=== PATIENT | male | born 1950 | race Caucasian/White ===

== ENCOUNTER 2017-04-24 18:07 | Inpatient (IN) | payer MEDICARE, MEDICAID ==
--- NOTE | 2017-04-24 18:54 | EDM.PDOC ---
<Pj Marin - Last Filed: 04/24/17 18:54> ED HPI GENERAL MEDICAL PROBLEM - General Chief Complaint: Chest Pain Stated Complaint: CHEST PAIN Time Seen by Provider: 04/24/17 18:17 - History of Present Illness INITIAL COMMENTS - FREE TEXT/NARRATIVE: HISTORY AND PHYSICAL: History of present illness: This is a 67-year-old male with a known history of hypertension, hyperlipidemia presenting with a chief complaint of chest pain. Onset one week ago. Patient tells me since persistent since then. Patient was brought in via ambulance at the time of presentation to the ambulance patient was complaining of severe chest pain which did respond to nitroglycerin. Now the emergency department, the patient states that his chest pain is practically gone. Currently he has no complaints aside from shortness of breath. He denies any fevers chills nausea or vomiting. He has no other complaints. He has no numbness tingling. Review of systems: As per history of present illness and below otherwise all systems reviewed and negative. Past medical history: As per history of present illness and as reviewed below otherwise noncontributory. Surgical history: As per history of present illness and as reviewed below otherwise noncontributory. Social history: No reported history of drug or alcohol abuse. Family history: As per history of present illness and as reviewed below otherwise noncontributory. Physical exam: HEENT: Atraumatic, normocephalic, pupils reactive, negative for conjunctival pallor or scleral icterus, mucous membranes moist, throat clear, neck supple, nontender, trachea midline. Lungs: Clear to auscultation, breath sounds equal bilaterally, chest nontender. Heart: S1S2, regular, negative for clicks, rubs, or JVD. Abdomen: Soft, nondistended, nontender. Negative for masses or hepatosplenomegaly. Negative for costovertebral tenderness. Pelvis: Stable nontender. Genitourinary: Deferred. Rectal: Deferred. Extremities: Atraumatic, negative for cords or calf pain. Neurovascular unremarkable. Neuro: Awake, alert, oriented. Cranial nerves II through XII unremarkable. Cerebellum unremarkable. Motor and sensory unremarkable throughout. Exam nonfocal. Diagnostics: EKG CBC CMP troponin PT/INR chest x-ray Therapeutics: None Impression: [] Plan: Admit to observation on telemetry. ACS rule out. Middle Chest Pain Score (Numeric/FACES): 6 - Related Data Allergies Allergy/AdvReac Type Severity Reaction Status Date / Time No Known Allergies Allergy Verified 04/24/17 18:14 Home Meds: Home Meds Aspirin [Ecotrin] 325 mg PO DAILY 09/19/14 [History] Lisinopril 2.5 mg PO DAILY 09/19/14 [History] Metoprolol Succinate 25 mg PO DAILY 09/19/14 [History] Omeprazole 40 mg PO DAILY 09/19/14 [History] Rosuvastatin [Crestor] 5 mg PO ASDIRECTED 09/19/14 [History] cloNIDine [Catapres] 0 mg PO DAILY 09/19/14 [History] traZODone 150 mg PO BEDTIME 09/19/14 [History] buPROPion [Wellbutrin SR] 150 mg PO DAILY 02/21/16 [History] Cholecalciferol (Vitamin D3) [Vitamin D3] 2,000 units PO DAILY 04/24/17 [History ] Fluticasone/Vilanterol [Breo Ellipta 200-25 Mcg INH] 1 puff INH DAILY 04/24/17 [ History] Gabapentin [Neurontin] 300 mg PO BEDTIME 04/24/17 [History] Linaclotide [Linzess] 290 mcg PO DAILY 04/24/17 [History] QUEtiapine Fumarate [Seroquel Xr] 800 mg PO BEDTIME 04/24/17 [History] Past Medical History HEENT History: Reports: None Cardiovascular History: Reports: Aneurysm, High Cholesterol, Hypertension Other Cardiovascular History: aortic aneurysm Respiratory History: Reports: COPD Gastrointestinal History: Reports: None Genitourinary History: Reports: None Musculoskeletal History: Reports: Back Pain, Chronic Neurological History: Reports: None Psychiatric History: Reports: Depression Endocrine/Metabolic History: Reports: None Hematologic History: Reports: None Oncologic (Cancer) History: Reports: None Dermatologic History: Reports: None - Infectious Disease History Infectious Disease History: Reports: Chicken Pox - Past Surgical History Head Surgeries/Procedures: Reports: None HEENT Surgical History: Reports: Tonsillectomy Cardiovascular Surgical History: Reports: None Respiratory Surgical History: Reports: None GI Surgical History: Reports: Hernia, Abdominal Social & Family History - Family History Family Medical History: Noncontributory - Tobacco Use Smoking Status *Q: Former Smoker Years of Tobacco use: 46 Used Tobacco, but Quit: Yes Month Tobacco Last Used: "18 months ago" Second Hand Smoke Exposure: Yes - Caffeine Use Caffeine Use: Reports: Coffee Caffeine Use Comment: 3cups/day - Alcohol Use Days Per Week of Alcohol Use: 2 Number of Drinks Per Day: 3 Total Drinks Per Week: 6 - Recreational Drug Use Recreational Drug Use: No ED ROS GENERAL - Review of Systems Review Of Systems: See Below (See history of present illness) ED EXAM, GENERAL - Physical Exam Exam: See Below (see history of present illness) Course - Vital Signs Last Recorded V/S: Last Vital Signs Temp 97.8 F 04/24/17 18:08 Pulse 120 H 04/24/17 18:08 Resp 22 H 04/24/17 18:08 BP 144/85 H 04/24/17 18:08 Pulse Ox 93 L 04/24/17 18:08 - Orders/Labs/Meds Orders: Active Orders 24 hr Category Date Time Status EKG 12 Lead [EKG Documentation Completion] [RC] STAT Care 04/24/17 18:10 Active Chest 2V [CR] Stat Exams 04/24/17 18:14 Taken Labs: Laboratory Tests 04/24/17 04/24/17 04/24/17 Range/Units 18:40 18:40 18:40 WBC 19.02 H (4.0-11.0) K/uL RBC 4.41 L (4.50-5.90) M/uL Hgb 13.2 (13.0-17.0) g/dL Hct 39.2 (38.0-50.0) % MCV 88.9 (80.0-98.0) fL MCH 29.9 (27.0-32.0) pg MCHC 33.7 (31.0-37.0) g/dL RDW Std Deviation 42.3 (28.0-62.0) fl RDW Coeff of Flora 13 (11.0-15.0) % Plt Count 402 H (150-400) K/uL MPV 9.10 (7.40-12.00) fL Add Manual Diff YES Neutrophils % (Manual) 80 (48.0-80.0) % Lymphocytes % (Manual) 9 L (16.0-40.0) % Monocytes % (Manual) 10 (0.0-15.0) % Metamyelocytes % 1 % Nucleated RBC % 0.0 /100WBC Absolute Seg Neuts 15.2 Lymphocytes # (Manual) 1.7 Monocytes # (Manual) 1.9 Absolute Metamyelocyte 0.2 Nucleated RBCs # 0 K/uL INR 1.05 (0.86-1.11) Sodium 137 (136-146) mmol/L Potassium 4.0 (3.5-5.1) mmol/L Chloride 101 (98-110) mmol/L Carbon Dioxide 26 (21-31) mmol/L BUN 18 (6.0-23.0) mg/dL Creatinine 0.9 (0.6-1.5) mg/dL Est Cr Clr Drug Dosing TNP Estimated GFR (MDRD) > 60.0 ml/min Glucose 142 H (60-110) mg/dL Calcium 9.9 (8.8-10.8) mg/dL Total Bilirubin 0.5 (0.1-1.5) mg/dL AST 36 (5-40) IU/L ALT 41 (8-54) IU/L Alkaline Phosphatase 219 H (40-150) Troponin I (0.0-0.29) NG/ML Total Protein 6.8 (6.0-8.0) g/dL Albumin 3.7 (3.4-4.8) g/dL Globulin 3.1 (2.0-3.5) g/dL Albumin/Globulin Ratio 1.2 L (1.3-2.8) Lipase 72 (7-80) U/L 04/24/ Range/Units 18:40 WBC (4.0-11.0) K/uL RBC (4.50-5.90) M/uL Hgb (13.0-17.0) g/dL Hct (38.0-50.0) % MCV (80.0-98.0) fL MCH (27.0-32.0) pg MCHC (31.0-37.0) g/dL RDW Std Deviation (28.0-62.0) fl RDW Coeff of Flora (11.0-15.0) % Plt Count (150-400) K/uL MPV (7.40-12.00) fL Add Manual Diff Neutrophils % (Manual) (48.0-80.0) % Lymphocytes % (Manual) (16.0-40.0) % Monocytes % (Manual) (0.0-15.0) % Metamyelocytes % % Nucleated RBC % /100WBC Absolute Seg Neuts Lymphocytes # (Manual) Monocytes # (Manual) Absolute Metamyelocyte Nucleated RBCs # K/uL INR (0.86-1.11) Sodium (136-146) mmol/L Potassium (3.5-5.1) mmol/L Chloride (98-110) mmol/L Carbon Dioxide (21-31) mmol/L BUN (6.0-23.0) mg/dL Creatinine (0.6-1.5) mg/dL Est Cr Clr Drug Dosing Estimated GFR (MDRD) ml/min Glucose (60-110) mg/dL Calcium (8.8-10.8) mg/dL Total Bilirubin (0.1-1.5) mg/dL AST (5-40) IU/L ALT (8-54) IU/L Alkaline Phosphatase (40-150) Troponin I < 0.10 (0.0-0.29) NG/ML Total Protein (6.0-8.0) g/dL Albumin (3.4-4.8) g/dL Globulin (2.0-3.5) g/dL Albumin/Globulin Ratio (1.3-2.8) Lipase (7-80) U/L Departure - Departure Disposition: Admitted As Inpatient 64 Clinical Impression: Chest pain, Pneumonia Referrals: PCP,Unknown [Primary Care Provider] - Forms: ED Department Discharge <Chris Momin - Last Filed: 04/24/17 19:39> Course - Re-Assessments/Exams Free Text/Narrative Re-Assessment/Exam: 04/24/17 19:28 I received a verbal report on this patient from Dr Renner at 1905. Patient reports 2 weeks of fever, feeling febrile, cough and dyspnea. He has a known history of copd. about 18 months ago he quit alcohol and smoking. Exam: alert normal speech lungs: faint bilateral rhonchi abdomen non tender ankles no edema CXR: RUL infiltrate leukocytosis noted EKG: sinus tachycardia; non specific ST changes A: pneumonia history of copd sinus tachycardia P: admit to observation see orders. Chris Momin MD Departure - Departure Time of Disposition: 19:39 Condition: Fair
[2017-04-24 19:12] LABS: CHLORIDE,CL 101 mmol/L (98-110); SODIUM,NA 137 mmol/L (136-146)
[2017-04-24] MEDS ORDERED: Ondansetron 4 MG Tab.DIS PO PRN (19:32)
[2017-04-24] MEDS ORDERED: Non-Formulary Medication 1 Each (Rosuvastatin [Crestor] 5 MG) PO SCH (19:45)
[2017-04-24] MEDS: Levofloxacin/Dextrose 5%-Water 750 MG in Premix Bag 1 BAG IV SCH (20:11)
[2017-04-24] MEDS ORDERED: Non-Formulary Medication 1 Each (Trazodone [Trazodone] 150 MG) PO SCH (21:00)
[2017-04-24] MEDS ORDERED: QUETIAPINE FUMARATE 800 MG PO SCH (21:00)
[2017-04-24] MEDS: Albuterol/Ipratropium 3.0-0.5 MG/3 ML Neb Soln NEB SCH ×2 (21:17→23:14)
[2017-04-24] MEDS: HYDROmorphone 1 MG/ML Syringe IVPUSH PRN (21:36)
[2017-04-24] MEDS: Gabapentin 300 MG Cap PO SCH (21:39)
[2017-04-24] MEDS: Sodium Chloride 0.9% 1,000 ML IV SCH (21:39)
[2017-04-24] MEDS ORDERED: QUETIAPINE 400 MG PO SCH (22:11)
[2017-04-24] MEDS ORDERED: TRAZODONE 150 MG PO SCH (22:25)
[2017-04-24] MEDS ORDERED: Pneumococcal Polyvalent-23 Vaccine 0.5 ML SDV IM ONE (22:26)
[2017-04-24] MEDS ORDERED: Flu Vaccine 2016-17(36Mos+)/PF 60 MCG/0.5 ML Syringe IM ONE (22:26)
[2017-04-24] MEDS ORDERED: ROSUVASTATIN 5 MG PO SCH (22:30)
[2017-04-24] MEDS: TRAZODONE 150 MG PO SCH (23:03)
[2017-04-24] MEDS: QUETIAPINE 400 MG PO SCH (23:04)
[2017-04-25] MEDS: Albuterol/Ipratropium 3.0-0.5 MG/3 ML Neb Soln NEB SCH ×3 (02:47→09:48)
[2017-04-25] MEDS: Sodium Chloride 0.9% 1,000 ML IV SCH ×3 (06:20→23:26)
[2017-04-25 08:05] LABS: CHLORIDE,CL 105 mmol/L (98-110); SODIUM,NA 137 mmol/L (136-146)
[2017-04-25] MEDS: HYDROmorphone 1 MG/ML Syringe IVPUSH PRN ×3 (08:13→20:10)
[2017-04-25] MEDS: Aspirin 325 MG Tab.EC PO SCH (08:16)
[2017-04-25] MEDS: Metoprolol Succinate 25 MG Tab.ER PO SCH (08:16)
[2017-04-25] MEDS: Omeprazole 20 MG Cap.CR PO SCH (08:17)
[2017-04-25] MEDS: cloNIDine 0.1 MG Tab PO SCH (08:18)
[2017-04-25] MEDS: LINZESS 290 MCG PO SCH (08:20)
[2017-04-25] MEDS: BREO ELLIPTA INH SCH (08:21)
[2017-04-25] MEDS ORDERED: buPROPion 150 MG Tab.SR PO SCH (09:00)
[2017-04-25] MEDS ORDERED: Lisinopril 5 MG Tab PO SCH (09:00)
[2017-04-25] MEDS ORDERED: Magnesium Sulfate/Water 2 GM in Premix Bag 1 BAG IV ONE (12:10)
[2017-04-25] MEDS ORDERED: Albuterol/Ipratropium 3.0-0.5 MG/3 ML Neb Soln NEB PRN (12:11)
--- NOTE | 2017-04-25 12:14 | PCM.HP ---
H&P History of Present Illness - History of Present Illness Initial Comments - Free Text/Narative: 67 yo male with pmh of COPD who presents with several day history of shortness of breath, productive cough, right pleuritic chest pain, myalgias, and fever. He was evaluated in the ED and noted to have a WBC of 19,020 and CXR with Right upper lung infiltrate. Middle Chest Pain Score (Numeric/FACES): 7 - Related Data Allergies/Adverse Reactions: Allergies Allergy/AdvReac Type Severity Reaction Status Date / Time No Known Allergies Allergy Verified 04/24/17 18:14 Home Medications: Home Meds Aspirin [Ecotrin] 325 mg PO DAILY 09/19/14 [History] Lisinopril 2.5 mg PO DAILY 09/19/14 [History] Metoprolol Succinate 25 mg PO DAILY 09/19/14 [History] Omeprazole 40 mg PO DAILY 09/19/14 [History] Rosuvastatin [Crestor] 5 mg PO ASDIRECTED 09/19/14 [History] cloNIDine [Catapres] 0 mg PO DAILY 09/19/14 [History] traZODone 150 mg PO BEDTIME 09/19/14 [History] buPROPion [Wellbutrin SR] 150 mg PO DAILY 02/21/16 [History] Cholecalciferol (Vitamin D3) [Vitamin D3] 2,000 units PO DAILY 04/24/17 [History ] Fluticasone/Vilanterol [Breo Ellipta 200-25 Mcg INH] 1 puff INH DAILY 04/24/17 [ History] Gabapentin [Neurontin] 300 mg PO BEDTIME 04/24/17 [History] Linaclotide [Linzess] 290 mcg PO DAILY 04/24/17 [History] QUEtiapine Fumarate [Seroquel Xr] 800 mg PO BEDTIME 04/24/17 [History] Past Medical History HEENT History: Reports: None Cardiovascular History: Reports: Aneurysm, High Cholesterol, Hypertension Other Cardiovascular History: aortic aneurysm Respiratory History: Reports: COPD Gastrointestinal History: Reports: None Genitourinary History: Reports: None Musculoskeletal History: Reports: Back Pain, Chronic Neurological History: Reports: None Psychiatric History: Reports: Depression Endocrine/Metabolic History: Reports: None Hematologic History: Reports: None Oncologic (Cancer) History: Reports: None Dermatologic History: Reports: None - Infectious Disease History Infectious Disease History: Reports: Chicken Pox - Past Surgical History Head Surgeries/Procedures: Reports: None HEENT Surgical History: Reports: Tonsillectomy Cardiovascular Surgical History: Reports: None Respiratory Surgical History: Reports: None GI Surgical History: Reports: Hernia, Abdominal Social & Family History - Family History Family Medical History: Noncontributory - Tobacco Use Smoking Status *Q: Former Smoker Years of Tobacco use: 46 Used Tobacco, but Quit: Yes Month Tobacco Last Used: 15 months ago Second Hand Smoke Exposure: No - Caffeine Use Caffeine Use: Reports: Coffee Caffeine Use Comment: 3cups/day - Alcohol Use Days Per Week of Alcohol Use: 2 Number of Drinks Per Day: 3 Total Drinks Per Week: 6 - Recreational Drug Use Recreational Drug Use: No H&P Review of Systems - Review of Systems: Review Of Systems: ROS reveals no pertinent complaints other than HPI. Exam - Exam Exam: See Below - Vital Signs Vital Signs: Last Vital Signs Temp 36.9 C 04/25/17 08:00 Pulse 74 04/25/17 08:16 Resp 22 H 04/25/17 08:00 BP 138/79 04/25/17 08:18 Pulse Ox 93 L 04/25/17 08:00 Weight: 82.4 kg - Exam General: Alert, Oriented, 4 Lungs: Clear to Auscultation, Normal Respiratory Effort Cardiovascular: Regular Rate, Regular Rhythm GI/Abdominal Exam: Normal Bowel Sounds, Soft, Non-Tender, No Organomegaly, No Distention, Pelvis Stable Extremities: Non-Tender, No Pedal Edema Skin: Warm, Dry, Intact - Patient Data Lab Results Last 24 hrs: Laboratory Results - last 24 hr 04/25/17 04/25/17 04/25/17 Range/Units 07:40 07:40 11:46 WBC 16.96 H (4.0-11.0) K/uL RBC 4.06 L (4.50-5.90) M/uL Hgb 12.0 L (13.0-17.0) g/dL Hct 36.4 L (38.0-50.0) % MCV 89.7 (80.0-98.0) fL MCH 29.6 (27.0-32.0) pg MCHC 33.0 (31.0-37.0) g/dL RDW Std Deviation 43.0 (28.0-62.0) fl RDW Coeff of Flora 13 (11.0-15.0) % Plt Count 365 (150-400) K/uL MPV 8.90 (7.40-12.00) fL Add Manual Diff YES Neutrophils % (Manual) 64 (48.0-80.0) % Band Neutrophils % 3 % Lymphocytes % (Manual) 19 (16.0-40.0) % Monocytes % (Manual) 13 (0.0-15.0) % Basophils % (Manual) 1 (0.0-1.5) % Nucleated RBC % 0.0 /100WBC Absolute Seg Neuts 10.9 Band Neutrophils # 0.5 Lymphocytes # (Manual) 3.2 Monocytes # (Manual) 2.2 Basophils # (Manual) 0 Nucleated RBCs # 0 K/uL Sodium 137 (136-146) mmol/L Potassium 4.0 (3.5-5.1) mmol/L Chloride 105 (98-110) mmol/L Carbon Dioxide 25 (21-31) mmol/L BUN 14 (6.0-23.0) mg/dL Creatinine 0.8 (0.6-1.5) mg/dL Est Cr Clr Drug Dosing 101.32 mL/min Estimated GFR (MDRD) > 60.0 ml/min Glucose 111 H (60-110) mg/dL Calcium 8.2 L (8.8-10.8) mg/dL Magnesium 1.4 L (1.5-2.3) mEq/L Total Bilirubin 0.5 (0.1-1.5) mg/dL AST 24 (5-40) IU/L ALT 34 (8-54) IU/L Alkaline Phosphatase 189 H (40-150) Troponin I < 0.10 (0.0-0.29) NG/ML Total Protein 5.1 L (6.0-8.0) g/dL Albumin 3.1 L (3.4-4.8) g/dL Globulin 2.0 (2.0-3.5) g/dL Albumin/Globulin Ratio 1.6 (1.3-2.8) Result Diagrams: 04/25/17 07:40 04/25/17 07:40 *Q Meaningful Use (ADM) - VTE *Q VTE Criteria *Q: - Stroke *Q Stroke Criteria *Q: - AMI *Q AMI Criteria *Q: Problem List Initiated/Reviewed/Updated: Yes Orders Last 24hrs: Active Orders 24 hr Category Date Time Status EKG Documentation Completion [RC] ROUTINE Care 04/25/17 08:59 Active Telemetry Monitoring [Cardiac Monitoring] [] . Care 04/25/17 02:30 Active DIRECTED Enoxaparin [Lovenox] [facility] 04/25/17 12:15 Ordered 40 mg SUBCUT Q24H HYDROmorphone [Dilaudid] Med 04/24/17 21:30 Active 1 mg IVPUSH Q2H PRN Magnesium Sulfate/Water [Magnesium Sulfate 2 GM in Med 04/25/17 12:10 Ordered Water 50 ML] 2 gm Premix Bag 1 bag IV ONETIME Patient's Own Medication [Ptom] Med 04/24/17 23:00 Active 0 each PO BEDTIME Patient's Own Medication [Ptom] Med 04/24/17 23:00 Active 0 each PO BEDTIME Patient's Own Medication [Ptom] Med 04/27/17 21:00 Active 0 each PO [id number]@2100 Medication Orders Acetaminophen (Tylenol) 650 mg PO Q4H PRN PRN Reason: Pain (Mild 1-3)/fever Albuterol/Ipratropium (Duoneb 3.0-0.5 Mg/3 Ml) 3 ml NEB Q4HRRT [facility] Last Admin: 04/25/17 09:48 Dose: Not Given Admin: 04/25/17 06:07 Dose: Not Given Admin: 04/25/17 02:47 Dose: Not Given Admin: 04/24/17 23:14 Dose: Admin: 04/24/17 21:17 Dose: 3 ml Aspirin (Ecotrin) 325 mg PO DAILY [facility] Last Admin: 04/25/17 08:16 Dose: 325 mg Bupropion HCl (Wellbutrin Sr) 150 mg PO DAILY [facility] Last Admin: 04/25/17 08:16 Dose: 150 mg Clonidine HCl (Catapres) 0.1 mg PO DAILY [facility] Last Admin: 04/25/17 08:18 Dose: 0.1 mg Enoxaparin Sodium (Lovenox) 40 mg SUBCUT Q24H [facility] Gabapentin (Neurontin) 300 mg PO BEDTIME [facility] Last Admin: 04/24/17 21:39 Dose: 300 mg Hydromorphone HCl (Dilaudid) 1 mg IVPUSH Q2H PRN PRN Reason: Pain Last Admin: 04/25/17 12:09 Dose: 1 mg Admin: 04/25/17 08:13 Dose: 1 mg Admin: 04/24/17 21:36 Dose: 1 mg Levofloxacin/Dextrose 750 mg/ (Premix) 150 mls @ 100 mls/hr IV Q24H RACHELL Last Admin: 04/24/17 20:11 Dose: 100 mls/hr Sodium Chloride (Normal Saline) 1,000 mls @ 125 mls/hr IV ASDIRECTED [facility] Last Admin: 04/25/17 06:20 Dose: 125 mls/hr Infusion: 04/25/17 05:39 Dose: 125 mls/hr Admin: 04/24/17 21:39 Dose: 125 mls/hr Lisinopril (Prinivil) 2.5 mg PO DAILY [facility] Last Admin: 04/25/17 08:18 Dose: 2.5 mg Metoprolol Succinate (Toprol Xl) 25 mg PO DAILY [facility] Last Admin: 04/25/17 08:16 Dose: 25 mg Omeprazole (Omeprazole) 40 mg PO DAILY [facility] Last Admin: 04/25/17 08:17 Dose: 40 mg Ondansetron HCl (Zofran Odt) 4 mg PO Q4H PRN PRN Reason: nausea, able to take PO Breo Ellipta 200/25 (Inhaler Own Med) 0 each INH DAILY [facility] Last Admin: 04/25/17 08:21 Dose: 1 each Linzess 290mcg Cap * (*Own Med) 0 each PO DAILY [facility] Last Admin: 04/25/17 08:20 Dose: 1 each Rosuvastatin 5mg Tab (Own Med) 0 each PO [id number]@2100 [facility] Trazodone 150mg Tab (Own Med) 0 each PO BEDTIME [facility] Last Admin: 04/24/17 23:03 Dose: 1 each Quetiapine 400mg Tab (Own Med) 0 each PO BEDTIME [facility] Last Admin: 04/24/17 23:04 Dose: 800 each Temazepam (Restoril) 15 mg PO BEDTIME PRN PRN Reason: Sleep Assessment/Plan Comment:: 67 yo male admitted with community acquired pneumonia. Treating with IV fluids and levaquin.
[2017-04-25] MEDS: Enoxaparin 40 MG/0.4 ML Syringe SUBCUT SCH (13:13)
[2017-04-25] MEDS: Levofloxacin/Dextrose 5%-Water 750 MG in Premix Bag 1 BAG IV SCH (20:10)
[2017-04-25] MEDS: TRAZODONE 150 MG PO SCH (21:32)
[2017-04-25] MEDS: QUETIAPINE 400 MG PO SCH (21:33)
[2017-04-25] MEDS: Gabapentin 300 MG Cap PO SCH (21:34)
[2017-04-25] MEDS: Temazepam 15 MG Cap PO PRN (21:38)
[2017-04-25] MEDS: buPROPion 150 MG Tab.SR PO SCH (22:54)
[2017-04-26] MEDS: Acetaminophen 325 MG Tab PO PRN ×3 (04:21→21:11)
[2017-04-26] MEDS: Sodium Chloride 0.9% 1,000 ML IV SCH ×2 (07:06→19:22)
[2017-04-26 07:56] LABS: CHLORIDE,CL 105 mmol/L (98-110); SODIUM,NA 136 mmol/L (136-146)
[2017-04-26] MEDS: BREO ELLIPTA INH SCH (08:40)
[2017-04-26] MEDS ORDERED: buPROPion 150 MG Tab.SR PO SCH (09:00)
--- NOTE | 2017-04-26 09:38 | PCM.PN ---
- Review of Systems Systems Review Comment:: Patient reports cough and malaise, minimal improvement - Patient Data Vitals - Most Recent: Last Vital Signs Temp 36.3 C 04/26/17 07:44 Pulse 117 H 04/26/17 07:44 Resp 20 04/26/17 07:44 BP 108/58 L 04/26/17 07:44 Pulse Ox 91 L 04/26/17 07:44 Weight - Most Recent: 82.4 kg I&O - Last 24 Hours: Intake & Output 04/25/17 04/26/17 04/26/17 22:59 06:59 14:59 Intake Total 1917 686 961 Output Total 500 455 Balance 1417 231 961 Lab Results Last 24 Hours: Laboratory Results - last 24 hr 04/25/17 04/26/17 04/26/17 Range/Units 11:46 04:21 04:21 WBC 17.54 H (4.0-11.0) K/uL RBC 3.79 L (4.50-5.90) M/uL Hgb 11.3 L (13.0-17.0) g/dL Hct 34.6 L (38.0-50.0) % MCV 91.3 (80.0-98.0) fL MCH 29.8 (27.0-32.0) pg MCHC 32.7 (31.0-37.0) g/dL RDW Std Deviation 44.5 (28.0-62.0) fl RDW Coeff of Flora 13 (11.0-15.0) % Plt Count 416 H (150-400) K/uL MPV 9.50 (7.40-12.00) fL Add Manual Diff YES Neutrophils % (Manual) 64 (48.0-80.0) % Band Neutrophils % 8 % Lymphocytes % (Manual) 12 L (16.0-40.0) % Monocytes % (Manual) 16 H (0.0-15.0) % Nucleated RBC % 0.0 /100WBC Absolute Seg Neuts 11.2 Band Neutrophils # 1.4 Lymphocytes # (Manual) 2.1 Monocytes # (Manual) 2.8 Nucleated RBCs # 0 K/uL Sodium 136 (136-146) mmol/L Potassium 4.2 (3.5-5.1) mmol/L Chloride 105 (98-110) mmol/L Carbon Dioxide 22 (21-31) mmol/L BUN 14 (6.0-23.0) mg/dL Creatinine 0.8 (0.6-1.5) mg/dL Est Cr Clr Drug Dosing 101.32 mL/min Estimated GFR (MDRD) > 60.0 ml/min Glucose 103 (60-110) mg/dL Calcium 7.8 L (8.8-10.8) mg/dL Troponin I < 0.10 (0.0-0.29) NG/ML Ramu Results Last 24 Hours: Microbiology 04/26/17 04:21 Anaerobic Blood Culture - Final Blood - Venous - Lab Draw Med Orders - Current: Current Medications Acetaminophen (Tylenol) 650 mg PO Q4H PRN PRN Reason: Pain (Mild 1-3)/fever Last Admin: 04/26/17 04:21 Dose: 650 mg Albuterol/Ipratropium (Duoneb 3.0-0.5 Mg/3 Ml) 3 ml NEB Q4HRRT PRN PRN Reason: Wheezing Aspirin (Ecotrin) 325 mg PO DAILY [facility] Last Admin: 04/25/17 08:16 Dose: 325 mg Bupropion HCl (Wellbutrin Sr) 150 mg PO BID [facility] Last Admin: 04/25/17 22:54 Dose: 150 mg Clonidine HCl (Catapres) 0.1 mg PO DAILY [facility] Last Admin: 04/25/17 08:18 Dose: 0.1 mg Enoxaparin Sodium (Lovenox) 40 mg SUBCUT Q24H [facility] Last Admin: 04/25/17 13:13 Dose: 40 mg Gabapentin (Neurontin) 300 mg PO BEDTIME [facility] Last Admin: 04/25/17 21:34 Dose: 300 mg Hydromorphone HCl (Dilaudid) 1 mg IVPUSH Q2H PRN PRN Reason: Pain Last Admin: 04/25/17 20:10 Dose: 1 mg Levofloxacin/Dextrose 750 mg/ (Premix) 150 mls @ 100 mls/hr IV Q24H [facility] Last Admin: 04/25/17 20:10 Dose: 100 mls/hr Sodium Chloride (Normal Saline) 1,000 mls @ 125 mls/hr IV ASDIRECTED [facility] Last Admin: 04/26/17 07:06 Dose: 125 mls/hr Losartan Potassium (Cozaar) 50 mg PO DAILY [facility] Metoprolol Succinate (Toprol Xl) 25 mg PO DAILY [facility] Last Admin: 04/25/17 08:16 Dose: 25 mg Omeprazole (Omeprazole) 40 mg PO DAILY [facility] Last Admin: 04/25/17 08:17 Dose: 40 mg Ondansetron HCl (Zofran Odt) 4 mg PO Q4H PRN PRN Reason: nausea, able to take PO Breo Ellipta 200/25 (Inhaler Own Med) 0 each INH DAILY [facility] Last Admin: 04/26/17 08:40 Dose: 1 each Linzess 290mcg Cap * (*Own Med) 0 each PO DAILY [facility] Last Admin: 04/25/17 08:20 Dose: 1 each Rosuvastatin 5mg Tab (Own Med) 0 each PO MoWeFr@2100 [facility] Trazodone 150mg Tab (Own Med) 0 each PO BEDTIME [facility] Last Admin: 04/25/17 21:32 Dose: 1 each Quetiapine 400mg Tab (Own Med) 0 each PO BEDTIME [facility] Last Admin: 04/25/17 21:33 Dose: 1 each Temazepam (Restoril) 15 mg PO BEDTIME PRN PRN Reason: Sleep Last Admin: 04/25/17 21:38 Dose: 15 mg Tramadol HCl (Ultram) 50 mg PO Q6H PRN PRN Reason: Pain Discontinued Medications Albuterol/Ipratropium (Duoneb 3.0-0.5 Mg/3 Ml) 3 ml NEB Q4HRRT [facility] Last Admin: 04/25/17 09:48 Dose: Not Given Bupropion HCl (Wellbutrin Sr) 150 mg PO DAILY [facility] Last Admin: 04/25/17 08:16 Dose: 150 mg Bupropion HCl (Wellbutrin Sr) 150 mg PO BID [facility] Magnesium Sulfate 2 gm/ Premix 50 mls @ 50 mls/hr IV ONETIME ONE Stop: 04/25/17 13:09 Last Admin: 04/25/17 13:08 Dose: 50 mls/hr Lisinopril (Prinivil) 2.5 mg PO DAILY [facility] Last Admin: 04/25/17 08:18 Dose: 2.5 mg Non-Formulary Medication (Quetiapine Fumarate [Seroquel Xr]) 800 mg PO BEDTIME [facility] Last Admin: 04/24/17 23:12 Dose: Not Given Non-Formulary Medication (Rosuvastatin [Crestor]) 5 mg PO ASDIRECTED [facility] Non-Formulary Medication (Trazodone [Trazodone]) 150 mg PO BEDTIME [facility] Last Admin: 04/24/17 23:13 Dose: Not Given Quetiapine 400mg Tab (Own Med) 0 each PO BEDTIME [facility] Rosuvastatin 5mg Tab (Own Med) 0 each PO MoWeFr@2100 [facility] Last Admin: 04/24/17 23:00 Dose: Not Given Trazodone 150mg Tab (Own Med) 0 each PO BEDTIME [facility] Pneumococcal Polyvalent Vaccine (Pneumovax 23) 0.5 ml IM .ONCE ONE Stop: 04/24/17 22:27 - Exam General: Alert, Oriented HEENT: Mucous Membr. Moist/[place] Lungs: Rhonchi Cardiovascular: Regular Rate, Regular Rhythm GI/Abdominal Exam: Normal Bowel Sounds, Soft, Non-Tender Extremities: Normal Inspection, Normal Range of Motion, Non-Tender, No Pedal Edema Skin: Warm, Dry, Intact - Problem List Review Problem List Initiated/Reviewed/Updated: Yes - My Orders Last 24 Hours: My Active Orders 04/25/17 08:59 EKG Documentation Completion [RC] ROUTINE 04/25/17 12:11 Albuterol/Ipratropium [DuoNeb 3.0-0.5 MG/3 ML] 3 ml NEB Q4HRRT PRN 04/25/17 12:15 Enoxaparin [Lovenox] 40 mg SUBCUT Q24H 04/25/17 22:00 buPROPion [Wellbutrin SR] 150 mg PO BID 04/26/17 04:04 Blood Culture x2 Reflex Set [OM.PC] Stat 04/26/17 04:21 CULTURE BLOOD [BC] Stat CULTURE BLOOD [BC] Stat 04/26/17 09:00 Losartan [Cozaar] 50 mg PO DAILY 04/26/17 09:32 traMADol [Ultram] 50 mg PO Q6H PRN 04/26/17 09:33 PE Chest [Ang Chest] [CT] Routine 04/26/17 09:34 Admission Status [Patient Status] [ADT] Routine 04/27/17 05:11 BASIC METABOLIC PANEL,BMP [CHEM] AM CBC WITH AUTO DIFF [HEME] AM 04/28/17 05:11 BASIC METABOLIC PANEL,BMP [CHEM] AM CBC WITH AUTO DIFF [HEME] AM 04/29/17 05:11 BASIC METABOLIC PANEL,BMP [CHEM] AM CBC WITH AUTO DIFF [HEME] AM 04/30/17 05:11 BASIC METABOLIC PANEL,BMP [CHEM] AM CBC WITH AUTO DIFF [HEME] AM 05/01/17 05:11 BASIC METABOLIC PANEL,BMP [CHEM] AM CBC WITH AUTO DIFF [HEME] AM 05/02/17 05:11 BASIC METABOLIC PANEL,BMP [CHEM] AM CBC WITH AUTO DIFF [HEME] AM - Plan Plan:: 67 yo male admitted with community acquired pneumonia. Treating with IV fluids and levaquin. fever last night. Symptoms slow to resolve. Will check CT angio to eval for complicating features. Will switch to inpatient status.
[2017-04-26] MEDS: Aspirin 325 MG Tab.EC PO SCH (09:39)
[2017-04-26] MEDS: cloNIDine 0.1 MG Tab PO SCH (09:40)
[2017-04-26] MEDS: Metoprolol Succinate 25 MG Tab.ER PO SCH (09:40)
[2017-04-26] MEDS: Omeprazole 20 MG Cap.CR PO SCH (09:40)
[2017-04-26] MEDS: Losartan 50 MG Tab PO SCH (09:41)
[2017-04-26] MEDS: buPROPion 150 MG Tab.SR PO SCH ×2 (09:43→21:11)
[2017-04-26] MEDS: LINZESS 290 MCG PO SCH (09:44)
[2017-04-26] MEDS ORDERED: Iopamidol 755 MG/ML 500 ML Multipack Bottle IVPUSH STA (09:50)
[2017-04-26] MEDS: Enoxaparin 40 MG/0.4 ML Syringe SUBCUT SCH (13:15)
[2017-04-26] MEDS: traMADol 50 MG Tab PO PRN ×2 (14:40→21:12)
[2017-04-26] MEDS: Levofloxacin/Dextrose 5%-Water 750 MG in Premix Bag 1 BAG IV SCH (19:22)
[2017-04-26] MEDS: Gabapentin 300 MG Cap PO SCH (21:08)
[2017-04-26] MEDS: QUETIAPINE 400 MG PO SCH (21:09)
[2017-04-26] MEDS: TRAZODONE 150 MG PO SCH (21:10)
[2017-04-26] MEDS: Temazepam 15 MG Cap PO PRN (21:12)
[2017-04-27] MEDS: Sodium Chloride 0.9% 1,000 ML IV SCH ×2 (04:59→14:33)
[2017-04-27 06:50] LABS: CHLORIDE,CL 107 mmol/L (98-110); SODIUM,NA 141 mmol/L (136-146)
--- NOTE | 2017-04-27 08:21 | PCM.PN ---
- General Info Date of Service: 04/27/17 Admission Dx/Problem (Free Text): Community acquired pneumonia Functional Status: Reports: Tolerating Diet, Ambulating, Urinating - Review of Systems General: Reports: Fever, Fatigue, Malaise. Denies: Weakness HEENT: Reports: No Symptoms. Denies: Headaches, Sinus Congestion, Sore Throat Pulmonary: Reports: Shortness of Breath, Cough Cardiovascular: Reports: No Symptoms. Denies: Chest Pain, Palpitations Gastrointestinal: Reports: No Symptoms. Denies: Abdominal Pain, Nausea, Vomiting Genitourinary: Reports: Retention (was able to urinate later this am. ) Musculoskeletal: Reports: No Symptoms. Denies: Neck Pain Psychiatric: Reports: Agitation (when he was having urinary retention) - Patient Data Vitals - Most Recent: Last Vital Signs Temp 99.5 F 04/27/17 04:00 Pulse 114 H 04/27/17 04:00 Resp 20 04/27/17 04:00 BP 123/67 04/27/17 04:00 Pulse Ox 95 04/27/17 04:00 Weight - Most Recent: 82.4 kg I&O - Last 24 Hours: Intake & Output 04/26/17 04/27/17 04/27/17 22:59 06:59 14:59 Intake Total 1749 1495 Output Total 550 550 Balance 1199 945 Lab Results Last 24 Hours: Laboratory Results - last 24 hr 04/27/17 04/27/17 Range/Units 06:15 06:15 WBC 17.65 H (4.0-11.0) K/uL RBC 3.99 L (4.50-5.90) M/uL Hgb 11.8 L (13.0-17.0) g/dL Hct 36.6 L (38.0-50.0) % MCV 91.7 (80.0-98.0) fL MCH 29.6 (27.0-32.0) pg MCHC 32.2 (31.0-37.0) g/dL RDW Std Deviation 45.5 (28.0-62.0) fl RDW Coeff of Flora 14 (11.0-15.0) % Plt Count 392 (150-400) K/uL MPV 9.70 (7.40-12.00) fL Add Manual Diff YES Neutrophils % (Manual) 79 (48.0-80.0) % Band Neutrophils % 6 % Lymphocytes % (Manual) 9 L (16.0-40.0) % Monocytes % (Manual) 6 (0.0-15.0) % Nucleated RBC % 0.0 /100WBC Absolute Seg Neuts 13.9 Band Neutrophils # 1.1 Lymphocytes # (Manual) 1.6 Monocytes # (Manual) 1.1 Nucleated RBCs # 0 K/uL Sodium 141 (136-146) mmol/L Potassium 4.1 (3.5-5.1) mmol/L Chloride 107 (98-110) mmol/L Carbon Dioxide 23 (21-31) mmol/L BUN 12 (6.0-23.0) mg/dL Creatinine 0.7 (0.6-1.5) mg/dL Est Cr Clr Drug Dosing 115.80 mL/min Estimated GFR (MDRD) > 60.0 ml/min Glucose 124 H (60-110) mg/dL Calcium 8.7 L (8.8-10.8) mg/dL Med Orders - Current: Current Medications Acetaminophen (Tylenol) 650 mg PO Q4H PRN PRN Reason: Pain (Mild 1-3)/fever Last Admin: 04/26/17 21:11 Dose: 650 mg Albuterol/Ipratropium (Duoneb 3.0-0.5 Mg/3 Ml) 3 ml NEB Q4HRRT PRN PRN Reason: Wheezing Aspirin (Ecotrin) 325 mg PO DAILY [facility] Last Admin: 04/26/17 09:39 Dose: 325 mg Bupropion HCl (Wellbutrin Sr) 150 mg PO BID [facility] Last Admin: 04/26/17 21:11 Dose: 150 mg Clonidine HCl (Catapres) 0.1 mg PO DAILY [facility] Last Admin: 04/26/17 09:40 Dose: 0.1 mg Enoxaparin Sodium (Lovenox) 40 mg SUBCUT Q24H [facility] Last Admin: 04/26/17 13:15 Dose: 40 mg Gabapentin (Neurontin) 300 mg PO BEDTIME [facility] Last Admin: 04/26/17 21:08 Dose: 300 mg Hydromorphone HCl (Dilaudid) 1 mg IVPUSH Q2H PRN PRN Reason: Pain Last Admin: 04/25/17 20:10 Dose: 1 mg Levofloxacin/Dextrose 750 mg/ (Premix) 150 mls @ 100 mls/hr IV Q24H [facility] Last Admin: 04/26/17 19:22 Dose: 100 mls/hr Sodium Chloride (Normal Saline) 1,000 mls @ 125 mls/hr IV ASDIRECTED [facility] Last Admin: 04/27/17 04:59 Dose: 125 mls/hr Losartan Potassium (Cozaar) 50 mg PO DAILY [facility] Last Admin: 04/26/17 09:41 Dose: 50 mg Metoprolol Succinate (Toprol Xl) 25 mg PO DAILY [facility] Last Admin: 04/26/17 09:40 Dose: 25 mg Omeprazole (Omeprazole) 40 mg PO DAILY [facility] Last Admin: 04/26/17 09:40 Dose: 40 mg Ondansetron HCl (Zofran Odt) 4 mg PO Q4H PRN PRN Reason: nausea, able to take PO Breo Ellipta 200/25 (Inhaler Own Med) 0 each INH DAILY [facility] Last Admin: 04/26/17 08:40 Dose: 1 each Linzess 290mcg Cap * (*Own Med) 0 each PO DAILY [facility] Last Admin: 04/26/17 09:44 Dose: 1 each Rosuvastatin 5mg Tab (Own Med) 0 each PO MoWeFr@2100 [facility] Trazodone 150mg Tab (Own Med) 0 each PO BEDTIME [facility] Last Admin: 04/26/17 21:10 Dose: 1 each Quetiapine 400mg Tab (Own Med) 0 each PO BEDTIME [facility] Last Admin: 04/26/17 21:09 Dose: 1 each Temazepam (Restoril) 15 mg PO BEDTIME PRN PRN Reason: Sleep Last Admin: 04/26/17 21:12 Dose: 15 mg Tramadol HCl (Ultram) 50 mg PO Q6H PRN PRN Reason: Pain Last Admin: 04/26/17 21:12 Dose: 50 mg Discontinued Medications Albuterol/Ipratropium (Duoneb 3.0-0.5 Mg/3 Ml) 3 ml NEB Q4HRRT [facility] Last Admin: 04/25/17 09:48 Dose: Not Given Bupropion HCl (Wellbutrin Sr) 150 mg PO DAILY [facility] Last Admin: 04/25/17 08:16 Dose: 150 mg Bupropion HCl (Wellbutrin Sr) 150 mg PO BID [facility] Magnesium Sulfate 2 gm/ Premix 50 mls @ 50 mls/hr IV ONETIME ONE Stop: 04/25/17 13:09 Last Admin: 04/25/17 13:08 Dose: 50 mls/hr Iopamidol (Isovue Multipack-370 (76%)) 100 ml IVPUSH ONETIME STA Stop: 04/26/17 09:51 Last Admin: 04/26/17 14:48 Dose: 50 ml Lisinopril (Prinivil) 2.5 mg PO DAILY [facility] Last Admin: 04/25/17 08:18 Dose: 2.5 mg Non-Formulary Medication (Quetiapine Fumarate [Seroquel Xr]) 800 mg PO BEDTIME [facility] Last Admin: 04/24/17 23:12 Dose: Not Given Non-Formulary Medication (Rosuvastatin [Crestor]) 5 mg PO ASDIRECTED [facility] Non-Formulary Medication (Trazodone [Trazodone]) 150 mg PO BEDTIME [facility] Last Admin: 04/24/17 23:13 Dose: Not Given Quetiapine 400mg Tab (Own Med) 0 each PO BEDTIME [facility] Rosuvastatin 5mg Tab (Own Med) 0 each PO MoWeFr@2100 [facility] Last Admin: 04/24/17 23:00 Dose: Not Given Trazodone 150mg Tab (Own Med) 0 each PO BEDTIME [facility] Pneumococcal Polyvalent Vaccine (Pneumovax 23) 0.5 ml IM .ONCE ONE Stop: 04/24/17 22:27 - Exam General: Alert, Oriented, Cooperative, No Acute Distress Lungs: Decreased Breath Sounds (R lung fileds. ), Rhonchi (R lung field). No: Wheezing Cardiovascular: Regular Rate, Regular Rhythm, No Murmurs GI/Abdominal Exam: Normal Bowel Sounds, Soft, Non-Tender, No Organomegaly, No Distention, No Abnormal Bruit, No Mass, Pelvis Stable Skin: Warm, Dry, Intact Neurological: No New Focal Deficit Psy/Mental Status: Alert, Normal Affect, Normal Mood - Problem List & Annotations (1) Pneumonia SNOMED Code(s): 945606042 Code(s): J18.9 - PNEUMONIA, UNSPECIFIED ORGANISM Status: Acute Current Visit: Yes Qualifiers: Laterality: right Lung location: lower lobe of lung (2) COPD (chronic obstructive pulmonary disease) SNOMED Code(s): 45280339 Code(s): J44.9 - CHRONIC OBSTRUCTIVE PULMONARY DISEASE, UNSPECIFIED Status : Chronic Current Visit: Yes Qualifiers: COPD type: COPD with acute lower respiratory infection Qualified Code(s): J44.0 - Chronic obstructive pulmonary disease with acute lower respiratory infection (3) Depression SNOMED Code(s): 87081298 Code(s): F32.9 - MAJOR DEPRESSIVE DISORDER, SINGLE EPISODE, UNSPECIFIED Status: Chronic Current Visit: Yes Qualifiers: Depression Type: unspecified Qualified Code(s): F32.9 - Major depressive disorder, single episode, unspecified (4) Aortic aneurysm SNOMED Code(s): 84208858 Code(s): I71.9 - AORTIC ANEURYSM OF UNSPECIFIED SITE, WITHOUT RUPTURE Status: Chronic Current Visit: Yes Qualifiers: Aortic location: thoracic aorta Presence of rupture: without rupture Qualified Code(s): I71.2 - Thoracic aortic aneurysm, without rupture (5) HTN (hypertension) SNOMED Code(s): 07416147 Code(s): I10 - ESSENTIAL (PRIMARY) HYPERTENSION Status: Chronic Current Visit: Yes Qualifiers: Hypertension type: essential hypertension Qualified Code(s): I10 - Essential (primary) hypertension - Problem List Review Problem List Initiated/Reviewed/Updated: Yes - My Orders Last 24 Hours: My Active Orders 04/27/17 08:14 CULTURE SPUTUM + SMEAR [RM] Routine - Plan Plan:: 67 yo male admitted with community acquired pneumonia. 1. CAP: Fevers continue, will repeat BC this am. COntinue with IV fluids and Levaquin, will add Vancomycin to cover for possible MRSA pneumonia. CT angio revealed consolidation to R Upper, middle and lower lobes. Leukocytosis remains 17,000. Symptoms slow to resolve. 2. Ascending aortic aneurysm: measuring [address] angio. Will obtain ECHO and plan for outpatient follow up with Dr. Cisneros. Will need close monitoring of this. 3. COPD: Monitor, Duonebs PRN 4. HTN: Continue Lisinopril and Metoprolol XL 5. Dyslipidemia: Continue Crestor 6. Depression: Continue home medications. VTE prophylaxis: Lovenox Dispo: 3-4 days pending improvement.
[2017-04-27] MEDS: Omeprazole 20 MG Cap.CR PO SCH (10:00)
[2017-04-27] MEDS: Aspirin 325 MG Tab.EC PO SCH (10:00)
[2017-04-27] MEDS: cloNIDine 0.1 MG Tab PO SCH (10:04)
[2017-04-27] MEDS: Metoprolol Succinate 25 MG Tab.ER PO SCH (10:04)
[2017-04-27] MEDS: Losartan 50 MG Tab PO SCH (10:04)
[2017-04-27] MEDS: buPROPion 150 MG Tab.SR PO SCH ×2 (10:05→20:53)
--- NOTE | 2017-04-27 10:19 | CR ---
EXAM DATE: 04/26/17 PATIENT'S AGE: 67 Patient: KACEY SANTIAGO Facility: [place], [place] Site . Site : 1950 Study: XRay Chest [id number]/25/[id number] 7:18:41 PM Ordering Physician: Doctor Kim Final Report: INDICATION: Shortness of breath and chest pain. History of COPD and heart disease TECHNIQUE: Chest 2 views. COMPARISON: 02/21/2016 FINDINGS: Cardiovascular and mediastinum: Heart size and vasculature are normal in caliber and appearance. Mediastinum is within normal limits. Lungs and pleural spaces: Right upper lobe infiltrate consistent with pneumonia. No sign of pleural effusion. No pneumothorax. Bones and soft tissues: No significant findings. IMPRESSION: Right upper lobe infiltrate consistent with pneumonia. Dictated by Phill Rodriguez MD @ 04/24/2017 7:37:18 PM Dictated by: Phill Rodriguez MD @ 04/24/2017 19:37:25 (Electronic Signature) Report Signed by Proxy. [facility]ITALJozef
[2017-04-27] MEDS: LINZESS 290 MCG PO SCH (10:29)
[2017-04-27] MEDS: BREO ELLIPTA INH SCH (10:29)
[2017-04-27] MEDS: Enoxaparin 40 MG/0.4 ML Syringe SUBCUT SCH (11:40)
--- NOTE | 2017-04-27 13:41 | CT ---
EXAM DATE: 04/26/17 PATIENT'S AGE: 67 Patient: KACEY SANTIAGO Facility: [place], [place] Site . Site : 1950 Study: CT Chest Angio [id number] 2:24:45 PM Ordering Physician: Liliane Perez Final Report: INDICATION: Chest pain and pneumonia. TECHNIQUE: CT chest pulmonary PE protocol acquired with IV contrast. COMPARISON: February 21, 2016. FINDINGS: CARDIOVASCULAR STRUCTURES: Normal vascular enhancement of the pulmonary arteries , no sign of pulmonary embolism. Heart size is normal. There is aneurysmal dilatation of the ascending aorta measuring 4.4 cm. MEDIASTINUM/LILY: No mass or adenopathy. Normal thyroid gland. LUNGS/PLEURA: There is a large dense airspace infiltrate in the right upper lobe. Smaller ill-defined infiltrates are present in the right lower and middle lobes. There is a trace right pleural effusion. CHEST WALL/AXILLA: No mass or adenopathy. UPPER ABDOMEN: Unremarkable. BONES: No significant findings. IMPRESSION: 1. No sign of pulmonary embolism. 2. Dense right upper lobe pneumonia. Smaller pneumonias are in the right lower and middle lobes. 3. Ascending aortic aneurysm measuring 4.4 cm. Dictated by Brandon Mcnulty MD @ 04/26/2017 3:14:45 PM Dictated by: Brandon Mcnulty MD @ 04/26/2017 15:14:53 (Electronic Signature) Report Signed by Proxy. [facility]
[2017-04-27] MEDS: Levofloxacin/Dextrose 5%-Water 750 MG in Premix Bag 1 BAG IV SCH (18:58)
[2017-04-27] MEDS: QUETIAPINE 400 MG PO SCH ×2 (20:23→20:55)
[2017-04-27] MEDS: Gabapentin 300 MG Cap PO SCH (20:53)
[2017-04-27] MEDS: TRAZODONE 150 MG PO SCH (20:54)
[2017-04-27] MEDS: ROSUVASTATIN 5 MG PO SCH (20:57)
[2017-04-28] MEDS: Sodium Chloride 0.9% 1,000 ML IV SCH ×2 (02:27→15:59)
[2017-04-28 07:23] LABS: CHLORIDE,CL 107 mmol/L (98-110); SODIUM,NA 142 mmol/L (136-146)
--- NOTE | 2017-04-28 08:19 | PCM.PN ---
- General Info Date of Service: 04/28/17 Admission Dx/Problem (Free Text): Community acquired pneumonia Subjective Update: Not feeling well this morning, continues to feel SOB. No chest pain or palpitations. Feeling anxious. Functional Status: Reports: Pain Controlled, Tolerating Diet, Urinating - Review of Systems General: Reports: No Symptoms. Denies: Fever HEENT: Denies: Headaches, Sore Throat Pulmonary: Reports: Shortness of Breath, Cough. Denies: Sputum, Hemoptysis Cardiovascular: Denies: Chest Pain, Palpitations Gastrointestinal: Reports: No Symptoms. Denies: Abdominal Pain, Nausea, Vomiting Genitourinary: Reports: No Symptoms. Denies: Dysuria, Frequency, Burning Skin: Reports: No Symptoms Neurological: Reports: No Symptoms Psychiatric: Reports: No Symptoms - Patient Data Vitals - Most Recent: Last Vital Signs Temp 99.3 F 04/28/17 04:00 Pulse 91 04/28/17 04:00 Resp 20 04/28/17 04:00 BP 134/77 04/28/17 04:00 Pulse Ox 94 L 04/28/17 04:00 Weight - Most Recent: 82.4 kg I&O - Last 24 Hours: Intake & Output 04/27/17 04/28/17 04/28/17 22:59 06:59 14:59 Intake Total 2790 1650 Output Total 1150 600 Balance 1640 1050 Lab Results Last 24 Hours: Laboratory Results - last 24 hr 04/28/17 04/28/17 Range/Units 06:38 06:38 WBC 14.28 H (4.0-11.0) K/uL RBC 3.69 L (4.50-5.90) M/uL Hgb 11.0 L (13.0-17.0) g/dL Hct 34.5 L (38.0-50.0) % MCV 93.5 (80.0-98.0) fL MCH 29.8 (27.0-32.0) pg MCHC 31.9 (31.0-37.0) g/dL RDW Std Deviation 43.9 (28.0-62.0) fl RDW Coeff of Flora 13 (11.0-15.0) % Plt Count 425 H (150-400) K/uL MPV 9.00 (7.40-12.00) fL Add Manual Diff YES Neutrophils % (Manual) 64 (48.0-80.0) % Band Neutrophils % 3 % Lymphocytes % (Manual) 21 (16.0-40.0) % Monocytes % (Manual) 10 (0.0-15.0) % Metamyelocytes % 2 % Absolute Seg Neuts 9.1 Band Neutrophils # 0.4 Lymphocytes # (Manual) 3.0 Monocytes # (Manual) 1.4 Absolute Metamyelocyte 0.3 Sodium 142 (136-146) mmol/L Potassium 3.7 (3.5-5.1) mmol/L Chloride 107 (98-110) mmol/L Carbon Dioxide 27 (21-31) mmol/L BUN 10 (6.0-23.0) mg/dL Creatinine 0.7 (0.6-1.5) mg/dL Est Cr Clr Drug Dosing 115.80 mL/min Estimated GFR (MDRD) > 60.0 ml/min Glucose 108 (60-110) mg/dL Calcium 8.3 L (8.8-10.8) mg/dL Med Orders - Current: Current Medications Acetaminophen (Tylenol) 650 mg PO Q4H PRN PRN Reason: Pain (Mild 1-3)/fever Last Admin: 04/26/17 21:11 Dose: 650 mg Albuterol/Ipratropium (Duoneb 3.0-0.5 Mg/3 Ml) 3 ml NEB Q4HRRT PRN PRN Reason: Wheezing Aspirin (Ecotrin) 325 mg PO DAILY [facility] Last Admin: 04/27/17 10:00 Dose: 325 mg Bupropion HCl (Wellbutrin Sr) 150 mg PO BID [facility] Last Admin: 04/27/17 20:53 Dose: 150 mg Clonidine HCl (Catapres) 0.1 mg PO DAILY [facility] Last Admin: 04/27/17 10:04 Dose: 0.1 mg Enoxaparin Sodium (Lovenox) 40 mg SUBCUT Q24H [facility] Last Admin: 04/27/17 11:40 Dose: 40 mg Gabapentin (Neurontin) 300 mg PO BEDTIME [facility] Last Admin: 04/27/17 20:53 Dose: 300 mg Hydromorphone HCl (Dilaudid) 1 mg IVPUSH Q2H PRN PRN Reason: Pain Last Admin: 04/25/17 20:10 Dose: 1 mg Levofloxacin/Dextrose 750 mg/ (Premix) 150 mls @ 100 mls/hr IV Q24H [facility] Last Infusion: 04/27/17 20:28 Dose: Infused Sodium Chloride (Normal Saline) 1,000 mls @ 125 mls/hr IV ASDIRECTED [facility] Last Admin: 04/28/17 02:27 Dose: 125 mls/hr Vancomycin HCl 1 gm/ Sodium (Chloride) 250 mls @ 166.667 mls/hr IV Q8H [facility] Last Infusion: 04/28/17 03:53 Dose: Infused Losartan Potassium (Cozaar) 50 mg PO DAILY [facility] Last Admin: 04/27/17 10:04 Dose: 50 mg Metoprolol Succinate (Toprol Xl) 25 mg PO DAILY [facility] Last Admin: 04/27/17 10:04 Dose: 25 mg Omeprazole (Omeprazole) 40 mg PO DAILY [facility] Last Admin: 04/27/17 10:00 Dose: 40 mg Ondansetron HCl (Zofran Odt) 4 mg PO Q4H PRN PRN Reason: nausea, able to take PO Breo Ellipta 200/25 (Inhaler Own Med) 0 each INH DAILY [facility] Last Admin: 04/27/17 10:29 Dose: 1 each Linzess 290mcg Cap * (*Own Med) 0 each PO DAILY [facility] Last Admin: 04/27/17 10:29 Dose: Not Given Rosuvastatin 5mg Tab (Own Med) 0 each PO MoWeFr@2100 [facility] Last Admin: 04/27/17 20:57 Dose: 1 each Trazodone 150mg Tab (Own Med) 0 each PO BEDTIME [facility] Last Admin: 04/27/17 20:54 Dose: 1 each Quetiapine 400mg Tab (Own Med) 0 each PO BEDTIME [facility] Last Admin: 04/27/17 20:55 Dose: 1 each Temazepam (Restoril) 15 mg PO BEDTIME PRN PRN Reason: Sleep Last Admin: 04/26/17 21:12 Dose: 15 mg Tramadol HCl (Ultram) 50 mg PO Q6H PRN PRN Reason: Pain Last Admin: 04/26/17 21:12 Dose: 50 mg Vancomycin HCl (Pharmacy To Dose - Vancomycin) 1 dose .XX ASDIRECTED [facility] Discontinued Medications Albuterol/Ipratropium (Duoneb 3.0-0.5 Mg/3 Ml) 3 ml NEB Q4HRRT [facility] Last Admin: 04/25/17 09:48 Dose: Not Given Bupropion HCl (Wellbutrin Sr) 150 mg PO DAILY [facility] Last Admin: 04/25/17 08:16 Dose: 150 mg Bupropion HCl (Wellbutrin Sr) 150 mg PO BID [facility] Magnesium Sulfate 2 gm/ Premix 50 mls @ 50 mls/hr IV ONETIME ONE Stop: 04/25/17 13:09 Last Admin: 04/25/17 13:08 Dose: 50 mls/hr Iopamidol (Isovue Multipack-370 (76%)) 100 ml IVPUSH ONETIME STA Stop: 04/26/17 09:51 Last Admin: 04/26/17 14:48 Dose: 50 ml Lisinopril (Prinivil) 2.5 mg PO DAILY [facility] Last Admin: 04/25/17 08:18 Dose: 2.5 mg Non-Formulary Medication (Quetiapine Fumarate [Seroquel Xr]) 800 mg PO BEDTIME [facility] Last Admin: 04/24/17 23:12 Dose: Not Given Non-Formulary Medication (Rosuvastatin [Crestor]) 5 mg PO ASDIRECTED [facility] Non-Formulary Medication (Trazodone [Trazodone]) 150 mg PO BEDTIME [facility] Last Admin: 04/24/17 23:13 Dose: Not Given Quetiapine 400mg Tab (Own Med) 0 each PO BEDTIME [facility] Rosuvastatin 5mg Tab (Own Med) 0 each PO MoWeFr@2100 [facility] Last Admin: 04/24/17 23:00 Dose: Not Given Trazodone 150mg Tab (Own Med) 0 each PO BEDTIME [facility] Pneumococcal Polyvalent Vaccine (Pneumovax 23) 0.5 ml IM .ONCE ONE Stop: 04/24/17 22:27 - Exam General: Alert, Oriented, Cooperative, No Acute Distress Neck: Supple Lungs: Decreased Breath Sounds (R lung strange). No: Wheezing Cardiovascular: Regular Rate, Regular Rhythm GI/Abdominal Exam: Normal Bowel Sounds, Soft, Non-Tender, No Organomegaly, No Distention, No Abnormal Bruit, No Mass, Pelvis Stable Extremities: Normal Inspection, Normal Range of Motion, Non-Tender, No Pedal Edema, Normal Capillary Refill Neurological: No New Focal Deficit Psy/Mental Status: Alert, Normal Affect, Normal Mood - Problem List & Annotations (1) Pneumonia SNOMED Code(s): 927136353 Code(s): J18.9 - PNEUMONIA, UNSPECIFIED ORGANISM Status: Acute Current Visit: Yes Qualifiers: Laterality: right Lung location: lower lobe of lung (2) COPD (chronic obstructive pulmonary disease) SNOMED Code(s): 35412558 Code(s): J44.9 - CHRONIC OBSTRUCTIVE PULMONARY DISEASE, UNSPECIFIED Status : Chronic Current Visit: Yes Qualifiers: COPD type: COPD with acute lower respiratory infection Qualified Code(s): J44.0 - Chronic obstructive pulmonary disease with acute lower respiratory infection (3) Depression SNOMED Code(s): 08892684 Code(s): F32.9 - MAJOR DEPRESSIVE DISORDER, SINGLE EPISODE, UNSPECIFIED Status: Chronic Current Visit: Yes Qualifiers: Depression Type: unspecified Qualified Code(s): F32.9 - Major depressive disorder, single episode, unspecified (4) Aortic aneurysm SNOMED Code(s): 54290961 Code(s): I71.9 - AORTIC ANEURYSM OF UNSPECIFIED SITE, WITHOUT RUPTURE Status: Chronic Current Visit: Yes Qualifiers: Aortic location: thoracic aorta Presence of rupture: without rupture Qualified Code(s): I71.2 - Thoracic aortic aneurysm, without rupture (5) HTN (hypertension) SNOMED Code(s): 70514241 Code(s): I10 - ESSENTIAL (PRIMARY) HYPERTENSION Status: Chronic Current Visit: Yes Qualifiers: Hypertension type: essential hypertension Qualified Code(s): I10 - Essential (primary) hypertension - Problem List Review Problem List Initiated/Reviewed/Updated: Yes - My Orders Last 24 Hours: My Active Orders 04/27/17 08:14 CULTURE SPUTUM + SMEAR [RM] Routine 04/27/17 09:29 Echo Comp wo Cont [US] Routine Blood Culture x2 Reflex Set [OM.PC] Stat 04/27/17 09:44 CULTURE BLOOD [BC] Stat 04/27/17 09:45 Vancomycin Pharmacy to Dose [Pharmacy to Dose - Vancomycin] 1 dose .XX ASDIRECTED 04/27/17 09:56 CULTURE BLOOD [BC] Stat 04/27/17 11:15 INFLUENZA A+B AG SCREEN [RM] Urgent - Plan Plan:: 67 yo male admitted with community acquired pneumonia. 1. CAP: Afebrile overnight. CXR shows worsening R sided pneumonia. Continue with IV fluids and Levaquin, Vancomycin, will add Zosyn. Leukocytosis 14,000 this morning. Symptoms slow to resolve. 2. Ascending aortic aneurysm: measuring 4.[address] angio. ECHO pending and plan for outpatient follow up with Dr. Cisneros. Will need close monitoring of this. ECHO in 2016 from [facility] reported size of 4.5 cm, stable at this time. 3. COPD: Monitor, Duonebs PRN 4. HTN: Continue Lisinopril and Metoprolol XL 5. Dyslipidemia: Continue Crestor 6. Depression: Continue home medications. VTE prophylaxis: Lovenox Dispo: 3-4 days pending improvement.
[2017-04-28] MEDS: Losartan 50 MG Tab PO SCH (09:14)
[2017-04-28] MEDS: Metoprolol Succinate 25 MG Tab.ER PO SCH (09:14)
[2017-04-28] MEDS: Aspirin 325 MG Tab.EC PO SCH (09:14)
[2017-04-28] MEDS: Omeprazole 20 MG Cap.CR PO SCH (09:15)
[2017-04-28] MEDS: cloNIDine 0.1 MG Tab PO SCH (09:15)
[2017-04-28] MEDS: LINZESS 290 MCG PO SCH (09:17)
[2017-04-28] MEDS: Piperacillin/Tazobactam 4.5 GM in Sodium Chloride 0.9% 100 ML IV SCH ×3 (09:31→22:15)
[2017-04-28] MEDS: BREO ELLIPTA INH SCH (09:32)
[2017-04-28] MEDS: buPROPion 150 MG Tab.SR PO SCH ×2 (09:39→20:21)
--- NOTE | 2017-04-28 10:15 | CR ---
EXAMINATION: Portable chest radiograph. HISTORY: Pneumonia. Comparison: 04/24/2017 FINDINGS: The trachea is midline. The heart is normal in size. There is increasing right upper lobe consolidati on and increasing infiltrate within the right lung base. No definite pleural effusion or pneumothorax . Osseous structures appear unremarkable. IMPRESSION: Worsening right-sided pneumonia.
[2017-04-28] MEDS: Enoxaparin 40 MG/0.4 ML Syringe SUBCUT SCH (12:00)
[2017-04-28] MEDS: Gabapentin 300 MG Cap PO SCH (20:22)
[2017-04-28] MEDS: QUETIAPINE 400 MG PO SCH (20:23)
[2017-04-28] MEDS: TRAZODONE 150 MG PO SCH (20:27)
[2017-04-28] MEDS: Levofloxacin/Dextrose 5%-Water 750 MG in Premix Bag 1 BAG IV SCH (20:30)
[2017-04-29] MEDS: Piperacillin/Tazobactam 4.5 GM in Sodium Chloride 0.9% 100 ML IV SCH ×5 (03:36→21:17)
[2017-04-29 06:11] LABS: CHLORIDE,CL 106 mmol/L (98-110); SODIUM,NA 142 mmol/L (136-146)
[2017-04-29] MEDS: Sodium Chloride 0.9% 1,000 ML IV SCH (08:05)
[2017-04-29] MEDS: cloNIDine 0.1 MG Tab PO SCH (08:18)
[2017-04-29] MEDS: Aspirin 325 MG Tab.EC PO SCH (08:19)
[2017-04-29] MEDS: buPROPion 150 MG Tab.SR PO SCH ×2 (08:19→20:23)
[2017-04-29] MEDS: Omeprazole 20 MG Cap.CR PO SCH (08:20)
[2017-04-29] MEDS: Metoprolol Succinate 25 MG Tab.ER PO SCH (08:21)
[2017-04-29] MEDS: Losartan 50 MG Tab PO SCH (08:22)
[2017-04-29] MEDS: LINZESS 290 MCG PO SCH ×2 (08:27→08:29)
--- NOTE | 2017-04-29 08:38 | PCM.PN ---
- General Info Date of Service: 04/29/17 Admission Dx/Problem (Free Text): Community acquired pneumonia Subjective Update: Feeling ok today, slight improvement, but stil feeling pretty lousy. SOB with exertion. No chest pain, has non productive cough. No abdominal pain or urinary symptoms. No leg pain. Functional Status: Reports: Pain Controlled, Tolerating Diet, Urinating. Denies : Ambulating (encouraged to get up to chair and ambulate) - Review of Systems General: Denies: Fever Pulmonary: Reports: Shortness of Breath, Cough, Wheezing. Denies: Sputum, Hemoptysis Cardiovascular: Reports: No Symptoms. Denies: Chest Pain, Palpitations, Edema Gastrointestinal: Reports: No Symptoms, Flatus. Denies: Abdominal Pain, Nausea , Vomiting Genitourinary: Reports: No Symptoms. Denies: Dysuria, Frequency, Burning Neurological: Reports: No Symptoms Psychiatric: Reports: No Symptoms - Patient Data Vitals - Most Recent: Last Vital Signs Temp 98 F 04/29/17 04:00 Pulse 86 04/29/17 08:21 Resp 20 04/29/17 04:00 BP 173/93 H 04/29/17 08:22 Pulse Ox 93 L 04/29/17 04:00 Weight - Most Recent: 82.4 kg I&O - Last 24 Hours: Intake & Output 04/28/17 04/29/17 04/29/17 22:59 06:59 14:59 Intake Total 1647 1288 361 Output Total 1200 500 Balance 447 788 361 Lab Results Last 24 Hours: Laboratory Results - last 24 hr 04/28/17 04/29/17 04/29/17 Range/Units 08:59 05:46 06:10 WBC 13.58 H (4.0-11.0) K/uL RBC 3.91 L (4.50-5.90) M/uL Hgb 11.6 L (13.0-17.0) g/dL Hct 35.6 L (38.0-50.0) % MCV 91.0 (80.0-98.0) fL MCH 29.7 (27.0-32.0) pg MCHC 32.6 (31.0-37.0) g/dL RDW Std Deviation 44.5 (28.0-62.0) fl RDW Coeff of Flora 14 (11.0-15.0) % Plt Count 380 (150-400) K/uL MPV 10.80 (7.40-12.00) fL Add Manual Diff YES Neutrophils % (Manual) 66 (48.0-80.0) % Band Neutrophils % 5 % Lymphocytes % (Manual) 19 (16.0-40.0) % Monocytes % (Manual) 9 (0.0-15.0) % Eosinophils % (Manual) 1 (0.0-7.0) % Nucleated RBC % 0.6 /100WBC Absolute Seg Neuts 9.0 Band Neutrophils # 0.7 Lymphocytes # (Manual) 2.6 Monocytes # (Manual) 1.2 Eosinophils # (Manual) 0.1 Nucleated RBCs # 0 K/uL Sodium 142 (136-146) mmol/L Potassium 4.0 (3.5-5.1) mmol/L Chloride 106 (98-110) mmol/L Carbon Dioxide 25 (21-31) mmol/L BUN 10 (6.0-23.0) mg/dL Creatinine 0.7 (0.6-1.5) mg/dL Est Cr Clr Drug Dosing 115.80 mL/min Estimated GFR (MDRD) > 60.0 ml/min Glucose 105 (60-110) mg/dL Calcium 8.0 L (8.8-10.8) mg/dL Vancomycin Trough 11.8 (5-15) ug/mL Ramu Results Last 24 Hours: Microbiology 04/27/17 09:56 Aerobic Blood Culture - Preliminary Blood - Venous - Lab Draw NO GROWTH AFTER 1 DAY Anaerobic Blood Culture - Preliminary NO GROWTH AFTER 1 DAY 04/27/17 09:44 Aerobic Blood Culture - Preliminary Blood - Venous NO GROWTH AFTER 1 DAY Anaerobic Blood Culture - Preliminary NO GROWTH AFTER 1 DAY Med Orders - Current: Current Medications Acetaminophen (Tylenol) 650 mg PO Q4H PRN PRN Reason: Pain (Mild 1-3)/fever Last Admin: 04/26/17 21:11 Dose: 650 mg Albuterol/Ipratropium (Duoneb 3.0-0.5 Mg/3 Ml) 3 ml NEB Q4HRRT PRN PRN Reason: Wheezing Last Admin: 04/28/17 10:33 Dose: 3 ml Aspirin (Ecotrin) 325 mg PO DAILY [facility] Last Admin: 04/29/17 08:19 Dose: 325 mg Bupropion HCl (Wellbutrin Sr) 150 mg PO BID [facility] Last Admin: 04/29/17 08:19 Dose: 150 mg Clonidine HCl (Catapres) 0.1 mg PO DAILY [facility] Last Admin: 04/29/17 08:18 Dose: 0.1 mg Enoxaparin Sodium (Lovenox) 40 mg SUBCUT Q24H [facility] Last Admin: 04/28/17 12:00 Dose: 40 mg Gabapentin (Neurontin) 300 mg PO BEDTIME [facility] Last Admin: 04/28/17 20:22 Dose: 300 mg Hydromorphone HCl (Dilaudid) 1 mg IVPUSH Q2H PRN PRN Reason: Pain Last Admin: 04/25/17 20:10 Dose: 1 mg Levofloxacin/Dextrose 750 mg/ (Premix) 150 mls @ 100 mls/hr IV Q24H [facility] Last Infusion: 04/28/17 22:14 Dose: Infused Sodium Chloride (Normal Saline) 1,000 mls @ 125 mls/hr IV ASDIRECTED [facility] Last Admin: 04/29/17 08:05 Dose: 125 mls/hr Piperacillin Sod/Tazobactam (Sod 4.5 gm/ Sodium Chloride) 100 mls @ 100 mls/hr IV Q6H [facility] Last Admin: 04/29/17 08:14 Dose: 100 mls/hr Vancomycin HCl 1,250 mg/ (Sodium Chloride) 250 mls @ 166.667 mls/hr IV Q8H [facility] Last Infusion: 04/29/17 02:37 Dose: Infused Losartan Potassium (Cozaar) 50 mg PO DAILY [facility] Last Admin: 04/29/17 08:22 Dose: 50 mg Metoprolol Succinate (Toprol Xl) 25 mg PO DAILY [facility] Last Admin: 04/29/17 08:21 Dose: 25 mg Omeprazole (Omeprazole) 40 mg PO DAILY [facility] Last Admin: 04/29/17 08:20 Dose: 40 mg Ondansetron HCl (Zofran Odt) 4 mg PO Q4H PRN PRN Reason: nausea, able to take PO Breo Ellipta 200/25 (Inhaler Own Med) 0 each INH DAILY [facility] Last Admin: 04/28/17 09:32 Dose: 1 each Linzess 290mcg Cap * (*Own Med) 0 each PO DAILY [facility] Last Admin: 04/29/17 08:29 Dose: Not Given Rosuvastatin 5mg Tab (Own Med) 0 each PO MoWeFr@2100 [facility] Last Admin: 04/27/17 20:57 Dose: 1 each Trazodone 150mg Tab (Own Med) 0 each PO BEDTIME [facility] Last Admin: 04/28/17 20:27 Dose: 1 each Quetiapine 400mg Tab (Own Med) 0 each PO BEDTIME [facility] Last Admin: 04/28/17 20:23 Dose: 2 each Temazepam (Restoril) 15 mg PO BEDTIME PRN PRN Reason: Sleep Last Admin: 04/26/17 21:12 Dose: 15 mg Tramadol HCl (Ultram) 50 mg PO Q6H PRN PRN Reason: Pain Last Admin: 04/26/17 21:12 Dose: 50 mg Vancomycin HCl (Pharmacy To Dose - Vancomycin) 1 dose .XX ASDIRECTED [facility] Discontinued Medications Albuterol/Ipratropium (Duoneb 3.0-0.5 Mg/3 Ml) 3 ml NEB Q4HRRT [facility] Last Admin: 04/25/17 09:48 Dose: Not Given Bupropion HCl (Wellbutrin Sr) 150 mg PO DAILY [facility] Last Admin: 04/25/17 08:16 Dose: 150 mg Bupropion HCl (Wellbutrin Sr) 150 mg PO BID [facility] Magnesium Sulfate 2 gm/ Premix 50 mls @ 50 mls/hr IV ONETIME ONE Stop: 04/25/17 13:09 Last Admin: 04/25/17 13:08 Dose: 50 mls/hr Vancomycin HCl 1 gm/ Sodium (Chloride) 250 mls @ 166.667 mls/hr IV Q8H [facility] Last Admin: 04/28/17 11:09 Dose: Not Given Iopamidol (Isovue Multipack-370 (76%)) 100 ml IVPUSH ONETIME STA Stop: 04/26/17 09:51 Last Admin: 04/26/17 14:48 Dose: 50 ml Lisinopril (Prinivil) 2.5 mg PO DAILY [facility] Last Admin: 04/25/17 08:18 Dose: 2.5 mg Non-Formulary Medication (Quetiapine Fumarate [Seroquel Xr]) 800 mg PO BEDTIME [facility] Last Admin: 04/24/17 23:12 Dose: Not Given Non-Formulary Medication (Rosuvastatin [Crestor]) 5 mg PO ASDIRECTED [facility] Non-Formulary Medication (Trazodone [Trazodone]) 150 mg PO BEDTIME [facility] Last Admin: 04/24/17 23:13 Dose: Not Given Quetiapine 400mg Tab (Own Med) 0 each PO BEDTIME [facility] Rosuvastatin 5mg Tab (Own Med) 0 each PO MoWeFr@2100 [facility] Last Admin: 04/24/17 23:00 Dose: Not Given Trazodone 150mg Tab (Own Med) 0 each PO BEDTIME [facility] Pneumococcal Polyvalent Vaccine (Pneumovax 23) 0.5 ml IM .ONCE ONE Stop: 04/24/17 22:27 - Exam General: Alert, Oriented, Cooperative, No Acute Distress Neck: Supple Lungs: Decreased Breath Sounds (R lung field), Wheezing Cardiovascular: Regular Rate, Regular Rhythm, No Murmurs Extremities: Normal Inspection, Normal Range of Motion, Non-Tender, No Pedal Edema, Normal Capillary Refill Skin: Warm, Dry, Intact Psy/Mental Status: Alert, Normal Affect, Normal Mood - Problem List & Annotations (1) Pneumonia SNOMED Code(s): 919892645 Code(s): J18.9 - PNEUMONIA, UNSPECIFIED ORGANISM Status: Acute Current Visit: Yes Qualifiers: Laterality: right Lung location: lower lobe of lung (2) COPD (chronic obstructive pulmonary disease) SNOMED Code(s): 43846319 Code(s): J44.9 - CHRONIC OBSTRUCTIVE PULMONARY DISEASE, UNSPECIFIED Status : Chronic Current Visit: Yes Qualifiers: COPD type: COPD with acute lower respiratory infection Qualified Code(s): J44.0 - Chronic obstructive pulmonary disease with acute lower respiratory infection (3) Depression SNOMED Code(s): 13339749 Code(s): F32.9 - MAJOR DEPRESSIVE DISORDER, SINGLE EPISODE, UNSPECIFIED Status: Chronic Current Visit: Yes Qualifiers: Depression Type: unspecified Qualified Code(s): F32.9 - Major depressive disorder, single episode, unspecified (4) Aortic aneurysm SNOMED Code(s): 77662633 Code(s): I71.9 - AORTIC ANEURYSM OF UNSPECIFIED SITE, WITHOUT RUPTURE Status: Chronic Current Visit: Yes Qualifiers: Aortic location: thoracic aorta Presence of rupture: without rupture Qualified Code(s): I71.2 - Thoracic aortic aneurysm, without rupture (5) HTN (hypertension) SNOMED Code(s): 24250244 Code(s): I10 - ESSENTIAL (PRIMARY) HYPERTENSION Status: Chronic Current Visit: Yes Qualifiers: Hypertension type: essential hypertension Qualified Code(s): I10 - Essential (primary) hypertension - Problem List Review Problem List Initiated/Reviewed/Updated: Yes - My Orders Last 24 Hours: My Active Orders 04/28/17 09:00 Piperacillin/Tazobactam [Piperacil-Tazobact] 4.5 gm Sodium Chloride 0.9% [ Normal Saline] 100 ml IV Q6H - Plan Plan:: 67 yo male admitted with community acquired pneumonia. 1. CAP: Continues to be Afebrile. CXR showed worsening R sided pneumonia. Continue with IV fluids and Levaquin, Vancomycin, and Zosyn. Leukocytosis 13, 000 this morning. Symptoms slow to resolve. Encouraged again to be up and moving and to use IS 2. Ascending aortic aneurysm: Stable. measuring 4.[address] angio. ECHO pending and plan for outpatient follow up with Dr. Cisneros. Will need close monitoring of this. ECHO in 2016 from [facility] reported size of 4.5 cm, stable at this time. 3. COPD: Monitor, Duonebs PRN 4. HTN: Continue Lisinopril and Metoprolol XL 5. Dyslipidemia: Continue Crestor 6. Depression: Continue home medications. VTE prophylaxis: Lovenox Dispo: 3-4 days pending improvement.
[2017-04-29] MEDS: BREO ELLIPTA INH SCH (09:53)
[2017-04-29] MEDS: Enoxaparin 40 MG/0.4 ML Syringe SUBCUT SCH (12:05)
[2017-04-29] MEDS: Docusate Sodium 100 MG Cap PO SCH ×3 (13:21→20:29)
[2017-04-29] MEDS: Levofloxacin/Dextrose 5%-Water 750 MG in Premix Bag 1 BAG IV SCH (19:08)
[2017-04-29] MEDS: Gabapentin 300 MG Cap PO SCH (20:23)
[2017-04-29] MEDS: QUETIAPINE 400 MG PO SCH (20:25)
[2017-04-29] MEDS: ROSUVASTATIN 5 MG PO SCH (20:26)
[2017-04-29] MEDS: TRAZODONE 150 MG PO SCH (20:26)
[2017-04-30] MEDS: Piperacillin/Tazobactam 4.5 GM in Sodium Chloride 0.9% 100 ML IV SCH ×4 (03:02→22:22)
[2017-04-30] MEDS: Sodium Chloride 0.9% 1,000 ML IV SCH (04:08)
[2017-04-30 05:31] LABS: CHLORIDE,CL 104 mmol/L (98-110); SODIUM,NA 140 mmol/L (136-146)
--- NOTE | 2017-04-30 07:55 | PCM.PN ---
- General Info Date of Service: 04/30/17 Admission Dx/Problem (Free Text): Community acquired pneumonia Subjective Update: Sitting on edge of bed this morning, feeling slightly better than the previous day. More alert. Denies chest pain, some SOB continues. Remains on oxygen. Coughing, clearing some secretions. No abdominal pain. Has not had BM in many days, reports this is normal especially when in public. He reports he will not have BM when in the hospital, because "I can't poop in public." Functional Status: Reports: Pain Controlled, Tolerating Diet, Ambulating, Urinating - Review of Systems General: Reports: Fatigue (slowly improving.), Malaise. Denies: Fever HEENT: Reports: No Symptoms. Denies: Headaches, Sore Throat Pulmonary: Reports: Shortness of Breath, Pleuritic Chest Pain, Cough, Sputum. Denies: Hemoptysis Cardiovascular: Reports: No Symptoms. Denies: Chest Pain, Palpitations, Edema Gastrointestinal: Reports: No Symptoms. Denies: Abdominal Pain, Nausea, Vomiting Genitourinary: Reports: No Symptoms. Denies: Dysuria, Frequency, Burning Musculoskeletal: Reports: No Symptoms Skin: Reports: No Symptoms Neurological: Reports: No Symptoms Psychiatric: Reports: No Symptoms - Patient Data Vitals - Most Recent: Last Vital Signs Temp 98.3 F 04/30/17 04:00 Pulse 91 04/30/17 04:00 Resp 16 04/30/17 04:00 BP 160/90 H 04/30/17 04:00 Pulse Ox 93 L 04/30/17 04:00 Weight - Most Recent: 82.4 kg I&O - Last 24 Hours: Intake & Output 04/29/17 04/30/17 04/30/17 22:59 06:59 14:59 Intake Total 1510 1800 Output Total 1075 475 Balance 435 1325 Lab Results Last 24 Hours: Laboratory Results - last 24 hr 04/29/17 04/30/17 04/30/17 Range/Units 09:08 04:56 04:56 WBC 12.06 H (4.0-11.0) K/uL RBC 3.90 L (4.50-5.90) M/uL Hgb 11.4 L (13.0-17.0) g/dL Hct 35.1 L (38.0-50.0) % MCV 90.0 (80.0-98.0) fL MCH 29.2 (27.0-32.0) pg MCHC 32.5 (31.0-37.0) g/dL RDW Std Deviation 43.8 (28.0-62.0) fl RDW Coeff of Flora 13 (11.0-15.0) % Plt Count 423 H (150-400) K/uL MPV 8.90 (7.40-12.00) fL Add Manual Diff YES Neutrophils % (Manual) 63 (48.0-80.0) % Lymphocytes % (Manual) 24 (16.0-40.0) % Monocytes % (Manual) 10 (0.0-15.0) % Eosinophils % (Manual) 3 (0.0-7.0) % Nucleated RBC % 0.0 /100WBC Absolute Seg Neuts 7.6 Lymphocytes # (Manual) 2.9 Monocytes # (Manual) 1.2 Eosinophils # (Manual) 0.4 Nucleated RBCs # 0 K/uL Sodium 140 (136-146) mmol/L Potassium 3.5 (3.5-5.1) mmol/L Chloride 104 (98-110) mmol/L Carbon Dioxide 28 (21-31) mmol/L BUN 8 (6.0-23.0) mg/dL Creatinine 0.6 (0.6-1.5) mg/dL Est Cr Clr Drug Dosing 135.10 mL/min Estimated GFR (MDRD) > 60.0 ml/min Glucose 110 (60-110) mg/dL Calcium 7.8 L (8.8-10.8) mg/dL Vancomycin Trough 15.5 H (5-15) ug/mL Ramu Results Last 24 Hours: Microbiology 04/29/17 14:20 Gram Stain - Final Sputum - Expectorated 04/27/17 09:56 Aerobic Blood Culture - Preliminary Blood - Venous - Lab Draw NO GROWTH AFTER 2 DAYS Anaerobic Blood Culture - Preliminary NO GROWTH AFTER 2 DAYS 04/27/17 09:44 Aerobic Blood Culture - Preliminary Blood - Venous NO GROWTH AFTER 2 DAYS Anaerobic Blood Culture - Preliminary NO GROWTH AFTER 2 DAYS Med Orders - Current: Current Medications Acetaminophen (Tylenol) 650 mg PO Q4H PRN PRN Reason: Pain (Mild 1-3)/fever Last Admin: 04/26/17 21:11 Dose: 650 mg Albuterol/Ipratropium (Duoneb 3.0-0.5 Mg/3 Ml) 3 ml NEB Q4HRRT PRN PRN Reason: Wheezing Last Admin: 04/28/17 10:33 Dose: 3 ml Aspirin (Ecotrin) 325 mg PO DAILY [facility] Last Admin: 04/29/17 08:19 Dose: 325 mg Bupropion HCl (Wellbutrin Sr) 150 mg PO BID [facility] Last Admin: 04/29/17 20:23 Dose: 150 mg Clonidine HCl (Catapres) 0.1 mg PO DAILY [facility] Last Admin: 04/29/17 08:18 Dose: 0.1 mg Docusate Sodium (Colace) 100 mg PO BID [facility] Last Admin: 04/29/17 20:29 Dose: Not Given Enoxaparin Sodium (Lovenox) 40 mg SUBCUT Q24H [facility] Last Admin: 04/29/17 12:05 Dose: 40 mg Gabapentin (Neurontin) 300 mg PO BEDTIME [facility] Last Admin: 04/29/17 20:23 Dose: 300 mg Hydromorphone HCl (Dilaudid) 1 mg IVPUSH Q2H PRN PRN Reason: Pain Last Admin: 04/25/17 20:10 Dose: 1 mg Levofloxacin/Dextrose 750 mg/ (Premix) 150 mls @ 100 mls/hr IV Q24H [facility] Last Infusion: 04/29/17 21:00 Dose: Infused Sodium Chloride (Normal Saline) 1,000 mls @ 125 mls/hr IV ASDIRECTED [facility] Last Admin: 04/30/17 04:08 Dose: 125 mls/hr Piperacillin Sod/Tazobactam (Sod 4.5 gm/ Sodium Chloride) 100 mls @ 100 mls/hr IV Q6H [facility] Last Infusion: 04/30/17 04:06 Dose: Infused Vancomycin HCl 1,250 mg/ (Sodium Chloride) 250 mls @ 166.667 mls/hr IV Q8H [facility] Last Infusion: 04/30/17 03:01 Dose: Infused Losartan Potassium (Cozaar) 50 mg PO DAILY [facility] Last Admin: 04/29/17 08:22 Dose: 50 mg Metoprolol Succinate (Toprol Xl) 25 mg PO DAILY [facility] Last Admin: 04/29/17 08:21 Dose: 25 mg Omeprazole (Omeprazole) 40 mg PO DAILY [facility] Last Admin: 04/29/17 08:20 Dose: 40 mg Ondansetron HCl (Zofran Odt) 4 mg PO Q4H PRN PRN Reason: nausea, able to take PO Breo Ellipta 200/25 (Inhaler Own Med) 0 each INH DAILY [facility] Last Admin: 04/29/17 09:53 Dose: Not Given Linzess 290mcg Cap * (*Own Med) 0 each PO DAILY [facility] Last Admin: 04/29/17 08:29 Dose: Not Given Rosuvastatin 5mg Tab (Own Med) 0 each PO MoWeFr@2100 [facility] Last Admin: 04/29/17 20:26 Dose: 1 each Trazodone 150mg Tab (Own Med) 0 each PO BEDTIME [facility] Last Admin: 04/29/17 20:26 Dose: 1 each Quetiapine 400mg Tab (Own Med) 0 each PO BEDTIME [facility] Last Admin: 04/29/17 20:25 Dose: 2 each Temazepam (Restoril) 15 mg PO BEDTIME PRN PRN Reason: Sleep Last Admin: 04/26/17 21:12 Dose: 15 mg Tramadol HCl (Ultram) 50 mg PO Q6H PRN PRN Reason: Pain Last Admin: 04/26/17 21:12 Dose: 50 mg Vancomycin HCl (Pharmacy To Dose - Vancomycin) 1 dose .XX ASDIRECTED [facility] Discontinued Medications Albuterol/Ipratropium (Duoneb 3.0-0.5 Mg/3 Ml) 3 ml NEB Q4HRRT [facility] Last Admin: 04/25/17 09:48 Dose: Not Given Bupropion HCl (Wellbutrin Sr) 150 mg PO DAILY [facility] Last Admin: 04/25/17 08:16 Dose: 150 mg Bupropion HCl (Wellbutrin Sr) 150 mg PO BID [facility] Magnesium Sulfate 2 gm/ Premix 50 mls @ 50 mls/hr IV ONETIME ONE Stop: 04/25/17 13:09 Last Admin: 04/25/17 13:08 Dose: 50 mls/hr Vancomycin HCl 1 gm/ Sodium (Chloride) 250 mls @ 166.667 mls/hr IV Q8H [facility] Last Admin: 04/28/17 11:09 Dose: Not Given Iopamidol (Isovue Multipack-370 (76%)) 100 ml IVPUSH ONETIME STA Stop: 04/26/17 09:51 Last Admin: 04/26/17 14:48 Dose: 50 ml Lisinopril (Prinivil) 2.5 mg PO DAILY [facility] Last Admin: 04/25/17 08:18 Dose: 2.5 mg Non-Formulary Medication (Quetiapine Fumarate [Seroquel Xr]) 800 mg PO BEDTIME [facility] Last Admin: 04/24/17 23:12 Dose: Not Given Non-Formulary Medication (Rosuvastatin [Crestor]) 5 mg PO ASDIRECTED [facility] Non-Formulary Medication (Trazodone [Trazodone]) 150 mg PO BEDTIME [facility] Last Admin: 04/24/17 23:13 Dose: Not Given Quetiapine 400mg Tab (Own Med) 0 each PO BEDTIME [facility] Rosuvastatin 5mg Tab (Own Med) 0 each PO MoWeFr@2100 [facility] Last Admin: 04/24/17 23:00 Dose: Not Given Trazodone 150mg Tab (Own Med) 0 each PO BEDTIME [facility] Pneumococcal Polyvalent Vaccine (Pneumovax 23) 0.5 ml IM .ONCE ONE Stop: 04/24/17 22:27 - Exam General: Alert, Oriented, Cooperative, No Acute Distress Neck: Supple Lungs: Decreased Breath Sounds (improving to R lung strange, more air flow heard today than previous, fine crackles. Clear to L). No: Normal Respiratory Effort (dyspnea noted with speech and exertion.), Wheezing Cardiovascular: Regular Rate, Regular Rhythm, No Murmurs GI/Abdominal Exam: Normal Bowel Sounds, Soft, Non-Tender, No Organomegaly, No Distention, No Abnormal Bruit, No Mass, Pelvis Stable Extremities: Normal Inspection, Normal Range of Motion, Non-Tender, No Pedal Edema, Normal Capillary Refill Skin: Warm, Dry, Intact Neurological: No New Focal Deficit Psy/Mental Status: Alert, Normal Affect, Normal Mood - Problem List & Annotations (1) Pneumonia SNOMED Code(s): 353667289 Code(s): J18.9 - PNEUMONIA, UNSPECIFIED ORGANISM Status: Acute Current Visit: Yes Qualifiers: Laterality: right Lung location: lower lobe of lung (2) COPD (chronic obstructive pulmonary disease) SNOMED Code(s): 36767460 Code(s): J44.9 - CHRONIC OBSTRUCTIVE PULMONARY DISEASE, UNSPECIFIED Status : Chronic Current Visit: Yes Qualifiers: COPD type: COPD with acute lower respiratory infection Qualified Code(s): J44.0 - Chronic obstructive pulmonary disease with acute lower respiratory infection (3) Depression SNOMED Code(s): 74924713 Code(s): F32.9 - MAJOR DEPRESSIVE DISORDER, SINGLE EPISODE, UNSPECIFIED Status: Chronic Current Visit: Yes Qualifiers: Depression Type: unspecified Qualified Code(s): F32.9 - Major depressive disorder, single episode, unspecified (4) Aortic aneurysm SNOMED Code(s): 32473274 Code(s): I71.9 - AORTIC ANEURYSM OF UNSPECIFIED SITE, WITHOUT RUPTURE Status: Chronic Current Visit: Yes Qualifiers: Aortic location: thoracic aorta Presence of rupture: without rupture Qualified Code(s): I71.2 - Thoracic aortic aneurysm, without rupture (5) HTN (hypertension) SNOMED Code(s): 53980408 Code(s): I10 - ESSENTIAL (PRIMARY) HYPERTENSION Status: Chronic Current Visit: Yes Qualifiers: Hypertension type: essential hypertension Qualified Code(s): I10 - Essential (primary) hypertension - Problem List Review Problem List Initiated/Reviewed/Updated: Yes - My Orders Last 24 Hours: My Active Orders 04/29/17 12:01 Communication Order [RC] ROUTINE 04/29/17 12:30 Docusate Sodium [Colace] 100 mg PO BID 04/29/17 14:20 CULTURE SPUTUM + SMEAR [RM] Routine - Plan Plan:: 67 yo male admitted with community acquired pneumonia. 1. CAP: Slow improvement continues, but much improved from last couple days. More alert and increasing activity. Continues to be Afebrile. Discontinue IV fluids. Continue Levaquin, Vancomycin, and Zosyn. Leukocytosis 1,000 this morning. Sputum culture pending. Encouraged to be up to chair for all meals and to continue to use IS hourly. 2. Ascending aortic aneurysm: Stable. measuring 4.[address] angio. ECHO pending and plan for outpatient follow up with Dr. Cisneros. Will need close monitoring of this. ECHO in 2016 from [place] reported size of 4.5 cm, stable at this time. 3. COPD: Stable. Monitor, Duonebs PRN 4. HTN: Slightly elevated, stopping IVFs, will monitor. Continue Lisinopril and Metoprolol XL 5. Dyslipidemia: Stable Continue Crestor 6. Depression: Stable. Continue home medications. 7. PVCs: Noted on telemetry, asymptomatic. Magnesium low, will supplement along with potassium. Will check Phosphate, patient reports he used to be a heavy drinker and smoker and quit about 15 months ago. Supplement as needed. VTE prophylaxis: Lovenox Dispo: 3-4 days pending improvement.
[2017-04-30] MEDS: Omeprazole 20 MG Cap.CR PO SCH (07:59)
[2017-04-30] MEDS: buPROPion 150 MG Tab.SR PO SCH ×2 (07:59→20:29)
[2017-04-30] MEDS: Metoprolol Succinate 25 MG Tab.ER PO SCH (08:00)
[2017-04-30] MEDS: cloNIDine 0.1 MG Tab PO SCH (08:01)
[2017-04-30] MEDS: Losartan 50 MG Tab PO SCH (08:01)
[2017-04-30] MEDS: Aspirin 325 MG Tab.EC PO SCH (08:01)
[2017-04-30] MEDS: LINZESS 290 MCG PO SCH (08:08)
[2017-04-30] MEDS: Docusate Sodium 100 MG Cap PO SCH ×2 (08:08→20:29)
[2017-04-30] MEDS ORDERED: Potassium Chloride 20 MEQ Tab.ER PO ONE (08:28)
[2017-04-30] MEDS ORDERED: Magnesium Sulfate/Water 4 GM in Premix Bag 1 BAG IV ONE (08:29)
[2017-04-30] MEDS: BREO ELLIPTA INH SCH (09:10)
[2017-04-30] MEDS: Enoxaparin 40 MG/0.4 ML Syringe SUBCUT SCH (11:32)
--- NOTE | 2017-04-30 13:16 | ECHO ---
EXAM DATE: 04/26/17 PATIENT'S AGE: 67 The echocardiogram report can be seen in this patient's EMR (Electronic Medical Record) in the Reports section. The report has also been scanned into PACS. DIVINA
[2017-04-30] MEDS: Levofloxacin/Dextrose 5%-Water 750 MG in Premix Bag 1 BAG IV SCH (20:27)
[2017-04-30] MEDS: Gabapentin 300 MG Cap PO SCH (20:29)
[2017-04-30] MEDS: TRAZODONE 150 MG PO SCH (20:31)
[2017-04-30] MEDS: QUETIAPINE 400 MG PO SCH (20:31)
[2017-05-01] MEDS: Piperacillin/Tazobactam 4.5 GM in Sodium Chloride 0.9% 100 ML IV SCH ×4 (03:57→20:48)
[2017-05-01 06:10] LABS: CHLORIDE,CL 102 mmol/L (98-110); SODIUM,NA 140 mmol/L (136-146)
[2017-05-01] MEDS ORDERED: Potassium Chloride 20 MEQ Tab.ER PO ONE (08:00)
[2017-05-01] MEDS: Docusate Sodium 100 MG Cap PO SCH ×2 (08:19→20:13)
[2017-05-01] MEDS: Aspirin 325 MG Tab.EC PO SCH (08:19)
[2017-05-01] MEDS: buPROPion 150 MG Tab.SR PO SCH ×2 (08:20→20:14)
[2017-05-01] MEDS: Omeprazole 20 MG Cap.CR PO SCH (08:20)
[2017-05-01] MEDS: Metoprolol Succinate 25 MG Tab.ER PO SCH (08:22)
[2017-05-01] MEDS: cloNIDine 0.1 MG Tab PO SCH (08:23)
[2017-05-01] MEDS: Losartan 50 MG Tab PO SCH (08:24)
[2017-05-01] MEDS: LINZESS 290 MCG PO SCH (08:25)
[2017-05-01] MEDS: BREO ELLIPTA INH SCH (08:39)
--- NOTE | 2017-05-01 09:08 | PCM.PN ---
- General Info Date of Service: 05/01/17 Admission Dx/Problem (Free Text): Community acquired pneumonia Subjective Update: Continues to show improvement. No ches tpain, some wheezing noted today and Dyspnea continues. Denies fevers or chills. He easily gets tired from little activity. Functional Status: Reports: Pain Controlled, Tolerating Diet, Ambulating, Urinating - Review of Systems General: Reports: No Symptoms. Denies: Fever Pulmonary: Reports: Shortness of Breath, Cough, Sputum (scant), Wheezing Cardiovascular: Reports: No Symptoms. Denies: Chest Pain, Palpitations, Edema Gastrointestinal: Reports: No Symptoms. Denies: Abdominal Pain, Nausea, Vomiting Genitourinary: Reports: No Symptoms. Denies: Dysuria, Frequency, Burning Neurological: Reports: No Symptoms Psychiatric: Reports: No Symptoms - Patient Data Vitals - Most Recent: Last Vital Signs Temp 97.7 F 05/01/17 07:49 Pulse 91 05/01/17 08:22 Resp 20 05/01/17 07:49 BP 168/91 H 05/01/17 08:24 Pulse Ox 91 L 05/01/17 07:49 Weight - Most Recent: 82.4 kg I&O - Last 24 Hours: Intake & Output 04/30/17 05/01/17 05/01/17 22:59 06:59 14:59 Intake Total 850 886 Output Total 600 1300 Balance 250 -414 Lab Results Last 24 Hours: Laboratory Results - last 24 hr 04/30/17 05/01/17 05/01/17 Range/Units 04:56 05:42 05:42 WBC 13.57 H (4.0-11.0) K/uL RBC 4.15 L (4.50-5.90) M/uL Hgb 12.2 L (13.0-17.0) g/dL Hct 37.3 L (38.0-50.0) % MCV 89.9 (80.0-98.0) fL MCH 29.4 (27.0-32.0) pg MCHC 32.7 (31.0-37.0) g/dL RDW Std Deviation 43.6 (28.0-62.0) fl RDW Coeff of Flora 13 (11.0-15.0) % Plt Count 451 H (150-400) K/uL MPV 8.80 (7.40-12.00) fL Add Manual Diff YES Neutrophils % (Manual) 59 (48.0-80.0) % Band Neutrophils % 2 % Lymphocytes % (Manual) 26 (16.0-40.0) % Monocytes % (Manual) 11 (0.0-15.0) % Basophils % (Manual) 2 H (0.0-1.5) % Nucleated RBC % 0.0 /100WBC Absolute Seg Neuts 8.0 Band Neutrophils # 0.3 Lymphocytes # (Manual) 3.5 Monocytes # (Manual) 1.5 Basophils # (Manual) 0 Nucleated RBCs # 0 K/uL Sodium 140 (136-146) mmol/L Potassium 3.3 L (3.5-5.1) mmol/L Chloride 102 (98-110) mmol/L Carbon Dioxide 27 (21-31) mmol/L BUN 7 (6.0-23.0) mg/dL Creatinine 0.7 (0.6-1.5) mg/dL Est Cr Clr Drug Dosing 115.80 mL/min Estimated GFR (MDRD) > 60.0 ml/min Glucose 109 (60-110) mg/dL Calcium 7.9 L (8.8-10.8) mg/dL Phosphorus 3.0 (2.4-4.7) mg/dL Magnesium (1.5-2.3) mEq/L 05/01/17 Range/Units 05:42 WBC (4.0-11.0) K/uL RBC (4.50-5.90) M/uL Hgb (13.0-17.0) g/dL Hct (38.0-50.0) % MCV (80.0-98.0) fL MCH (27.0-32.0) pg MCHC (31.0-37.0) g/dL RDW Std Deviation (28.0-62.0) fl RDW Coeff of Flora (11.0-15.0) % Plt Count (150-400) K/uL MPV (7.40-12.00) fL Add Manual Diff Neutrophils % (Manual) (48.0-80.0) % Band Neutrophils % % Lymphocytes % (Manual) (16.0-40.0) % Monocytes % (Manual) (0.0-15.0) % Basophils % (Manual) (0.0-1.5) % Nucleated RBC % /100WBC Absolute Seg Neuts Band Neutrophils # Lymphocytes # (Manual) Monocytes # (Manual) Basophils # (Manual) Nucleated RBCs # K/uL Sodium (136-146) mmol/L Potassium (3.5-5.1) mmol/L Chloride (98-110) mmol/L Carbon Dioxide (21-31) mmol/L BUN (6.0-23.0) mg/dL Creatinine (0.6-1.5) mg/dL Est Cr Clr Drug Dosing mL/min Estimated GFR (MDRD) ml/min Glucose (60-110) mg/dL Calcium (8.8-10.8) mg/dL Phosphorus (2.4-4.7) mg/dL Magnesium 1.7 (1.5-2.3) mEq/L Ramu Results Last 24 Hours: Microbiology 04/27/17 09:56 Aerobic Blood Culture - Preliminary Blood - Venous - Lab Draw NO GROWTH AFTER 3 DAYS Anaerobic Blood Culture - Preliminary NO GROWTH AFTER 3 DAYS 04/27/17 09:44 Aerobic Blood Culture - Preliminary Blood - Venous NO GROWTH AFTER 3 DAYS Anaerobic Blood Culture - Preliminary NO GROWTH AFTER 3 DAYS Med Orders - Current: Current Medications Acetaminophen (Tylenol) 650 mg PO Q4H PRN PRN Reason: Pain (Mild 1-3)/fever Last Admin: 04/26/17 21:11 Dose: 650 mg Albuterol/Ipratropium (Duoneb 3.0-0.5 Mg/3 Ml) 3 ml NEB Q4HRRT PRN PRN Reason: Wheezing Last Admin: 04/28/17 10:33 Dose: 3 ml Aspirin (Ecotrin) 325 mg PO DAILY [facility] Last Admin: 05/01/17 08:19 Dose: 325 mg Bupropion HCl (Wellbutrin Sr) 150 mg PO BID [facility] Last Admin: 05/01/17 08:20 Dose: 150 mg Clonidine HCl (Catapres) 0.1 mg PO DAILY [facility] Last Admin: 05/01/17 08:23 Dose: 0.1 mg Docusate Sodium (Colace) 100 mg PO BID [facility] Last Admin: 05/01/17 08:19 Dose: 100 mg Enoxaparin Sodium (Lovenox) 40 mg SUBCUT Q24H [facility] Last Admin: 04/30/17 11:32 Dose: 40 mg Gabapentin (Neurontin) 300 mg PO BEDTIME [facility] Last Admin: 04/30/17 20:29 Dose: 300 mg Hydromorphone HCl (Dilaudid) 1 mg IVPUSH Q2H PRN PRN Reason: Pain Last Admin: 04/25/17 20:10 Dose: 1 mg Levofloxacin/Dextrose 750 mg/ (Premix) 150 mls @ 100 mls/hr IV Q24H [facility] Last Admin: 04/30/17 20:27 Dose: 100 mls/hr Piperacillin Sod/Tazobactam (Sod 4.5 gm/ Sodium Chloride) 100 mls @ 100 mls/hr IV Q6H [facility] Last Admin: 05/01/17 08:26 Dose: 100 mls/hr Vancomycin HCl 1,250 mg/ (Sodium Chloride) 250 mls @ 166.667 mls/hr IV Q8H [facility] Last Admin: 05/01/17 02:23 Dose: 166.6 mls/hr Losartan Potassium (Cozaar) 50 mg PO DAILY [facility] Last Admin: 05/01/17 08:24 Dose: 50 mg Metoprolol Succinate (Toprol Xl) 25 mg PO DAILY [facility] Last Admin: 05/01/17 08:22 Dose: 25 mg Omeprazole (Omeprazole) 40 mg PO DAILY [facility] Last Admin: 05/01/17 08:20 Dose: 40 mg Ondansetron HCl (Zofran Odt) 4 mg PO Q4H PRN PRN Reason: nausea, able to take PO Breo Ellipta 200/25 (Inhaler Own Med) 0 each INH DAILY [facility] Last Admin: 05/01/17 08:39 Dose: 1 each Linzess 290mcg Cap * (*Own Med) 0 each PO DAILY [facility] Last Admin: 05/01/17 08:25 Dose: 1 each Rosuvastatin 5mg Tab (Own Med) 0 each PO MoWeFr@2100 [facility] Last Admin: 04/29/17 20:26 Dose: 1 each Trazodone 150mg Tab (Own Med) 0 each PO BEDTIME [facility] Last Admin: 04/30/17 20:31 Dose: 1 each Quetiapine 400mg Tab (Own Med) 0 each PO BEDTIME [facility] Last Admin: 08/31/17 20:31 Dose: 1 each Temazepam (Restoril) 15 mg PO BEDTIME PRN PRN Reason: Sleep Last Admin: 04/26/17 21:12 Dose: 15 mg Tramadol HCl (Ultram) 50 mg PO Q6H PRN PRN Reason: Pain Last Admin: 04/26/17 21:12 Dose: 50 mg Vancomycin HCl (Pharmacy To Dose - Vancomycin) 1 dose .XX ASDIRECTED [facility] Discontinued Medications Albuterol/Ipratropium (Duoneb 3.0-0.5 Mg/3 Ml) 3 ml NEB Q4HRRT [facility] Last Admin: 04/25/17 09:48 Dose: Not Given Bupropion HCl (Wellbutrin Sr) 150 mg PO DAILY [facility] Last Admin: 04/25/17 08:16 Dose: 150 mg Bupropion HCl (Wellbutrin Sr) 150 mg PO BID [facility] Sodium Chloride (Normal Saline) 1,000 mls @ 125 mls/hr IV ASDIRECTED [facility] Last Admin: 04/30/17 04:08 Dose: 125 mls/hr Magnesium Sulfate 2 gm/ Premix 50 mls @ 50 mls/hr IV ONETIME ONE Stop: 04/25/17 13:09 Last Admin: 04/25/17 13:08 Dose: 50 mls/hr Vancomycin HCl 1 gm/ Sodium (Chloride) 250 mls @ 166.667 mls/hr IV Q8H [facility] Last Admin: 04/28/17 11:09 Dose: Not Given Magnesium Sulfate 4 gm/ Premix 100 mls @ 50 mls/hr IV ONETIME ONE Stop: 04/30/17 10:28 Last Admin: 04/30/17 09:19 Dose: 50 mls/hr Iopamidol (Isovue Multipack-370 (76%)) 100 ml IVPUSH ONETIME STA Stop: 04/26/17 09:51 Last Admin: 04/26/17 14:48 Dose: 50 ml Lisinopril (Prinivil) 2.5 mg PO DAILY [facility] Last Admin: 04/25/17 08:18 Dose: 2.5 mg Non-Formulary Medication (Quetiapine Fumarate [Seroquel Xr]) 800 mg PO BEDTIME [facility] Last Admin: 04/24/17 23:12 Dose: Not Given Non-Formulary Medication (Rosuvastatin [Crestor]) 5 mg PO ASDIRECTED [facility] Non-Formulary Medication (Trazodone [Trazodone]) 150 mg PO BEDTIME [facility] Last Admin: 04/24/17 23:13 Dose: Not Given Quetiapine 400mg Tab (Own Med) 0 each PO BEDTIME [facility] Rosuvastatin 5mg Tab (Own Med) 0 each PO MoWeFr@2100 [facility] Last Admin: 04/24/17 23:00 Dose: Not Given Trazodone 150mg Tab (Own Med) 0 each PO BEDTIME [facility] Pneumococcal Polyvalent Vaccine (Pneumovax 23) 0.5 ml IM .ONCE ONE Stop: 04/24/17 22:27 Potassium Chloride (Klor-Con M20) 40 meq PO ONETIME ONE Stop: 04/30/17 08:29 Last Admin: 04/30/17 09:02 Dose: 40 meq Potassium Chloride (Klor-Con M20) 40 meq PO ONETIME ONE Stop: 05/01/17 08:01 Last Admin: 05/01/17 08:19 Dose: 40 meq - Exam Quality Assessment: No: Supplemental Oxygen General: Alert, Oriented, Cooperative, No Acute Distress Neck: Supple Lungs: Normal Respiratory Effort. No: Decreased Breath Sounds (lung strange, slowly improving, more aire flow heard today. ) Cardiovascular: Regular Rate, Regular Rhythm, No Murmurs Back Exam: Normal Inspection, Full Range of Motion Extremities: Normal Inspection, Normal Range of Motion, Non-Tender, No Pedal Edema, Normal Capillary Refill Neurological: No New Focal Deficit Psy/Mental Status: Alert, Normal Affect, Normal Mood - Problem List & Annotations (1) Pneumonia SNOMED Code(s): 673039146 Code(s): J18.9 - PNEUMONIA, UNSPECIFIED ORGANISM Status: Acute Current Visit: Yes Qualifiers: Laterality: right Lung location: lower lobe of lung (2) COPD (chronic obstructive pulmonary disease) SNOMED Code(s): 34704003 Code(s): J44.9 - CHRONIC OBSTRUCTIVE PULMONARY DISEASE, UNSPECIFIED Status : Chronic Current Visit: Yes Qualifiers: COPD type: COPD with acute lower respiratory infection Qualified Code(s): J44.0 - Chronic obstructive pulmonary disease with acute lower respiratory infection (3) Depression SNOMED Code(s): 74959497 Code(s): F32.9 - MAJOR DEPRESSIVE DISORDER, SINGLE EPISODE, UNSPECIFIED Status: Chronic Current Visit: Yes Qualifiers: Depression Type: unspecified Qualified Code(s): F32.9 - Major depressive disorder, single episode, unspecified (4) Aortic aneurysm SNOMED Code(s): 17092812 Code(s): I71.9 - AORTIC ANEURYSM OF UNSPECIFIED SITE, WITHOUT RUPTURE Status: Chronic Current Visit: Yes Qualifiers: Aortic location: thoracic aorta Presence of rupture: without rupture Qualified Code(s): I71.2 - Thoracic aortic aneurysm, without rupture (5) HTN (hypertension) SNOMED Code(s): 25062068 Code(s): I10 - ESSENTIAL (PRIMARY) HYPERTENSION Status: Chronic Current Visit: Yes Qualifiers: Hypertension type: essential hypertension Qualified Code(s): I10 - Essential (primary) hypertension - Problem List Review Problem List Initiated/Reviewed/Updated: Yes - My Orders Last 24 Hours: My Active Orders 04/30/17 08:32 Up ad Lily [RC] ASDIRECTED 05/02/17 05:00 MAGNESIUM [CHEM] DAILY - Plan Plan:: 67 yo male admitted with community acquired pneumonia. 1. CAP: Continues to improve. Afebrile. Continue Levaquin, Vancomycin, and Zosyn. Leukocytosis 13,000 this morning. Awaiting Sputum culture to de-escalate antibiotics.Continue to encourage IS use and increasing activity. 2. Ascending aortic aneurysm: Stable. measuring 4.[address] angio. ECHO pending and plan for outpatient follow up with Dr. Cisneros. Will need close monitoring of this. ECHO in 2016 from [place] reported size of 4.5 cm, stable at this time. 3. COPD: Stable. Monitor, Duonebs PRN 4. HTN: Stable. Continue Lisinopril and Metoprolol XL 5. Dyslipidemia: Stable Continue Crestor 6. Depression: Stable. Continue home medications. VTE prophylaxis: Lovenox Dispo: 2-3 days pending improvement.
[2017-05-01] MEDS: Enoxaparin 40 MG/0.4 ML Syringe SUBCUT SCH (12:01)
[2017-05-01] MEDS: Levofloxacin/Dextrose 5%-Water 750 MG in Premix Bag 1 BAG IV SCH (19:10)
[2017-05-01] MEDS: ROSUVASTATIN 5 MG PO SCH (20:14)
[2017-05-01] MEDS: Gabapentin 300 MG Cap PO SCH (20:14)
[2017-05-01] MEDS: TRAZODONE 150 MG PO SCH (20:15)
[2017-05-01] MEDS: QUETIAPINE 400 MG PO SCH (20:15)
[2017-05-02] MEDS: Piperacillin/Tazobactam 4.5 GM in Sodium Chloride 0.9% 100 ML IV SCH ×3 (03:39→15:07)
[2017-05-02 05:21] LABS: CHLORIDE,CL 103 mmol/L (98-110); SODIUM,NA 141 mmol/L (136-146)
[2017-05-02] MEDS: BREO ELLIPTA INH SCH (08:28)
[2017-05-02] MEDS: Aspirin 325 MG Tab.EC PO SCH (08:51)
[2017-05-02] MEDS: Metoprolol Succinate 25 MG Tab.ER PO SCH (08:51)
[2017-05-02] MEDS: Omeprazole 20 MG Cap.CR PO SCH (08:51)
[2017-05-02] MEDS: buPROPion 150 MG Tab.SR PO SCH (08:51)
[2017-05-02] MEDS: cloNIDine 0.1 MG Tab PO SCH (08:51)
[2017-05-02] MEDS: Docusate Sodium 100 MG Cap PO SCH (08:51)
[2017-05-02] MEDS: Losartan 50 MG Tab PO SCH (08:52)
[2017-05-02] MEDS: LINZESS 290 MCG PO SCH ×2 (09:03→09:04)
--- NOTE | 2017-05-02 11:35 | PCM.DCSUM1 ---
Discharge Summary - Discharge Data Discharge Date: 05/02/17 Discharge Disposition: Home, Self-Care 01 Condition: Good - Patient Summary/Data Hospital Course: Hospital Diagnosis Community acquired pneumonia Hospital course: 67 yo male with pmh of COPD who presented with several day history of shortness of breath, productive cough, right pleuritic chest pain, myalgias, and fever. He was evaluated in the ED and noted to have a WBC of 19, 020 and Chest x-ray with Right upper lung infiltrate. He was initially treated with Levaquin. When his symptoms were slow to resolved his antibiotics were expanded to vancomycin and Zosyn. CT chest was negative for PE but reported dense right upper lobe pneumonia with smaller right lower and middle pneumonias. CT also reported ascending aortic anerysm of 4.4 cm which patient is aware of and has routine follow up scheduled. He did make gradual improvement and on eighth day of hospitalization he is requesting discharge. He was discharged home on Augmentin and azithromycin for five more days. - Patient Instructions Diet: Usual Diet as Tolerated Activity: As Tolerated - Discharge Plan Prescriptions/Med Rec: Amoxicillin/Potassium Clav [Augmentin 875-125 Tablet] 1 each PO BID #10 tablet Azithromycin [IJD: Azithromycin] 250 mg PO DAILY #6 tab Home Medications: Home Meds Aspirin [Ecotrin] 325 mg PO DAILY 09/19/14 [History] Lisinopril 2.5 mg PO DAILY 09/19/14 [History] Metoprolol Succinate 25 mg PO DAILY 09/19/14 [History] Omeprazole 40 mg PO DAILY 09/19/14 [History] Rosuvastatin [Crestor] 5 mg PO ASDIRECTED 09/19/14 [History] cloNIDine [Catapres] 0 mg PO DAILY 09/19/14 [History] traZODone 150 mg PO BEDTIME 09/19/14 [History] buPROPion [Wellbutrin SR] 150 mg PO BID 02/21/16 [History] Cholecalciferol (Vitamin D3) [Vitamin D3] 2,000 units PO DAILY 04/24/17 [History ] Fluticasone/Vilanterol [Breo Ellipta 200-25 Mcg INH] 1 puff INH DAILY 04/24/17 [ History] Gabapentin [Neurontin] 300 mg PO BEDTIME 04/24/17 [History] Linaclotide [Linzess] 290 mcg PO DAILY 04/24/17 [History] QUEtiapine Fumarate [Seroquel Xr] 800 mg PO BEDTIME 04/24/17 [History] Losartan [Cozaar] 50 mg PO DAILY 04/25/17 [History] tiZANidine HCl [Zanaflex] 2 - 4 mg PO Q8H 04/26/17 [History] Amoxicillin/Potassium Clav [Augmentin 875-125 Tablet] 1 each PO BID #10 tablet 05/02/17 [Rx] Azithromycin [IJD: Azithromycin] 250 mg PO DAILY #6 tab 05/02/17 [Rx] Patient Handouts: Amoxicillin; Clavulanic Acid tablets, Azithromycin tablets, Nonspecific Chest Pain, [id number], Community-Acquired Pneumonia, Adult, Easy- to-Read Referrals: Jean Abbott MD [Physician] - (Please call the clinic ([phone]) on Thursday to set up a hospital follow-up appointment with Dr. Abbott in 2 weeks.) - Patient Data Vitals - Most Recent: Last Vital Signs Temp 36.8 C 05/02/17 08:00 Pulse 91 05/02/17 08:51 Resp 20 05/02/17 08:00 BP 170/89 H 05/02/17 08:52 Pulse Ox 89 L 05/02/17 08:00 Weight - Most Recent: 82.4 kg I&O - Last 24 hours: Intake & Output 05/01/17 05/02/17 05/02/17 22:59 06:59 14:59 Intake Total 1550 500 Output Total 660 875 Balance 890 -375 Lab Results - Last 24 hrs: Laboratory Results - last 24 hr 05/02/17 05/02/17 05/02/17 Range/Units 04:58 04:58 04:58 WBC 16.11 H (4.0-11.0) K/uL RBC 4.17 L (4.50-5.90) M/uL Hgb 12.2 L (13.0-17.0) g/dL Hct 37.3 L (38.0-50.0) % MCV 89.4 (80.0-98.0) fL MCH 29.3 (27.0-32.0) pg MCHC 32.7 (31.0-37.0) g/dL RDW Std Deviation 44.0 (28.0-62.0) fl RDW Coeff of Flora 13 (11.0-15.0) % Plt Count 472 H (150-400) K/uL MPV 8.80 (7.40-12.00) fL Add Manual Diff YES Neutrophils % (Manual) 59 (48.0-80.0) % Band Neutrophils % 4 % Lymphocytes % (Manual) 30 (16.0-40.0) % Monocytes % (Manual) 4 (0.0-15.0) % Eosinophils % (Manual) 2 (0.0-7.0) % Basophils % (Manual) 1 (0.0-1.5) % Nucleated RBC % 0.2 /100WBC Absolute Seg Neuts 9.5 Band Neutrophils # 0.6 Lymphocytes # (Manual) 4.8 Monocytes # (Manual) 0.6 Eosinophils # (Manual) 0.3 Basophils # (Manual) 0 Nucleated RBCs # 0 K/uL Sodium 141 (136-146) mmol/L Potassium 3.3 L (3.5-5.1) mmol/L Chloride 103 (98-110) mmol/L Carbon Dioxide 27 (21-31) mmol/L BUN 7 (6.0-23.0) mg/dL Creatinine 0.8 (0.6-1.5) mg/dL Est Cr Clr Drug Dosing 101.32 mL/min Estimated GFR (MDRD) > 60.0 ml/min Glucose 97 (60-110) mg/dL Calcium 8.2 L (8.8-10.8) mg/dL Magnesium 1.8 (1.5-2.3) mEq/L [facility] Results - Last 24 hrs: Microbiology 04/27/17 09:56 Aerobic Blood Culture - Final Blood - Venous - Lab Draw NO GROWTH AFTER 5 DAYS Anaerobic Blood Culture - Final NO GROWTH AFTER 5 DAYS 04/27/17 09:44 Aerobic Blood Culture - Final Blood - Venous NO GROWTH AFTER 5 DAYS Anaerobic Blood Culture - Final NO GROWTH AFTER 5 DAYS 04/29/17 14:20 Gram Stain - Final Sputum - Expectorated Sputum Culture - Final YEAST Normal Respiratory Giovanna Med Orders - Current: Current Medications Acetaminophen (Tylenol) 650 mg PO Q4H PRN PRN Reason: Pain (Mild 1-3)/fever Last Admin: 04/26/17 21:11 Dose: 650 mg Albuterol/Ipratropium (Duoneb 3.0-0.5 Mg/3 Ml) 3 ml NEB Q4HRRT PRN PRN Reason: Wheezing Last Admin: 04/28/17 10:33 Dose: 3 ml Aspirin (Ecotrin) 325 mg PO DAILY [facility] Last Admin: 05/02/17 08:51 Dose: 325 mg Bupropion HCl (Wellbutrin Sr) 150 mg PO BID [facility] Last Admin: 05/02/17 08:51 Dose: 150 mg Clonidine HCl (Catapres) 0.1 mg PO DAILY [facility] Last Admin: 05/02/17 08:51 Dose: 0.1 mg Docusate Sodium (Colace) 100 mg PO BID [facility] Last Admin: 05/02/17 08:51 Dose: 100 mg Enoxaparin Sodium (Lovenox) 40 mg SUBCUT Q24H [facility] Last Admin: 05/01/17 12:01 Dose: 40 mg Gabapentin (Neurontin) 300 mg PO BEDTIME [facility] Last Admin: 05/01/17 20:14 Dose: 300 mg Hydromorphone HCl (Dilaudid) 1 mg IVPUSH Q2H PRN PRN Reason: Pain Last Admin: 04/25/17 20:10 Dose: 1 mg Levofloxacin/Dextrose 750 mg/ (Premix) 150 mls @ 100 mls/hr IV Q24H [facility] Last Admin: 05/01/17 19:10 Dose: 100 mls/hr Piperacillin Sod/Tazobactam (Sod 4.5 gm/ Sodium Chloride) 100 mls @ 100 mls/hr IV Q6H [facility] Last Admin: 05/02/17 08:52 Dose: 100 mls/hr Vancomycin HCl 1,250 mg/ (Sodium Chloride) 250 mls @ 166.667 mls/hr IV Q8H [facility] Last Admin: 05/02/17 02:01 Dose: 166.6 mls/hr Losartan Potassium (Cozaar) 50 mg PO DAILY [facility] Last Admin: 05/02/17 08:52 Dose: 50 mg Metoprolol Succinate (Toprol Xl) 25 mg PO DAILY [facility] Last Admin: 05/02/17 08:51 Dose: 25 mg Omeprazole (Omeprazole) 40 mg PO DAILY [facility] Last Admin: 05/02/17 08:51 Dose: 40 mg Ondansetron HCl (Zofran Odt) 4 mg PO Q4H PRN PRN Reason: nausea, able to take PO Breo Ellipta 200/25 (Inhaler Own Med) 0 each INH DAILY [facility] Last Admin: 05/02/17 08:28 Dose: 1 each Linzess 290mcg Cap * (*Own Med) 0 each PO DAILY [facility] Last Admin: 05/02/17 09:04 Dose: Not Given Rosuvastatin 5mg Tab (Own Med) 0 each PO MoWeFr@2100 [facility] Last Admin: 05/01/17 20:14 Dose: 1 each Trazodone 150mg Tab (Own Med) 0 each PO BEDTIME [facility] Last Admin: 05/01/17 20:15 Dose: 1 each Quetiapine 400mg Tab (Own Med) 0 each PO BEDTIME [facility] Last Admin: 05/01/17 20:15 Dose: 2 each Temazepam (Restoril) 15 mg PO BEDTIME PRN PRN Reason: Sleep Last Admin: 04/26/17 21:12 Dose: 15 mg Tramadol HCl (Ultram) 50 mg PO Q6H PRN PRN Reason: Pain Last Admin: 04/26/17 21:12 Dose: 50 mg Vancomycin HCl (Pharmacy To Dose - Vancomycin) 1 dose .XX ASDIRECTED [facility] Discontinued Medications Albuterol/Ipratropium (Duoneb 3.0-0.5 Mg/3 Ml) 3 ml NEB Q4HRRT [facility] Last Admin: 04/25/17 09:48 Dose: Not Given Bupropion HCl (Wellbutrin Sr) 150 mg PO DAILY [facility] Last Admin: 04/25/17 08:16 Dose: 150 mg Bupropion HCl (Wellbutrin Sr) 150 mg PO BID [facility] Sodium Chloride (Normal Saline) 1,000 mls @ 125 mls/hr IV ASDIRECTED [facility] Last Admin: 04/30/17 04:08 Dose: 125 mls/hr Magnesium Sulfate 2 gm/ Premix 50 mls @ 50 mls/hr IV ONETIME ONE Stop: 04/25/17 13:09 Last Admin: 04/25/17 13:08 Dose: 50 mls/hr Vancomycin HCl 1 gm/ Sodium (Chloride) 250 mls @ 166.667 mls/hr IV Q8H [facility] Last Admin: 04/28/17 11:09 Dose: Not Given Magnesium Sulfate 4 gm/ Premix 100 mls @ 50 mls/hr IV ONETIME ONE Stop: 04/30/17 10:28 Last Admin: 04/30/17 09:19 Dose: 50 mls/hr Iopamidol (Isovue Multipack-370 (76%)) 100 ml IVPUSH ONETIME STA Stop: 04/26/17 09:51 Last Admin: 04/26/17 14:48 Dose: 50 ml Lisinopril (Prinivil) 2.5 mg PO DAILY [facility] Last Admin: 04/25/17 08:18 Dose: 2.5 mg Non-Formulary Medication (Quetiapine Fumarate [Seroquel Xr]) 800 mg PO BEDTIME [facility] Last Admin: 04/24/17 23:12 Dose: Not Given Non-Formulary Medication (Rosuvastatin [Crestor]) 5 mg PO ASDIRECTED [facility] Non-Formulary Medication (Trazodone [Trazodone]) 150 mg PO BEDTIME [facility] Last Admin: 04/24/17 23:13 Dose: Not Given Quetiapine 400mg Tab (Own Med) 0 each PO BEDTIME [facility] Rosuvastatin 5mg Tab (Own Med) 0 each PO MoWeFr@2100 [facility] Last Admin: 04/24/17 23:00 Dose: Not Given Trazodone 150mg Tab (Own Med) 0 each PO BEDTIME [facility] Pneumococcal Polyvalent Vaccine (Pneumovax 23) 0.5 ml IM .ONCE ONE Stop: 04/24/17 22:27 Potassium Chloride (Klor-Con M20) 40 meq PO ONETIME ONE Stop: 04/30/17 08:29 Last Admin: 04/30/17 09:02 Dose: 40 meq Potassium Chloride (Klor-Con M20) 40 meq PO ONETIME ONE Stop: 05/01/17 08:01 Last Admin: 05/01/17 08:19 Dose: 40 meq *Q Meaningful Use (DIS) - VTE *Q VTE Criteria *Q: - Stroke *Q Stroke Criteria *Q: - AMI *Q AMI Criteria *Q:
[2017-05-02] MEDS ORDERED: Potassium Chloride 20 MEQ Tab.ER PO ONE (12:14)
[2017-05-02 12:32] VITALS: BP 160/78
[2017-05-02] MEDS: Enoxaparin 40 MG/0.4 ML Syringe SUBCUT SCH (15:07)
== END 2017-05-02 12:30 | disposition home or self-care (01) | DRG 195 ==
LOC: MW.ED 18:07 → MW.MS 19:55 → OBSVTOIN 04-26 09:34 → MW.MS 04-27 08:58
PROVIDERS: ADMIT Family Medicine; ATTEND Family Medicine
DX: J18.9 Pneumonia, unspecified organism (principal); R07.9 Chest pain, unspecified; J44.9 Chronic obstructive pulmonary disease, unspecified; I71.2 Thoracic aortic aneurysm, without rupture; I10 Essential (primary) hypertension; F32.9 Major depressive disorder, single episode, unspecified; Z79.899 Other long term (current) drug therapy; Z87.891 Personal history of nicotine dependence; E78.5 Hyperlipidemia, unspecified
CPT/HCPCS: 36415 ×3; 71020; 80048; 80053 ×2; 83690; 83735; 84484 ×2; 85025 ×3; 85610; 87040 ×2; 93005 ×2; 94640; 96361 ×3; 96365; 96366; 96367; 96372; 96375; 96376; 99285; A9270 ×11; G0378 ×2; J1170 ×4; J1650; J1956 ×2; J3475; J7040 ×5; 71010; 71010-26; 71275; 71275-26; 80202; 84100; 87070; 87205; 93306; 94664; 96374; 99284; J2543; J3370; J7030; J7050; Q9967

== ENCOUNTER 2018-04-21 10:41 | Emergency (ER) | payer MEDICARE, MEDICAID ==
[2018-04-21] MEDS ORDERED: Sodium Chloride 0.9% 10 ML Syringe FLUSH PRN (10:53)
[2018-04-21] MEDS ORDERED: Sodium Chloride 0.9% 2.5 ML Syringe FLUSH PRN (10:53)
--- NOTE | 2018-04-21 11:11 | EDM.PDOC ---
ED HPI GENERAL MEDICAL PROBLEM - General Chief Complaint: Neuro Symptoms/Deficits Stated Complaint: ILL Time Seen by Provider: 04/21/18 10:45 Source of Information: Reports: Patient History Limitations: Reports: No Limitations - History of Present Illness INITIAL COMMENTS - FREE TEXT/NARRATIVE: HISTORY AND PHYSICAL: []68-year-old male presenting per EMS with increased confusion History of Present Illness: []Patient does have body aches "all over" Does not recall how long this has lasted He is able to answer questions Patient is stated to the staff that he has not eaten or drank anything for the last 2 days Patient [place] in city [place] Review of Systems: As per history of present illness and below otherwise all systems reviewed and negative. Past medical history: As per history of present illness and as reviewed below otherwise noncontributory. Surgical history: As per history of present illness and as reviewed below otherwise noncontributory. Social history: No reported history of drug or alcohol abuse. Family history: As per history of present illness and as reviewed below otherwise noncontributory. Physical exam: Alert but confused. Denies any shortness of breath. His regular providers Dr. Abbott, [facility]. HEENT: Atraumatic, normocehpalic, pupils reactive, negative for conjunctival pallor or scleral icterus, mucous membranes moist, throat clear, neck supple, nontender, trachea midline. Lungs: Clear to auscultation, breath sounds equal bilaterally, chest non tender. Heart: S1S2, regular, negative for clicks, rubs, or JVD. Abdomen: Soft, nondistended, nontender. Negative for masses or hepatossplenmegaly. Negative for costovertebral tenderness. Pelvis: Stable nontender. Genitourinary: Deferred. Rectal: Deferred Extremities: Atraumatic, negative for cords or calf pain. Neurovascular unremarkable. Neuro: Awake, alert, oriented. Cranial nerves II through XII unremarkable. Cerebellum unremarkable. Motor and sensory unremarkable throughout. Exam nonfocal. improved significantly with a liter fluid infused. Patient is having some difficulty with anxiety to sit still he states that this is not a new occurrence Diagnostics: []CBC CMP chest x-ray CT head UA urine drug screen urine culture blood cultures 2 exam CK Therapeutics: []Normal saline Ativan 1 mg IV Impression: []Mild dehydration Plan: []Discharged home Follow up with Dr. Abbott in 3 days Return to the emergency department as directed and discussed Definitive disposition and diagnosis as appropriate pending reevaluation and review of above. Onset: Today, Sudden, Unknown/Unsure (Infusion) Location: Reports: Head, Generalized Quality: Reports: Ache (All over) Severity: Moderate Improves with: Reports: None Worsens with: Reports: None Associated Symptoms: Reports: Confusion - Related Data Allergies Allergy/AdvReac Type Severity Reaction Status Date / Time No Known Allergies Allergy Verified 04/21/18 10:43 Home Meds: Home Meds Aspirin [Ecotrin] 325 mg PO DAILY 09/19/14 [History] Omeprazole 40 mg PO DAILY 09/19/14 [History] Rosuvastatin [Crestor] 5 mg PO MOWEFR 09/19/14 [History] traZODone 300 mg PO BEDTIME 09/19/14 [History] buPROPion [Wellbutrin SR] 150 mg PO QAM 02/21/16 [History] Cholecalciferol (Vitamin D3) [Vitamin D3] 2,000 units PO DAILY 04/24/17 [History ] Fluticasone/Vilanterol [Breo Ellipta 200-25 Mcg INH] 1 puff INH DAILY 04/24/17 [ History] Gabapentin [Neurontin] 300 mg PO BEDTIME 04/24/17 [History] Linaclotide [Linzess] 290 mcg PO DAILY 04/24/17 [History] Losartan [Cozaar] 25 mg PO DAILY 04/25/17 [History] tiZANidine HCl [Zanaflex] 4 - 8 mg PO Q8H 04/26/17 [History] QUEtiapine Fumarate [Seroquel] 400 mg PO BEDTIME 04/21/18 [History] Tiotropium Russell [Spiriva Respimat] 2.5 mcg INH DAILY 04/21/18 [History] Zolpidem Tartrate 10 mg PO BEDTIME 04/21/18 [History] buPROPion HCl [Wellbutrin SR] 300 mg PO BEDTIME 04/21/18 [History] Past Medical History HEENT History: Reports: None Cardiovascular History: Reports: Aneurysm, High Cholesterol, Hypertension Other Cardiovascular History: aortic aneurysm Respiratory History: Reports: COPD Gastrointestinal History: Reports: None Genitourinary History: Reports: None Musculoskeletal History: Reports: Back Pain, Chronic Neurological History: Reports: None Psychiatric History: Reports: Anxiety, Depression Endocrine/Metabolic History: Reports: None Hematologic History: Reports: None Oncologic (Cancer) History: Reports: None Dermatologic History: Reports: None - Infectious Disease History Infectious Disease History: Reports: Chicken Pox - Past Surgical History Head Surgeries/Procedures: Reports: None HEENT Surgical History: Reports: Tonsillectomy Cardiovascular Surgical History: Reports: None Respiratory Surgical History: Reports: None GI Surgical History: Reports: Hernia, Abdominal Social & Family History - Family History Family Medical History: Noncontributory - Tobacco Use Smoking Status *Q: Former Smoker Used Tobacco, but Quit: Yes Month/Year Tobacco Last Used: 2009 - Caffeine Use Caffeine Use: Reports: None Caffeine Use Comment: 3cups/day - Recreational Drug Use Recreational Drug Use: No ED ROS GENERAL - Review of Systems Review Of Systems: ROS reveals no pertinent complaints other than HPI. ED EXAM, NEURO - Physical Exam Exam: See Below (see dictation) EKG INTERPRETATION EKG Date: 04/21/18 Rhythm: NSR Rate (Beats/Min): 73 Comparison: No Change Course - Vital Signs Last Recorded V/S: Last Vital Signs Temp 37.0 C 04/21/18 10:43 Pulse 94 04/21/18 10:43 Resp 16 04/21/18 10:43 BP 170/104 H 04/21/18 12:10 Pulse Ox 99 04/21/18 10:53 - Orders/Labs/Meds Orders: Active Orders 24 hr Category Date Time Status Cardiac Monitoring [RC] . DIRECTED Care 04/21/18 10:53 Active EKG Documentation Completion [RC] STAT Care 04/21/18 10:53 Active Oxygen Therapy, ED [RC] ASDIRECTED Care 04/21/18 10:53 Active CULTURE BLOOD [BC] Stat Lab 04/21/18 11:10 Received CULTURE BLOOD [BC] Stat Lab 04/21/18 11:50 Received CULTURE URINE [RM] Stat Lab 04/21/18 11:25 Received UA W/MICROSCOPIC [URIN] Stat Lab 04/21/18 11:25 Ordered Sodium Chloride 0.9% [Normal Saline] 1,000 ml Med 04/21/18 12:35 Active IV STAT Sodium Chloride 0.9% [Saline Flush] Med 04/21/18 10:53 Active 10 ml FLUSH ASDIRECTED PRN Sodium Chloride 0.9% [Saline Flush] Med 04/21/18 10:53 Active 2.5 ml FLUSH ASDIRECTED PRN Blood Culture x2 Reflex Set [OM.PC] Stat Ot 04/21/18 10:54 Ordered Saline Lock Insert [OM.PC] Stat Ot 04/21/18 10:53 Ordered Medication Orders Sodium Chloride (Normal Saline) 1,000 mls @ 125 mls/hr IV STAT ONE Stop: 04/21/18 20:34 Last Admin: 04/21/18 13:01 Dose: 125 mls/hr Sodium Chloride (Saline Flush) 10 ml FLUSH ASDIRECTED PRN PRN Reason: Keep Vein Open Sodium Chloride (Saline Flush) 2.5 ml FLUSH ASDIRECTED PRN PRN Reason: Keep Vein Open Labs: Laboratory Tests 04/21/18 04/21/18 04/21/18 Range/Units 11:10 11:10 11:10 WBC 9.25 (4.0-11.0) K/uL RBC 5.53 (4.50-5.90) M/uL Hgb 16.3 (13.0-17.0) g/dL Hct 48.3 (38.0-50.0) % MCV 87.3 (80.0-98.0) fL MCH 29.5 (27.0-32.0) pg MCHC 33.7 (31.0-37.0) g/dL RDW Std Deviation 42.5 (28.0-62.0) fl RDW Coeff of Flora 13 (11.0-15.0) % Plt Count 258 (150-400) K/uL MPV 9.10 (7.40-12.00) fL Neut % (Auto) 63.6 (48.0-80.0) % Lymph % (Auto) 23.9 (16.0-40.0) % Edwards % (Auto) 11.7 (0.0-15.0) % Eos % (Auto) 0.3 (0.0-7.0) % Baso % (Auto) 0.5 (0.0-1.5) % Neut # (Auto) 5.9 H (1.4-5.7) K/uL Lymph # (Auto) 2.2 (0.6-2.4) K/uL Edwards # (Auto) 1.1 H (0.0-0.8) K/uL Eos # (Auto) 0.0 (0.0-0.7) K/uL Baso # (Auto) 0.1 (0.0-0.1) K/uL Nucleated RBC % 0.0 /100WBC Nucleated RBCs # 0 K/uL INR 1.04 Sodium 141 (136-148) mmol/L Potassium 3.5 (3.5-5.1) mmol/L Chloride 105 (98-107) mmol/L Carbon Dioxide 24.0 (21.0-32.0) mmol/L BUN 17 (7.0-18.0) mg/dL Creatinine 1.1 (0.8-1.3) mg/dL Est Cr Clr Drug Dosing 66.15 mL/min Estimated GFR (MDRD) > 60.0 ml/min Glucose 109 H (74-106) mg/dL Calcium 9.6 (8.5-10.1) mg/dL Magnesium (1.8-2.4) mg/dL Total Bilirubin 0.7 (0.2-1.0) mg/dL AST 17 (15-37) IU/L ALT 16 (14-63) IU/L Alkaline Phosphatase 71 (46-116) U/L Creatine Kinase (26-308) U/L Troponin I < 0.050 (0.000-0.056) ng/mL B-Natriuretic Peptide (<100) PG/ML Total Protein 7.8 (6.4-8.2) g/dL Albumin 4.6 (3.4-5.0) g/dL Globulin 3.2 (2.0-3.5) g/dL Albumin/Globulin Ratio 1.4 (1.3-2.8) Amylase 42 (25-115) U/L TSH 3rd Generation 1.54 (0.36-3.74) uIU/mL Urine Color Urine Appearance Urine pH (5.0-8.0) Ur Specific Cisco (1.001-1.035) Urine Protein (NEGATIVE) mg/dL Urine Glucose (UA) (NEGATIVE) mg/dL Urine Ketones (NEGATIVE) mg/dL Urine Occult Blood (NEGATIVE) Urine Nitrite (NEGATIVE) Urine Bilirubin (NEGATIVE) Urine Urobilinogen (<2.0) EU/dL Ur Leukocyte Esterase (NEGATIVE) Urine RBC (0-2/HPF) Urine WBC (0-5/HPF) Ur Epithelial Cells (NONE-FEW) Urine Bacteria (NEGATIVE) 04/21/18 04/21/18 04/21/18 Range/Units 11:10 11:10 11:25 WBC (4.0-11.0) K/uL RBC (4.50-5.90) M/uL Hgb (13.0-17.0) g/dL Hct (38.0-50.0) % MCV (80.0-98.0) fL MCH (27.0-32.0) pg MCHC (31.0-37.0) g/dL RDW Std Deviation (28.0-62.0) fl RDW Coeff of Flora (11.0-15.0) % Plt Count (150-400) K/uL MPV (7.40-12.00) fL Neut % (Auto) (48.0-80.0) % Lymph % (Auto) (16.0-40.0) % Edwards % (Auto) (0.0-15.0) % Eos % (Auto) (0.0-7.0) % Baso % (Auto) (0.0-1.5) % Neut # (Auto) (1.4-5.7) K/uL Lymph # (Auto) (0.6-2.4) K/uL Edwards # (Auto) (0.0-0.8) K/uL Eos # (Auto) (0.0-0.7) K/uL Baso # (Auto) (0.0-0.1) K/uL Nucleated RBC % /100WBC Nucleated RBCs # K/uL INR Sodium (136-148) mmol/L Potassium (3.5-5.1) mmol/L Chloride (98-107) mmol/L Carbon Dioxide (21.0-32.0) mmol/L BUN (7.0-18.0) mg/dL Creatinine (0.8-1.3) mg/dL Est Cr Clr Drug Dosing mL/min Estimated GFR (MDRD) ml/min Glucose (74-106) mg/dL Calcium (8.5-10.1) mg/dL Magnesium 2.4 (1.8-2.4) mg/dL Total Bilirubin (0.2-1.0) mg/dL AST (15-37) IU/L ALT (14-63) IU/L Alkaline Phosphatase (46-116) U/L Creatine Kinase 345 H (26-308) U/L Troponin I (0.000-0.056) ng/mL B-Natriuretic Peptide 30 (<100) PG/ML Total Protein (6.4-8.2) g/dL Albumin (3.4-5.0) g/dL Globulin (2.0-3.5) g/dL Albumin/Globulin Ratio (1.3-2.8) Amylase (25-115) U/L TSH 3rd Generation (0.36-3.74) uIU/mL Urine Color YELLOW Urine Appearance CLEAR Urine pH 5.5 (5.0-8.0) Ur Specific Cisco >= 1.030 (1.001-1.035) Urine Protein TRACE (NEGATIVE) mg/dL Urine Glucose (UA) NEGATIVE (NEGATIVE) mg/dL Urine Ketones 40 H (NEGATIVE) mg/dL Urine Occult Blood TRACE-INTACT (NEGATIVE) Urine Nitrite NEGATIVE (NEGATIVE) Urine Bilirubin SMALL H (NEGATIVE) Urine Urobilinogen 0.2 (<2.0) EU/dL Ur Leukocyte Esterase NEGATIVE (NEGATIVE) Urine RBC 0-2 (0-2/HPF) Urine WBC 0-1 (0-5/HPF) Ur Epithelial Cells FEW (NONE-FEW) Urine Bacteria FEW (NEGATIVE) Meds: Medications Generic Name Dose Route Start Last Admin Trade Name Freq PRN Reason Stop Dose Admin Sodium Chloride 1,000 mls @ 125 mls/hr 04/21/18 12:35 04/21/18 13:01 Normal Saline IV 04/21/18 20:34 125 mls/hr STAT ONE Administration Sodium Chloride 10 ml 04/21/18 10:53 Saline Flush FLUSH ASDIRECTED PRN Keep Vein Open Sodium Chloride 2.5 ml 04/21/18 10:53 Saline Flush FLUSH ASDIRECTED PRN Keep Vein Open Discontinued Medications Generic Name Dose Route Start Last Admin Trade Name Freq PRN Reason Stop Dose Admin Clonidine HCl 0.1 mg 04/21/18 11:46 04/21/18 12:10 Catapres PO 04/21/18 11:47 0.1 mg ONETIME ONE Administration Sodium Chloride 1,000 mls @ 999 mls/hr 04/21/18 11:28 04/21/18 11:40 Normal Saline IV 04/21/18 12:28 999 mls/hr STAT ONE Administration Lorazepam 1 mg 04/21/18 13:48 04/21/18 13:55 Ativan IVPUSH 04/21/18 13:49 1 mg ONETIME ONE Administration Losartan Potassium 50 mg 04/21/18 11:46 04/21/18 12:10 Cozaar PO 04/21/18 11:47 50 mg ONETIME ONE Administration Departure - Departure Time of Disposition: 14:05 Disposition: Home, Self-Care 01 Condition: Good Clinical Impression: Dehydration - Discharge Information *PRESCRIPTION DRUG MONITORING PROGRAM REVIEWED*: Not Applicable *COPY OF PRESCRIPTION DRUG MONITORING REPORT IN PATIENT KRISTEN: Not Applicable Instructions: Rehydration, Adult Referrals: PCP,None [Primary Care Provider] - Forms: ED Department Discharge Additional Instructions: The following information is given to patients seen in the emergency department who are being discharged to home. This information is to outline your options for follow-up care. We provide all patients seen in our emergency department with a follow-up referral. The need for follow-up, as well as the timing and circumstances, are variable depending upon the specifics of your emergency department visit. If you don't have a primary care physician on staff, we will provide you with a referral. We always advise you to contact your personal physician following an emergency department visit to inform them of the circumstance of the visit and for follow-up with them and/or the need for any referrals to a consulting specialist. The emergency department will also refer you to a specialist when appropriate. This referral assures that you have the opportunity for followup care with a specialist. All of these measure are taken in an effort to provide you with optimal care, which includes your followup. Under all circumstances we always encourage you to contact your private physician who remains a resource for coordinating your care. When calling for followup care, please make the office aware that this follow-up is from your recent emergency room visit. If for any reason you are refused follow-up, please contact the [facility] emergency department at and asked to speak to the emergency department charge nurse. He had mild dehydration Continue to drink fluids to rehydrate Follow Up with Dr. Abbott in 3 days Return to the emergency room as instructed and discussed - My Orders Last 24 Hours: My Active Orders 04/21/18 10:53 Cardiac Monitoring [RC] . DIRECTED EKG Documentation Completion [RC] STAT Oxygen Therapy, ED [RC] ASDIRECTED Sodium Chloride 0.9% [Saline Flush] 10 ml FLUSH ASDIRECTED PRN Sodium Chloride 0.9% [Saline Flush] 2.5 ml FLUSH ASDIRECTED PRN Saline Lock Insert [OM.PC] Stat 04/21/18 10:54 Blood Culture x2 Reflex Set [OM.PC] Stat 04/21/18 11:10 CULTURE BLOOD [BC] Stat 04/21/18 11:25 CULTURE URINE [RM] Stat UA W/MICROSCOPIC [URIN] Stat 04/21/18 11:50 CULTURE BLOOD [BC] Stat 04/21/18 12:35 Sodium Chloride 0.9% [Normal Saline] 1,000 ml IV STAT - Assessment/Plan Last 24 Hours: My Active Orders 04/21/18 10:53 Cardiac Monitoring [RC] . DIRECTED EKG Documentation Completion [RC] STAT Oxygen Therapy, ED [RC] ASDIRECTED Sodium Chloride 0.9% [Saline Flush] 10 ml FLUSH ASDIRECTED PRN Sodium Chloride 0.9% [Saline Flush] 2.5 ml FLUSH ASDIRECTED PRN Saline Lock Insert [OM.PC] Stat 04/21/18 10:54 Blood Culture x2 Reflex Set [OM.PC] Stat 04/21/18 11:10 CULTURE BLOOD [BC] Stat 04/21/18 11:25 CULTURE URINE [RM] Stat UA W/MICROSCOPIC [URIN] Stat 04/21/18 11:50 CULTURE BLOOD [BC] Stat 04/21/18 12:35 Sodium Chloride 0.9% [Normal Saline] 1,000 ml IV STAT
[2018-04-21] MEDS ORDERED: Sodium Chloride 0.9% 1,000 ML IV ONE ×2 (11:28→12:35)
[2018-04-21] MEDS ORDERED: cloNIDine 0.1 MG Tab PO ONE (11:46)
[2018-04-21] MEDS ORDERED: Losartan 50 MG Tab PO ONE (11:46)
[2018-04-21 12:22] LABS: CHLORIDE,CL 105 mmol/L (98-107); SODIUM,NA 141 mmol/L (136-148)
--- NOTE | 2018-04-21 13:30 | CR ---
EXAM DATE: 04/21/18 PATIENT'S AGE: 68 Patient: KACEY SANTIAGO Facility: [place], [place] Site . Site : 1950 Study: XRay Chest [id number]/22/2018 11:48:12 AM Ordering Physician: Doctor Kim Final Report: INDICATION: Chest pain/shortness of breath/dizziness/confusion. COMPARISON: None. FINDINGS: Cardiac and mediastinal silhouettes are narrowed and there is attenuation of the pulmonary vasculature. Lungs are hyperexpanded. Linear infiltrate, scar or atelectasis is noted in the right upper lung. The left lung is free of infiltrate. There are no obvious pleural effusions on this single view exam. The bones are demineralized and degenerative changes are noted the visualized shoulder joints. IMPRESSION: 1. Lung hyper expansion and attenuation pulmonary vasculature suggests emphysema. 2. Linear infiltrate/scar or atelectasis right upper lung. Dictated by Becky Sanchez MD @ Apr 21 2018 11:59AM (Electronic Signature) Report Signed by Proxy. [facility]
[2018-04-21] MEDS ORDERED: LORazepam 2 MG/ML SDV IVPUSH ONE (13:48)
--- NOTE | 2018-04-21 14:00 | CT ---
EXAM DATE: 04/21/18 PATIENT'S AGE: 68 Patient: KACEY SANTIAGO Facility: [place], [place] Site . Site : 1950 Study: CT Head [id number]/22/[id number] 12:13:08 PM Ordering Physician: Doctor Kim Final Report: HISTORY: Altered mental status. TECHNIQUE: Noncontrast head CT. COMPARISON: No prior. FINDINGS: There is no acute intracranial hemorrhage or acute ischemic infarct. Areas of white matter low attenuation are nonspecific but likely reflect sequelae of mild chronic small vessel ischemic changes. No mass effect or midline shift. No hydrocephalus. No extra-axial collection or hematoma. No acute loss of bello- white differentiation. Mastoid air cells are clear. Paranasal sinuses are clear aside from minor mucosal thickening involving a few ethmoid air cells. IMPRESSION: 1. No acute intracranial disease. 2. Mild chronic small vessel ischemic changes. Dictated by Ihsan Weathers MD @ 04/21/2018 12:35:14 PM Please note that all CT scans at this facility use dose modulation, iterative reconstruction, and/or weight-based dosing when appropriate to reduce radiation dose to as low as reasonably achievable. Dictated by: Ihsan Weathers MD @ 04/21/2018 12:35:22 (Electronic Signature) Report Signed by Proxy. [facility]
[2018-04-21 14:40] VITALS: BP 140/84
== END 2018-04-21 14:32 | disposition home or self-care (01) ==
LOC: MW.ED 10:41
DX: E86.0 Dehydration (principal); E78.00 Pure hypercholesterolemia, unspecified; I10 Essential (primary) hypertension; J44.9 Chronic obstructive pulmonary disease, unspecified; Z87.891 Personal history of nicotine dependence; Z79.82 Long term (current) use of aspirin; Z79.899 Other long term (current) drug therapy
CPT/HCPCS: 36415; 70450; 71045; 80053; 81001; 82150; 82550; 83735; 83880; 84443; 84484; 85025; 85610; 87040; 87086; 93005; 96361; 96374; 99285; A9270; J2060; J7040

== ENCOUNTER 2018-04-22 09:43 | Observation (INO) | payer MEDICARE, MEDICAID ==
[2018-04-22] MEDS ORDERED: Sodium Chloride 0.9% 1,000 ML IV ONE (09:50)
[2018-04-22] MEDS ORDERED: Sodium Chloride 0.9% 10 ML Syringe FLUSH PRN ×2 (09:50→14:06)
[2018-04-22] MEDS ORDERED: LORazepam 2 MG/ML SDV IVPUSH ONE ×2 (09:50→12:13)
[2018-04-22] MEDS ORDERED: Sodium Chloride 0.9% 2.5 ML Syringe FLUSH PRN ×2 (09:50→14:06)
--- NOTE | 2018-04-22 10:17 | EDM.PDOC ---
ED HPI GENERAL MEDICAL PROBLEM - General Chief Complaint: General Stated Complaint: AMB Time Seen by Provider: 04/22/18 09:49 - History of Present Illness INITIAL COMMENTS - FREE TEXT/NARRATIVE: HISTORY AND PHYSICAL: History of present illness: The patient is a 68-year-old male who presents via EMS after his crane operator contacted them for confusion and she thought he needed to be evaluated. According to the history he has COPD and has had hypertension the past and was on medications for that in the past but is currently not on antihypertensives and who also has a history of PTSD and major depression. He follows at [facility] with Cee Verma. The patient was seen here yesterday as the ambulance was called because he felt confused and not quite right and he was evaluated with a full lab tests chest x-ray CT scan of the head and was neurologically intact. He did seem somewhat forgetful and was not in this early oriented to the day of week but he was speaking clearly and offering information and very cooperative throughout majority of his evaluation. Towards the end of his stay in the ED he became anxious and said that he had claustrophobia and he was offered admission for observation and decline that and as he was appropriate and oriented at that time he was allowed to be discharged. The patient subsequently left the hospital and got back to his apartment complex and was visited by his crane operator after his discharge in his home. [employer] is currently here at bedside and says that she saw him and he seemed to be acting more like himself and had a normal conversation with a friend on the telephone. She thought he was safe to leave. This morning she called to check in on him and he seemed to be confused again and also [facility] was contacted by other people in the apartment complex who felt like he was not acting right. The reports are very vague as to what he was doing but that he seemed confused. The crane operator visited him and also thought that he was not appropriate and seemed confused and called an ambulance to bring him here again. The patient on my evaluation is cooperative alert and oriented to person and place but does know the day of the week. He answers questions appropriately not the name of his crane operator and is interactive with me but does exhibit a flat effect. He denies any complaints of any specific pain but says that he has aches all over. He's had no nausea vomiting or diarrhea and no fevers chills or cough and denies social history. According to the crane operator he hasn't been eating and drinking since she left him last night as a glass of water she left for him was still present on her return to his apartment today. Patient has no recall of yesterday's events and less he is prompted. He doesn't recall going back to his apartment nor does he recall his crane operator visiting him last night. He denies that he has had any falls and does not have any head neck or back pain nor any extremity complaints. When queried about his medications the patient says that he has not been compliant for about 2 days with them. When the nurse pushes them to ask him the day of the week that he last took his meds he said he is unsure and when then pushed again asking him had as he notes 2 days he says he doesn't know if it's only been 2 days. According To his provider Cee Verma when he is noncompliant with his medications he does get very anxious and paranoid. The patient has told nursing that he is afraid to stay in his home and he doesn't feel safe there but when asked why he says he is not sure and cannot articulate. His provider in the clinic also says that he is not very forthcoming with information which I am seeing as well and that he does always have depressed a fact and is very flat general again which I'm seeing here. The patient is here for reevaluation of his recurrent symptoms which seem to improve yesterday and now have returned. His provider at [place] also tells me that in the past he has had a history of noncompliance with his meds and was on a drug monitoring program and may need to return to that as well. When I specifically asked the patient if he wants to harm himself or harm other people he denies that. Review of systems: As per history of present illness and below otherwise all systems reviewed and negative. Past medical history: As per history of present illness and as reviewed below otherwise noncontributory. Surgical history: As per history of present illness and as reviewed below otherwise noncontributory. Social history: No reported history of drug or alcohol abuse. Family history: As per history of present illness and as reviewed below otherwise noncontributory. Physical exam: General: Well-developed well-nourished thin man who is nontoxic and cooperative on exam. Vital signs are noted by me. Although he is amnestic to yesterday's events he seems very oriented and interactive and can give us information regarding things in his daily life as well as things in the past but is having issue with recall of yesterday's events. HEENT: Atraumatic, normocephalic, pupils reactive, negative for conjunctival pallor or scleral icterus, mucous membranes moist, throat clear, neck supple, nontender, trachea midline. there is no cervical adenopathy or nuchal rigidity there is no scalp tenderness defects or deformities and no fascial defects or deformities. Lungs: Clear to auscultation, breath sounds equal bilaterally, chest nontender. Heart: S1S2, regular, negative for clicks, rubs, or JVD. murmur is appreciated Abdomen: Soft, nondistended, nontender. Negative for masses or hepatosplenomegaly. Negative for costovertebral tenderness. Pelvis: Stable nontender. Genitourinary: Deferred. Rectal: Deferred. Extremities: Atraumatic, negative for cords or calf pain. Neurovascular unremarkable. full range of motion without defects or deficits Neuro: Awake, alert, oriented to person and place but cannot tell us the day of the week but can tell us the year and other answers to pertinent questions without delay. Cranial nerves II through XII unremarkable. Cerebellum unremarkable. Motor and sensory unremarkable throughout. Exam nonfocal. Back: There are no midline step-offs in his defects of the thoracic or lumbar spine and no soft tissue injury is appreciated Skin: Normal turgor no evidence of any rashes or lesions Diagnostics: CBC CMP alcohol level CPK magnesium level TSH UA UDS CT scan of the head Therapeutics: IV fluids Ativan 1135: Case was discussed with our neurologist Dr. Gonzalez who said that she would see the patient in consultation and she does agree that the patient needs an observation admission and further testing and MRI to be performed to rule out any small micro-embolized that can cause confusion. 1210: All testing results were discussed with the patient who seems much more anxious in the room and actually got out of his bed and just inside of the curtain and postured like he wanted to leave. As he was sitting there his legs were bouncing up and down and he would not look up and only looked the floor. I told him that he needed to be admitted and that we were going to get him back into the bed and it will be better if he did that willingly. He says that he doesn't want to stay and he told the nurse the same thing. I told him that that was not an option at this point because he is too confused and is been here twice in 2 days for the same problems and we needed to figure things out. He then proceeded to tell me that things are messed up and that he doesn't know what's going on. I told him that that's what we wanted to help him with and after that conversation he proceeded to get into the bed. I will give him another dose of Ativan and put in a formal consult for Dr. Gonzalez as well as a call out to our hospitalist for admission. Impression: New onset confusion and episodic altered mental status etiology unclear History of depression and PTSD and anxiety Definitive disposition and diagnosis as appropriate pending reevaluation and review of above. - Related Data Allergies Allergy/AdvReac Type Severity Reaction Status Date / Time No Known Allergies Allergy Verified 04/22/18 09:51 Home Meds: Home Meds Aspirin [Ecotrin] 325 mg PO DAILY 09/19/14 [History] Omeprazole 40 mg PO DAILY 09/19/14 [History] Rosuvastatin [Crestor] 5 mg PO MOWEFR 09/19/14 [History] traZODone 300 mg PO BEDTIME 09/19/14 [History] buPROPion [Wellbutrin SR] 150 mg PO QAM 02/21/16 [History] Cholecalciferol (Vitamin D3) [Vitamin D3] 2,000 units PO DAILY 04/24/17 [History ] Fluticasone/Vilanterol [Breo Ellipta 200-25 Mcg INH] 1 puff INH DAILY 04/24/17 [ History] Gabapentin [Neurontin] 300 mg PO BEDTIME 04/24/17 [History] Linaclotide [Linzess] 290 mcg PO DAILY 04/24/17 [History] Losartan [Cozaar] 25 mg PO DAILY 04/25/17 [History] tiZANidine HCl [Zanaflex] 4 - 8 mg PO Q8H 04/26/17 [History] QUEtiapine Fumarate [Seroquel] 400 mg PO BEDTIME 04/21/18 [History] Tiotropium [place] [Spiriva Respimat] 2.5 mcg INH DAILY 04/21/18 [History] Zolpidem Tartrate 10 mg PO BEDTIME 04/21/18 [History] buPROPion HCl [Wellbutrin SR] 300 mg PO BEDTIME 04/21/18 [History] Past Medical History HEENT History: Reports: None Cardiovascular History: Reports: Aneurysm, High Cholesterol, Hypertension Other Cardiovascular History: aortic aneurysm Respiratory History: Reports: COPD Gastrointestinal History: Reports: None Genitourinary History: Reports: None Musculoskeletal History: Reports: Back Pain, Chronic Neurological History: Reports: None Psychiatric History: Reports: Anxiety, Depression, PTSD Other Psychiatric History: dx of major depressive disorder and PTSD; patient states he does not feel safe at home, When asked why, he states " I dont know, that place is weird" denies anyone threatening him, or thoughts of selfharm Endocrine/Metabolic History: Reports: None Hematologic History: Reports: None Oncologic (Cancer) History: Reports: None Dermatologic History: Reports: None - Infectious Disease History Infectious Disease History: Reports: Chicken Pox - Past Surgical History Head Surgeries/Procedures: Reports: None HEENT Surgical History: Reports: Tonsillectomy Cardiovascular Surgical History: Reports: None Respiratory Surgical History: Reports: None GI Surgical History: Reports: Hernia, Abdominal Social & Family History - Family History Family Medical History: Noncontributory - Tobacco Use Smoking Status *Q: Never Smoker Second Hand Smoke Exposure: No - Caffeine Use Caffeine Use: Reports: None Caffeine Use Comment: 3cups/day - Recreational Drug Use Recreational Drug Use: No ED ROS GENERAL - Review of Systems Review Of Systems: ROS reveals no pertinent complaints other than HPI. ED EXAM, GENERAL - Physical Exam Exam: See Below (See dictation) Course - Vital Signs Last Recorded V/S: Last Vital Signs Temp 36.9 C 04/22/18 09:51 Pulse 65 04/22/18 11:18 Resp 14 04/22/18 11:18 BP 148/82 H 04/22/18 11:18 Pulse Ox 95 04/22/18 11:18 - Orders/Labs/Meds Orders: Active Orders 24 hr Category Date Time Status Patient Status [ADT] Stat ADT 04/22/18 12:16 Ordered Notify Provider Consults [RC] ASDIRECTED Care 04/22/18 12:16 Ordered Consult to Physician [CONS] Stat Cons 04/22/18 12:15 Ordered Head wo Cont [CT] Stat Exams 04/22/18 10:17 Taken DRUG SCREEN, URINE [URCHEM] Stat Lab 04/22/18 09:50 Ordered UA W/MICROSCOPIC [URIN] Stat Lab 04/22/18 09:50 Ordered Sodium Chloride 0.9% [Saline Flush] Med 04/22/18 09:50 Active 10 ml FLUSH ASDIRECTED PRN Sodium Chloride 0.9% [Saline Flush] Med 04/22/18 09:50 Active 2.5 ml FLUSH ASDIRECTED PRN Saline Lock Insert [OM.PC] Stat Oth 04/22/18 09:50 Ordered Medication Orders Sodium Chloride (Saline Flush) 10 ml FLUSH ASDIRECTED PRN PRN Reason: Keep Vein Open Last Admin: 04/22/18 09:59 Dose: 10 ml Sodium Chloride (Saline Flush) 2.5 ml FLUSH ASDIRECTED PRN PRN Reason: Keep Vein Open Last Admin: 04/22/18 09:59 Dose: 2.5 ml Labs: Laboratory Tests 04/22/18 04/22/18 Range/Units 09:53 09:53 WBC 8.98 (4.0-11.0) K/uL RBC 5.03 (4.50-5.90) M/uL Hgb 14.8 (13.0-17.0) g/dL Hct 44.3 (38.0-50.0) % MCV 88.1 (80.0-98.0) fL MCH 29.4 (27.0-32.0) pg MCHC 33.4 (31.0-37.0) g/dL RDW Std Deviation 42.8 (28.0-62.0) fl RDW Coeff of Flora 13 (11.0-15.0) % Plt Count 250 (150-400) K/uL MPV 8.80 (7.40-12.00) fL Neut % (Auto) 63.9 (48.0-80.0) % Lymph % (Auto) 25.6 (16.0-40.0) % Arthur % (Auto) 9.8 (0.0-15.0) % Eos % (Auto) 0.3 (0.0-7.0) % Baso % (Auto) 0.4 (0.0-1.5) % Neut # (Auto) 5.7 (1.4-5.7) K/uL Lymph # (Auto) 2.3 (0.6-2.4) K/uL Arthur # (Auto) 0.9 H (0.0-0.8) K/uL Eos # (Auto) 0.0 (0.0-0.7) K/uL Baso # (Auto) 0.0 (0.0-0.1) K/uL Nucleated RBC % 0.0 /100WBC Nucleated RBCs # 0 K/uL Sodium 144 (136-148) mmol/L Potassium 3.8 (3.5-5.1) mmol/L Chloride 108 H (98-107) mmol/L Carbon Dioxide 23.1 (21.0-32.0) mmol/L BUN 20 H (7.0-18.0) mg/dL Creatinine 1.1 (0.8-1.3) mg/dL Est Cr Clr Drug Dosing 71.59 mL/min Estimated GFR (MDRD) > 60.0 ml/min Glucose 95 (74-106) mg/dL Calcium 9.2 (8.5-10.1) mg/dL Magnesium 2.3 (1.8-2.4) mg/dL Total Bilirubin 0.8 (0.2-1.0) mg/dL AST 14 L (15-37) IU/L ALT 13 L (14-63) IU/L Alkaline Phosphatase 70 (46-116) U/L Creatine Kinase 176 (26-308) U/L Total Protein 6.7 (6.4-8.2) g/dL Albumin 4.1 (3.4-5.0) g/dL Globulin 2.6 (2.0-3.5) g/dL Albumin/Globulin Ratio 1.6 (1.3-2.8) TSH 3rd Generation 0.94 (0.36-3.74) uIU/mL Ethyl Alcohol < 3.0 mg/dL Meds: Medications Generic Name Dose Route Start Last Admin Trade Name Freq PRN Reason Stop Dose Admin Sodium Chloride 10 ml 04/22/18 09:50 04/22/18 09:59 Saline Flush FLUSH 10 ml ASDIRECTED PRN Administration Keep Vein Open Sodium Chloride 2.5 ml 04/22/18 09:50 04/22/18 09:59 Saline Flush FLUSH 2.5 ml ASDIRECTED PRN Administration Keep Vein Open Discontinued Medications Generic Name Dose Route Start Last Admin Trade Name Yrnq PRN Reason Stop Dose Admin Sodium Chloride 1,000 mls @ 999 mls/hr 04/22/18 09:50 04/22/18 09:59 Normal Saline IV 04/22/18 10:50 999 mls/hr STAT ONE Administration Lorazepam 1 mg 04/22/18 09:50 04/22/18 09:59 Ativan IVPUSH 04/22/18 09:51 1 mg ONETIME ONE Administration Lorazepam 2 mg 04/22/18 12:13 04/22/18 12:19 Ativan IVPUSH 04/22/18 12:14 2 mg ONETIME ONE Administration Departure - Departure Time of Disposition: 12:23 Disposition: Refer to Observation Condition: Good Clinical Impression: Confusion, Anxiety - Discharge Information Referrals: PCP,None [Primary Care Provider] - Forms: ED Department Discharge - My Orders Last 24 Hours: My Active Orders 04/22/18 09:50 DRUG SCREEN, URINE [URCHEM] Stat UA W/MICROSCOPIC [URIN] Stat Sodium Chloride 0.9% [Saline Flush] 10 ml FLUSH ASDIRECTED PRN Sodium Chloride 0.9% [Saline Flush] 2.5 ml FLUSH ASDIRECTED PRN Saline Lock Insert [OM.PC] Stat 04/22/18 10:17 Head wo Cont [CT] Stat 04/22/18 12:15 Consult to Physician [CONS] Stat 04/22/18 12:16 Patient Status [ADT] Stat Notify Provider Consults [RC] ASDIRECTED - Assessment/Plan Last 24 Hours: My Active Orders 04/22/18 09:50 DRUG SCREEN, URINE [URCHEM] Stat UA W/MICROSCOPIC [URIN] Stat Sodium Chloride 0.9% [Saline Flush] 10 ml FLUSH ASDIRECTED PRN Sodium Chloride 0.9% [Saline Flush] 2.5 ml FLUSH ASDIRECTED PRN Saline Lock Insert [OM.PC] Stat 04/22/18 10:17 Head wo Cont [CT] Stat 04/22/18 12:15 Consult to Physician [CONS] Stat 04/22/18 12:16 Patient Status [ADT] Stat Notify Provider Consults [RC] ASDIRECTED
[2018-04-22 10:48] LABS: CHLORIDE,CL 108 mmol/L (98-107); SODIUM,NA 144 mmol/L (136-148)
[2018-04-22] MEDS ORDERED: Albuterol/Ipratropium 3.0-0.5 MG/3 ML Neb Soln NEB PRN (14:06)
[2018-04-22] MEDS ORDERED: Acetaminophen 325 MG Tab PO PRN (14:06)
[2018-04-22] MEDS: Lactated Ringers 1,000 ML IV SCH ×2 (14:38→23:33)
[2018-04-22] MEDS: Enoxaparin 40 MG/0.4 ML Syringe SUBCUT SCH (14:38)
--- NOTE | 2018-04-22 16:40 | PCM.HP ---
H&P History of Present Illness - General Date of Service: 04/22/18 Admit Problem/Dx: Admission Diagnosis/Problem Admission Diagnosis/Problem Confusion Source of Information: Provider - History of Present Illness Initial Comments - Free Text/Narative: 68 year old man with history of psychiatric disorder , off medication , presented to hospital due to confusion for the past 2 days , unable to do his ADL He presented to the ED yesterday with complaints of confusion, not feeling himself. [place] in [place] and reported to staff that he had not been eating, taking medications for 2 days. Work up done in Er including head CT , CBC, CMP, EKG, troponin, TSH, amylase were unremarkable. UA reviewed ketone, no evidence of infection. Patient didnt wanted to be admitted , but today he was found by porter sample case more confused and brought back to Er. Patient did not remembered he was in ER yesterday and as per my discussion with the ER attending has paranoid symptoms. Denies suicidal , homicidal ideation. When I talked to him he says he hears voices , but when I asked what the voices are telling him , he did not answer. Duration of Symptoms: Reports: Day(s): - Related Data Allergies/Adverse Reactions: Allergies Allergy/AdvReac Type Severity Reaction Status Date / Time No Known Allergies Allergy Verified 04/22/18 09:51 Home Medications: Home Meds Aspirin [Ecotrin] 325 mg PO DAILY 09/19/14 [History] Omeprazole 40 mg PO DAILY 09/19/14 [History] Rosuvastatin [Crestor] 5 mg PO MOWEFR 09/19/14 [History] traZODone 150 mg PO BEDTIME 09/19/14 [History] buPROPion [Wellbutrin SR] 150 mg PO BID 02/21/16 [History] Cholecalciferol (Vitamin D3) [Vitamin D3] 2,000 units PO DAILY 04/24/17 [History ] Fluticasone/Vilanterol [Breo Ellipta 200-25 Mcg INH] 1 puff INH DAILY 04/24/17 [ History] Gabapentin [Neurontin] 300 mg PO BEDTIME 04/24/17 [History] Linaclotide [Linzess] 290 mcg PO DAILY 04/24/17 [History] tiZANidine HCl [Zanaflex] 4 mg PO Q8H 04/26/17 [History] QUEtiapine Fumarate [Seroquel] 800 mg PO BEDTIME 04/21/18 [History] Tiotropium [place] [Spiriva Respimat] 2.5 mcg INH DAILY 04/21/18 [History] Zolpidem Tartrate 10 mg PO BEDTIME 04/21/18 [History] Past Medical History HEENT History: Reports: None Cardiovascular History: Reports: Aneurysm, High Cholesterol, Hypertension Other Cardiovascular History: aortic aneurysm Respiratory History: Reports: COPD Gastrointestinal History: Reports: None Genitourinary History: Reports: None Musculoskeletal History: Reports: Back Pain, Chronic Neurological History: Reports: None Psychiatric History: Reports: Anxiety, Depression, PTSD Other Psychiatric History: dx of major depressive disorder and PTSD; patient states he does not feel safe at home, When asked why, he states " I dont know, that place is weird" denies anyone threatening him, or thoughts of selfharm Endocrine/Metabolic History: Reports: None Hematologic History: Reports: None Oncologic (Cancer) History: Reports: None Dermatologic History: Reports: None - Infectious Disease History Infectious Disease History: Reports: Chicken Pox - Past Surgical History Head Surgeries/Procedures: Reports: None HEENT Surgical History: Reports: Tonsillectomy Cardiovascular Surgical History: Reports: None Respiratory Surgical History: Reports: None GI Surgical History: Reports: Hernia, Abdominal Male Surgical History: Reports: None Social & Family History - Family History Family Medical History: Noncontributory - Tobacco Use Smoking Status *Q: Current Status Unknown Second Hand Smoke Exposure: No - Caffeine Use Caffeine Use: Reports: Other Other Caffeine Use: unknown Caffeine Use Comment: 3cups/day - Recreational Drug Use Recreational Drug Use: No H&P Review of Systems - Review of Systems: Review Of Systems: Unable To Obtain Exam - Exam Exam: See Below - Vital Signs Vital Signs: Last Vital Signs Temp 97.1 F 04/22/18 16:21 Pulse 66 04/22/18 16:21 Resp 20 04/22/18 16:21 BP 153/71 H 04/22/18 16:21 Pulse Ox 94 L 04/22/18 16:21 Weight: 179 lb - Exam General: Alert, Other (withdrawn). No: Oriented, Cooperative HEENT: Conjunctiva Clear Neck: Supple, Trachea Midline Lungs: Clear to Auscultation Cardiovascular: Regular Rate, Regular Rhythm, Normal S1, Normal S2 GI/Abdominal Exam: Normal Bowel Sounds, Soft, Non-Tender Back Exam: Normal Inspection Extremities: Normal Inspection Skin: Warm, Dry, Intact Neurological: Cranial Nerves Intact Neuro Extensive - Mental Status: Alert, Other (knows the name of the president, and his name , AO times 1). No: Oriented x3 Psychiatric: Alert, Hallucinations, Withdrawal Symptoms - Patient Data Lab Results Last 24 hrs: Laboratory Results - last 24 hr 04/22/18 04/22/18 Range/Units 09:53 09:53 WBC 8.98 (4.0-11.0) K/uL RBC 5.03 (4.50-5.90) M/uL Hgb 14.8 (13.0-17.0) g/dL Hct 44.3 (38.0-50.0) % MCV 88.1 (80.0-98.0) fL MCH 29.4 (27.0-32.0) pg MCHC 33.4 (31.0-37.0) g/dL RDW Std Deviation 42.8 (28.0-62.0) fl RDW Coeff of Flora 13 (11.0-15.0) % Plt Count 250 (150-400) K/uL MPV 8.80 (7.40-12.00) fL Neut % (Auto) 63.9 (48.0-80.0) % Lymph % (Auto) 25.6 (16.0-40.0) % [place] % (Auto) 9.8 (0.0-15.0) % Eos % (Auto) 0.3 (0.0-7.0) % Baso % (Auto) 0.4 (0.0-1.5) % Neut # (Auto) 5.7 (1.4-5.7) K/uL Lymph # (Auto) 2.3 (0.6-2.4) K/uL [place] # (Auto) 0.9 H (0.0-0.8) K/uL Eos # (Auto) 0.0 (0.0-0.7) K/uL Baso # (Auto) 0.0 (0.0-0.1) K/uL Nucleated RBC % 0.0 /100WBC Nucleated RBCs # 0 K/uL Sodium 144 (136-148) mmol/L Potassium 3.8 (3.5-5.1) mmol/L Chloride 108 H (98-107) mmol/L Carbon Dioxide 23.1 (21.0-32.0) mmol/L BUN 20 H (7.0-18.0) mg/dL Creatinine 1.1 (0.8-1.3) mg/dL Est Cr Clr Drug Dosing 71.59 mL/min Estimated GFR (MDRD) > 60.0 ml/min Glucose 95 (74-106) mg/dL Calcium 9.2 (8.5-10.1) mg/dL Magnesium 2.3 (1.8-2.4) mg/dL Total Bilirubin 0.8 (0.2-1.0) mg/dL AST 14 L (15-37) IU/L ALT 13 L (14-63) IU/L Alkaline Phosphatase 70 (46-116) U/L Creatine Kinase 176 (26-308) U/L Total Protein 6.7 (6.4-8.2) g/dL Albumin 4.1 (3.4-5.0) g/dL Globulin 2.6 (2.0-3.5) g/dL Albumin/Globulin Ratio 1.6 (1.3-2.8) TSH 3rd Generation 0.94 (0.36-3.74) uIU/mL Ethyl Alcohol < 3.0 mg/dL Result Diagrams: 04/22/18 09:53 04/22/18 09:53 - Problem List (1) Altered mental status, unspecified SNOMED Code(s): 726590875 ICD Code: R41.82 - ALTERED MENTAL STATUS, UNSPECIFIED Status: Acute Current Visit: Yes Problem List Initiated/Reviewed/Updated: Yes Orders Last 24hrs: Active Orders 24 hr Category Date Time Status Patient Status [ADT] Stat ADT 04/22/18 12:16 Active Notify Provider Consults [RC] ASDIRECTED Care 04/22/18 12:16 Active RT Aerosol Therapy [RC] ASDIRECTED Care 04/22/18 14:10 Active Up ad Lily [RC] ASDIRECTED Care 04/22/18 14:06 Active VTE/DVT Education [RC] PER UNIT ROUTINE Care 04/22/18 14:06 Active Vital Signs [RC] Q4H Care 04/22/18 14:06 Active Consult to Physician [CONS] Stat Cons 04/22/18 12:15 Active Regular Diet [DIET] Diet 04/22/18 Dinner Active Head wo Cont [CT] Stat Exams 04/22/18 10:17 Taken BASIC METABOLIC PANEL,BMP [CHEM] AM Lab 04/23/18 05:11 Ordered BASIC METABOLIC PANEL,BMP [CHEM] AM Lab 04/24/18 05:11 Ordered BASIC METABOLIC PANEL,BMP [CHEM] AM Lab 04/25/18 05:11 Ordered BASIC METABOLIC PANEL,BMP [CHEM] AM Lab 04/26/18 05:11 Ordered CBC W/O DIFF,HEMOGRAM [HEME] AM Lab 04/23/18 05:11 Ordered DRUG SCREEN, URINE [URCHEM] Stat Lab 04/22/18 09:50 Ordered UA W/MICROSCOPIC [URIN] Stat Lab 04/22/18 09:50 Ordered Acetaminophen [Tylenol] Med 04/22/18 14:06 Active 650 mg PO Q4H PRN Albuterol/Ipratropium [DuoNeb 3.0-0.5 MG/3 ML] Med 04/22/18 14:06 Active 3 ml NEB Q4HRRT PRN Cholecalciferol (Vitamin D3) [Vitamin D3] Med 04/23/18 09:00 Active 2,000 units PO DAILY Enoxaparin [Lovenox] Med 04/22/18 14:15 Active 40 mg SUBCUT Q24H Gabapentin [Neurontin] Med 04/22/18 21:00 Active 300 mg PO BEDTIME Lactated Ringers [Ringers, Lactated] 1,000 ml Med 04/22/18 14:15 Active IV ASDIRECTED Omeprazole Med 04/23/18 07:30 Active 40 mg PO ACBREAKFAST Patient's Own Medication [Ptom] Med 04/23/18 09:00 Active 1 each INH DAILY QUEtiapine [SEROquel] Med 04/22/18 21:00 Active 800 mg PO BEDTIME Rosuvastatin [Crestor] Med 04/23/18 21:00 Active 5 mg PO MoWeFr@2100 Sodium Chloride 0.9% [Saline Flush] Med 04/22/18 09:50 Active 10 ml FLUSH ASDIRECTED PRN Sodium Chloride 0.9% [Saline Flush] Med 04/22/18 14:06 Active 10 ml FLUSH ASDIRECTED PRN Sodium Chloride 0.9% [Saline Flush] Med 04/22/18 09:50 Active 2.5 ml FLUSH ASDIRECTED PRN Sodium Chloride 0.9% [Saline Flush] Med 04/22/18 14:06 Active 2.5 ml FLUSH ASDIRECTED PRN buPROPion [Wellbutrin SR] Med 04/23/18 09:00 Active 150 mg PO BID traZODone Med 04/22/18 21:00 Active 150 mg PO BEDTIME Peripheral IV Insertion Adult [OM.PC] Routine Oth 04/22/18 14:06 Ordered Saline Lock Insert [OM.PC] Stat Oth 04/22/18 09:50 Ordered Sequential Compression Device [OM.PC] Per Unit Routine Oth 04/22/18 14:07 Ordered Resuscitation Status Routine Resus Stat 04/22/18 14:06 Ordered Medication Orders Acetaminophen (Tylenol) 650 mg PO Q4H PRN PRN Reason: Pain (Mild 1-3)/fever Albuterol/Ipratropium (Duoneb 3.0-0.5 Mg/3 Ml) 3 ml NEB Q4HRRT PRN PRN Reason: Shortness Of Breath/wheezing Bupropion HCl (Wellbutrin Sr) 150 mg PO BID [facility] Cholecalciferol (Vitamin D3) 2,000 units PO DAILY [facility] Enoxaparin Sodium (Lovenox) 40 mg SUBCUT Q24H [facility] Last Admin: 04/22/18 14:38 Dose: 40 mg Gabapentin (Neurontin) 300 mg PO BEDTIME [facility] Lactated Ringer's (Ringers, Lactated) 1,000 mls @ 125 mls/hr IV ASDIRECTED RACHELL Last Admin: 04/22/18 14:38 Dose: 125 mls/hr Omeprazole (Omeprazole) 40 mg PO ACBREAKFAST [facility] Breo Inhaler 200/25 (Mcg) 1 each INH DAILY [facility] Quetiapine Fumarate (Seroquel) 800 mg PO BEDTIME [facility] Rosuvastatin Calcium (Crestor) 5 mg PO MoWeFr@2100 [facility] Sodium Chloride (Saline Flush) 10 ml FLUSH ASDIRECTED PRN PRN Reason: Keep Vein Open Last Admin: 04/22/18 09:59 Dose: 10 ml Sodium Chloride (Saline Flush) 2.5 ml FLUSH ASDIRECTED PRN PRN Reason: Keep Vein Open Last Admin: 04/22/18 09:59 Dose: 2.5 ml Sodium Chloride (Saline Flush) 10 ml FLUSH ASDIRECTED PRN PRN Reason: Keep Vein Open Sodium Chloride (Saline Flush) 2.5 ml FLUSH ASDIRECTED PRN PRN Reason: Keep Vein Open Trazodone HCl (Trazodone) 150 mg PO BEDTIME RACHELL Assessment/Plan Comment:: AMS - likely secondary to his decompensation underlying psychiatric disorder , will rule out an organic cause of this . Will order RPR, Vitamin B 12 , ammonia level , Will f/up neurology consult who recommended MRI of the brain , Will also consult psychiatry , Dr. Miles and will resume his home psychiatric medications: Trazodone 150 mg po q hs and Bupropion 150 mg po BID , gabapentine 300 mg po q hs , hold medications if patient is too sedated HLP-Crestor 5 mg po q hs Copd - stable- duoneb neb treatment q 6 h prn for sob. Dvt prof : carlos rees
--- NOTE | 2018-04-22 16:59 | PCM.CONS ---
H&P History of Present Illness - General Date of Service: 04/22/18 Admit Problem/Dx: Admission Diagnosis/Problem Admission Diagnosis/Problem Confusion - History of Present Illness Initial Comments - Free Text/Narative: 68 year old man with history of COPD, PTSD, depression who presented with 2 day history of confusion. He presented to the ED yesterday with complaints of confusion, not feeling himself. [place] and reported to staff that he had not been eating, taking medications for 2 days. Work up included head CT, CBC, CMP, EKG , troponin, TSH, amylase which were unremarkable. UA reviewed ketone, no evidence of infection. He declined admission for observation. He was noted to be acting himself by his wellness coordinator later that afternoon. This morning, his wellness coordinator checked on him and found him to be confused again prompting return to ED. He reports pain all over. He initially endorsed then later denied headaches, nausea. He stopped his medication because I dont want to take them anymore. He endorses diplopia, chest pain, nausea. He denies urinary symptoms, fevers , diarrhea, shortness of breath. - Related Data Allergies/Adverse Reactions: Allergies Allergy/AdvReac Type Severity Reaction Status Date / Time No Known Allergies Allergy Verified 04/22/18 09:51 Home Medications: Home Meds Aspirin [Ecotrin] 325 mg PO DAILY 09/19/14 [History] Omeprazole 40 mg PO DAILY 09/19/14 [History] Rosuvastatin [Crestor] 5 mg PO MOWEFR 09/19/14 [History] traZODone 150 mg PO BEDTIME 09/19/14 [History] buPROPion [Wellbutrin SR] 150 mg PO BID 02/21/16 [History] Cholecalciferol (Vitamin D3) [Vitamin D3] 2,000 units PO DAILY 04/24/17 [History ] Fluticasone/Vilanterol [Breo Ellipta 200-25 Mcg INH] 1 puff INH DAILY 04/24/17 [ History] Gabapentin [Neurontin] 300 mg PO BEDTIME 04/24/17 [History] Linaclotide [Linzess] 290 mcg PO DAILY 04/24/17 [History] tiZANidine HCl [Zanaflex] 4 mg PO Q8H 04/26/17 [History] QUEtiapine Fumarate [Seroquel] 800 mg PO BEDTIME 04/21/18 [History] Tiotropium [place] [Spiriva Respimat] 2.5 mcg INH DAILY 04/21/18 [History] Zolpidem Tartrate 10 mg PO BEDTIME 04/21/18 [History] Past Medical History HEENT History: Reports: None Cardiovascular History: Reports: Aneurysm, High Cholesterol, Hypertension Other Cardiovascular History: aortic aneurysm Respiratory History: Reports: COPD Gastrointestinal History: Reports: None Genitourinary History: Reports: None Musculoskeletal History: Reports: Back Pain, Chronic Neurological History: Reports: None Psychiatric History: Reports: Anxiety, Depression, PTSD Other Psychiatric History: dx of major depressive disorder and PTSD; patient states he does not feel safe at home, When asked why, he states " I dont know, that place is weird" denies anyone threatening him, or thoughts of selfharm Endocrine/Metabolic History: Reports: None Hematologic History: Reports: None Oncologic (Cancer) History: Reports: None Dermatologic History: Reports: None - Infectious Disease History Infectious Disease History: Reports: Chicken Pox - Past Surgical History Head Surgeries/Procedures: Reports: None HEENT Surgical History: Reports: Tonsillectomy Cardiovascular Surgical History: Reports: None Respiratory Surgical History: Reports: None GI Surgical History: Reports: Hernia, Abdominal Male Surgical History: Reports: None Social & Family History - Family History Family Medical History: Noncontributory - Tobacco Use Smoking Status *Q: Current Status Unknown Second Hand Smoke Exposure: No - Caffeine Use Caffeine Use: Reports: Other Other Caffeine Use: unknown Caffeine Use Comment: 3cups/day - Recreational Drug Use Recreational Drug Use: No H&P Review of Systems - Review of Systems: Review Of Systems: Unable To Obtain (ROS was performed but answers were inconsistent) Exam - Exam Exam: See Below - Vital Signs Vital Signs: Last Vital Signs Temp 36.2 C 04/22/18 16:21 Pulse 66 04/22/18 16:21 Resp 20 04/22/18 16:21 BP 153/71 H 04/22/18 16:21 Pulse Ox 94 L 04/22/18 16:21 Weight: 81.193 kg - Exam Physical Exam Comments:: Constitutional: lying on his side, rocking back and forth Psychiatric: Mood/Affect: endorses feeling anxious, flat affect Neurological: Mental Status: General: Normal activity, good hygiene, appropriate appearance. Level of consciousness: Awake, alert. Orientation: Oriented to person, year, not place, Concentration/Attention Span: Normal. Comprehension/Praxis: Able to perform a who step command. Language: Paucity of speech. Naming and repetition intact. Neglect: He was unable or unwilling to NIHSS picture Cranial Nerves: Pupils equally round and reactive to light. Visual strange unreliable.. Gaze conjugate, EOMI, but endorse diplopia and keeps right eye closed much of the time. Sensation intact and symmetric to light touch. Facial strength is full and symmetric. Palate elevates symmetrically. Normal shrug bilaterally. Tongue protrudes midline Motor: Limited by poor cooperation, good patient relations specialist, antigravity in upper limbs Sensation: Sensation is intact to light touch and symmetric. Deep tendon reflexes: Brisk throughout Coordination: Finger to nose intact Gait: Not assessed Eyes: non icteric, Mouth: moist mucus membranes Cardiovascular: RRR Respiratory: clear lungs CT head showed few hypodense foci c/w old lacunar infarcts, no acute process. - Patient Data Lab Results Last 24 hrs: Laboratory Results - last 24 hr 04/22/18 04/22/18 Range/Units 09:53 09:53 WBC 8.98 (4.0-11.0) K/uL RBC 5.03 (4.50-5.90) M/uL Hgb 14.8 (13.0-17.0) g/dL Hct 44.3 (38.0-50.0) % MCV 88.1 (80.0-98.0) fL MCH 29.4 (27.0-32.0) pg MCHC 33.4 (31.0-37.0) g/dL RDW Std Deviation 42.8 (28.0-62.0) fl RDW Coeff of Flora 13 (11.0-15.0) % Plt Count 250 (150-400) K/uL MPV 8.80 (7.40-12.00) fL Neut % (Auto) 63.9 (48.0-80.0) % Lymph % (Auto) 25.6 (16.0-40.0) % [place] % (Auto) 9.8 (0.0-15.0) % Eos % (Auto) 0.3 (0.0-7.0) % Baso % (Auto) 0.4 (0.0-1.5) % Neut # (Auto) 5.7 (1.4-5.7) K/uL Lymph # (Auto) 2.3 (0.6-2.4) K/uL [place] # (Auto) 0.9 H (0.0-0.8) K/uL Eos # (Auto) 0.0 (0.0-0.7) K/uL Baso # (Auto) 0.0 (0.0-0.1) K/uL Nucleated RBC % 0.0 /100WBC Nucleated RBCs # 0 K/uL Sodium 144 (136-148) mmol/L Potassium 3.8 (3.5-5.1) mmol/L Chloride 108 H (98-107) mmol/L Carbon Dioxide 23.1 (21.0-32.0) mmol/L BUN 20 H (7.0-18.0) mg/dL Creatinine 1.1 (0.8-1.3) mg/dL Est Cr Clr Drug Dosing 71.59 mL/min Estimated GFR (MDRD) > 60.0 ml/min Glucose 95 (74-106) mg/dL Calcium 9.2 (8.5-10.1) mg/dL Magnesium 2.3 (1.8-2.4) mg/dL Total Bilirubin 0.8 (0.2-1.0) mg/dL AST 14 L (15-37) IU/L ALT 13 L (14-63) IU/L Alkaline Phosphatase 70 (46-116) U/L Creatine Kinase 176 (26-308) U/L Total Protein 6.7 (6.4-8.2) g/dL Albumin 4.1 (3.4-5.0) g/dL Globulin 2.6 (2.0-3.5) g/dL Albumin/Globulin Ratio 1.6 (1.3-2.8) TSH 3rd Generation 0.94 (0.36-3.74) uIU/mL Ethyl Alcohol < 3.0 mg/dL Result Diagrams: 04/22/18 09:53 04/22/18 09:53 Consult PN Assessment/Plan Procedures: Procedures AIRWAY INHALATION TREATMENT (04/26/17) ASSAY OF CK (CPK) (09/19/14) ASSAY OF LIPASE (04/26/17) ASSAY OF MAGNESIUM (04/26/17) ASSAY OF PHOSPHORUS (04/26/17) ASSAY OF TROPONIN QUANT (04/26/17) ASSAY OF VANCOMYCIN (04/26/17) BLOOD CULTURE FOR BACTERIA (04/26/17) C-REACTIVE PROTEIN (02/21/16) CHEST X-RAY 1 VIEW FRONTAL (04/26/17) CHEST X-RAY 2VW FRONTAL&LATL (04/26/17) CO/MEMBANE DIFFUSE CAPACITY (06/24/17) COMPLETE CBC W/AUTO DIFF WBC (04/26/17) COMPREHEN METABOLIC PANEL (04/26/17) CREATINE MB FRACTION (09/19/14) CT ANGIOGRAPHY CHEST (04/26/17) CT THORAX W/DYE (07/08/17) CULTURE OTHR SPECIMN AEROBIC (04/26/17) ELECTROCARDIOGRAM TRACING (04/26/17) EMERGENCY DEPT VISIT (04/26/17) EVALUATE PT USE OF INHALER (04/26/17) EVALUATION OF WHEEZING (06/24/17) FIBRIN DEGRADATION QUANT (02/21/16) HYDRATE IV INFUSION ADD-ON (04/26/17) HYDRATION IV INFUSION INIT (02/21/16) METABOLIC PANEL TOTAL CA (04/26/17) PROTHROMBIN TIME (04/26/17) PULM FUNCTION TEST BY GAS (06/24/17) ROUTINE VENIPUNCTURE (04/26/17) SMEAR GRAM STAIN (04/26/17) THER/PROPH/DIAG INJ IV PUSH (04/26/17) THER/PROPH/DIAG INJ SC/IM (04/26/17) THER/PROPH/DIAG IV INF ADDON (04/26/17) THER/PROPH/DIAG IV INF INIT (04/26/17) TTE W/DOPPLER COMPLETE (04/26/17) TX/PRO/DX INJ NEW DRUG ADDON (04/26/17) TX/PRO/DX INJ SAME DRUG RAILWAY TRACK WORKER (04/26/17) TX/PROPH/DG ADDL SEQ IV INF (04/26/17) (1) Confusion SNOMED Code(s): 031130423 Code(s): R41.0 - DISORIENTATION, UNSPECIFIED Current Visit: Yes Problem List Initiated/Reviewed/Updated: Yes My Orders Last 24 Hours: 68 year old man with altered mental status, unclear etiology. Current assessment confounded by psychiatric comorbid conditions off medication, anxiety and is limited by poor cooperation, but by history there did seem to be abrupt change warranting additional work up. Recommendations -MRI brain w and w/o contrast, he may need sedation -EEG tomorrow if MRI negative and mental status continues to wax and wane
[2018-04-22] MEDS ORDERED: traZODone 50 MG Tab PO SCH (21:00)
[2018-04-22] MEDS ORDERED: QUEtiapine 100 MG Tab PO SCH (21:00)
[2018-04-22] MEDS ORDERED: Gabapentin 300 MG Cap PO SCH (21:00)
[2018-04-23] MEDS ORDERED: QUEtiapine 100 MG Tab PO ONE (00:06)
[2018-04-23] MEDS ORDERED: LORazepam 2 MG/ML SDV IVPUSH PRN (00:06)
[2018-04-23 05:34] LABS: CHLORIDE,CL 108 mmol/L (98-107); SODIUM,NA 142 mmol/L (136-148)
[2018-04-23] MEDS: Lactated Ringers 1,000 ML IV SCH ×2 (06:41→09:28)
[2018-04-23] MEDS ORDERED: Omeprazole 20 MG Cap.CR PO SCH (07:30)
[2018-04-23] MEDS ORDERED: Cholecalciferol (Vitamin D3) 1,000 Unit Tab PO SCH (09:00)
[2018-04-23] MEDS ORDERED: buPROPion 150 MG Tab.SR PO SCH (09:00)
[2018-04-23] MEDS ORDERED: BREO INH SCH (09:00)
[2018-04-23] MEDS: Enoxaparin 40 MG/0.4 ML Syringe SUBCUT SCH (13:41)
[2018-04-23] MEDS ORDERED: LORazepam 2 MG/ML SDV IVPUSH ONE (14:10)
--- NOTE | 2018-04-23 14:25 | PCM.CONSN ---
- General Info Date of Service: 04/23/18 Admission Dx/Problem (Free Text): Admission Diagnosis/Problem Admission Diagnosis/Problem Confusion Subjective Update: He notes that he still has pain "all over". When asked about specific locations , he answers "I don't know where I hurt". He denies diplopia, nausea and headache today - Patient Data Vitals - Most Recent: Last Vital Signs Temp 36.6 C 04/23/18 12:00 Pulse 70 04/23/18 12:00 Resp 16 04/23/18 12:00 BP 146/70 H 04/23/18 12:00 Pulse Ox 91 L 04/23/18 12:00 Weight - Most Recent: 81.193 kg I&O - Last 24 Hours: Intake & Output 04/22/18 04/23/18 04/23/18 22:59 06:59 14:59 Intake Total 2110 Output Total 300 Balance 1810 Lab Results Last 24 Hours: Laboratory Results - last 24 hr 04/22/18 04/22/18 04/23/18 Range/Units 22:06 22:06 04:55 WBC 7.58 (4.0-11.0) K/uL RBC 4.39 L (4.50-5.90) M/uL Hgb 12.7 L (13.0-17.0) g/dL Hct 38.2 (38.0-50.0) % MCV 87.0 (80.0-98.0) fL MCH 28.9 (27.0-32.0) pg MCHC 33.2 (31.0-37.0) g/dL RDW Std Deviation 41.6 (28.0-62.0) fl RDW Coeff of Flora 13 (11.0-15.0) % Plt Count 207 (150-400) K/uL MPV 9.00 (7.40-12.00) fL Nucleated RBC % 0.0 /100WBC Nucleated RBCs # 0 K/uL Sodium (136-148) mmol/L Potassium (3.5-5.1) mmol/L Chloride (98-107) mmol/L Carbon Dioxide (21.0-32.0) mmol/L BUN (7.0-18.0) mg/dL Creatinine (0.8-1.3) mg/dL Est Cr Clr Drug Dosing mL/min Estimated GFR (MDRD) ml/min Glucose (74-106) mg/dL Calcium (8.5-10.1) mg/dL Urine Color YELLOW Urine Appearance CLEAR Urine pH 6.0 (5.0-8.0) Ur Specific [place] >= 1.030 (1.001-1.035) Urine Protein NEGATIVE (NEGATIVE) mg/dL Urine Glucose (UA) NEGATIVE (NEGATIVE) mg/dL Urine Ketones >=80 (NEGATIVE) mg/dL Urine Occult Blood NEGATIVE (NEGATIVE) Urine Nitrite NEGATIVE (NEGATIVE) Urine Bilirubin SMALL H (NEGATIVE) Urine Urobilinogen 0.2 (<2.0) EU/dL Ur Leukocyte Esterase NEGATIVE (NEGATIVE) Urine RBC 0-1 (0-2/HPF) Urine WBC 0-1 (0-5/HPF) Ur Epithelial Cells NOT SEEN (NONE-FEW) Urine Bacteria FEW (NEGATIVE) Urine Mucus FEW (NONE-MOD) Urinalysis Comment Urine Opiates Screen NEGATIVE (NEGATIVE) Ur Oxycodone Screen NEGATIVE (NEGATIVE) Urine Methadone Screen NEGATIVE (NEGATIVE) Ur Barbiturates Screen NEGATIVE (NEGATIVE) Ur Phencyclidine Scrn NEGATIVE (NEGATIVE) Ur Amphetamine Screen NEGATIVE (NEGATIVE) U Methamphetamines Scrn NEGATIVE (NEGATIVE) U Benzodiazepines Scrn NEGATIVE (NEGATIVE) U Cocaine Metab Screen NEGATIVE (NEGATIVE) U Marijuana (THC) Screen NEGATIVE (NEGATIVE) 04/23/18 Range/Units 04:55 WBC (4.0-11.0) K/uL RBC (4.50-5.90) M/uL Hgb (13.0-17.0) g/dL Hct (38.0-50.0) % MCV (80.0-98.0) fL MCH (27.0-32.0) pg MCHC (31.0-37.0) g/dL RDW Std Deviation (28.0-62.0) fl RDW Coeff of Flora (11.0-15.0) % Plt Count (150-400) K/uL MPV (7.40-12.00) fL Nucleated RBC % /100WBC Nucleated RBCs # K/uL Sodium 142 (136-148) mmol/L Potassium 3.8 (3.5-5.1) mmol/L Chloride 108 H (98-107) mmol/L Carbon Dioxide 23.5 (21.0-32.0) mmol/L BUN 15 (7.0-18.0) mg/dL Creatinine 0.8 (0.8-1.3) mg/dL Est Cr Clr Drug Dosing 98.67 mL/min Estimated GFR (MDRD) > 60.0 ml/min Glucose 89 (74-106) mg/dL Calcium 8.5 (8.5-10.1) mg/dL Urine Color Urine Appearance Urine pH (5.0-8.0) Ur Specific [place] (1.001-1.035) Urine Protein (NEGATIVE) mg/dL Urine Glucose (UA) (NEGATIVE) mg/dL Urine Ketones (NEGATIVE) mg/dL Urine Occult Blood (NEGATIVE) Urine Nitrite (NEGATIVE) Urine Bilirubin (NEGATIVE) Urine Urobilinogen (<2.0) EU/dL Ur Leukocyte Esterase (NEGATIVE) Urine RBC (0-2/HPF) Urine WBC (0-5/HPF) Ur Epithelial Cells (NONE-FEW) Urine Bacteria (NEGATIVE) Urine Mucus (NONE-MOD) Urinalysis Comment Urine Opiates Screen (NEGATIVE) Ur Oxycodone Screen (NEGATIVE) Urine Methadone Screen (NEGATIVE) Ur Barbiturates Screen (NEGATIVE) Ur Phencyclidine Scrn (NEGATIVE) Ur Amphetamine Screen (NEGATIVE) U Methamphetamines Scrn (NEGATIVE) U Benzodiazepines Scrn (NEGATIVE) U Cocaine Metab Screen (NEGATIVE) U Marijuana (THC) Screen (NEGATIVE) Med Orders - Current: Current Medications Acetaminophen (Tylenol) 650 mg PO Q4H PRN PRN Reason: Pain (Mild 1-3)/fever Albuterol/Ipratropium (Duoneb 3.0-0.5 Mg/3 Ml) 3 ml NEB Q4HRRT PRN PRN Reason: Shortness Of Breath/wheezing Bupropion HCl (Wellbutrin Sr) 150 mg PO BID [facility] Last Admin: 04/23/18 09:05 Dose: 150 mg Cholecalciferol (Vitamin D3) 2,000 units PO DAILY [facility] Last Admin: 04/23/18 09:05 Dose: 2,000 units Enoxaparin Sodium (Lovenox) 40 mg SUBCUT Q24H [facility] Last Admin: 04/23/18 13:41 Dose: 40 mg Gabapentin (Neurontin) 300 mg PO BEDTIME [facility] Last Admin: 04/22/18 20:56 Dose: 300 mg Lactated Ringer's (Ringers, Lactated) 1,000 mls @ 125 mls/hr IV ASDIRECTED [facility] Last Admin: 04/23/18 09:28 Dose: 125 mls/hr Lorazepam (Ativan) 2 mg IVPUSH Q4H PRN PRN Reason: Agitation Omeprazole (Omeprazole) 40 mg PO ACBREAKFAST [facility] Last Admin: 04/23/18 06:40 Dose: 40 mg Breo Inhaler 200/25 (Mcg) 1 each INH DAILY [facility] Last Admin: 04/23/18 09:06 Dose: Not Given Rosuvastatin Calcium (Crestor) 5 mg PO MoWeFr@2100 [facility] Sodium Chloride (Saline Flush) 10 ml FLUSH ASDIRECTED PRN PRN Reason: Keep Vein Open Last Admin: 04/22/18 09:59 Dose: 10 ml Sodium Chloride (Saline Flush) 2.5 ml FLUSH ASDIRECTED PRN PRN Reason: Keep Vein Open Last Admin: 04/22/18 09:59 Dose: 2.5 ml Sodium Chloride (Saline Flush) 10 ml FLUSH ASDIRECTED PRN PRN Reason: Keep Vein Open Sodium Chloride (Saline Flush) 2.5 ml FLUSH ASDIRECTED PRN PRN Reason: Keep Vein Open Trazodone HCl (Trazodone) 150 mg PO BEDTIME [facility] Last Admin: 04/22/18 20:56 Dose: 150 mg Discontinued Medications Sodium Chloride (Normal Saline) 1,000 mls @ 999 mls/hr IV STAT ONE Stop: 04/22/18 10:50 Last Admin: 04/22/18 09:59 Dose: 999 mls/hr Lorazepam (Ativan) 1 mg IVPUSH ONETIME ONE Stop: 04/22/18 09:51 Last Admin: 04/22/18 09:59 Dose: 1 mg Lorazepam (Ativan) 2 mg IVPUSH ONETIME ONE Stop: 04/22/18 12:14 Last Admin: 04/22/18 12:19 Dose: 2 mg Lorazepam (Ativan) 2 mg IVPUSH ONETIME ONE Stop: 04/23/18 14:11 Quetiapine Fumarate (Seroquel) 800 mg PO BEDTIME [facility] Quetiapine Fumarate (Seroquel) 100 mg PO ONETIME ONE Stop: 04/23/18 00:07 Last Admin: 04/23/18 01:55 Dose: 100 mg Comments:: He is awake, alert. He is a poor history and does not cooperate with most of neuro examination. He is lying on his left side and declines to turn over. EOMI without diplopia. He says "I don't know what you mean" when asked to comply with coordination and strength testing. Consult PN Assessment/Plan Procedures: Procedures AIRWAY INHALATION TREATMENT (04/26/17) ASSAY OF CK (CPK) (09/19/14) ASSAY OF LIPASE (04/26/17) ASSAY OF MAGNESIUM (04/26/17) ASSAY OF PHOSPHORUS (04/26/17) ASSAY OF TROPONIN QUANT (04/26/17) ASSAY OF VANCOMYCIN (04/26/17) BLOOD CULTURE FOR BACTERIA (04/26/17) C-REACTIVE PROTEIN (02/21/16) CHEST X-RAY 1 VIEW FRONTAL (04/26/17) CHEST X-RAY 2VW FRONTAL&LATL (04/26/17) CO/MEMBANE DIFFUSE CAPACITY (06/24/17) COMPLETE CBC W/AUTO DIFF WBC (04/26/17) COMPREHEN METABOLIC PANEL (04/26/17) CREATINE MB FRACTION (09/19/14) CT ANGIOGRAPHY CHEST (04/26/17) CT THORAX W/DYE (07/08/17) CULTURE OTHR SPECIMN AEROBIC (04/26/17) ELECTROCARDIOGRAM TRACING (04/26/17) EMERGENCY DEPT VISIT (04/26/17) EVALUATE PT USE OF INHALER (04/26/17) EVALUATION OF WHEEZING (06/24/17) FIBRIN DEGRADATION QUANT (02/21/16) HYDRATE IV INFUSION ADD-ON (04/26/17) HYDRATION IV INFUSION INIT (02/21/16) METABOLIC PANEL TOTAL CA (04/26/17) PROTHROMBIN TIME (04/26/17) PULM FUNCTION TEST BY GAS (06/24/17) ROUTINE VENIPUNCTURE (04/26/17) SMEAR GRAM STAIN (04/26/17) THER/PROPH/DIAG INJ IV PUSH (04/26/17) THER/PROPH/DIAG INJ SC/IM (04/26/17) THER/PROPH/DIAG IV INF ADDON (04/26/17) THER/PROPH/DIAG IV INF INIT (04/26/17) TTE W/DOPPLER COMPLETE (04/26/17) TX/PRO/DX INJ NEW DRUG ADDON (04/26/17) TX/PRO/DX INJ SAME DRUG ASSISTANT CORPORATE SECRETARY (04/26/17) TX/PROPH/DG ADDL SEQ IV INF (04/26/17) (1) Confusion SNOMED Code(s): 912703688 Code(s): R41.0 - DISORIENTATION, UNSPECIFIED Current Visit: Yes Assessment:: Mental status does not appear to be changed today and was without apparent fluctuations. He endorses auditory hallucinations to Dr. Hilario, so this may be psychiatric in etiology, but I still recommend attempt at MRI. I am concerned about his ability to tolerate it. Problem List Initiated/Reviewed/Updated: Yes
--- NOTE | 2018-04-23 16:08 | PCM.SN ---
- Free Text/Narrative Note: MRI brain reviewed, which showed acute pontine infarct, ADC is faintly dark suggesting more than 2 days old, and indeed looking back on the initial CT head on April 21, it is visible. It is unclear by history when stroke occurred as there was a change 2 day before presenting in that he reported he was not eating or taking his pills, so he may have had some dysphagia. It sounds like he presented of his own accord on the because he felt confused. He is a poor historian, so it's not clear. Dr. Pedraza noted that he was shuffling when he walked on the , but he did not appear ataxic. I have not been able to get him to cooperate with an examination, so I'm unclear what his deficits are currently. Regardless, he is well outside of window for TPA or thrombectomy currently. I spoke to Dr. Hilario about results and recommendations. There is no neurology coverage from now until May 03, so if there is deterioration or work up reveals new concern, she will need to contact outside neurology and / or consider transfer. Otherwise, I can follow up with him as an outpatient. Recommendations: -CTA head and neck -Echocardiogram -remote telemetry -PT/OT/speech -start ASA -lipids, A1c -atorvastatin 80 mg daily
[2018-04-23] MEDS ORDERED: Aspirin 325 MG Tab PO ONE (16:16)
[2018-04-23] MEDS ORDERED: atorvaSTATin 40 MG Tab PO SCH (16:18)
[2018-04-23 16:29] VITALS: BP 142/68
[2018-04-23] MEDS ORDERED: Iopamidol 755 MG/ML 500 ML Multipack Bottle IVPUSH STA (18:06)
--- NOTE | 2018-04-23 18:45 | CT ---
EXAM DATE: 04/22/18 PATIENT'S AGE: 68 Patient: KACEY SANTIAGO Facility: [place], [place] Site . Site : [id number] Study: CT Head [id number]/23/2018 10:36:35 AM Ordering Physician: Keila Gonsalves Final Report: INDICATION: Confusion; altered mental status. COMPARISON: CT head without intravenous contrast April 21, 2018. TECHNIQUE: CT head without intravenous contrast; coronal and sagittal reformats. FINDINGS: No evidence of intracranial hemorrhage. No mass lesions. No evidence of shift of the midline structures. The calvarium is unremarkable. Periventricular low densities secondary to small vessel disease. No interval change when compared to the previous study dated April 21, 2018. IMPRESSION: 1. No intracranial hemorrhage. 2. Evidence of small vessel disease. 3. No interval change when compared to April 21, 2008. Please note that all CT scans at this facility use dose modulation, iterative reconstruction, and/or weight-based dosing when appropriate to reduce radiation dose to as low as reasonably achievable. Dictated by Carlyn Castillo MD @ Apr 22 2018 11:12AM (Electronic Signature) Report Signed by Proxy. [facility]ENTERJozef
[2018-04-23] MEDS ORDERED: Rosuvastatin 10 MG Tab PO SCH (21:00)
--- NOTE | 2018-04-23 21:57 | PCM.DCSUM1 ---
Discharge Summary - Hospital Course HPI Initial Comments: Patient admitted in the hospital with confusion for the past 2-3 days getting worse , had neurology consult, recommended MRI of brain ,EEG. MRI of brain showed acute pontine infarct. Neurologist recommended patient full work up for stoke with CT angio neck and head and echo, aspirin 325 mg po daily , first dose given, atorvastaine 40 mg po was given here , lipid profile was ordered, neurocheck q 2h ,PT< OT evaluation . Patient passed bedside swallowing eval and was continue with regular diet. Patient was able to walk , no motor deficits. Echo could not be done here and he was transferred to [facility] and was accepted by the ER physician He had Ct angio neck and head here , dw nurse to fax the reports at [facility]. Diagnosis: Stroke: No - Discharge Data Discharge Date: 04/23/18 Discharge Disposition: DC/Tfer to Acute Hospital 02 Condition: Stable - Discharge Diagnosis/Problem(s) (1) Altered mental status, unspecified SNOMED Code(s): 206018204 ICD Code: R41.82 - ALTERED MENTAL STATUS, UNSPECIFIED Status: Acute (2) Cerebrovascular accident (CVA) of pontine structure SNOMED Code(s): 555060230 ICD Code: I63.50 - CEREB INFRC DUE TO UNSP OCCLS OR STENOS OF UNSP CEREB ARTERY Status: Acute - Patient Summary/Data Consults: Consultations 04/22/18 12:15 Consult to Physician [CONS] Stat 04/23/18 16:31 Consult to Speech Language Pathology [OCCUPATIONAL THERAPY AIDES TEACHER Evaluation and Treatment] [CONS] Routine 04/23/18 16:32 PT Evaluation and Treatment [CONS] Routine 04/23/18 16:33 OT Evaluation and Treatment [CONS] Routine - Patient Instructions Diet: Usual Diet as Tolerated Activity: As Tolerated - Discharge Plan Home Medications: Home Meds Aspirin [Ecotrin] 325 mg PO DAILY 09/19/14 [History] Omeprazole 40 mg PO DAILY 09/19/14 [History] Rosuvastatin [Crestor] 5 mg PO MOWEFR 09/19/14 [History] traZODone 150 mg PO BEDTIME 09/19/14 [History] buPROPion [Wellbutrin SR] 150 mg PO BID 02/21/16 [History] Cholecalciferol (Vitamin D3) [Vitamin D3] 2,000 units PO DAILY 04/24/17 [History ] Fluticasone/Vilanterol [Breo Ellipta 200-25 Mcg INH] 1 puff INH DAILY 04/24/17 [ History] Gabapentin [Neurontin] 300 mg PO BEDTIME 04/24/17 [History] Linaclotide [Linzess] 290 mcg PO DAILY 04/24/17 [History] tiZANidine HCl [Zanaflex] 4 mg PO Q8H 04/26/17 [History] QUEtiapine Fumarate [Seroquel] 800 mg PO BEDTIME 04/21/18 [History] Tiotropium [place] [Spiriva Respimat] 2.5 mcg INH DAILY 04/21/18 [History] Zolpidem Tartrate 10 mg PO BEDTIME 04/21/18 [History] Referrals: PCP,None [Primary Care Provider] - - Review of Systems General: Reports: No Symptoms HEENT: Reports: No Symptoms Pulmonary: Reports: No Symptoms Cardiovascular: Reports: No Symptoms Gastrointestinal: Reports: No Symptoms Genitourinary: Reports: No Symptoms Musculoskeletal: Reports: No Symptoms Skin: Reports: No Symptoms Neurological: Reports: No Symptoms Psychiatric: Reports: Confusion - Patient Data Vitals - Most Recent: Last Vital Signs Temp 98.3 F 04/23/18 16:00 Pulse 72 04/23/18 16:00 Resp 18 04/23/18 16:00 BP 142/68 H 04/23/18 16:00 Pulse Ox 94 L 04/23/18 16:00 Weight - Most Recent: 179 lb I&O - Last 24 hours: Intake & Output 04/23/18 04/23/18 04/23/18 06:59 14:59 22:59 Intake Total 2110 1499 Output Total 300 Balance 1810 1499 Lab Results - Last 24 hrs: Laboratory Results - last 24 hr 04/22/18 04/22/18 04/23/18 Range/Units 22:06 22:06 04:55 WBC 7.58 (4.0-11.0) K/uL RBC 4.39 L (4.50-5.90) M/uL Hgb 12.7 L (13.0-17.0) g/dL Hct 38.2 (38.0-50.0) % MCV 87.0 (80.0-98.0) fL MCH 28.9 (27.0-32.0) pg MCHC 33.2 (31.0-37.0) g/dL RDW Std Deviation 41.6 (28.0-62.0) fl RDW Coeff of Flora 13 (11.0-15.0) % Plt Count 207 (150-400) K/uL MPV 9.00 (7.40-12.00) fL Nucleated RBC % 0.0 /100WBC Nucleated RBCs # 0 K/uL Sodium (136-148) mmol/L Potassium (3.5-5.1) mmol/L Chloride (98-107) mmol/L Carbon Dioxide (21.0-32.0) mmol/L BUN (7.0-18.0) mg/dL Creatinine (0.8-1.3) mg/dL Est Cr Clr Drug Dosing mL/min Estimated GFR (MDRD) ml/min Glucose (74-106) mg/dL Hemoglobin A1c (4.5-6.2) % Calcium (8.5-10.1) mg/dL Urine Color YELLOW Urine Appearance CLEAR Urine pH 6.0 (5.0-8.0) Ur Specific [place] >= 1.030 (1.001-1.035) Urine Protein NEGATIVE (NEGATIVE) mg/dL Urine Glucose (UA) NEGATIVE (NEGATIVE) mg/dL Urine Ketones >=80 (NEGATIVE) mg/dL Urine Occult Blood NEGATIVE (NEGATIVE) Urine Nitrite NEGATIVE (NEGATIVE) Urine Bilirubin SMALL H (NEGATIVE) Urine Urobilinogen 0.2 (<2.0) EU/dL Ur Leukocyte Esterase NEGATIVE (NEGATIVE) Urine RBC 0-1 (0-2/HPF) Urine WBC 0-1 (0-5/HPF) Ur Epithelial Cells NOT SEEN (NONE-FEW) Urine Bacteria FEW (NEGATIVE) Urine Mucus FEW (NONE-MOD) Urinalysis Comment Urine Opiates Screen NEGATIVE (NEGATIVE) Ur Oxycodone Screen NEGATIVE (NEGATIVE) Urine Methadone Screen NEGATIVE (NEGATIVE) Ur Barbiturates Screen NEGATIVE (NEGATIVE) Ur Phencyclidine Scrn NEGATIVE (NEGATIVE) Ur Amphetamine Screen NEGATIVE (NEGATIVE) U Methamphetamines Scrn NEGATIVE (NEGATIVE) U Benzodiazepines Scrn NEGATIVE (NEGATIVE) U Cocaine Metab Screen NEGATIVE (NEGATIVE) U Marijuana (THC) Screen NEGATIVE (NEGATIVE) 04/23/18 04/23/18 Range/Units 04:55 16:20 WBC (4.0-11.0) K/uL RBC (4.50-5.90) M/uL Hgb (13.0-17.0) g/dL Hct (38.0-50.0) % MCV (80.0-98.0) fL MCH (27.0-32.0) pg MCHC (31.0-37.0) g/dL RDW Std Deviation (28.0-62.0) fl RDW Coeff of Flora (11.0-15.0) % Plt Count (150-400) K/uL MPV (7.40-12.00) fL Nucleated RBC % /100WBC Nucleated RBCs # K/uL Sodium 142 (136-148) mmol/L Potassium 3.8 (3.5-5.1) mmol/L Chloride 108 H (98-107) mmol/L Carbon Dioxide 23.5 (21.0-32.0) mmol/L BUN 15 (7.0-18.0) mg/dL Creatinine 0.8 (0.8-1.3) mg/dL Est Cr Clr Drug Dosing 98.67 mL/min Estimated GFR (MDRD) > 60.0 ml/min Glucose 89 (74-106) mg/dL Hemoglobin A1c 5.9 (4.5-6.2) % Calcium 8.5 (8.5-10.1) mg/dL Urine Color Urine Appearance Urine pH (5.0-8.0) Ur Specific [place] (1.001-1.035) Urine Protein (NEGATIVE) mg/dL Urine Glucose (UA) (NEGATIVE) mg/dL Urine Ketones (NEGATIVE) mg/dL Urine Occult Blood (NEGATIVE) Urine Nitrite (NEGATIVE) Urine Bilirubin (NEGATIVE) Urine Urobilinogen (<2.0) EU/dL Ur Leukocyte Esterase (NEGATIVE) Urine RBC (0-2/HPF) Urine WBC (0-5/HPF) Ur Epithelial Cells (NONE-FEW) Urine Bacteria (NEGATIVE) Urine Mucus (NONE-MOD) Urinalysis Comment Urine Opiates Screen (NEGATIVE) Ur Oxycodone Screen (NEGATIVE) Urine Methadone Screen (NEGATIVE) Ur Barbiturates Screen (NEGATIVE) Ur Phencyclidine Scrn (NEGATIVE) Ur Amphetamine Screen (NEGATIVE) U Methamphetamines Scrn (NEGATIVE) U Benzodiazepines Scrn (NEGATIVE) U Cocaine Metab Screen (NEGATIVE) U Marijuana (THC) Screen (NEGATIVE) Med Orders - Current: Current Medications Discontinued Medications Acetaminophen (Tylenol) 650 mg PO Q4H PRN PRN Reason: Pain (Mild 1-3)/fever Albuterol/Ipratropium (Duoneb 3.0-0.5 Mg/3 Ml) 3 ml NEB Q4HRRT PRN PRN Reason: Shortness Of Breath/wheezing Aspirin (Aspirin) 325 mg PO DAILY ONE Stop: 04/23/18 16:17 Last Admin: 04/23/18 16:25 Dose: 325 mg Atorvastatin Calcium (Lipitor) 40 mg PO BEDTIME [facility] Last Admin: 04/23/18 17:08 Dose: 40 mg Bupropion HCl (Wellbutrin Sr) 150 mg PO BID [facility] Last Admin: 04/23/18 09:05 Dose: 150 mg Cholecalciferol (Vitamin D3) 2,000 units PO DAILY [facility] Last Admin: 04/23/18 09:05 Dose: 2,000 units Enoxaparin Sodium (Lovenox) 40 mg SUBCUT Q24H [facility] Last Admin: 04/23/18 13:41 Dose: 40 mg Gabapentin (Neurontin) 300 mg PO BEDTIME [facility] Last Admin: 04/22/18 20:56 Dose: 300 mg Sodium Chloride (Normal Saline) 1,000 mls @ 999 mls/hr IV STAT ONE Stop: 04/22/18 10:50 Last Admin: 04/22/18 09:59 Dose: 999 mls/hr Lactated Ringer's (Ringers, Lactated) 1,000 mls @ 125 mls/hr IV ASDIRECTED [facility] Last Admin: 04/23/18 09:28 Dose: 125 mls/hr Iopamidol (Isovue Multipack-370 (76%)) 100 ml IVPUSH ONETIME STA Stop: 04/23/18 18:07 Last Admin: 04/23/18 18:06 Dose: 100 ml Lorazepam (Ativan) 1 mg IVPUSH ONETIME ONE Stop: 04/22/18 09:51 Last Admin: 04/22/18 09:59 Dose: 1 mg Lorazepam (Ativan) 2 mg IVPUSH ONETIME ONE Stop: 04/22/18 12:14 Last Admin: 04/22/18 12:19 Dose: 2 mg Lorazepam (Ativan) 2 mg IVPUSH Q4H PRN PRN Reason: Agitation Lorazepam (Ativan) 2 mg IVPUSH ONETIME ONE Stop: 04/23/18 14:11 Last Admin: 04/23/18 14:19 Dose: 2 mg Omeprazole (Omeprazole) 40 mg PO ACBREAKFAST [facility] Last Admin: 04/23/18 06:40 Dose: 40 mg Breo Inhaler 200/25 (Mcg) 1 each INH DAILY [facility] Last Admin: 04/23/18 09:06 Dose: Not Given Quetiapine Fumarate (Seroquel) 800 mg PO BEDTIME [facility] Quetiapine Fumarate (Seroquel) 100 mg PO ONETIME ONE Stop: 04/23/18 00:07 Last Admin: 04/23/18 01:55 Dose: 100 mg Rosuvastatin Calcium (Crestor) 5 mg PO MoWeFr@2100 [facility] Sodium Chloride (Saline Flush) 10 ml FLUSH ASDIRECTED PRN PRN Reason: Keep Vein Open Last Admin: 04/22/18 09:59 Dose: 10 ml Sodium Chloride (Saline Flush) 2.5 ml FLUSH ASDIRECTED PRN PRN Reason: Keep Vein Open Last Admin: 04/22/18 09:59 Dose: 2.5 ml Sodium Chloride (Saline Flush) 10 ml FLUSH ASDIRECTED PRN PRN Reason: Keep Vein Open Sodium Chloride (Saline Flush) 2.5 ml FLUSH ASDIRECTED PRN PRN Reason: Keep Vein Open Trazodone HCl (Trazodone) 150 mg PO BEDTIME [facility] Last Admin: 04/22/18 20:56 Dose: 150 mg - Exam Quality Assessment: Reports: Supplemental Oxygen General: Reports: Alert. Denies: Oriented HEENT: Reports: Pupils Equal Neck: Reports: Supple Lungs: Reports: Clear to Auscultation Cardiovascular: Reports: Regular Rate Back Exam: Reports: Normal Inspection Extremities: Normal Inspection Skin: Reports: Warm Neurological: Reports: Strength Equal Bilateral, Other (confusion , oriented only to self )
--- NOTE | 2018-04-23 22:04 | MR ---
EXAM DATE: 04/22/18 PATIENT'S AGE: 68 Patient: KACEY SANTIAGO Facility: [place], [place] Site . Site : 1950 Study: MRI Head [id number]/24/2018 3:36:35 PM Ordering Physician: Yanelis Jarrell Final Report: INDICATION: Confusion TECHNIQUE: Brain MRI without contrast. The following sequences were obtained: Axial DWI and ADC mapping sequences Axial FLAIR and T2-weighted sequences Sagittal T1-weighted sequence Susceptibility weighted sequences. 3D T1 weighted sequences. COMPARISON: CT head from 04/22/2018 FINDINGS: Diffusion abnormality with associated ADC hypointensity involving the central & right central pontine tegmentum, compatible with recent infarction. Associated T2 hyperintensity. No evidence of recent or prior hemorrhage. Dilated perivascular space right basal ganglia. There are a few T2 hyperintensities within the supratentorial white matter, which are technically nonspecific but most likely reflect chronic microvascular ischemic changes and age-related change in this patient. There is mild generalized cerebral/cerebellar parenchymal volume loss. The configuration of the ventricular system is within normal limits given the degree of volume loss. The sella turcica, its contents and adjacent structures appear normal. The basilar artery flow void is attenuated, which could reflect stenosis or nonocclusive thrombus. The orbital contents are normal. No marrow signal abnormality. Paranasal sinuses and mastoid air cells are well-aerated. Normal appearance of the scalp and other visualized soft tissue structures. IMPRESSION: 1. Recent infarction involving the central and right central pontine tegmentum. 2. Attenuated basilar artery flow void, which could reflect stenosis or nonocclusive thrombus. Results discussed with Dr. Gonzalez by Dr. Cruz 04/23/2018 at 3:50 p.m.. Dictated by Luan Cruz MD @ Apr 23 2018 3:40PM (Electronic Signature) Report Signed by Proxy. [facility]ozef
--- NOTE | 2018-04-26 10:32 | CT ---
EXAM DATE: 04/22/18 PATIENT'S AGE: 68 Patient: KACEY SANTIAGO Facility: [place], [place] Site . Site : 1950 Study: CT Head Angio [id number]/24/2018 5:53:15 PM Ordering Physician: Yanelis Jarrell Final Report: INDICATION: Stroke-like symptoms TECHNIQUE: CTA of the head and neck was performed after the administration of intravenous contrast. Multiplanar Maximum Intensity Projections (MIPs) were created on a separate workstation at the request of the referring physician. COMPARISON: None available FINDINGS: Angiographic findings: The aortic arch is mildly atherosclerotic. The subclavian and innominate arteries are mildly atherosclerotic without significant stenosis. There is marked mixed calcified and noncalcified atherosclerosis of the right carotid bifurcation that causes approximately 75 percent stenosis of the internal carotid artery origin by NASCET criteria. The right common, cervical internal, and external carotid arteries are otherwise mildly atherosclerotic without significant stenosis. There is marked, predominantly calcified atherosclerosis of the left carotid bifurcation that causes approximately 65 percent stenosis of the internal carotid artery origin by NASCET criteria, and approximately 50 percent stenosis of the left external carotid artery origin. The left common, cervical internal, and external carotid arteries are otherwise mildly atherosclerotic without significant stenosis. There is marked atherosclerosis of the carotid siphons causes approximately 50 percent luminal stenosis bilaterally. An anterior communicating artery is well visualized and is normal. The anterior cerebral arteries and their branches are normal. The middle cerebral arteries and their branches are normal. The vertebral arteries are left dominant. There is mild stenosis of the origin of the left cervical vertebral artery. The left vertebral artery is occluded just distal to the origin of the left posterior inferior cerebellar artery. The cervical right vertebral artery is occluded from its origin to the level of C1-2 , where it is reconstituted via muscular branch collaterals. 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 Flow is seen to both posterior cerebral and superior cerebellar arteries. There is no aneurysm or vascular malformation. Deep cerebral veins and dural venous sinuses are unremarkable. Non-angiographic findings: Ventricles are of normal size and morphology. No mass effect or midline shift is present. The visualized portions of the orbits are normal. There is no cervical lymphadenopathy. The thyroid and salivary glands are normal. The muscles of the neck are normal. Fascial planes are preserved and the deep spaces of the neck are normal. The visualized airway is widely patent. There is an incompletely visualized nodule or scarring in the right upper lobe. The paranasal sinuses and mastoid air cells are clear. There are no suspicious lytic or blastic lesions. IMPRESSION: 1. Marked, predominantly calcified atherosclerosis of the left carotid bifurcation that causes approximately 65 percent stenosis of the internal carotid artery origin by NASCET criteria 2. Marked, predominantly calcified atherosclerosis of the left carotid bifurcation that causes approximately 65 percent stenosis of the internal carotid artery origin by NASCET criteria 3. Marked atherosclerosis of the carotid siphons causes approximately 50 percent luminal stenosis bilaterally 4. 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 The cervical right vertebral artery is occluded from its origin to the level of C1-2, where it is reconstituted via muscular branch collaterals. 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 5. Incompletely visualized nodule or scar in the right upper lobe. Dedicated chest CT is recommended. Please note that all CT scans at this facility use dose modulation, iterative reconstruction, and/or weight-based dosing when appropriate to reduce radiation dose to as low as reasonably achievable. Dictated by Raul Delvalle MD @ Apr 23 2018 10:52PM (Electronic Signature) Report Signed by Proxy. DIVINA
--- NOTE | 2018-04-26 10:33 | CT ---
EXAM DATE: 04/22/18 PATIENT'S AGE: 68 Patient: KACEY SANTIAGO Facility: [place], [place] Site . Site : 1950 Study: CT Head Angio [id number]/24/2018 5:53:15 PM Ordering Physician: Yanelis Jarrell Final Report: INDICATION: Stroke-like symptoms TECHNIQUE: CTA of the head and neck was performed after the administration of intravenous contrast. Multiplanar Maximum Intensity Projections (MIPs) were created on a separate workstation at the request of the referring physician. COMPARISON: None available FINDINGS: Angiographic findings: The aortic arch is mildly atherosclerotic. The subclavian and innominate arteries are mildly atherosclerotic without significant stenosis. There is marked mixed calcified and noncalcified atherosclerosis of the right carotid bifurcation that causes approximately 75 percent stenosis of the internal carotid artery origin by NASCET criteria. The right common, cervical internal, and external carotid arteries are otherwise mildly atherosclerotic without significant stenosis. There is marked, predominantly calcified atherosclerosis of the left carotid bifurcation that causes approximately 65 percent stenosis of the internal carotid artery origin by NASCET criteria, and approximately 50 percent stenosis of the left external carotid artery origin. The left common, cervical internal, and external carotid arteries are otherwise mildly atherosclerotic without significant stenosis. There is marked atherosclerosis of the carotid siphons causes approximately 50 percent luminal stenosis bilaterally. An anterior communicating artery is well visualized and is normal. The anterior cerebral arteries and their branches are normal. The middle cerebral arteries and their branches are normal. The vertebral arteries are left dominant. There is mild stenosis of the origin of the left cervical vertebral artery. The left vertebral artery is occluded just distal to the origin of the left posterior inferior cerebellar artery. The cervical right vertebral artery is occluded from its origin to the level of C1-2 , where it is reconstituted via muscular branch collaterals. 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 Flow is seen to both posterior cerebral and superior cerebellar arteries. There is no aneurysm or vascular malformation. Deep cerebral veins and dural venous sinuses are unremarkable. Non-angiographic findings: Ventricles are of normal size and morphology. No mass effect or midline shift is present. The visualized portions of the orbits are normal. There is no cervical lymphadenopathy. The thyroid and salivary glands are normal. The muscles of the neck are normal. Fascial planes are preserved and the deep spaces of the neck are normal. The visualized airway is widely patent. There is an incompletely visualized nodule or scarring in the right upper lobe. The paranasal sinuses and mastoid air cells are clear. There are no suspicious lytic or blastic lesions. IMPRESSION: 1. Marked, predominantly calcified atherosclerosis of the left carotid bifurcation that causes approximately 65 percent stenosis of the internal carotid artery origin by NASCET criteria 2. Marked, predominantly calcified atherosclerosis of the left carotid bifurcation that causes approximately 65 percent stenosis of the internal carotid artery origin by NASCET criteria 3. Marked atherosclerosis of the carotid siphons causes approximately 50 percent luminal stenosis bilaterally 4. 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 The cervical right vertebral artery is occluded from its origin to the level of C1-2, where it is reconstituted via muscular branch collaterals. 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 5. Incompletely visualized nodule or scar in the right upper lobe. Dedicated chest CT is recommended. Please note that all CT scans at this facility use dose modulation, iterative reconstruction, and/or weight-based dosing when appropriate to reduce radiation dose to as low as reasonably achievable. Dictated by Raul Delvalle MD @ Apr 23 2018 10:52PM (Electronic Signature) Patient: [facility] Facility: [place], [place] Site . Site : 1950 Study: CT ST Neck Angio [id number]/24/2018 5:54:00 PM Ordering Physician: Yanelis Jarrell Final Report: ----- ADDENDUM ----- Addendum: Dr. Delvalle communicated findings to Dr. Hilario at 11:29 p.m. on 04/23/2018. Dictated by Raul Delvalle MD @ Apr 23 2018 11:21PM (Electronic Signature) Report Signed by Proxy. [facility] BROTHERS MEDICAL CENTERJozef
== END 2018-04-23 18:00 ==
LOC: MW.ED 09:43 → MW.MS 12:16
PROVIDERS: ADMIT Internal Medicine; ATTEND Internal Medicine
DX: R41.82 Altered mental status, unspecified (principal); I63.50 Cerebral infarction due to unspecified occlusion or stenosis of unspecified cerebral artery; E78.00 Pure hypercholesterolemia, unspecified; I10 Essential (primary) hypertension; J44.9 Chronic obstructive pulmonary disease, unspecified; G89.29 Other chronic pain; M54.9 Dorsalgia, unspecified; F41.9 Anxiety disorder, unspecified; F32.9 Major depressive disorder, single episode, unspecified; F43.10 Post-traumatic stress disorder, unspecified; Z79.82 Long term (current) use of aspirin; Z79.899 Other long term (current) drug therapy
CPT/HCPCS: 36415; 70450; 70450-26; 70496; 70496-26; 70498; 70498-26; 70551; 70551-26; 80048; 80053; 80305-QW; 81001; 82550; 83036; 83735; 84443; 85025; 85027; 96361; 96372; 96374; 96376; 99285-25; A9270-GY; G0378; G0480; J1650; J2060; J7040; J7120; Q9967

== ENCOUNTER 2019-02-17 19:21 | Emergency (ER) | payer MEDICARE, MEDICAID ==
[2019-02-17] MEDS ORDERED: Gabapentin 300 MG Cap PO ONE (19:27)
--- NOTE | 2019-02-17 19:29 | EDM.PDOC ---
ED HPI GENERAL MEDICAL PROBLEM - General Chief Complaint: Behavioral/Psych Stated Complaint: ANXIETY Time Seen by Provider: 02/17/19 19:23 - History of Present Illness INITIAL COMMENTS - FREE TEXT/NARRATIVE: HISTORY AND PHYSICAL: History of present illness: Patient is a 69-year-old white male who presents with a concern of medication refill patient states he is scheduled see his provider tomorrow and is most concerned about a gabapentin dose. Patient states in the past when he's missed his gabapentin he's had profound insomnia and anxiety. He has no other concern Review of systems: As per history of present illness and below otherwise all systems reviewed and negative. Past medical history: As per history of present illness and as reviewed below otherwise noncontributory. Surgical history: As per history of present illness and as reviewed below otherwise noncontributory. Social history: No reported history of drug or alcohol abuse. Family history: As per history of present illness and as reviewed below otherwise noncontributory. Physical exam: HEENT: Atraumatic, normocephalic, pupils reactive, negative for conjunctival pallor or scleral icterus, mucous membranes moist, throat clear, neck supple, nontender, trachea midline. Lungs: Clear to auscultation, breath sounds equal bilaterally, chest nontender. Heart: S1S2, regular, negative for clicks, rubs, or JVD. Abdomen: Soft, nondistended, nontender. Negative for masses or hepatosplenomegaly. Negative for costovertebral tenderness. Pelvis: Stable nontender. Genitourinary: Deferred. Rectal: Deferred. Extremities: Atraumatic, negative for cords or calf pain. Neurovascular unremarkable. Neuro: Awake, alert, oriented. Cranial nerves II through XII unremarkable. Cerebellum unremarkable. Motor and sensory unremarkable throughout. Exam nonfocal. Diagnostics: None Therapeutics: None Impression: #1 medical screening exam #2 medication refill Definitive disposition and diagnosis as appropriate pending reevaluation and review of above. - Related Data Allergies Allergy/AdvReac Type Severity Reaction Status Date / Time No Known Allergies Allergy Verified 02/17/19 19:22 Home Meds: Home Meds Aspirin [Ecotrin EC] 325 mg PO DAILY 09/19/14 [History] Omeprazole 40 mg PO DAILY 09/19/14 [History] Rosuvastatin [Crestor] 5 mg PO MOWEFR 09/19/14 [History] traZODone 150 mg PO BEDTIME 09/19/14 [History] buPROPion [Wellbutrin SR] 150 mg PO BID 02/21/16 [History] Cholecalciferol (Vitamin D3) [Vitamin D3] 2,000 units PO DAILY 04/24/17 [History ] Fluticasone/Vilanterol [Breo Ellipta 200-25 Mcg INH] 1 puff INH DAILY 04/24/17 [ History] Gabapentin [Neurontin] 300 mg PO BEDTIME 04/24/17 [History] Linaclotide [Linzess] 290 mcg PO DAILY 04/24/17 [History] tiZANidine HCl [Zanaflex] 4 mg PO Q8H 04/26/17 [History] QUEtiapine Fumarate [Seroquel] 800 mg PO BEDTIME 04/21/18 [History] Tiotropium [place] [Spiriva Respimat] 2.5 mcg INH DAILY 04/21/18 [History] Zolpidem Tartrate 10 mg PO BEDTIME 04/21/18 [History] Azithromycin 500 mg PO DAILY #3 tablet 06/08/18 [Rx] Past Medical History HEENT History: Reports: None Cardiovascular History: Reports: Aneurysm, High Cholesterol, Hypertension Other Cardiovascular History: aortic aneurysm Respiratory History: Reports: COPD Gastrointestinal History: Reports: None Genitourinary History: Reports: None Musculoskeletal History: Reports: Back Pain, Chronic Neurological History: Reports: Other (See Below) Other Neuro History: hx of stroke Psychiatric History: Reports: Anxiety, Depression, PTSD Other Psychiatric History: dx of major depressive disorder and PTSD; patient states he does not feel safe at home, When asked why, he states " I dont know, that place is weird" denies anyone threatening him, or thoughts of selfharm Endocrine/Metabolic History: Reports: None Hematologic History: Reports: None Immunologic History: Reports: None Oncologic (Cancer) History: Reports: None Dermatologic History: Reports: None - Infectious Disease History Infectious Disease History: Reports: Chicken Pox - Past Surgical History Head Surgeries/Procedures: Reports: None HEENT Surgical History: Reports: Tonsillectomy Cardiovascular Surgical History: Reports: None Respiratory Surgical History: Reports: None GI Surgical History: Reports: Hernia, Abdominal Male Surgical History: Reports: None Endocrine Surgical History: Reports: None Neurological Surgical History: Reports: None Musculoskeletal Surgical History: Reports: None Oncologic Surgical History: Reports: None Dermatological Surgical History: Reports: None Social & Family History - Family History Family Medical History: Noncontributory - Caffeine Use Caffeine Use: Reports: None Other Caffeine Use: unknown Caffeine Use Comment: 3cups/day ED ROS GENERAL - Review of Systems Review Of Systems: ROS reveals no pertinent complaints other than HPI. ED EXAM, GENERAL - Physical Exam Exam: See Below (See dictation) Departure - Departure Time of Disposition: 19:28 Disposition: Home, Self-Care 01 Condition: Good Clinical Impression: Encounter for medical screening examination, Medication refill - Discharge Information Additional Instructions: The following information is given to patients seen in the emergency department who are being discharged to home. This information is to outline your options for follow-up care. We provide all patients seen in our emergency department with a follow-up referral. The need for follow-up, as well as the timing and circumstances, are variable depending upon the specifics of your emergency department visit. If you don't have a primary care physician on staff, we will provide you with a referral. We always advise you to contact your personal physician following an emergency department visit to inform them of the circumstance of the visit and for follow-up with them and/or the need for any referrals to a consulting specialist. The emergency department will also refer you to a specialist when appropriate. This referral assures that you have the opportunity for followup care with a specialist. All of these measure are taken in an effort to provide you with optimal care, which includes your followup. Under all circumstances we always encourage you to contact your private physician who remains a resource for coordinating your care. When calling for followup care, please make the office aware that this follow-up is from your recent emergency room visit. If for any reason you are refused follow-up, please contact the [facility] emergency department at and asked to speak to the emergency department charge nurse. Medications as prescribed follow-up with primary medical doctor tomorrow as scheduled return as needed as discussed
[2019-02-17 19:30] VITALS: BP 127/81
== END 2019-02-17 20:01 | disposition home or self-care (01) ==
LOC: MW.ED 19:21
DX: Z13.9 Encounter for screening, unspecified (principal); Z76.0 Encounter for issue of repeat prescription; F41.9 Anxiety disorder, unspecified; F32.9 Major depressive disorder, single episode, unspecified; F43.10 Post-traumatic stress disorder, unspecified; I10 Essential (primary) hypertension; J44.9 Chronic obstructive pulmonary disease, unspecified; E78.00 Pure hypercholesterolemia, unspecified; Z79.899 Other long term (current) drug therapy; Z79.82 Long term (current) use of aspirin
CPT/HCPCS: 99283; A9270; 99281

== ENCOUNTER 2019-05-29 12:42 | Emergency (ER) | payer MEDICARE, MEDICAID ==
[2019-05-29] MEDS ORDERED: Sodium Chloride 0.9% 2.5 ML Syringe FLUSH PRN (12:55)
[2019-05-29] MEDS ORDERED: Sodium Chloride 0.9% 10 ML Syringe FLUSH PRN (12:55)
[2019-05-29] MEDS ORDERED: Sodium Chloride 0.9% 1,000 ML IV SCH (13:00)
--- NOTE | 2019-05-29 13:10 | EDM.PDOC ---
ED HPI GENERAL MEDICAL PROBLEM - General Chief Complaint: Gastrointestinal Problem Stated Complaint: COPD Time Seen by Provider: 05/29/19 12:52 - History of Present Illness INITIAL COMMENTS - FREE TEXT/NARRATIVE: HISTORY AND PHYSICAL: History of present illness: Patient is 69-year-old white male presents with concern of constipation and blood per rectum he states his blood per rectum occurred after digital disimpaction attempt. He denies chills chest pain or other concern.Review of systems: As per history of present illness and below otherwise all systems reviewed and negative. Past medical history: As per history of present illness and as reviewed below otherwise noncontributory. Surgical history: As per history of present illness and as reviewed below otherwise noncontributory. Social history: No reported history of drug or alcohol abuse. Family history: As per history of present illness and as reviewed below otherwise noncontributory. Physical exam: HEENT: Atraumatic, normocephalic, pupils reactive, negative for conjunctival pallor or scleral icterus, mucous membranes moist, throat clear, neck supple, nontender, trachea midline. Lungs: diminished breath sounds equal bilaterally, chest nontender. Heart: S1S2, regular, negative for clicks, rubs, or JVD. Abdomen: Soft, nondistended, nontender. Negative for masses or hepatosplenomegaly. Negative for costovertebral tenderness. Pelvis: Stable nontender. Genitourinary: Deferred. Rectal: Deferred. Extremities: Atraumatic, negative for cords or calf pain. Neurovascular unremarkable. Neuro: Awake, alert, oriented. Cranial nerves II through XII unremarkable. Cerebellum unremarkable. Motor and sensory unremarkable throughout. Exam nonfocal. Diagnostics: CBC CMP CT abdomen and pelvis PT/INR EKG chest x-ray Therapeutics: Saline at 125 mL an hour Impression: #1 constipation #2 history of rectal bleeding Definitive disposition and diagnosis as appropriate pending reevaluation and review of above. - Related Data Allergies Allergy/AdvReac Type Severity Reaction Status Date / Time No Known Allergies Allergy Verified 05/29/19 12:43 Home Meds: Home Meds Aspirin [Ecotrin EC] 325 mg PO DAILY 09/19/14 [History] traZODone 150 mg PO BEDTIME 09/19/14 [History] buPROPion [Wellbutrin SR] 150 mg PO BID 02/21/16 [History] Cholecalciferol (Vitamin D3) [Vitamin D3] 2,000 units PO DAILY 04/24/17 [History ] Gabapentin [Neurontin] 300 mg PO BEDTIME 04/24/17 [History] QUEtiapine Fumarate [Seroquel] 800 mg PO BEDTIME 04/21/18 [History] Clopidogrel [Plavix] 75 mg PO DAILY 02/17/19 [History] LORazepam [Ativan] 1 mg PO ASDIRECTED PRN 02/17/19 [History] atorvaSTATin Calcium [Atorvastatin Calcium] 40 mg PO DAILY 02/17/19 [History] Past Medical History HEENT History: Reports: None Cardiovascular History: Reports: Aneurysm, High Cholesterol, Hypertension Other Cardiovascular History: aortic aneurysm Respiratory History: Reports: COPD Gastrointestinal History: Reports: None Genitourinary History: Reports: None Musculoskeletal History: Reports: Back Pain, Chronic Neurological History: Reports: Other (See Below) Other Neuro History: hx of stroke Psychiatric History: Reports: Anxiety, Depression, PTSD Other Psychiatric History: dx of major depressive disorder and PTSD; patient states he does not feel safe at home, When asked why, he states " I dont know, that place is weird" denies anyone threatening him, or thoughts of selfharm Endocrine/Metabolic History: Reports: None Hematologic History: Reports: None Immunologic History: Reports: None Oncologic (Cancer) History: Reports: None Dermatologic History: Reports: None - Infectious Disease History Infectious Disease History: Reports: Chicken Pox - Past Surgical History Head Surgeries/Procedures: Reports: None HEENT Surgical History: Reports: Tonsillectomy Cardiovascular Surgical History: Reports: None Respiratory Surgical History: Reports: None GI Surgical History: Reports: Hernia, Abdominal Male Surgical History: Reports: None Endocrine Surgical History: Reports: None Neurological Surgical History: Reports: None Musculoskeletal Surgical History: Reports: None Oncologic Surgical History: Reports: None Dermatological Surgical History: Reports: None Social & Family History - Family History Family Medical History: Noncontributory - Tobacco Use Smoking Status *Q: Former Smoker Used Tobacco, but Quit: Yes Month/Year Tobacco Last Used: 1999 - Caffeine Use Caffeine Use: Reports: None Other Caffeine Use: unknown Caffeine Use Comment: 3cups/day - Recreational Drug Use Recreational Drug Use: No ED ROS GENERAL - Review of Systems Review Of Systems: ROS reveals no pertinent complaints other than HPI. ED EXAM, GENERAL - Physical Exam Exam: See Below (Dictation) Course - Vital Signs Last Recorded V/S: Last Vital Signs Temp 35.6 C 05/29/19 12:45 Pulse 109 H 05/29/19 12:45 Resp 18 05/29/19 12:45 BP 158/87 H 05/29/19 12:45 Pulse Ox 99 05/29/19 12:45 - Orders/Labs/Meds Orders: Active Orders 24 hr Category Date Time Status Cardiac Monitoring [RC] . DIRECTED Care 05/29/19 12:54 Active EKG Documentation Completion [RC] STAT Care 05/29/19 12:54 Active Sodium Chloride 0.9% [Normal Saline] 1,000 ml Med 05/29/19 13:00 Active IV STAT Sodium Chloride 0.9% [Saline Flush] Med 05/29/19 12:55 Active 10 ml FLUSH ASDIRECTED PRN Sodium Chloride 0.9% [Saline Flush] Med 05/29/19 12:55 Active 2.5 ml FLUSH ASDIRECTED PRN Saline Lock Insert [OM.PC] Stat Oth 05/29/19 12:53 Ordered Medication Orders Sodium Chloride (Normal Saline) 1,000 mls @ 125 mls/hr IV STAT RACHELL Last Admin: 05/29/19 13:29 Dose: 125 mls/hr Sodium Chloride (Saline Flush) 10 ml FLUSH ASDIRECTED PRN PRN Reason: Keep Vein Open Last Admin: 05/29/19 13:29 Dose: 10 ml Sodium Chloride (Saline Flush) 2.5 ml FLUSH ASDIRECTED PRN PRN Reason: Keep Vein Open Last Admin: 05/29/19 13:29 Dose: 2.5 ml Labs: Laboratory Tests 05/29/19 05/29/19 05/29/19 Range/Units 12:07 12:07 12:07 WBC 8.18 (4.0-11.0) K/uL RBC 4.98 (4.50-5.90) M/uL Hgb 15.2 (13.0-17.0) g/dL Hct 46.1 (38.0-50.0) % MCV 92.6 (80.0-98.0) fL MCH 30.5 (27.0-32.0) pg MCHC 33.0 (31.0-37.0) g/dL RDW Std Deviation 42.8 (28.0-62.0) fl RDW Coeff of Flora 13 (11.0-15.0) % Plt Count 201 (150-400) K/uL MPV 9.50 (7.40-12.00) fL Neut % (Auto) 69.7 (48.0-80.0) % Lymph % (Auto) 20.3 (16.0-40.0) % [place] % (Auto) 7.6 (0.0-15.0) % Eos % (Auto) 1.8 (0.0-7.0) % Baso % (Auto) 0.6 (0.0-1.5) % Neut # (Auto) 5.7 (1.4-5.7) K/uL Lymph # (Auto) 1.7 (0.6-2.4) K/uL [place] # (Auto) 0.6 (0.0-0.8) K/uL Eos # (Auto) 0.2 (0.0-0.7) K/uL Baso # (Auto) 0.1 (0.0-0.1) K/uL Nucleated RBC % 0.0 /100WBC Nucleated RBCs # 0 K/uL INR 1.03 Sodium 145 (136-148) mmol/L Potassium 4.0 (3.5-5.1) mmol/L Chloride 106 (98-107) mmol/L Carbon Dioxide 24.7 (21.0-32.0) mmol/L BUN 19 H (7.0-18.0) mg/dL Creatinine 1.3 (0.8-1.3) mg/dL Est Cr Clr Drug Dosing 60.60 mL/min Estimated GFR (MDRD) 54.4 ml/min Glucose 189 H (74-106) mg/dL Calcium 9.5 (8.5-10.1) mg/dL Total Bilirubin 0.5 (0.2-1.0) mg/dL AST 17 (15-37) IU/L ALT 22 (14-63) IU/L Alkaline Phosphatase 87 (46-116) U/L Total Protein 6.7 (6.4-8.2) g/dL Albumin 4.0 (3.4-5.0) g/dL Globulin 2.7 (2.6-4.0) g/dL Albumin/Globulin Ratio 1.5 (0.9-1.6) Meds: Medications Generic Name Dose Route Start Last Admin Trade Name Freq PRN Reason Stop Dose Admin Sodium Chloride 1,000 mls @ 125 mls/hr 05/29/19 13:00 05/29/19 13:29 Normal Saline IV 125 mls/hr STAT RACHELL Administration Sodium Chloride 10 ml 05/29/19 12:55 05/29/19 13:29 Saline Flush FLUSH 10 ml ASDIRECTED PRN Administration Keep Vein Open Sodium Chloride 2.5 ml 05/29/19 12:55 05/29/19 13:29 Saline Flush FLUSH 2.5 ml ASDIRECTED PRN Administration Keep Vein Open Discontinued Medications Generic Name Dose Route Start Last Admin Trade Name Freq PRN Reason Stop Dose Admin Acetaminophen 1,000 mg 05/29/19 13:21 05/29/19 13:29 Tylenol Extra Strength PO 05/29/19 13:22 1,000 mg ONETIME ONE Administration Departure - Departure Time of Disposition: 15:10 Disposition: Home, Self-Care 01 Condition: Good Clinical Impression: Encounter for medical screening examination Constipation Qualifiers: Constipation type: unspecified constipation type Qualified Code(s): K59.00 - Constipation, unspecified - Discharge Information Referrals: PCP,Unknown [Primary Care Provider] - Forms: ED Department Discharge Additional Instructions: The following information is given to patients seen in the emergency department who are being discharged to home. This information is to outline your options for follow-up care. We provide all patients seen in our emergency department with a follow-up referral. The need for follow-up, as well as the timing and circumstances, are variable depending upon the specifics of your emergency department visit. If you don't have a primary care physician on staff, we will provide you with a referral. We always advise you to contact your personal physician following an emergency department visit to inform them of the circumstance of the visit and for follow-up with them and/or the need for any referrals to a consulting specialist. The emergency department will also refer you to a specialist when appropriate. This referral assures that you have the opportunity for followup care with a specialist. All of these measure are taken in an effort to provide you with optimal care, which includes your followup. Under all circumstances we always encourage you to contact your private physician who remains a resource for coordinating your care. When calling for followup care, please make the office aware that this follow-up is from your recent emergency room visit. If for any reason you are refused follow-up, please contact the [facility] emergency department at and asked to speak to the emergency department charge nurse. Push fluids Colace as prescribed follow-up private medical doctor fleets enema as directed and return as needed as discussed - My Orders Last 24 Hours: My Active Orders 05/29/19 12:53 Saline Lock Insert [OM.PC] Stat 05/29/19 12:54 Cardiac Monitoring [RC] . DIRECTED EKG Documentation Completion [RC] STAT 05/29/19 12:55 Sodium Chloride 0.9% [Saline Flush] 10 ml FLUSH ASDIRECTED PRN Sodium Chloride 0.9% [Saline Flush] 2.5 ml FLUSH ASDIRECTED PRN 05/29/19 13:00 Sodium Chloride 0.9% [Normal Saline] 1,000 ml IV STAT - Assessment/Plan Last 24 Hours: My Active Orders 05/29/19 12:53 Saline Lock Insert [OM.PC] Stat 05/29/19 12:54 Cardiac Monitoring [RC] . DIRECTED EKG Documentation Completion [RC] STAT 05/29/19 12:55 Sodium Chloride 0.9% [Saline Flush] 10 ml FLUSH ASDIRECTED PRN Sodium Chloride 0.9% [Saline Flush] 2.5 ml FLUSH ASDIRECTED PRN 05/29/19 13:00 Sodium Chloride 0.9% [Normal Saline] 1,000 ml IV STAT
[2019-05-29] MEDS ORDERED: Acetaminophen 500 MG Tab PO ONE (13:21)
[2019-05-29 13:30] LABS: CARBON DIOXIDE,CO2 24.7 mmol/L (21.0-32.0)
--- NOTE | 2019-05-29 14:15 | CT ---
INDICATION: Rectal bleeding. TECHNIQUE: nonenhanced volumetric CT scan abdomen, pelvis. FINDINGS: Lower chest is unremarkable. Noncontrast appearance of solid abdominal organs demonstrates no significant change superior study. 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 Gallbladder demonstrates no wall thickening/time for change. Faint opacity within could represent small stone or stones. There is no biliary enlargement. Increased amount of stool throughout the entire colon, especially the rectum, consistent with constipation. No evidence of bowel obstruction. Mild sigmoid diverticulosis. Appendix not definitively seen. No evidence to suggest appendicitis. Scattered atherosclerotic calcifications present abdominal aorta and mesenteric and renal arteries. No significant abdominal aortic aneurysm. No acute/aggressive osseous lesions identified. IMPRESSION: 1. Extensive constipation without evidence of bowel obstruction. 2. Possible cholecystolithiasis with no evidence of cholecystitis/biliary enlargement. Elective gallbladder ultrasound recommended if indicated. 3. Moderate atherosclerotic calcified plaques within aorta and mesenteric and renal arteries. Please note that all CT scans at this facility use dose modulation, iterative reconstruction, and/or weight-based dosing when appropriate to reduce radiation dose to as low as reasonably achievable. Dictated by Elias Isaac MD @ May 29 2019 2:06PM Signed by Dr. Elias Iasac @ May 29 2019 2:14PM
--- NOTE | 2019-05-29 15:00 | CR ---
Pain shortness of breath Portable chest. Comparison chest x-ray 06/08/2018 FINDINGS: Stable cardiac mediastinal silhouette. Right upper lobe strandy opacities has decreased from the prior study and may represent residual area of scarring. Basilar atelectasis or scarring. No acute airspace or interstitial process. Dictated by Effie Jefferson MD @ May 29 2019 2:56PM Signed by Dr. Effie Jefferson @ May 29 2019 2:57PM
[2019-05-29 15:42] VITALS: BP 134/81; PULSE 95
== END 2019-05-29 15:42 | disposition home or self-care (01) ==
LOC: MW.ED 12:42
DX: K59.00 Constipation, unspecified (principal); Z00.00 Encounter for general adult medical examination without abnormal findings; J44.9 Chronic obstructive pulmonary disease, unspecified; I10 Essential (primary) hypertension; E78.5 Hyperlipidemia, unspecified; F41.9 Anxiety disorder, unspecified; F32.9 Major depressive disorder, single episode, unspecified; Z87.891 Personal history of nicotine dependence; Z79.82 Long term (current) use of aspirin; Z79.899 Other long term (current) drug therapy
CPT/HCPCS: 36415; 71045; 71045-26; 74176; 74176-26; 80053; 85025; 85610; 93005; 96360; 99284-25; A9270-GY; J7040

== ENCOUNTER 2019-06-24 15:36 | Emergency (ER) | payer MEDICARE, MEDICAID ==
--- NOTE | 2019-06-24 15:58 | EDM.PDOC ---
ED HPI GENERAL MEDICAL PROBLEM - General Chief Complaint: Gastrointestinal Problem Stated Complaint: ABD PAIN Time Seen by Provider: 06/24/19 15:40 Source of Information: Reports: Patient History Limitations: Reports: No Limitations - History of Present Illness INITIAL COMMENTS - FREE TEXT/NARRATIVE: HISTORY AND PHYSICAL: History of present illness: Patient is a 69-year-old male presents to the ED via EMS today with concern of abdominal pain 1 day and constipation which he has been working on over the past several months. Patient states he pulled his primary care provider that he is having issues with constipation. Patient states over the past month he has been trying stool softeners without relief of symptoms. Patient states he started having abdominal pain today along with the constipation so tried to " dig himself out ". Patient states he was able to get some out but not all of it. Patient states he has been able to pass gas. Patient denies fever, chills, chest pain, shortness of breath, or cough. Denies headache, neck stiff ness, change in vision, syncope, or near syncope. Denies nausea, vomiting, or dysuria. Has not noted any blood in urine or stool. Patient has been eating and drinking appropriately. Review of systems: As per history of present illness and below otherwise all systems reviewed and negative. Past medical history: As per history of present illness and as reviewed below otherwise noncontributory. Surgical history: As per history of present illness and as reviewed below otherwise noncontributory. Social history: See social history for further information Family history: As per history of present illness and as reviewed below otherwise noncontributory. Physical exam: General: Patient is alert, oriented, and in no acute distress. Patient laying comfortably on exam table. HEENT: Atraumatic, normocephalic, pupils equal and reactive bilaterally, negative for conjunctival pallor or scleral icterus, mucous membranes moist, TMs normal bilaterally, throat clear, neck supple, nontender, trachea midline. No drooling or trismus noted. No meningeal signs. No hot potato voice noted. Lungs: Clear to auscultation, breath sounds equal bilaterally, chest nontender. Heart: S1S2, regular rate and rhythm without overt murmur Abdomen: Soft, nondistended, nontender. Negative for masses or hepatosplenomegaly. Negative for costovertebral tenderness. Pelvis: Stable nontender. Genitourinary: Deferred. Rectal: Deferred. Skin: Intact, warm, dry. No lesions or rashes noted. Extremities: Atraumatic, negative for cords or calf pain. Neurovascular unremarkable. Neuro: Awake, alert, oriented. Cranial nerves II through XII unremarkable. Cerebellum unremarkable. Motor and sensory unremarkable throughout. Exam nonfocal. Notes: DR. Adam verbally involved in patient care. Patient did express to the nurse that if his constipation is not resolved and he wants to kill himself. I did go and speak to patient personally, and he states that he is only upset that he is still constipated and does not have any intentions of killing himself and only told the nurse that hoping she would manually disimpact him. He does get periodically aggressive/loud/shouting with nursing staff that they have not manually disimpacted patient yet and upset at lab tests and imaging taking up his time. I did call and speak to Dr. Ramirez, psychiatrist on-call for [facility] in [place], who states that these actions are typical somebody with borderline personality disorder and he does not see the need for acute psychiatric evaluation or transfer. Voices understanding and is agreeable to plan of care. Denies any further questions or concerns at this time. Diagnostics: CBC, CMP, UA, EKG, lipase, abdominal pelvic CT, ethanol, urine drug screen, salicylate, acetaminophen Therapeutics: Geodon, Tylenol, Enema Impression: Constipation Borderline personality disorder Prescription: None Plan: 1. Use [id number] MiraLAX as directed daily in order to promote regular bowel movements. 2. Encourage small but frequent sips of fluid to prevent dehydration. 3. You can use Tylenol as directed for pain and discomfort. 4. Follow-up with your primary care provider as discussed. Return to the ED as needed and as discussed. Definitive disposition and diagnosis as appropriate pending reevaluation and review of above. abdomen Pain Score (Numeric/FACES): 8 - Related Data Allergies Allergy/AdvReac Type Severity Reaction Status Date / Time No Known Allergies Allergy Verified 06/24/19 15:39 Home Meds: Home Meds Aspirin [Ecotrin EC] 325 mg PO DAILY 09/19/14 [History] traZODone 150 mg PO BEDTIME 09/19/14 [History] buPROPion [Wellbutrin SR] 150 mg PO BID 02/21/16 [History] Cholecalciferol (Vitamin D3) [Vitamin D3] 2,000 units PO DAILY 04/24/17 [History ] Gabapentin [Neurontin] 300 mg PO BEDTIME 04/24/17 [History] QUEtiapine Fumarate [Seroquel] 800 mg PO BEDTIME 04/21/18 [History] Clopidogrel [Plavix] 75 mg PO DAILY 02/17/19 [History] LORazepam [Ativan] 1 mg PO ASDIRECTED PRN 02/17/19 [History] atorvaSTATin Calcium [Atorvastatin Calcium] 40 mg PO DAILY 02/17/19 [History] Fluticasone/Vilanterol [Breo Ellipta 200-25 MCG Inhalation Kit] 1 puff ASDIRECTED 06/24/19 [History] Losartan Potassium 25 mg PO DAILY 06/24/19 [History] Past Medical History HEENT History: Reports: None Cardiovascular History: Reports: Aneurysm, High Cholesterol, Hypertension Other Cardiovascular History: aortic aneurysm Respiratory History: Reports: COPD Gastrointestinal History: Reports: None Genitourinary History: Reports: None Musculoskeletal History: Reports: Back Pain, Chronic Neurological History: Reports: CVA, Other (See Below) Other Neuro History: hx of stroke Psychiatric History: Reports: Anxiety, Depression, PTSD Other Psychiatric History: dx of major depressive disorder and PTSD; patient states he does not feel safe at home, When asked why, he states " I dont know, that place is weird" denies anyone threatening him, or thoughts of selfharm Endocrine/Metabolic History: Reports: None Hematologic History: Reports: None Immunologic History: Reports: None Oncologic (Cancer) History: Reports: None Dermatologic History: Reports: None - Infectious Disease History Infectious Disease History: Reports: Chicken Pox - Past Surgical History Head Surgeries/Procedures: Reports: None HEENT Surgical History: Reports: Tonsillectomy Cardiovascular Surgical History: Reports: None Respiratory Surgical History: Reports: None GI Surgical History: Reports: Hernia, Abdominal Male Surgical History: Reports: None Endocrine Surgical History: Reports: None Neurological Surgical History: Reports: None Musculoskeletal Surgical History: Reports: None Oncologic Surgical History: Reports: None Dermatological Surgical History: Reports: None Social & Family History - Family History Family Medical History: Noncontributory - Tobacco Use Smoking Status *Q: Former Smoker Used Tobacco, but Quit: Yes Month/Year Tobacco Last Used: 2017 - Caffeine Use Caffeine Use: Reports: None Other Caffeine Use: unknown Caffeine Use Comment: 3cups/day - Recreational Drug Use Recreational Drug Use: No ED ROS GENERAL - Review of Systems Review Of Systems: ROS reveals no pertinent complaints other than HPI. ED EXAM, GENERAL - Physical Exam Exam: See Below (See dictation) Course - Vital Signs Last Recorded V/S: Last Vital Signs Temp 97.4 F 06/24/19 18:22 Pulse 107 H 06/24/19 20:35 Resp 16 06/24/19 20:35 BP 145/79 H 06/24/19 20:35 Pulse Ox 92 L 06/24/19 20:35 - Orders/Labs/Meds Orders: Active Orders 24 hr Category Date Time Status EKG Documentation Completion [RC] STAT Care 06/24/19 15:51 Active Labs: Laboratory Tests 06/24/19 06/24/19 06/24/19 Range/Units 16:25 16:25 16:25 WBC 11.87 H (4.0-11.0) K/uL RBC 4.80 (4.50-5.90) M/uL Hgb 14.8 (13.0-17.0) g/dL Hct 44.2 (38.0-50.0) % MCV 92.1 (80.0-98.0) fL MCH 30.8 (27.0-32.0) pg MCHC 33.5 (31.0-37.0) g/dL RDW Std Deviation 42.7 (28.0-62.0) fl RDW Coeff of Flora 13 (11.0-15.0) % Plt Count 199 (150-400) K/uL MPV 9.20 (7.40-12.00) fL Neut % (Auto) 82.3 H (48.0-80.0) % Lymph % (Auto) 10.5 L (16.0-40.0) % [place] % (Auto) 5.9 (0.0-15.0) % Eos % (Auto) 0.7 (0.0-7.0) % Baso % (Auto) 0.6 (0.0-1.5) % Neut # (Auto) 9.8 H (1.4-5.7) K/uL Lymph # (Auto) 1.3 (0.6-2.4) K/uL [facility] # (Auto) 0.7 (0.0-0.8) K/uL Eos # (Auto) 0.1 (0.0-0.7) K/uL Baso # (Auto) 0.1 (0.0-0.1) K/uL Nucleated RBC % 0.0 /100WBC Nucleated RBCs # 0 K/uL Sodium 145 (136-148) mmol/L Potassium 3.9 (3.5-5.1) mmol/L Chloride 106 (98-107) mmol/L Carbon Dioxide 26.5 (21.0-32.0) mmol/L BUN 20 H (7.0-18.0) mg/dL Creatinine 1.2 (0.8-1.3) mg/dL Est Cr Clr Drug Dosing 65.65 mL/min Estimated GFR (MDRD) 59.7 ml/min Glucose 145 H (74-106) mg/dL Calcium 9.1 (8.5-10.1) mg/dL Magnesium 1.9 (1.8-2.4) mg/dL Total Bilirubin 0.5 (0.2-1.0) mg/dL AST 13 L (15-37) IU/L ALT 23 (14-63) IU/L Alkaline Phosphatase 72 (46-116) U/L Total Protein 6.6 (6.4-8.2) g/dL Albumin 4.0 (3.4-5.0) g/dL Globulin 2.6 (2.6-4.0) g/dL Albumin/Globulin Ratio 1.5 (0.9-1.6) Lipase 81 (73-393) U/L TSH 3rd Generation 1.45 (0.36-3.74) uIU/mL Urine Color Urine Appearance Urine pH (5.0-8.0) Ur Specific [place] (1.001-1.035) Urine Protein (NEGATIVE) mg/dL Urine Glucose (UA) (NEGATIVE) mg/dL Urine Ketones (NEGATIVE) mg/dL Urine Occult Blood (NEGATIVE) Urine Nitrite (NEGATIVE) Urine Bilirubin (NEGATIVE) Urine Urobilinogen (<2.0) EU/dL Ur Leukocyte Esterase (NEGATIVE) Salicylates 1.7 (0-20) mg/dL Urine Opiates Screen (NEGATIVE) Ur Oxycodone Screen (NEGATIVE) Urine Methadone Screen (NEGATIVE) Acetaminophen <2.0 ug/mL Ur Barbiturates Screen (NEGATIVE) Ur Phencyclidine Scrn (NEGATIVE) Ur Amphetamine Screen (NEGATIVE) U Methamphetamines Scrn (NEGATIVE) U Benzodiazepines Scrn (NEGATIVE) U Cocaine Metab Screen (NEGATIVE) U Marijuana (THC) Screen (NEGATIVE) Ethyl Alcohol < 3.0 mg/dL 06/24/19 06/24/19 Range/Units 21:12 21:12 WBC (4.0-11.0) K/uL RBC (4.50-5.90) M/uL Hgb (13.0-17.0) g/dL Hct (38.0-50.0) % MCV (80.0-98.0) fL MCH (27.0-32.0) pg MCHC (31.0-37.0) g/dL RDW Std Deviation (28.0-62.0) fl RDW Coeff of Flora (11.0-15.0) % Plt Count (150-400) K/uL MPV (7.40-12.00) fL Neut % (Auto) (48.0-80.0) % Lymph % (Auto) (16.0-40.0) % [place] % (Auto) (0.0-15.0) % Eos % (Auto) (0.0-7.0) % Baso % (Auto) (0.0-1.5) % Neut # (Auto) (1.4-5.7) K/uL Lymph # (Auto) (0.6-2.4) K/uL [facility] # (Auto) (0.0-0.8) K/uL Eos # (Auto) (0.0-0.7) K/uL Baso # (Auto) (0.0-0.1) K/uL Nucleated RBC % /100WBC Nucleated RBCs # K/uL Sodium (136-148) mmol/L Potassium (3.5-5.1) mmol/L Chloride (98-107) mmol/L Carbon Dioxide (21.0-32.0) mmol/L BUN (7.0-18.0) mg/dL Creatinine (0.8-1.3) mg/dL Est Cr Clr Drug Dosing mL/min Estimated GFR (MDRD) ml/min Glucose (74-106) mg/dL Calcium (8.5-10.1) mg/dL Magnesium (1.8-2.4) mg/dL Total Bilirubin (0.2-1.0) mg/dL AST (15-37) IU/L ALT (14-63) IU/L Alkaline Phosphatase (46-116) U/L Total Protein (6.4-8.2) g/dL Albumin (3.4-5.0) g/dL Globulin (2.6-4.0) g/dL Albumin/Globulin Ratio (0.9-1.6) Lipase (73-393) U/L TSH 3rd Generation (0.36-3.74) uIU/mL Urine Color YELLOW Urine Appearance CLEAR Urine pH 5.0 (5.0-8.0) Ur Specific [place] 1.020 (1.001-1.035) Urine Protein NEGATIVE (NEGATIVE) mg/dL Urine Glucose (UA) NEGATIVE (NEGATIVE) mg/dL Urine Ketones NEGATIVE (NEGATIVE) mg/dL Urine Occult Blood NEGATIVE (NEGATIVE) Urine Nitrite NEGATIVE (NEGATIVE) Urine Bilirubin NEGATIVE (NEGATIVE) Urine Urobilinogen 0.2 (<2.0) EU/dL Ur Leukocyte Esterase NEGATIVE (NEGATIVE) Salicylates (0-20) mg/dL Urine Opiates Screen NEGATIVE (NEGATIVE) Ur Oxycodone Screen NEGATIVE (NEGATIVE) Urine Methadone Screen NEGATIVE (NEGATIVE) Acetaminophen ug/mL Ur Barbiturates Screen NEGATIVE (NEGATIVE) Ur Phencyclidine Scrn NEGATIVE (NEGATIVE) Ur Amphetamine Screen NEGATIVE (NEGATIVE) U Methamphetamines Scrn NEGATIVE (NEGATIVE) U Benzodiazepines Scrn NEGATIVE (NEGATIVE) U Cocaine Metab Screen NEGATIVE (NEGATIVE) U Marijuana (THC) Screen NEGATIVE (NEGATIVE) Ethyl Alcohol mg/dL Meds: Medications Discontinued Medications Generic Name Dose Route Start Last Admin Trade Name Freq PRN Reason Stop Dose Admin Acetaminophen 1,000 mg 06/24/19 16:09 06/24/19 16:14 Tylenol Extra Strength PO 06/24/19 16:10 1,000 mg ONETIME ONE Administration Sterile Water Confirm 06/24/19 16:49 06/24/19 16:54 Sterile Water For Injection Administered 06/24/19 16:50 Not Given Dose 20 mls @ as directed .ROUTE .STK-MED ONE Sodium Chloride 1,000 mls @ 999 mls/hr 06/24/19 18:23 06/24/19 20:33 Normal Saline IV 06/24/19 19:23 999 mls/hr STAT ONE Administration Iopamidol 100 ml 06/24/19 17:44 06/24/19 17:45 Isovue Multipack-370 (76%) IVPUSH 06/24/19 17:45 100 ml ONETIME STA Administration Sterile Water 1.2 ml 06/24/19 16:46 06/24/19 16:52 Sterile Water For Injection INJECT 06/24/19 16:47 1.2 ml ONETIME ONE Administration Ziprasidone 20 mg 06/24/19 16:46 06/24/19 16:52 Geodon IM 06/24/19 16:47 20 mg ONETIME ONE Administration Ziprasidone Confirm 06/24/19 16:48 06/24/19 16:54 Geodon Administered 06/24/19 16:49 Not Given Dose 20 mg .ROUTE .STK-MED ONE Departure - Departure Time of Disposition: 21:23 Disposition: Home, Self-Care 01 Clinical Impression: Borderline personality disorder Constipation Qualifiers: Constipation type: unspecified constipation type Qualified Code(s): K59.00 - Constipation, unspecified - Discharge Information Referrals: Jean Abbott MD [Primary Care Provider] - Forms: ED Department Discharge Additional Instructions: The following information is given to patients seen in the emergency department who are being discharged to home. This information is to outline your options for follow-up care. We provide all patients seen in our emergency department with a follow-up referral. The need for follow-up, as well as the timing and circumstances, are variable depending upon the specifics of your emergency department visit. If you don't have a primary care physician on staff, we will provide you with a referral. We always advise you to contact your personal physician following an emergency department visit to inform them of the circumstance of the visit and for follow-up with them and/or the need for any referrals to a consulting specialist. The emergency department will also refer you to a specialist when appropriate. This referral assures that you have the opportunity for follow-up care with a specialist. All of these measure are taken in an effort to provide you with optimal care, which includes your follow-up. Under all circumstances we always encourage you to contact your private physician who remains a resource for coordinating your care. When calling for follow-up care, please make the office aware that this follow-up is from your recent emergency room visit. If for any reason you are refused follow-up, please contact the [facility] at and asked to speak to the emergency department charge nurse. [facility] [address] [place] [address] [facility] [address] [place] [id number] 1. Use [id number] MiraLAX as directed daily in order to promote regular bowel movements. 2. Encourage small but frequent sips of fluid to prevent dehydration. 3. You can use Tylenol as directed for pain and discomfort. 4. Follow-up with your primary care provider as discussed. Return to the ED as needed and as discussed. - My Orders Last 24 Hours: My Active Orders 06/24/19 15:51 EKG Documentation Completion [RC] STAT - Assessment/Plan Last 24 Hours: My Active Orders 06/24/19 15:51 EKG Documentation Completion [RC] STAT
[2019-06-24] MEDS ORDERED: Acetaminophen 500 MG Tab PO ONE (16:09)
[2019-06-24] MEDS ORDERED: Water For Injection, Sterile 20 ML SDV INJECT ONE (16:46)
[2019-06-24] MEDS ORDERED: Ziprasidone Mesylate 20 MG Vial IM ONE (16:46)
[2019-06-24] MEDS ORDERED: Ziprasidone Mesylate 20 MG Vial ONE (16:48)
[2019-06-24] MEDS ORDERED: Water For Injection, Sterile 20 ML ONE (16:49)
[2019-06-24 16:55] LABS: CARBON DIOXIDE,CO2 26.5 mmol/L (21.0-32.0); POTASSIUM,K 3.9 mmol/L (3.5-5.1)
[2019-06-24 17:31] LABS: ACETAMINOPHEN <2.0 ug/mL
[2019-06-24] MEDS ORDERED: Iopamidol 755 MG/ML 500 ML Multipack Bottle IVPUSH STA (17:44)
[2019-06-24] MEDS ORDERED: Sodium Chloride 0.9% 1,000 ML IV ONE (18:23)
--- NOTE | 2019-06-24 18:37 | CT ---
INDICATION: Fecal impaction. Possible bowel obstruction. TECHNIQUE: CT of the abdomen pelvis with IV contrast. 100 cc of Isovue-370 was administered. COMPARISON: 06/08/2018. FINDINGS: Imaged lung bases are unremarkable cholelithiasis. The liver, spleen, pancreas and adrenal glands are unremarkable. Right renal cortical scarring is again noted. Nonobstructing left renal calculus is stable. Kidneys enhance symmetrically. No obstructing renal calculus or hydronephrosis. Advanced atherosclerotic disease. No aneurysmal dilatation of the abdominal aorta. No lymphadenopathy in the abdomen or pelvis. Urinary bladder is unremarkable. Large amount of stool in the rectum, consistent with fecal impaction. Stool throughout the colon consistent with constipation. No evidence of bowel obstruction. Appendix not visualized but no secondary evidence of acute appendicitis. No free fluid or free air. Bones are demineralized. Degenerative changes in the lumbar spine. IMPRESSION: 1. Large amount of stool in the rectum consistent with fecal impaction. Stool throughout the colon consistent with constipation. No evidence of bowel obstruction. 2. Cholelithiasis. Please note that all CT scans at this facility use dose modulation, iterative reconstruction, and/or weight-based dosing when appropriate to reduce radiation dose to as low as reasonably achievable. Dictated by Phill Birmingham MD @ Jun 24 2019 6:29PM Signed by Dr. Phill Birmingham @ Jun 24 2019 6:34PM
[2019-06-24 21:38] VITALS: BP 150/89; PULSE 92
== END 2019-06-24 21:37 | disposition home or self-care (01) ==
LOC: MW.ED 15:36
DX: K59.00 Constipation, unspecified (principal); F60.3 Borderline personality disorder; I10 Essential (primary) hypertension; J44.9 Chronic obstructive pulmonary disease, unspecified; E78.00 Pure hypercholesterolemia, unspecified; F32.9 Major depressive disorder, single episode, unspecified; Z86.73 Personal history of transient ischemic attack (TIA), and cerebral infarction without residual deficits; Z79.02 Long term (current) use of antithrombotics/antiplatelets; Z79.51 Long term (current) use of inhaled steroids; Z79.82 Long term (current) use of aspirin; Z79.899 Other long term (current) drug therapy; Z87.891 Personal history of nicotine dependence
CPT/HCPCS: 36415; 74177; 80053; 80305; 81003; 83690; 83735; 84443; 85025; 93005; 96372; 99284; A9270; G0480; J3486; J7040; Q9967

== ENCOUNTER 2020-02-17 21:31 | Emergency (ER) | payer MEDICARE, MEDICAID ==
[2020-02-17] MEDS ORDERED: buPROPion 150 MG Tab.SR PO STA (21:40)
[2020-02-17 21:44] VITALS: BP 169/106; PULSE 114
[2020-02-17] MEDS ORDERED: QUEtiapine 100 MG Tab PO STA (21:45)
[2020-02-17] MEDS ORDERED: traZODone 50 MG Tab PO ONE (21:45)
[2020-02-17] MEDS ORDERED: Gabapentin 100 MG Cap PO ONE (21:46)
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
== END 2020-02-17 22:23 | disposition home or self-care (01) ==
LOC: MW.ED 21:31
DX: R45.4 Irritability and anger (principal); Z76.0 Encounter for issue of repeat prescription; I10 Essential (primary) hypertension; E78.00 Pure hypercholesterolemia, unspecified; J44.9 Chronic obstructive pulmonary disease, unspecified; F41.9 Anxiety disorder, unspecified; F32.9 Major depressive disorder, single episode, unspecified; Z79.82 Long term (current) use of aspirin; Z79.02 Long term (current) use of antithrombotics/antiplatelets; Z79.899 Other long term (current) drug therapy
CPT/HCPCS: 99284; A9270; 99283

== ENCOUNTER 2020-03-24 06:07 | Inpatient (IN) | payer MEDICARE, MEDICAID ==
[2020-03-24] MEDS ORDERED: Sodium Chloride 0.9% 10 ML Syringe FLUSH PRN (06:13)
[2020-03-24] MEDS ORDERED: Sodium Chloride 0.9% 2.5 ML Syringe FLUSH PRN (06:13)
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
[2020-03-24] MEDS ORDERED: cefTRIAXone 1 GM in Premix Bag 1 BAG IV ONE (06:36)
[2020-03-24] MEDS ORDERED: Sodium Chloride 0.9% 1,000 ML IV ONE (06:36)
[2020-03-24 06:51] LABS: BLOOD UREA NITROGEN,BUN 23 mg/dL (7.0-18.0); CHLORIDE,CL 101 mmol/L (98-107); GLUCOSE RANDOM 157 mg/dL (74-106); SODIUM,NA 139 mmol/L (136-148)
--- NOTE | 2020-03-24 07:00 | CR ---
INDICATION: Dyspnea COMPARISON: None available. FINDINGS: An erect single view of the chest was obtained at 0635 hours. There is moderate density in the right hilum extending into the anterior segment of the right upper lobe. There is also mild linear density extending to the lateral chest. The findings are likely from right upper lobe pneumonia, but malignancy cannot be excluded. Recommend follow-up films to resolution of this process. There is mild patchy right basilar infiltrate with blurring of the right hemidiaphragm, consistent with mild right lower lobe pneumonia or atelectasis. The left lung is clear. The heart is normal in size. The mediastinum is normal in appearance. The osseous structures are normal in appearance for the patient`s age. IMPRESSION: Moderate right superior perihilar density, probably right upper lobe pneumonia, but recommend follow-up films to resolution to exclude an underlying mass. Mild patchy right basilar infiltrate consistent with pneumonia or atelectasis. Dictated by Jose Miguel Yates MD @ Mar 24 2020 6:56AM Signed by Dr. Jose Miguel Yates @ Mar 24 2020 6:58AM
[2020-03-24] MEDS ORDERED: Morphine 2 MG/ML SYRINGE IVPUSH PRN (08:16)
[2020-03-24] MEDS ORDERED: Ondansetron 4 MG/2 ML SDV IVPUSH PRN (08:16)
[2020-03-24] MEDS ORDERED: Enoxaparin 40 MG/0.4 ML Syringe SUBCUT SCH (08:30)
--- NOTE | 2020-03-24 08:32 | PCM.HP.2 ---
H&P History of Present Illness - General Date of Service: 03/24/20 Admit Problem/Dx: Admission Diagnosis/Problem Admission Diagnosis/Problem Pneumonia - History of Present Illness Initial Comments - Free Text/Narative: Patient is a 70 y/o M with PMH of htn, hld, stroke, PTSD, anxiety who comes in for evaluation of SOB. Patients states he felt extremely SOB, and felt very tired. Patient was found to be hypoxic 87-88% on RA. Blood gas was reassuring. CBC showed significant for leucocytosis. Patient was started on oxygen, CXR was done showed right upper and lower sided pneumonia. Blood cultures were obtained. Patient was admitted for further management. R lateral chest Pain Score (Numeric/FACES): 6 - Related Data Allergies/Adverse Reactions: Allergies Allergy/AdvReac Type Severity Reaction Status Date / Time No Known Allergies Allergy Verified 03/24/20 09:45 Home Medications: Home Meds Aspirin [Ecotrin EC] 325 mg PO DAILY 09/19/14 [History] traZODone 150 mg PO BEDTIME 09/19/14 [History] buPROPion [Wellbutrin SR] 150 mg PO BID 02/21/16 [History] Cholecalciferol (Vitamin D3) [Vitamin D3] 2,000 units PO DAILY 04/24/17 [History] Gabapentin [Neurontin] 300 mg PO BEDTIME 04/24/17 [History] QUEtiapine Fumarate [Seroquel] 800 mg PO BEDTIME 04/21/18 [History] Clopidogrel [Plavix] 75 mg PO DAILY 02/17/19 [History] LORazepam [Ativan] 1 mg PO ASDIRECTED PRN 02/17/19 [History] atorvaSTATin Calcium [Atorvastatin Calcium] 40 mg PO DAILY 02/17/19 [History] Fluticasone/Vilanterol [Breo Ellipta 200-25 MCG Inhalation Kit] 1 puff ASDIRECTED 06/24/19 [History] Losartan Potassium 25 mg PO DAILY 06/24/19 [History] Past Medical History HEENT History: Reports: None Cardiovascular History: Reports: Aneurysm, High Cholesterol, Hypertension Other Cardiovascular History: aortic aneurysm Respiratory History: Reports: COPD Other Respiratory History: not on home 02 Gastrointestinal History: Reports: None Genitourinary History: Reports: None Musculoskeletal History: Reports: Back Pain, Chronic Neurological History: Reports: CVA, Other (See Below) Other Neuro History: hx of stroke Psychiatric History: Reports: Anxiety, Depression, PTSD Other Psychiatric History: dx of major depressive disorder and PTSD; patient states he does not feel safe at home, When asked why, he states " I dont know, that place is weird" denies anyone threatening him, or thoughts of selfharm Endocrine/Metabolic History: Reports: None Hematologic History: Reports: None Immunologic History: Reports: None Oncologic (Cancer) History: Reports: None Dermatologic History: Reports: None - Infectious Disease History Infectious Disease History: Reports: Chicken Pox - Past Surgical History Head Surgeries/Procedures: Reports: None HEENT Surgical History: Reports: Tonsillectomy Cardiovascular Surgical History: Reports: None Respiratory Surgical History: Reports: None GI Surgical History: Reports: Hernia, Abdominal Male Surgical History: Reports: None Endocrine Surgical History: Reports: None Neurological Surgical History: Reports: None Musculoskeletal Surgical History: Reports: None Oncologic Surgical History: Reports: None Dermatological Surgical History: Reports: None Social & Family History - Family History Family Medical History: Noncontributory - Tobacco Use Smoking Status *Q: Former Smoker Used Tobacco, but Quit: Yes Month/Year Tobacco Last Used: "3 years ago" - Caffeine Use Caffeine Use: Reports: None Other Caffeine Use: unknown Caffeine Use Comment: 3cups/day - Recreational Drug Use Recreational Drug Use: No H&P Review of Systems - Review of Systems: Review Of Systems: See Below General: Reports: Malaise, Weakness. Denies: Fever, Chills HEENT: Denies: Contact Lenses, Dysphasia Pulmonary: Reports: Shortness of Breath, Cough, Sputum. Denies: Wheezing, Pleuritic Chest Pain Cardiovascular: Reports: Dyspnea on Exertion. Denies: Chest Pain, Palpitations Gastrointestinal: Denies: Abdominal Pain, Anorexia, Black Stool, Bloody Stool Musculoskeletal: Reports: Back Pain. Denies: Shoulder Pain, Arm Pain Exam - Exam Exam: See Below - Vital Signs Vital Signs: Last Vital Signs Temp 35.8 C L 03/24/20 06:10 Pulse 121 H 03/24/20 06:10 Resp 25 H 03/24/20 06:10 BP 120/83 03/24/20 06:10 Pulse Ox 93 L 03/24/20 06:13 Weight: 85 kg - Exam Quality Assessment: Supplemental Oxygen General: Alert, Oriented, Mild Distress Neck: Supple, Trachea Midline Lungs: Rales. No: Normal Respiratory Effort, Decreased Breath Sounds Cardiovascular: Regular Rate, Regular Rhythm GI/Abdominal Exam: Normal Bowel Sounds, Soft, Non-Tender - Patient Data Lab Results Last 24 hrs: Laboratory Results - last 24 hr 03/24/20 03/24/20 03/24/20 Range/Units 06:15 06:15 06:15 WBC 21.04 H (4.0-11.0) K/uL RBC 4.33 L (4.50-5.90) M/uL Hgb 13.9 (13.0-17.0) g/dL Hct 41.5 (38.0-50.0) % MCV 95.8 (80.0-98.0) fL MCH 32.1 H (27.0-32.0) pg MCHC 33.5 (31.0-37.0) g/dL RDW Std Deviation 46.9 (28.0-62.0) fl RDW Coeff of Flora 13 (11.0-15.0) % Plt Count 330 (150-400) K/uL MPV 9.50 (7.40-12.00) fL Add Manual Diff YES Neutrophils % (Manual) 77 (48.0-80.0) % Band Neutrophils % 5 % Lymphocytes % (Manual) 6 L (16.0-40.0) % Monocytes % (Manual) 12 (0.0-15.0) % Nucleated RBC % 0.0 /100WBC Absolute Seg Neuts 16.2 H (1.4-5.7) Band Neutrophils # 1.1 Lymphocytes # (Manual) 1.3 (0.6-2.4) Monocytes # (Manual) 2.5 H (0.0-0.8) Nucleated RBCs # 0 K/uL ABG pH (7.35-7.45) ABG pCO2 (35-45) mmHG ABG pO2 (75-100) mmHG ABG HCO3 (22-26) mEq/L ABG Total CO2 ABG Base Excess (-2.0-2.0) Sodium 139 (136-148) mmol/L Potassium 4.0 (3.5-5.1) mmol/L Chloride 101 (98-107) mmol/L Carbon Dioxide 27.0 (21.0-32.0) mmol/L BUN 23 H (7.0-18.0) mg/dL Creatinine 1.5 H (0.8-1.3) mg/dL Est Cr Clr Drug Dosing TNP Estimated GFR (MDRD) 46.0 ml/min Glucose 157 H (74-106) mg/dL Calcium 9.7 (8.5-10.1) mg/dL Total Bilirubin 0.7 (0.2-1.0) mg/dL AST 24 (15-37) IU/L ALT 21 (14-63) IU/L Alkaline Phosphatase 122 H (46-116) U/L Troponin I < 0.050 (0.000-0.056) ng/mL B-Natriuretic Peptide 25 (<100) PG/ML Total Protein 7.7 (6.4-8.2) g/dL Albumin 3.5 (3.4-5.0) g/dL Globulin 4.2 H (2.6-4.0) g/dL Albumin/Globulin Ratio 0.8 L (0.9-1.6) COVID-19 (YOLANDA) (NEGATIVE) 03/24/20 03/24/20 Range/Units 06:30 07:48 WBC (4.0-11.0) K/uL RBC (4.50-5.90) M/uL Hgb (13.0-17.0) g/dL Hct (38.0-50.0) % MCV (80.0-98.0) fL MCH (27.0-32.0) pg MCHC (31.0-37.0) g/dL RDW Std Deviation (28.0-62.0) fl RDW Coeff of Flora (11.0-15.0) % Plt Count (150-400) K/uL MPV (7.40-12.00) fL Add Manual Diff Neutrophils % (Manual) (48.0-80.0) % Band Neutrophils % % Lymphocytes % (Manual) (16.0-40.0) % Monocytes % (Manual) (0.0-15.0) % Nucleated RBC % /100WBC Absolute Seg Neuts (1.4-5.7) Band Neutrophils # Lymphocytes # (Manual) (0.6-2.4) Monocytes # (Manual) (0.0-0.8) Nucleated RBCs # K/uL ABG pH 7.429 (7.35-7.45) ABG pCO2 41 (35-45) mmHG ABG pO2 74 L (75-100) mmHG ABG HCO3 27 H (22-26) mEq/L ABG Total CO2 23.8 ABG Base Excess 2.3 H (-2.0-2.0) Sodium (136-148) mmol/L Potassium (3.5-5.1) mmol/L Chloride (98-107) mmol/L Carbon Dioxide (21.0-32.0) mmol/L BUN (7.0-18.0) mg/dL Creatinine (0.8-1.3) mg/dL Est Cr Clr Drug Dosing Estimated GFR (MDRD) ml/min Glucose (74-106) mg/dL Calcium (8.5-10.1) mg/dL Total Bilirubin (0.2-1.0) mg/dL AST (15-37) IU/L ALT (14-63) IU/L Alkaline Phosphatase (46-116) U/L Troponin I (0.000-0.056) ng/mL B-Natriuretic Peptide (<100) PG/ML Total Protein (6.4-8.2) g/dL Albumin (3.4-5.0) g/dL Globulin (2.6-4.0) g/dL Albumin/Globulin Ratio (0.9-1.6) COVID-19 (YOLANDA) NEGATIVE (NEGATIVE) Result Diagrams: 03/24/20 06:15 03/24/20 06:15 Sepsis Event Note - Evaluation Sepsis Screening Result: No Definite Risk - Focused Exam Vital Signs: Vital Signs Temp Pulse Resp BP Pulse Ox 03/24/20 06:13 93 L 03/24/20 06:10 35.8 C L 121 H 25 H 120/83 88 L Date Exam was Performed: 03/24/20 Time Exam was Performed: 12:15 - Problem List (1) Right lower lobe pneumonia SNOMED Code(s): 523897039 ICD Code: J18.9 - PNEUMONIA, UNSPECIFIED ORGANISM Status: Acute Current Visit: Yes (2) Right upper lobe pneumonia SNOMED Code(s): 888271569 ICD Code: J18.9 - PNEUMONIA, UNSPECIFIED ORGANISM Status: Acute Current Visit: Yes (3) Anxiety SNOMED Code(s): 24798978 ICD Code: F41.9 - ANXIETY DISORDER, UNSPECIFIED Status: Acute Current Visit: No (4) Borderline personality disorder SNOMED Code(s): 47898718 ICD Code: F60.3 - BORDERLINE PERSONALITY DISORDER Status: Acute Current Visit: No (5) Cerebrovascular accident (CVA) of pontine structure SNOMED Code(s): 849006029 ICD Code: I63.50 - CEREB INFRC DUE TO UNSP OCCLS OR STENOS OF UNSP CEREB ARTERY Status: Acute Current Visit: No Problem List Initiated/Reviewed/Updated: Yes Orders Last 24hrs: Active Orders 24 hr Category Date Time Status Patient Status [ADT] Stat ADT 03/24/20 06:59 Active Ambulate [RC] ASDIRECTED Care 03/24/20 08:16 Active Antiembolic Devices [RC] PER UNIT ROUTINE Care 03/24/20 08:17 Active Cardiac Monitoring [RC] . DIRECTED Care 03/24/20 06:13 Active Oxygen Therapy [RC] CONTINUOUS Care 03/24/20 08:16 Active Pulse Oximetry [RC] ASDIRECTED Care 03/24/20 06:13 Active RT Aerosol Therapy [RC] ASDIRECTED Care 03/24/20 08:18 Active VTE/DVT Education [RC] PER UNIT ROUTINE Care 03/24/20 08:16 Active Vital Signs [RC] Q4H Care 03/24/20 08:16 Active CULTURE BLOOD [BC] Stat Lab 03/24/20 06:44 Received CULTURE BLOOD [BC] Stat Lab 03/24/20 06:54 Received CULTURE URINE [RM] Stat Lab 03/24/20 06:40 Ordered UA W/CHAU RFLX IF INDICATED [URIN] Stat Lab 03/24/20 06:39 Ordered Albuterol/Ipratropium [DuoNeb 3.0-0.5 MG/3 ML] Med 03/24/20 08:16 Ordered 3 ml NEB Q4HRRT PRN Enoxaparin [Lovenox] Med 03/24/20 08:30 Stop Req 40 mg SUBCUT Q24H Morphine Med 03/24/20 08:16 Ordered 1 mg IVPUSH Q4H PRN Ondansetron [Zofran] Med 03/24/20 08:16 Ordered 4 mg IVPUSH Q4H PRN Pantoprazole [ProTONIX IV] 40 mg Med 03/24/20 08:30 Ordered Sodium Chloride 0.9% [Normal Saline] 10 ml IV Q24H Pharmacy to Dose - Vancomycin [facility] 03/24/20 08:15 Ordered 1 dose .XX ASDIRECTED Piperacillin/Tazobactam [Piperacil-Tazobact] 3.375 gm [facility] 03/24/20 08:15 Ordered Sodium Chloride 0.9% [Normal Saline] 50 ml IV Q8H Sodium Chloride 0.9% [Saline Flush] [facility] 03/24/20 06:13 Active 10 ml FLUSH ASDIRECTED PRN Sodium Chloride 0.9% [Saline Flush] [facility] 03/24/20 06:13 Active 2.5 ml FLUSH ASDIRECTED PRN Vancomycin 1.25 gm [facility] 03/24/20 08:12 Ordered Sodium Chloride 0.9% [Normal Saline (AdvBag)] 250 ml IV ONETIME Blood Culture x2 Reflex Set [OM.PC] Stat Ot 03/24/20 06:35 Ordered Saline Lock Insert [OM.PC] Stat Ot 03/24/20 06:13 Ordered Sequential Compression Device [OM.PC] Per Unit Routine Ot 03/24/20 08:16 Orde red Medication Orders Albuterol/Ipratropium (Duoneb 3.0-0.5 Mg/3 Ml) 3 ml NEB Q4HRRT PRN PRN Reason: Shortness Of Breath/wheezing Enoxaparin Sodium (Lovenox) 40 mg SUBCUT Q24H RACHELL Vancomycin HCl 1.25 gm/ Sodium (Chloride) 250 mls @ 167 mls/hr IV ONETIME ONE Stop: 03/24/20 09:41 Piperacillin Sod/Tazobactam (Sod 3.375 gm/ Sodium Chloride) 50 mls @ 100 mls/hr IV Q8H RACHELL Pantoprazole Sodium 40 mg/ (Sodium Chloride) 10 mls @ 300 mls/hr IV Q24H RACHELL Morphine Sulfate (Morphine) 1 mg IVPUSH Q4H PRN PRN Reason: Pain (severe 7-10) Stop: 03/25/20 08:17 Ondansetron HCl (Zofran) 4 mg IVPUSH Q4H PRN PRN Reason: Nausea/Vomiting Sodium Chloride (Saline Flush) 10 ml FLUSH ASDIRECTED PRN PRN Reason: Keep Vein Open Sodium Chloride (Saline Flush) 2.5 ml FLUSH ASDIRECTED PRN PRN Reason: Keep Vein Open Vancomycin HCl (Pharmacy To Dose - Vancomycin) 1 dose .XX ASDIRECTED RACHELL Assessment/Plan Comment:: 70 y/o M admitted for Right sided Pneumonia Start IV vancomycin and Zosyn Start IV fluids F/u on blood cultures F/u on lactic acid Oxygenation via NC to maintain oxygenation >88% DuoNebs PRN shortness of breath Monitor and replete electrolytes Resume home Meds
[2020-03-24] MEDS: Pantoprazole 40 MG in Sodium Chloride 0.9% 10 ML IV SCH (09:33)
[2020-03-24] MEDS: Piperacillin/Tazobactam 3.375 GM in Sodium Chloride 0.9% 100 ML IV SCH ×3 (09:37→23:51)
[2020-03-24] MEDS: Aspirin 325 MG Tab.EC PO SCH (12:21)
[2020-03-24] MEDS: Clopidogrel 75 MG Tab PO SCH (12:21)
[2020-03-24] MEDS: LORazepam 2 MG/ML SDV IVPUSH PRN ×2 (12:22→19:47)
[2020-03-24] MEDS: buPROPion 150 MG Tab.SR PO SCH ×2 (13:37→20:18)
[2020-03-24] MEDS ORDERED: diphenhydrAMINE 50 MG/ML SDV IVPUSH ONE (16:14)
[2020-03-24] MEDS ORDERED: LORazepam 2 MG/ML SDV IVPUSH ONE (16:14)
[2020-03-24] MEDS ORDERED: Haloperidol Lactate 5 MG/ML SDV IM ONE (16:15)
[2020-03-24] MEDS: Albuterol/Ipratropium 3.0-0.5 MG/3 ML Neb Soln NEB PRN ×2 (19:34→23:36)
[2020-03-24] MEDS: Gabapentin 100 MG Cap PO SCH (20:17)
[2020-03-24] MEDS: QUEtiapine 100 MG Tab PO SCH (20:17)
[2020-03-24] MEDS: traZODone 50 MG Tab PO SCH (20:18)
[2020-03-24] MEDS ORDERED: buPROPion 150 MG Tab.SR PO SCH (21:00)
[2020-03-25] MEDS: Albuterol/Ipratropium 3.0-0.5 MG/3 ML Neb Soln NEB PRN ×2 (03:37→18:15)
[2020-03-25 05:55] LABS: CARBON DIOXIDE,CO2 27.7 mmol/L (21.0-32.0); POTASSIUM,K 3.4 mmol/L (3.5-5.1)
[2020-03-25] MEDS: Pantoprazole 40 MG in Sodium Chloride 0.9% 10 ML IV SCH (08:03)
[2020-03-25] MEDS: Piperacillin/Tazobactam 3.375 GM in Sodium Chloride 0.9% 100 ML IV SCH ×2 (08:07→16:22)
[2020-03-25] MEDS ORDERED: Potassium Chloride 10% 20 MEQ/15 ML Soln 30 ML UD Cup PO ONE (08:19)
--- NOTE | 2020-03-25 08:20 | PCM.PN ---
- General Info Date of Service: 03/24/20 Admission Dx/Problem (Free Text): Admission Diagnosis/Problem Admission Diagnosis/Problem Pneumonia Subjective Update: seen at bedside, was sleeping, states he is comfortable and has no pain. States he has memory problems since he had a stroke - Review of Systems General: Reports: Weakness, Fatigue. Denies: Fever Pulmonary: Reports: Shortness of Breath, Cough, Sputum. Denies: Pleuritic Chest Pain Cardiovascular: Reports: Dyspnea on Exertion. Denies: Chest Pain, Palpitations, Orthopnea Gastrointestinal: Reports: Decreased Appetite. Denies: Abdominal Pain, Constipation Genitourinary: Denies: Dysuria, Frequency, Burning, Retention Skin: Denies: Jaundice, Mottled, Pallor - Patient Data Vitals - Most Recent: Last Vital Signs Temp 37.3 C 03/25/20 07:40 Pulse 96 03/25/20 07:40 Resp 18 03/25/20 07:40 BP 151/72 H 03/25/20 07:40 Pulse Ox 94 L 03/25/20 07:40 Weight - Most Recent: 85 kg I&O - Last 24 Hours: Intake & Output 03/24/20 03/25/20 03/25/20 22:59 06:59 14:59 Intake Total 600 650 Output Total 400 Balance 600 250 Lab Results Last 24 Hours: Laboratory Results - last 24 hr 03/24/20 03/24/20 03/25/20 Range/Units 12:16 14:35 05:27 WBC 15.02 H (4.0-11.0) K/uL RBC 4.04 L (4.50-5.90) M/uL Hgb 12.0 L (13.0-17.0) g/dL Hct 38.9 (38.0-50.0) % MCV 96.3 (80.0-98.0) fL MCH 29.7 (27.0-32.0) pg MCHC 30.8 L (31.0-37.0) g/dL RDW Std Deviation 46.5 (28.0-62.0) fl RDW Coeff of Flora 13 (11.0-15.0) % Plt Count 284 (150-400) K/uL MPV 9.20 (7.40-12.00) fL Neut % (Auto) 79.0 (48.0-80.0) % Lymph % (Auto) 8.4 L (16.0-40.0) % [place] % (Auto) 11.5 (0.0-15.0) % Eos % (Auto) 0.7 (0.0-7.0) % Baso % (Auto) 0.4 (0.0-1.5) % Neut # (Auto) 11.9 H (1.4-5.7) K/uL Lymph # (Auto) 1.3 (0.6-2.4) K/uL [place] # (Auto) 1.7 H (0.0-0.8) K/uL Eos # (Auto) 0.1 (0.0-0.7) K/uL Baso # (Auto) 0.1 (0.0-0.1) K/uL Nucleated RBC % 0.0 /100WBC Nucleated RBCs # 0 K/uL Lactate 1.4 (0.20-2.00) mmol/L Sodium (136-148) mmol/L Potassium (3.5-5.1) mmol/L Chloride (98-107) mmol/L Carbon Dioxide (21.0-32.0) mmol/L BUN (7.0-18.0) mg/dL Creatinine (0.8-1.3) mg/dL Est Cr Clr Drug Dosing mL/min Estimated GFR (MDRD) ml/min Glucose (74-106) mg/dL Calcium (8.5-10.1) mg/dL Phosphorus (2.6-4.7) mg/dL Magnesium (1.8-2.4) mg/dL Urine Color YELLOW Urine Appearance CLEAR Urine pH 6.0 (5.0-8.0) Ur Specific [place] 1.025 (1.001-1.035) Urine Protein TRACE H (NEGATIVE) mg/dL Urine Glucose (UA) NEGATIVE (NEGATIVE) mg/dL Urine Ketones NEGATIVE (NEGATIVE) mg/dL Urine Occult Blood TRACE-INTACT H (NEGATIVE) Urine Nitrite NEGATIVE (NEGATIVE) Urine Bilirubin NEGATIVE (NEGATIVE) Urine Urobilinogen 0.2 (<2.0) EU/dL Ur Leukocyte Esterase NEGATIVE (NEGATIVE) Urine RBC 1-2 (0-2/HPF) Urine WBC 0-1 (0-5/HPF) Ur Epithelial Cells RARE (NONE-FEW) Urine Bacteria RARE (NEGATIVE) Urinalysis Comment 03/25/20 Range/Units 05:27 WBC (4.0-11.0) K/uL RBC (4.50-5.90) M/uL Hgb (13.0-17.0) g/dL Hct (38.0-50.0) % MCV (80.0-98.0) fL MCH (27.0-32.0) pg MCHC (31.0-37.0) g/dL RDW Std Deviation (28.0-62.0) fl RDW Coeff of Flora (11.0-15.0) % Plt Count (150-400) K/uL MPV (7.40-12.00) fL Neut % (Auto) (48.0-80.0) % Lymph % (Auto) (16.0-40.0) % Crow[place] % (Auto) (0.0-15.0) % Eos % (Auto) (0.0-7.0) % Baso % (Auto) (0.0-1.5) % Neut # (Auto) (1.4-5.7) K/uL Lymph # (Auto) (0.6-2.4) K/uL [place] # (Auto) (0.0-0.8) K/uL Eos # (Auto) (0.0-0.7) K/uL Baso # (Auto) (0.0-0.1) K/uL Nucleated RBC % /100WBC Nucleated RBCs # K/uL Lactate (0.20-2.00) mmol/L Sodium 141 (136-148) mmol/L Potassium 3.4 L (3.5-5.1) mmol/L Chloride 105 (98-107) mmol/L Carbon Dioxide 27.7 (21.0-32.0) mmol/L BUN 18 (7.0-18.0) mg/dL Creatinine 1.2 (0.8-1.3) mg/dL Est Cr Clr Drug Dosing 64.69 mL/min Estimated GFR (MDRD) 59.5 ml/min Glucose 107 H (74-106) mg/dL Calcium 8.3 L (8.5-10.1) mg/dL Phosphorus 2.4 L (2.6-4.7) mg/dL Magnesium 1.9 (1.8-2.4) mg/dL Urine Color Urine Appearance Urine pH (5.0-8.0) Ur Specific [place] (1.001-1.035) Urine Protein (NEGATIVE) mg/dL Urine Glucose (UA) (NEGATIVE) mg/dL Urine Ketones (NEGATIVE) mg/dL Urine Occult Blood (NEGATIVE) Urine Nitrite (NEGATIVE) Urine Bilirubin (NEGATIVE) Urine Urobilinogen (<2.0) EU/dL Ur Leukocyte Esterase (NEGATIVE) Urine RBC (0-2/HPF) Urine WBC (0-5/HPF) Ur Epithelial Cells (NONE-FEW) Urine Bacteria (NEGATIVE) Urinalysis Comment Ramu Results Last 24 Hours: Microbiology 03/24/20 06:54 Aerobic Blood Culture - Preliminary Blood - Venous - Lab Draw NO GROWTH AFTER 1 DAY Anaerobic Blood Culture - Preliminary NO GROWTH AFTER 1 DAY 03/24/20 06:44 Aerobic Blood Culture - Preliminary Blood - Venous NO GROWTH AFTER 1 DAY Anaerobic Blood Culture - Preliminary NO GROWTH AFTER 1 DAY Med Orders - Current: Current Medications Albuterol/Ipratropium (Duoneb 3.0-0.5 Mg/3 Ml) 3 ml NEB Q4HRRT PRN PRN Reason: Shortness Of Breath/wheezing Last Admin: 03/25/20 03:37 Dose: 3 ml Documented by: Aspirin (Ecotrin) 325 mg PO DAILY [facility] Last Admin: 03/24/20 12:21 Dose: 325 mg Documented by: Atorvastatin Calcium (Lipitor) 80 mg PO DAILY [facility] Bupropion HCl (Wellbutrin Sr) 150 mg PO BID [facility] Last Admin: 03/24/20 20:18 Dose: 150 mg Documented by: Clopidogrel Bisulfate (Plavix) 75 mg PO DAILY [facility] Last Admin: 03/24/20 12:21 Dose: 75 mg Documented by: Gabapentin (Neurontin) 400 mg PO BID [facility] Last Admin: 03/24/20 20:17 Dose: 400 mg Documented by: Piperacillin Sod/Tazobactam (Sod 3.375 gm/ Sodium Chloride) 100 mls @ 200 mls/hr IV Q8H [facility] Last Admin: 03/25/20 08:07 Dose: 200 mls/hr Documented by: Pantoprazole Sodium 40 mg/ (Sodium Chloride) 10 mls @ 300 mls/hr IV Q24H [facility] Last Admin: 03/25/20 08:03 Dose: 300 mls/hr Documented by: Vancomycin HCl 1.25 gm/ Sodium (Chloride) 250 mls @ 166.667 mls/hr IV Q12H [facility] Last Admin: 03/24/20 22:14 Dose: 166.667 mls/hr Documented by: Lorazepam (Ativan) 1 mg IVPUSH Q6H PRN PRN Reason: Agitation Last Admin: 03/24/20 19:47 Dose: 1 mg Documented by: Losartan Potassium (Cozaar) 25 mg PO DAILY [facility] Ondansetron HCl (Zofran) 4 mg IVPUSH Q4H PRN PRN Reason: Nausea/Vomiting Potassium Chloride (Potassium Chloride) 40 meq PO ONETIME ONE Stop: 03/25/20 08:20 Quetiapine Fumarate (Seroquel) 400 mg PO BEDTIME [facility] Last Admin: 03/24/20 20:17 Dose: 400 mg Documented by: Sodium Chloride (Saline Flush) 10 ml FLUSH ASDIRECTED PRN PRN Reason: Keep Vein Open Sodium Chloride (Saline Flush) 2.5 ml FLUSH ASDIRECTED PRN PRN Reason: Keep Vein Open Trazodone HCl (Trazodone) 150 mg PO BEDTIME [facility] Last Admin: 03/24/20 20:18 Dose: 150 mg Documented by: Vancomycin HCl (Pharmacy To Dose - Vancomycin) 1 dose .XX ASDIRECTED [facility] Discontinued Medications Bupropion HCl (Wellbutrin Sr) 150 mg PO BID [facility] Diphenhydramine HCl (Benadryl) 50 mg IVPUSH ONETIME ONE Stop: 03/24/20 16:15 Last Admin: 03/24/20 16:25 Dose: 50 mg Documented by: Enoxaparin Sodium (Lovenox) 40 mg SUBCUT Q24H [facility] Last Admin: 03/24/20 10:37 Dose: Not Given Documented by: Haloperidol Lactate (Haldol) 5 mg IM ONETIME ONE Stop: 03/24/20 16:16 Last Admin: 03/24/20 16:27 Dose: 5 mg Documented by: Sodium Chloride (Normal Saline) 1,000 mls @ 999 mls/hr IV .BOLUS ONE Stop: 03/24/20 07:36 Last Admin: 03/24/20 07:00 Dose: 999 mls/hr Documented by: Ceftriaxone Sodium/Dextrose 1 (gm/ Premix) 50 mls @ 100 mls/hr IV ONETIME ONE Stop: 03/24/20 07:05 Last Admin: 03/24/20 07:00 Dose: 100 mls/hr Documented by: Vancomycin HCl 1.25 gm/ Sodium (Chloride) 250 mls @ 167 mls/hr IV ONETIME ONE Stop: 03/24/20 09:41 Last Admin: 03/24/20 10:28 Dose: 167 mls/hr Documented by: Lorazepam (Ativan) 2 mg IVPUSH ONETIME ONE Stop: 03/24/20 16:15 Last Admin: 03/24/20 16:24 Dose: 2 mg Documented by: Morphine Sulfate (Morphine) 1 mg IVPUSH Q4H PRN PRN Reason: Pain (severe 7-10) Stop: 03/25/20 08:17 - Exam Quality Assessment: Supplemental Oxygen General: No Acute Distress, Mild Distress. No: Oriented Lungs: Normal Respiratory Effort, Decreased Breath Sounds, Rales Cardiovascular: Regular Rate, Regular Rhythm GI/Abdominal Exam: Normal Bowel Sounds, Soft, Non-Tender Sepsis Event Note - Evaluation Sepsis Screening Result: Sepsis Risk - Focused Exam Vital Signs: Vital Signs Temp Pulse Resp BP Pulse Ox 03/25/20 07:40 37.3 C 96 18 151/72 H 94 L 03/25/20 03:45 36.8 C 107 H 17 141/80 H 96 03/24/20 23:31 37.0 C 94 17 101/56 L 97 03/24/20 20:55 36.6 C 123 H 18 114/69 94 L Date Exam was Performed: 03/25/20 Time Exam was Performed: 16:22 - Problem List & Annotations (1) Right lower lobe pneumonia SNOMED Code(s): 283163141 Code(s): J18.9 - PNEUMONIA, UNSPECIFIED ORGANISM Status: Acute Current Visit: Yes (2) Right upper lobe pneumonia SNOMED Code(s): 593434896 Code(s): J18.9 - PNEUMONIA, UNSPECIFIED ORGANISM Status: Acute Current Visit: Yes (3) Anxiety SNOMED Code(s): 07065060 Code(s): F41.9 - ANXIETY DISORDER, UNSPECIFIED Status: Acute Current Visit: No (4) Borderline personality disorder SNOMED Code(s): 09688560 Code(s): F60.3 - BORDERLINE PERSONALITY DISORDER Status: Acute Current Visit: No (5) Cerebrovascular accident (CVA) of pontine structure SNOMED Code(s): 469179740 Code(s): I63.50 - CEREB INFRC DUE TO UNSP OCCLS OR STENOS OF UNSP CEREB ARTERY Status: Acute Current Visit: No - Problem List Review Problem List Initiated/Reviewed/Updated: Yes - My Orders Last 24 Hours: My Active Orders 03/24/20 08:15 Pharmacy to Dose - Vancomycin 1 dose .XX ASDIRECTED Piperacillin/Tazobactam [Piperacil-Tazobact] 3.375 gm Sodium Chloride 0.9% [Normal Saline] 100 ml IV Q8H 03/24/20 08:16 Ambulate [RC] ASDIRECTED Oxygen Therapy [RC] CONTINUOUS VTE/DVT Education [RC] PER UNIT ROUTINE Vital Signs [RC] Q4H Albuterol/Ipratropium [DuoNeb 3.0-0.5 MG/3 ML] 3 ml NEB Q4HRRT PRN Ondansetron [Zofran] 4 mg IVPUSH Q4H PRN Sequential Compression Device [OM.PC] Per Unit Routine 03/24/20 08:17 Antiembolic Devices [RC] PER UNIT ROUTINE 03/24/20 08:18 RT Aerosol Therapy [RC] ASDIRECTED 03/24/20 08:30 Pantoprazole [ProTONIX IV] 40 mg Sodium Chloride 0.9% [Normal Saline] 10 ml IV Q24H 03/24/20 09:27 Telemetry Monitoring [Cardiac Monitoring] [RC] . DIRECTED 03/24/20 10:52 LORazepam [Ativan] 1 mg IVPUSH Q6H PRN 03/24/20 11:45 Aspirin [Ecotrin] 325 mg PO DAILY Clopidogrel [Plavix] 75 mg PO DAILY 03/24/20 13:03 Code Status [Resuscitation Status] Routine 03/24/20 13:30 buPROPion [Wellbutrin SR] 150 mg PO BID 03/24/20 16:39 Communication Order [RC] PRN 03/24/20 21:00 Gabapentin [Neurontin] 400 mg PO BID QUEtiapine [SEROqueL] 400 mg PO BEDTIME traZODone 150 mg PO BEDTIME 03/24/20 22:00 Vancomycin 1.25 gm Sodium Chloride 0.9% [Normal Saline (AdvBag)] 250 ml IV Q12H 03/25/20 05:32 Communication Order [RC] PER UNIT ROUTINE 03/25/20 Breakfast Regular Diet [DIET] 03/25/20 07:30 Communication Order [RC] PER UNIT ROUTINE 03/25/20 08:19 Potassium Chloride 40 meq PO ONETIME ONE 03/25/20 09:00 Losartan [Cozaar] 25 mg PO DAILY atorvaSTATin [Lipitor] 80 mg PO DAILY 03/25/20 21:30 VANCOMYCIN TROUGH [CHEM] Routine - Plan Plan:: 70 y/o M admitted for Right sided Pneumonia cont IV vancomycin and Zosyn Expander improved cont cardiac diet F/u on blood cultures Oxygenation via NC to maintain oxygenation >88% DuoNebs PRN shortness of breath Monitor and replete electrolytes cont home Meds
[2020-03-25] MEDS ORDERED: Losartan 50 MG Tab PO SCH (09:00)
[2020-03-25] MEDS ORDERED: Cholecalciferol (Vitamin D3) 25 MCG Tab PO SCH (09:00)
[2020-03-25] MEDS: Gabapentin 100 MG Cap PO SCH ×2 (09:14→21:13)
[2020-03-25] MEDS: buPROPion 150 MG Tab.SR PO SCH ×2 (09:15→21:11)
[2020-03-25] MEDS: atorvaSTATin 40 MG Tab PO SCH (09:18)
[2020-03-25] MEDS: Aspirin 325 MG Tab.EC PO SCH (09:18)
[2020-03-25] MEDS: Clopidogrel 75 MG Tab PO SCH (09:19)
--- NOTE | 2020-03-25 11:42 | PCM.PN ---
- General Info Date of Service: 03/25/20 Admission Dx/Problem (Free Text): Admission Diagnosis/Problem Admission Diagnosis/Problem Pneumonia Subjective Update: seen at bedside, was sleeping, states he doesn't remember where he lives, he has no alive family members per patient. Got agitated while trying to get to the bathroom, nursing staff was able to redirect him into the bed - Review of Systems General: Reports: Weakness, Malaise. Denies: Fever, Fatigue, Chills Pulmonary: Denies: Shortness of Breath, Pleuritic Chest Pain Cardiovascular: Denies: Chest Pain, Palpitations Gastrointestinal: Denies: Abdominal Pain, Constipation, Decreased Appetite Genitourinary: Denies: Dysuria, Frequency, Burning Musculoskeletal: Denies: Neck Pain, Shoulder Pain, Arm Pain - Patient Data Vitals - Most Recent: Last Vital Signs Temp 37.3 C 03/25/20 07:40 Pulse 96 03/25/20 07:40 Resp 18 03/25/20 07:40 BP 151/72 H 03/25/20 09:21 Pulse Ox 88 L 03/25/20 09:48 Weight - Most Recent: 85 kg I&O - Last 24 Hours: Intake & Output 03/24/20 03/25/20 03/25/20 22:59 06:59 14:59 Intake Total 600 650 Output Total 400 Balance 600 250 Lab Results Last 24 Hours: Laboratory Results - last 24 hr 03/24/20 03/24/20 03/25/20 Range/Units 12:16 14:35 05:27 WBC 15.02 H (4.0-11.0) K/uL RBC 4.04 L (4.50-5.90) M/uL Hgb 12.0 L (13.0-17.0) g/dL Hct 38.9 (38.0-50.0) % MCV 96.3 (80.0-98.0) fL MCH 29.7 (27.0-32.0) pg MCHC 30.8 L (31.0-37.0) g/dL RDW Std Deviation 46.5 (28.0-62.0) fl RDW Coeff of Flora 13 (11.0-15.0) % Plt Count 284 (150-400) K/uL MPV 9.20 (7.40-12.00) fL Neut % (Auto) 79.0 (48.0-80.0) % Lymph % (Auto) 8.4 L (16.0-40.0) % Charles % (Auto) 11.5 (0.0-15.0) % Eos % (Auto) 0.7 (0.0-7.0) % Baso % (Auto) 0.4 (0.0-1.5) % Neut # (Auto) 11.9 H (1.4-5.7) K/uL Lymph # (Auto) 1.3 (0.6-2.4) K/uL [place] # (Auto) 1.7 H (0.0-0.8) K/uL Eos # (Auto) 0.1 (0.0-0.7) K/uL Baso # (Auto) 0.1 (0.0-0.1) K/uL Nucleated RBC % 0.0 /100WBC Nucleated RBCs # 0 K/uL Lactate 1.4 (0.20-2.00) mmol/L Sodium (136-148) mmol/L Potassium (3.5-5.1) mmol/L Chloride (98-107) mmol/L Carbon Dioxide (21.0-32.0) mmol/L BUN (7.0-18.0) mg/dL Creatinine (0.8-1.3) mg/dL Est Cr Clr Drug Dosing mL/min Estimated GFR (MDRD) ml/min Glucose (74-106) mg/dL Calcium (8.5-10.1) mg/dL Phosphorus (2.6-4.7) mg/dL Magnesium (1.8-2.4) mg/dL Urine Color YELLOW Urine Appearance CLEAR Urine pH 6.0 (5.0-8.0) Ur Specific [place] 1.025 (1.001-1.035) Urine Protein TRACE H (NEGATIVE) mg/dL Urine Glucose (UA) NEGATIVE (NEGATIVE) mg/dL Urine Ketones NEGATIVE (NEGATIVE) mg/dL Urine Occult Blood TRACE-INTACT H (NEGATIVE) Urine Nitrite NEGATIVE (NEGATIVE) Urine Bilirubin NEGATIVE (NEGATIVE) Urine Urobilinogen 0.2 (<2.0) EU/dL Ur Leukocyte Esterase NEGATIVE (NEGATIVE) Urine RBC 1-2 (0-2/HPF) Urine WBC 0-1 (0-5/HPF) Ur Epithelial Cells RARE (NONE-FEW) Urine Bacteria RARE (NEGATIVE) Urinalysis Comment 03/25/20 Range/Units 05:27 WBC (4.0-11.0) K/uL RBC (4.50-5.90) M/uL Hgb (13.0-17.0) g/dL Hct (38.0-50.0) % MCV (80.0-98.0) fL MCH (27.0-32.0) pg MCHC (31.0-37.0) g/dL RDW Std Deviation (28.0-62.0) fl RDW Coeff of [place]ora (11.0-15.0) % Plt Count (150-400) K/uL MPV (7.40-12.00) fL Neut % (Auto) (48.0-80.0) % Lymph % (Auto) (16.0-40.0) % [place] % (Auto) (0.0-15.0) % Eos % (Auto) (0.0-7.0) % Baso % (Auto) (0.0-1.5) % Neut # (Auto) (1.4-5.7) K/uL Lymph # (Auto) (0.6-2.4) K/uL [place] # (Auto) (0.0-0.8) K/uL Eos # (Auto) (0.0-0.7) K/uL Baso # (Auto) (0.0-0.1) K/uL Nucleated RBC % /100WBC Nucleated RBCs # K/uL Lactate (0.20-2.00) mmol/L Sodium 141 (136-148) mmol/L Potassium 3.4 L (3.5-5.1) mmol/L Chloride 105 (98-107) mmol/L Carbon Dioxide 27.7 (21.0-32.0) mmol/L BUN 18 (7.0-18.0) mg/dL Creatinine 1.2 (0.8-1.3) mg/dL Est Cr Clr Drug Dosing 64.69 mL/min Estimated GFR (MDRD) 59.5 ml/min Glucose 107 H (74-106) mg/dL Calcium 8.3 L (8.5-10.1) mg/dL Phosphorus 2.4 L (2.6-4.7) mg/dL Magnesium 1.9 (1.8-2.4) mg/dL Urine Color Urine Appearance Urine pH (5.0-8.0) Ur Specific [place] (1.001-1.035) Urine Protein (NEGATIVE) mg/dL Urine Glucose (UA) (NEGATIVE) mg/dL Urine Ketones (NEGATIVE) mg/dL Urine Occult Blood (NEGATIVE) Urine Nitrite (NEGATIVE) Urine Bilirubin (NEGATIVE) Urine Urobilinogen (<2.0) EU/dL Ur Leukocyte Esterase (NEGATIVE) Urine RBC (0-2/HPF) Urine WBC (0-5/HPF) Ur Epithelial Cells (NONE-FEW) Urine Bacteria (NEGATIVE) Urinalysis Comment Ramu Results Last 24 Hours: Microbiology 03/24/20 06:54 Aerobic Blood Culture - Preliminary Blood - Venous - Lab Draw NO GROWTH AFTER 1 DAY Anaerobic Blood Culture - Preliminary NO GROWTH AFTER 1 DAY 03/24/20 06:44 Aerobic Blood Culture - Preliminary Blood - Venous NO GROWTH AFTER 1 DAY Anaerobic Blood Culture - Preliminary NO GROWTH AFTER 1 DAY Med Orders - Current: Current Medications Albuterol/Ipratropium (Duoneb 3.0-0.5 Mg/3 Ml) 3 ml NEB Q4HRRT PRN PRN Reason: Shortness Of Breath/wheezing Last Admin: 03/25/20 03:37 Dose: 3 ml Documented by: Aspirin (Ecotrin) 325 mg PO DAILY [facility] [place] [place] Last Admin: 03/25/20 09:18 Dose: 325 mg Documented by: Atorvastatin Calcium (Lipitor) 80 mg PO DAILY [facility] [place] Last Admin: 03/25/20 09:18 Dose: 80 mg Documented by: Bupropion HCl (Wellbutrin Sr) 150 mg PO BID [facility] Last Admin: 03/25/20 09:15 Dose: 150 mg Documented by: Clopidogrel Bisulfate (Plavix) 75 mg PO DAILY [facility] [place] Last Admin: 03/25/20 09:19 Dose: 75 mg Documented by: Gabapentin (Neurontin) 400 mg PO BID [facility] [place] Last Admin: 03/25/20 09:14 Dose: 400 mg Documented by: Piperacillin Sod/Tazobactam (Sod 3.375 gm/ Sodium Chloride) 100 mls @ 200 mls/hr IV Q8H [facility] [place] Last Admin: 03/25/20 08:07 Dose: 200 mls/hr Documented by: Pantoprazole Sodium 40 mg/ (Sodium Chloride) 10 mls @ 300 mls/hr IV Q24H [facility] [place] Last Admin: 03/25/20 08:03 Dose: 300 mls/hr Documented by: Vancomycin HCl 1.25 gm/ Sodium (Chloride) 250 mls @ 166.667 mls/hr IV Q12H [facility] [place] Last Admin: 03/25/20 09:50 Dose: 166.667 mls/hr Documented by: Lorazepam (Ativan) 1 mg IVPUSH Q6H PRN PRN Reason: Agitation Last Admin: 03/24/20 19:47 Dose: 1 mg Documented by: Losartan Potassium (Cozaar) 25 mg PO DAILY [facility] [place] Last Admin: 03/25/20 09:21 Dose: 25 mg Documented by: Ondansetron HCl (Zofran) 4 mg IVPUSH Q4H PRN PRN Reason: Nausea/Vomiting Quetiapine Fumarate (Seroquel) 400 mg PO BEDTIME [facility] [place] [place] Last Admin: 03/24/20 20:17 Dose: 400 mg Documented by: Sodium Chloride (Saline Flush) 10 ml FLUSH ASDIRECTED PRN PRN Reason: Keep Vein Open Sodium Chloride (Saline Flush) 2.5 ml FLUSH ASDIRECTED PRN PRN Reason: Keep Vein Open Trazodone HCl (Trazodone) 150 mg PO BEDTIME [facility] [place] Last Admin: 03/24/20 20:18 Dose: 150 mg Documented by: Vancomycin HCl (Pharmacy To Dose - Vancomycin) 1 dose .XX ASDIRECTED [facility] Discontinued Medications Bupropion HCl (Wellbutrin Sr) 150 mg PO BID [facility] [place] Diphenhydramine HCl (Benadryl) 50 mg IVPUSH ONETIME ONE Stop: 03/24/20 16:15 Last Admin: 03/24/20 16:25 Dose: 50 mg Documented by: Enoxaparin Sodium (Lovenox) 40 mg SUBCUT Q24H [facility] [place] Last Admin: 03/24/20 10:37 Dose: Not Given Documented by: Haloperidol Lactate (Haldol) 5 mg IM ONETIME ONE Stop: 03/24/20 16:16 Last Admin: 03/24/20 16:27 Dose: 5 mg Documented by: Sodium Chloride (Normal Saline) 1,000 mls @ 999 mls/hr IV .BOLUS ONE Stop: 03/24/20 07:36 Last Admin: 03/24/20 07:00 Dose: 999 mls/hr Documented by: Ceftriaxone Sodium/Dextrose 1 (gm/ Premix) 50 mls @ 100 mls/hr IV ONETIME ONE Stop: 03/24/20 07:05 Last Admin: 03/24/20 07:00 Dose: 100 mls/hr Documented by: Vancomycin HCl 1.25 gm/ Sodium (Chloride) 250 mls @ 167 mls/hr IV ONETIME ONE Stop: 03/24/20 09:41 Last Admin: 03/24/20 10:28 Dose: 167 mls/hr Documented by: Lorazepam (Ativan) 2 mg IVPUSH ONETIME ONE Stop: 03/24/20 16:15 Last Admin: 03/24/20 16:24 Dose: 2 mg Documented by: Morphine Sulfate (Morphine) 1 mg IVPUSH Q4H PRN PRN Reason: Pain (severe 7-10) Stop: 03/25/20 08:17 Potassium Chloride (Potassium Chloride) 40 meq PO ONETIME ONE Stop: 03/25/20 08:20 Last Admin: 03/25/20 09:19 Dose: 40 meq Documented by: - Exam Quality Assessment: Supplemental Oxygen General: Mild Distress. No: Oriented Neck: Trachea Midline Lungs: Decreased Breath Sounds, Crackles Cardiovascular: Regular Rate, Regular Rhythm GI/Abdominal Exam: Normal Bowel Sounds, Soft, Non-Tender Neurological: No New Focal Deficit Psy/Mental Status: Labile Mood, Agitated. No: Normal Affect, Normal Mood Sepsis Event Note - Evaluation Sepsis Screening Result: Sepsis Risk - Focused Exam Vital Signs: Vital Signs Temp Pulse Resp BP BP Pulse Ox Pulse Ox 03/25/20 09:48 88 L 03/25/20 09:21 151/72 H 03/25/20 07:40 37.3 C 96 18 151/72 H 94 L 03/25/20 03:45 36.8 C 107 H 17 141/80 H 96 Date Exam was Performed: 03/25/20 Time Exam was Performed: 12:02 - Problem List & Annotations (1) Right lower lobe pneumonia SNOMED Code(s): 237765312 Code(s): J18.9 - PNEUMONIA, UNSPECIFIED ORGANISM Status: Acute Current Visit: Yes (2) Right upper lobe pneumonia SNOMED Code(s): 488329110 Code(s): J18.9 - PNEUMONIA, UNSPECIFIED ORGANISM Status: Acute Current Visit: Yes (3) Anxiety SNOMED Code(s): 02828899 Code(s): F41.9 - ANXIETY DISORDER, UNSPECIFIED Status: Acute Current Visit: No (4) Borderline personality disorder SNOMED Code(s): 98434218 Code(s): F60.3 - BORDERLINE PERSONALITY DISORDER Status: Acute Current Visit: No (5) Cerebrovascular accident (CVA) of pontine structure SNOMED Code(s): 944512318 Code(s): I63.50 - CEREB INFRC DUE TO UNSP OCCLS OR STENOS OF UNSP CEREB ARTERY Status: Acute Current Visit: No - My Orders Last 24 Hours: My Active Orders 03/24/20 10:52 LORazepam [Ativan] 1 mg IVPUSH Q6H PRN 03/24/20 11:45 Aspirin [Ecotrin] 325 mg PO DAILY Clopidogrel [Plavix] 75 mg PO DAILY 03/24/20 13:03 Code Status [Resuscitation Status] Routine 03/24/20 13:30 buPROPion [Wellbutrin SR] 150 mg PO BID 03/24/20 16:39 Communication Order [RC] PRN 03/24/20 21:00 Gabapentin [Neurontin] 400 mg PO BID QUEtiapine [SEROqueL] 400 mg PO BEDTIME traZODone 150 mg PO BEDTIME 03/24/20 22:00 Vancomycin 1.25 gm Sodium Chloride 0.9% [Normal Saline (AdvBag)] 250 ml IV Q12H 03/25/20 05:32 Communication Order [RC] PER UNIT ROUTINE 03/25/20 Breakfast Regular Diet [DIET] 03/25/20 07:30 Communication Order [RC] PER UNIT ROUTINE 03/25/20 08:44 Admission Status [Patient Status] [ADT] Routine 03/25/20 09:00 Losartan [Cozaar] 25 mg PO DAILY atorvaSTATin [Lipitor] 80 mg PO DAILY 03/25/20 21:30 VANCOMYCIN TROUGH [CHEM] Routine - Plan Plan:: 70 y/o M admitted for Right sided Pneumonia cont IV vancomycin and Zosyn cont IV fluids F/u on blood cultures Oxygenation via NC to maintain oxygenation >88% DuoNebs PRN shortness of breath Monitor and replete electrolytes Resume home Meds Has known PTSD, possible vascular dementia, had a pontine stroke in 2018, [facility] he was transferred to [facility], Per patient he "hasn't been the same" since his stroke, i dont suspect this to be an acute change in mentation, likely chronic behavior based on review of records cont neuro-psychiatric medications, will try to contact [facility] for more information regarding his mentation Needs frequent redirection, yesterday had to be chemically restrained for agitation Increase Seroquel dose Ativan PRN anxiety
--- NOTE | 2020-03-25 12:02 | PCM.SN.2 ---
- Free Text/Narrative Note: Tried calling the number listed in the chart for [facility], it goes to [facility] department, no answer, left a voice mail to call back
[2020-03-25] MEDS: QUEtiapine 100 MG Tab PO SCH ×2 (14:04→21:12)
[2020-03-25] MEDS ORDERED: Lactated Ringers 1,000 ML IV ONE (16:17)
[2020-03-25] MEDS: Lactated Ringers 1,000 ML IV SCH ×2 (18:26→22:29)
[2020-03-25] MEDS ORDERED: Lactated Ringers 500 ML IV ONE (20:49)
[2020-03-25] MEDS: traZODone 50 MG Tab PO SCH (21:12)
[2020-03-26] MEDS: Piperacillin/Tazobactam 3.375 GM in Sodium Chloride 0.9% 100 ML IV SCH ×3 (00:16→17:04)
[2020-03-26] MEDS: Albuterol/Ipratropium 3.0-0.5 MG/3 ML Neb Soln NEB PRN ×3 (04:03→16:13)
[2020-03-26 06:28] LABS: BLOOD UREA NITROGEN,BUN 15 mg/dL (7.0-18.0); CARBON DIOXIDE,CO2 28.2 mmol/L (21.0-32.0); CHLORIDE,CL 107 mmol/L (98-107); GLUCOSE RANDOM 91 mg/dL (74-106); POTASSIUM,K 3.6 mmol/L (3.5-5.1); SODIUM,NA 143 mmol/L (136-148)
[2020-03-26] MEDS: Pantoprazole 40 MG in Sodium Chloride 0.9% 10 ML IV SCH (08:28)
[2020-03-26] MEDS: Lactated Ringers 1,000 ML IV SCH ×2 (08:28→22:22)
[2020-03-26] MEDS: Clopidogrel 75 MG Tab PO SCH (08:37)
[2020-03-26] MEDS: atorvaSTATin 40 MG Tab PO SCH (08:37)
[2020-03-26] MEDS: buPROPion 150 MG Tab.SR PO SCH ×2 (08:37→22:27)
[2020-03-26] MEDS: Gabapentin 100 MG Cap PO SCH ×2 (08:38→22:27)
[2020-03-26] MEDS: QUEtiapine 100 MG Tab PO SCH ×2 (08:38→22:27)
[2020-03-26] MEDS: Aspirin 325 MG Tab.EC PO SCH (08:38)
--- NOTE | 2020-03-26 08:50 | PCM.PN ---
- General Info Date of Service: 03/26/20 Admission Dx/Problem (Free Text): CAP Subjective Update: Reports he is not feeling well this morning, generalized malaise and body aches. No chest pain. reports shortness of breath. No abdominal pain. No trouble urinating today. Reports poor appetite Functional Status: Reports: Tolerating Diet, Ambulating, Urinating - Review of Systems General: Reports: Weakness (generalized), Fatigue, Malaise Pulmonary: Reports: Shortness of Breath, Cough Cardiovascular: Denies: Chest Pain Gastrointestinal: Denies: Abdominal Pain, Nausea, Vomiting Genitourinary: Reports: No Symptoms. Denies: Dysuria, Frequency, Retention Musculoskeletal: Reports: No Symptoms Skin: Reports: No Symptoms Neurological: Reports: No Symptoms Psychiatric: Reports: Anxiety - Patient Data Vitals - Most Recent: Last Vital Signs Temp 99.6 F 03/26/20 08:00 Pulse 115 H 03/26/20 08:00 Resp 20 03/26/20 08:00 BP 143/79 H 03/26/20 08:00 Pulse Ox 94 L 03/26/20 08:00 Weight - Most Recent: 85 kg I&O - Last 24 Hours: Intake & Output 03/25/20 03/26/20 03/26/20 22:59 06:59 14:59 Intake Total 500 2740 Output Total 650 770 Balance -150 1970 Lab Results Last 24 Hours: Laboratory Results - last 24 hr 03/25/20 03/26/20 03/26/20 Range/Units 21:37 01:45 05:50 WBC 14.76 H (4.0-11.0) K/uL RBC 3.64 L (4.50-5.90) M/uL Hgb 11.0 L (13.0-17.0) g/dL Hct 35.5 L (38.0-50.0) % MCV 97.5 (80.0-98.0) fL MCH 30.2 (27.0-32.0) pg MCHC 31.0 (31.0-37.0) g/dL RDW Std Deviation 47.6 (28.0-62.0) fl RDW Coeff of Flora 13 (11.0-15.0) % Plt Count 275 (150-400) K/uL MPV 9.10 (7.40-12.00) fL Neut % (Auto) 77.7 (48.0-80.0) % Lymph % (Auto) 9.3 L (16.0-40.0) % Garza % (Auto) 11.7 (0.0-15.0) % Eos % (Auto) 1.0 (0.0-7.0) % Baso % (Auto) 0.3 (0.0-1.5) % Neut # (Auto) 11.5 H (1.4-5.7) K/uL Lymph # (Auto) 1.4 (0.6-2.4) K/uL Garza # (Auto) 1.7 H (0.0-0.8) K/uL Eos # (Auto) 0.2 (0.0-0.7) K/uL Baso # (Auto) 0.1 (0.0-0.1) K/uL Nucleated RBC % 0.0 /100WBC Nucleated RBCs # 0 K/uL Lactate 0.5 (0.20-2.00) mmol/L Sodium (136-148) mmol/L Potassium (3.5-5.1) mmol/L Chloride (98-107) mmol/L Carbon Dioxide (21.0-32.0) mmol/L BUN (7.0-18.0) mg/dL Creatinine (0.8-1.3) mg/dL Est Cr Clr Drug Dosing mL/min Estimated GFR (MDRD) ml/min Glucose (74-106) mg/dL Calcium (8.5-10.1) mg/dL Phosphorus (2.6-4.7) mg/dL Magnesium (1.8-2.4) mg/dL Vancomycin Trough 13.4 H (5.0-10.0) ug/mL 03/26/20 Range/Units 05:59 WBC (4.0-11.0) K/uL RBC (4.50-5.90) M/uL Hgb (13.0-17.0) g/dL Hct (38.0-50.0) % MCV (80.0-98.0) fL MCH (27.0-32.0) pg MCHC (31.0-37.0) g/dL RDW Std Deviation (28.0-62.0) fl RDW Coeff of Flora (11.0-15.0) % Plt Count (150-400) K/uL MPV (7.40-12.00) fL Neut % (Auto) (48.0-80.0) % Lymph % (Auto) (16.0-40.0) % Garza % (Auto) (0.0-15.0) % Eos % (Auto) (0.0-7.0) % Baso % (Auto) (0.0-1.5) % Neut # (Auto) (1.4-5.7) K/uL Lymph # (Auto) (0.6-2.4) K/uL Garza # (Auto) (0.0-0.8) K/uL Eos # (Auto) (0.0-0.7) K/uL Baso # (Auto) (0.0-0.1) K/uL Nucleated RBC % /100WBC Nucleated RBCs # K/uL Lactate (0.20-2.00) mmol/L Sodium 143 (136-148) mmol/L Potassium 3.6 (3.5-5.1) mmol/L Chloride 107 (98-107) mmol/L Carbon Dioxide 28.2 (21.0-32.0) mmol/L BUN 15 (7.0-18.0) mg/dL Creatinine 1.1 (0.8-1.3) mg/dL Est Cr Clr Drug Dosing 70.58 mL/min Estimated GFR (MDRD) > 60.0 ml/min Glucose 91 (74-106) mg/dL Calcium 7.8 L (8.5-10.1) mg/dL Phosphorus 2.0 L (2.6-4.7) mg/dL Magnesium 2.0 (1.8-2.4) mg/dL Vancomycin Trough (5.0-10.0) ug/mL Ramu Results Last 24 Hours: Microbiology 03/24/20 06:54 Aerobic Blood Culture - Preliminary Blood - Venous - Lab Draw NO GROWTH AFTER 2 DAYS Anaerobic Blood Culture - Preliminary NO GROWTH AFTER 2 DAYS 03/24/20 06:44 Aerobic Blood Culture - Preliminary Blood - Venous NO GROWTH AFTER 2 DAYS Anaerobic Blood Culture - Preliminary NO GROWTH AFTER 2 DAYS Med Orders - Current: Current Medications Albuterol/Ipratropium (Duoneb 3.0-0.5 Mg/3 Ml) 3 ml NEB Q4HRRT PRN PRN Reason: Shortness Of Breath/wheezing Last Admin: 03/26/20 04:03 Dose: 3 ml Documented by: Aspirin (Ecotrin) 325 mg PO DAILY [facility] Last Admin: 03/26/20 08:38 Dose: 325 mg Documented by: Atorvastatin Calcium (Lipitor) 80 mg PO DAILY [facility] Last Admin: 03/26/20 08:37 Dose: 80 mg Documented by: Bupropion HCl (Wellbutrin Sr) 150 mg PO BID [facility] Last Admin: 03/26/20 08:37 Dose: 150 mg Documented by: Clopidogrel Bisulfate (Plavix) 75 mg PO DAILY [facility] Last Admin: 03/26/20 08:37 Dose: 75 mg Documented by: Gabapentin (Neurontin) 400 mg PO BID [facility] Last Admin: 03/26/20 08:38 Dose: 400 mg Documented by: Piperacillin Sod/Tazobactam (Sod 3.375 gm/ Sodium Chloride) 100 mls @ 200 mls/hr IV Q8H [facility] Last Admin: 03/26/20 08:43 Dose: 200 mls/hr Documented by: Pantoprazole Sodium 40 mg/ (Sodium Chloride) 10 mls @ 300 mls/hr IV Q24H [facility] Last Admin: 03/26/20 08:28 Dose: 300 mls/hr Documented by: Vancomycin HCl 1.25 gm/ Sodium (Chloride) 250 mls @ 166.667 mls/hr IV Q12H [facility] Last Admin: 03/25/20 22:23 Dose: 166.667 mls/hr Documented by: Lactated Ringer's (Ringers, Lactated) 1,000 mls @ 125 mls/hr IV ASDIRECTED [facility] Last Admin: 03/26/20 08:28 Dose: 125 mls/hr Documented by: Lorazepam (Ativan) 1 mg IVPUSH Q6H PRN PRN Reason: Agitation Last Admin: 03/24/20 19:47 Dose: 1 mg Documented by: Ondansetron HCl (Zofran) 4 mg IVPUSH Q4H PRN PRN Reason: Nausea/Vomiting Quetiapine Fumarate (Seroquel) 400 mg PO BEDTIME [facility] Last Admin: 03/25/20 21:12 Dose: 400 mg Documented by: Quetiapine Fumarate (Seroquel) 100 mg PO DAILY [facility] Last Admin: 03/26/20 08:38 Dose: 100 mg Documented by: Sodium Chloride (Saline Flush) 10 ml FLUSH ASDIRECTED PRN PRN Reason: Keep Vein Open Sodium Chloride (Saline Flush) 2.5 ml FLUSH ASDIRECTED PRN PRN Reason: Keep Vein Open Trazodone HCl (Trazodone) 150 mg PO BEDTIME [facility] Last Admin: 03/25/20 21:12 Dose: 150 mg Documented by: Vancomycin HCl (Pharmacy To Dose - Vancomycin) 1 dose .XX ASDIRECTED [facility] Discontinued Medications Bupropion HCl (Wellbutrin Sr) 150 mg PO BID [facility] Diphenhydramine HCl (Benadryl) 50 mg IVPUSH ONETIME ONE Stop: 03/24/20 16:15 Last Admin: 03/24/20 16:25 Dose: 50 mg Documented by: Enoxaparin Sodium (Lovenox) 40 mg SUBCUT Q24H [facility] Last Admin: 03/24/20 10:37 Dose: Not Given Documented by: Haloperidol Lactate (Haldol) 5 mg IM ONETIME ONE Stop: 03/24/20 16:16 Last Admin: 03/24/20 16:27 Dose: 5 mg Documented by: Sodium Chloride (Normal Saline) 1,000 mls @ 999 mls/hr IV .BOLUS ONE Stop: 03/24/20 07:36 Last Admin: 03/24/20 07:00 Dose: 999 mls/hr Documented by: Ceftriaxone Sodium/Dextrose 1 (gm/ Premix) 50 mls @ 100 mls/hr IV ONETIME ONE Stop: 03/24/20 07:05 Last Admin: 03/24/20 07:00 Dose: 100 mls/hr Documented by: Vancomycin HCl 1.25 gm/ Sodium (Chloride) 250 mls @ 167 mls/hr IV ONETIME ONE Stop: 03/24/20 09:41 Last Admin: 03/24/20 10:28 Dose: 167 mls/hr Documented by: Lactated Ringer's (Ringers, Lactated) 1,000 mls @ 999 mls/min IV .BOLUS ONE Stop: 03/25/20 16:18 Last Admin: 03/25/20 17:23 Dose: 999 mls/min Documented by: Lactated Ringer's (Ringers, Lactated) 500 mls @ 999 mls/hr IV BOLUS ONE Stop: 03/25/20 21:19 Last Admin: 03/25/20 20:45 Dose: 999 mls/hr Documented by: Lorazepam (Ativan) 2 mg IVPUSH ONETIME ONE Stop: 03/24/20 16:15 Last Admin: 03/24/20 16:24 Dose: 2 mg Documented by: Losartan Potassium (Cozaar) 25 mg PO DAILY [facility] Last Admin: 03/25/20 09:21 Dose: 25 mg Documented by: Morphine Sulfate (Morphine) 1 mg IVPUSH Q4H PRN PRN Reason: Pain (severe 7-10) Stop: 03/25/20 08:17 Potassium Chloride (Potassium Chloride) 40 meq PO ONETIME ONE Stop: 03/25/20 08:20 Last Admin: 03/25/20 09:19 Dose: 40 meq Documented by: - Exam Quality Assessment: Supplemental Oxygen General: Alert, Oriented, Cooperative, No Acute Distress Neck: Supple Lungs: Decreased Breath Sounds, Crackles. No: Normal Respiratory Effort (dyspnea) Cardiovascular: Tachycardia GI/Abdominal Exam: Normal Bowel Sounds, Soft, Non-Tender, No Organomegaly, No Distention Extremities: Normal Inspection, Normal Range of Motion, Non-Tender, No Pedal Edema Neurological: No New Focal Deficit Psy/Mental Status: Alert, Normal Affect, Normal Mood Sepsis Event Note - Evaluation Sepsis Screening Result: Sepsis Risk - Focused Exam Vital Signs: Vital Signs Temp Pulse Resp BP BP Pulse Ox Pulse Ox 03/26/20 08:00 99.6 F 115 H 20 143/79 H 94 L 03/26/20 03:35 98.3 F 110 H 20 132/72 91 L 03/26/20 02:30 91 L 03/26/20 01:00 20 117/67 95 03/25/20 23:46 99 F 104 H 20 107/73 96 03/25/20 21:50 95 20 121/61 03/25/20 21:00 94 L Date Exam was Performed: 03/26/20 Time Exam was Performed: 11:18 - Problem List & Annotations (1) Right upper lobe pneumonia SNOMED Code(s): 727346204 Code(s): J18.9 - PNEUMONIA, UNSPECIFIED ORGANISM Status: Acute Current Visit: Yes (2) Right lower lobe pneumonia SNOMED Code(s): 015525932 Code(s): J18.9 - PNEUMONIA, UNSPECIFIED ORGANISM Status: Acute Current Visit: Yes (3) History of CVA (cerebrovascular accident) SNOMED Code(s): 522120122 Code(s): Z86.73 - PRSNL HX OF TIA (TIA), AND CEREB INFRC W/O RESID DEFICITS Status: Chronic Current Visit: Yes (4) HLD (hyperlipidemia) SNOMED Code(s): 52512330 Code(s): E78.5 - HYPERLIPIDEMIA, UNSPECIFIED Status: Chronic Current Visit: Yes (5) PTSD (post-traumatic stress disorder) SNOMED Code(s): 87479750 Code(s): F43.10 - POST-TRAUMATIC STRESS DISORDER, UNSPECIFIED Status: Chronic Current Visit: Yes (6) Anxiety SNOMED Code(s): 07167600 Code(s): F41.9 - ANXIETY DISORDER, UNSPECIFIED Status: Chronic Current Visit: No (7) Borderline personality disorder SNOMED Code(s): 50172400 Code(s): F60.3 - BORDERLINE PERSONALITY DISORDER Status: Chronic Current Visit: No (8) Cerebrovascular accident (CVA) of pontine structure SNOMED Code(s): 968314261 Code(s): I63.50 - CEREB INFRC DUE TO UNSP OCCLS OR STENOS OF UNSP CEREB ARTERY Status: Chronic Current Visit: No (9) COPD (chronic obstructive pulmonary disease) SNOMED Code(s): 09746279 Code(s): J44.9 - CHRONIC OBSTRUCTIVE PULMONARY DISEASE, UNSPECIFIED Status: Chronic Current Visit: No Qualifiers: COPD type: unspecified COPD Qualified Code(s): J44.9 - Chronic obstructive pulmonary disease, unspecified (10) Depression SNOMED Code(s): 92289114 Code(s): F32.9 - MAJOR DEPRESSIVE DISORDER, SINGLE EPISODE, UNSPECIFIED Status: Chronic Current Visit: No Qualifiers: Depression Type: unspecified Qualified Code(s): F32.9 - Major depressive disorder, single episode, unspecified (11) HTN (hypertension) SNOMED Code(s): 53754529 Code(s): I10 - ESSENTIAL (PRIMARY) HYPERTENSION Status: Chronic Current Visit: No Qualifiers: Hypertension type: essential hypertension Qualified Code(s): I10 - Essential (primary) hypertension - Problem List Review Problem List Initiated/Reviewed/Updated: Yes - Plan Plan:: This 70 year old male admitted with CAP 1. CAP, right sided - BC negative x 2 days - Continue Zosyn and Vancomycin - Continue oxygen to keep sats 88% or better - Encourage IS use, used in front of me this morning, did well - Duonebs PRN - Leukocytosis improving, remains 14,000 today - CXR consider possible malignancy in [facility]. Extensive chart review in [facility]. Lung Biopsy performed in [place] Aug 2018. No malignancy noted. - Obtain CTA of chest to rule out PE and evaluate PNA better due to tachycardia 2. Anxiety, PTSD, depressive disorder - Continue Seroquel - Continue Trazadone - Intermittent anxiety noted, Ativan PRN for anxiety and agitation. 3. Hx HTN, CVA - Continue ASA, Plavix and Statin. - From chart review, February 15, 2020 have R sided carotid endarterectomy. - Obtain CT head due to AMS, which is resolving as infection is improving. VTE prophylaxis: Heparin Dispo: 2-3 days pending improvement.
[2020-03-26] MEDS ORDERED: Acetaminophen 325 MG Tab PO PRN (09:09)
[2020-03-26] MEDS ORDERED: tiZANidine 4 MG Tab PO PRN (09:34)
[2020-03-26] MEDS: Heparin Sodium 5,000 Units/ML Vial SUBCUT SCH ×2 (10:45→22:28)
[2020-03-26] MEDS: Azithromycin 250 MG Tab PO SCH (10:48)
[2020-03-26] MEDS: LORazepam 2 MG/ML SDV IVPUSH PRN ×3 (11:54→15:10)
--- NOTE | 2020-03-26 17:19 | CT ---
Head CT Technique: Multiple axial sections through the brain were obtained. Intravenous contrast was not utilized. Comparison: No prior intracranial imaging is available. Findings: Ventricles along with basal cisterns and sulci over the convexities are mildly prominent. Minimal areas of diminished density are noted within the periventricular white matter most likely representing small vessel ischemic demyelination change. Old lacunar infarct is noted within both basal ganglia. Old lacunar infarct is noted within the skyler. No other abnormal parenchymal densities are seen. No evidence of intracranial hemorrhage. No midline shift or mass-effect is seen. Atherosclerotic calcification is seen within the vertebral vessels and within the carotid siphon. No acute calvarial abnormality is seen. Visualized mastoid sinuses and visualized paranasal sinuses show nothing acute. Impression: 1. Mild senescent change as described above. 2. Nothing acute is appreciated on noncontrast head CT exam. Diagnostic code #2 This report was dictated in [facility]
--- NOTE | 2020-03-26 17:25 | CT ---
CT chest Technique: Multiple axial sections were obtained from above the lung apices inferiorly through the lung bases. Intravenous contrast was utilized. Findings: Pulmonary arteries are moderately well opacified. No filling defects seen within the main or segmental branches to indicate pulmonary embolism. Off Aorta shows atherosclerotic change. Mildly aneurysmal ascending aorta at 4.5 cm in size. Coronary artery calcification is seen. Mediastinum and hilar region show no adenopathy or mass. No axillary adenopathy is seen. No pericardial thickening is seen. Visualized upper abdominal structures shows no discrete abnormality. Emphysematous change seen within both lungs. Focal consolidation is noted within the anterior right upper lung. Areas of scarring are seen within both lungs, more prominent within the upper right lung. Impression: 1. Area of consolidation within the right upper lung. Uncertain if this is chronic or represents pneumonia. Findings could also represent postobstructive atelectasis. 2. No findings pulmonary embolism. 3. Emphysematous change. 4. 4.5 cm ascending aortic aneurysm. Diagnostic code #3 This report was dictated in [facility]
[2020-03-26] MEDS ORDERED: Iopamidol 755 MG/ML 500 ML Multipack Bottle IVPUSH STA (17:54)
[2020-03-26] MEDS ORDERED: LORazepam 2 MG/ML SDV IVPUSH ONE (18:09)
[2020-03-26] MEDS ORDERED: LORazepam 2 MG/ML SDV ONE (18:13)
[2020-03-26] MEDS: traZODone 50 MG Tab PO SCH (22:28)
[2020-03-27] MEDS: Piperacillin/Tazobactam 3.375 GM in Sodium Chloride 0.9% 100 ML IV SCH ×3 (01:04→16:29)
[2020-03-27 06:48] LABS: BLOOD UREA NITROGEN,BUN 11 mg/dL (7.0-18.0); CARBON DIOXIDE,CO2 30.1 mmol/L (21.0-32.0); CHLORIDE,CL 105 mmol/L (98-107); GLUCOSE RANDOM 85 mg/dL (74-106); POTASSIUM,K 3.8 mmol/L (3.5-5.1); SODIUM,NA 143 mmol/L (136-148)
[2020-03-27] MEDS: Gabapentin 100 MG Cap PO SCH (08:22)
[2020-03-27] MEDS: atorvaSTATin 40 MG Tab PO SCH (08:22)
[2020-03-27] MEDS: Clopidogrel 75 MG Tab PO SCH (08:22)
[2020-03-27] MEDS: buPROPion 150 MG Tab.SR PO SCH (08:22)
[2020-03-27] MEDS: QUEtiapine 100 MG Tab PO SCH (08:23)
[2020-03-27] MEDS: Aspirin 325 MG Tab.EC PO SCH (08:23)
[2020-03-27] MEDS: Pantoprazole 40 MG in Sodium Chloride 0.9% 10 ML IV SCH (08:58)
[2020-03-27] MEDS: Heparin Sodium 5,000 Units/ML Vial SUBCUT SCH ×2 (10:01→21:03)
[2020-03-27] MEDS: Azithromycin 250 MG Tab PO SCH (10:09)
--- NOTE | 2020-03-27 10:58 | PCM.PN ---
- General Info Date of Service: 03/27/20 Admission Dx/Problem (Free Text): CAP Subjective Update: Feeling price this morning. No Chest pain. Reports wheezing and dyspnea today. No abdominal pain or diarrhea. No urinary retention. Functional Status: Reports: Pain Controlled, Tolerating Diet, Ambulating, Urinating - Review of Systems General: Reports: Weakness (generalized), Malaise Pulmonary: Reports: Shortness of Breath, Cough, Wheezing Cardiovascular: Reports: No Symptoms. Denies: Chest Pain Gastrointestinal: Reports: No Symptoms. Denies: Abdominal Pain, Nausea, Vomiting Genitourinary: Reports: No Symptoms. Denies: Dysuria, Frequency, Burning Musculoskeletal: Reports: No Symptoms Skin: Reports: No Symptoms Neurological: Reports: No Symptoms Psychiatric: Reports: No Symptoms - Patient Data Vitals - Most Recent: Last Vital Signs Temp 98.3 F 03/27/20 07:26 Pulse 111 H 03/27/20 07:26 Resp 17 03/27/20 04:00 BP 150/81 H 03/27/20 07:26 Pulse Ox 95 03/27/20 07:26 Weight - Most Recent: 85 kg I&O - Last 24 Hours: Intake & Output 03/26/20 03/27/20 03/27/20 22:59 06:59 14:59 Intake Total 960 300 Output Total 600 200 Balance 360 100 Lab Results Last 24 Hours: Laboratory Results - last 24 hr 03/27/20 03/27/20 Range/Units 06:15 06:15 WBC 13.02 H (4.0-11.0) K/uL RBC 3.75 L (4.50-5.90) M/uL Hgb 11.0 L (13.0-17.0) g/dL Hct 36.5 L (38.0-50.0) % MCV 97.3 (80.0-98.0) fL MCH 29.3 (27.0-32.0) pg MCHC 30.1 L (31.0-37.0) g/dL RDW Std Deviation 47.3 (28.0-62.0) fl RDW Coeff of [place] 13 (11.0-15.0) % Plt Count 302 (150-400) K/uL MPV 9.20 (7.40-12.00) fL Neut % (Auto) 73.0 (48.0-80.0) % Lymph % (Auto) 11.2 L (16.0-40.0) % [place] % (Auto) 12.5 (0.0-15.0) % Eos % (Auto) 2.8 (0.0-7.0) % Baso % (Auto) 0.5 (0.0-1.5) % Neut # (Auto) 9.5 H (1.4-5.7) K/uL Lymph # (Auto) 1.5 (0.6-2.4) K/uL [place] # (Auto) 1.6 H (0.0-0.8) K/uL Eos # (Auto) 0.4 (0.0-0.7) K/uL Baso # (Auto) 0.1 (0.0-0.1) K/uL Nucleated RBC % 0.0 /100WBC Nucleated RBCs # 0 K/uL Sodium 143 (136-148) mmol/L Potassium 3.8 (3.5-5.1) mmol/L Chloride 105 (98-107) mmol/L Carbon Dioxide 30.1 (21.0-32.0) mmol/L BUN 11 (7.0-18.0) mg/dL Creatinine 0.9 (0.8-1.3) mg/dL Est Cr Clr Drug Dosing 86.26 mL/min Estimated GFR (MDRD) > 60.0 ml/min Glucose 85 (74-106) mg/dL Calcium 7.6 L (8.5-10.1) mg/dL Phosphorus 2.6 (2.6-4.7) mg/dL Magnesium 2.0 (1.8-2.4) mg/dL Ramu Results Last 24 Hours: Microbiology 03/24/20 06:54 Aerobic Blood Culture - Preliminary Blood - Venous - Lab Draw NO GROWTH AFTER 3 DAYS Anaerobic Blood Culture - Preliminary NO GROWTH AFTER 3 DAYS 03/24/20 06:44 Aerobic Blood Culture - Preliminary Blood - Venous NO GROWTH AFTER 3 DAYS Anaerobic Blood Culture - Preliminary NO GROWTH AFTER 3 DAYS 03/24/20 14:35 Urine Culture - Final Urine, Voided MIXED AYAH <1000 CFU/ML Med Orders - Current: Current Medications Acetaminophen (Tylenol) 650 mg PO Q4H PRN PRN Reason: Pain Last Admin: 07/27/20 10:47 Dose: 650 mg Documented by: Albuterol/Ipratropium (Duoneb 3.0-0.5 Mg/3 Ml) 3 ml NEB Q4HRRT PRN PRN Reason: Shortness Of Breath/wheezing Last Admin: 03/26/20 16:13 Dose: 3 ml Documented by: Aspirin (Ecotrin) 325 mg PO DAILY [facility] Last Admin: 03/27/20 08:23 Dose: 325 mg Documented by: Atorvastatin Calcium (Lipitor) 80 mg PO DAILY [facility] Last Admin: 03/27/20 08:22 Dose: 80 mg Documented by: Azithromycin (Zithromax) 500 mg PO Q24H [facility] Last Admin: 03/27/20 10:09 Dose: 500 mg Documented by: Bupropion HCl (Wellbutrin Sr) 150 mg PO BID [facility] Last Admin: 03/27/20 08:22 Dose: 150 mg Documented by: Clopidogrel Bisulfate (Plavix) 75 mg PO DAILY [facility] Last Admin: 03/27/20 08:22 Dose: 75 mg Documented by: Gabapentin (Neurontin) 400 mg PO BID [facility] Last Admin: 03/27/20 08:22 Dose: 400 mg Documented by: Heparin Sodium (Porcine) (Heparin Sodium) 5,000 units SUBCUT Q12H [facility] Last Admin: 03/27/20 10:01 Dose: 5,000 units Documented by: Piperacillin Sod/Tazobactam (Sod 3.375 gm/ Sodium Chloride) 100 mls @ 200 mls/hr IV Q8H [facility] Last Admin: 03/27/20 08:18 Dose: 200 mls/hr Documented by: Pantoprazole Sodium 40 mg/ (Sodium Chloride) 10 mls @ 300 mls/hr IV Q24H [facility] Last Admin: 03/27/20 08:58 Dose: 300 mls/hr Documented by: Vancomycin HCl 1.25 gm/ Sodium (Chloride) 250 mls @ 166.667 mls/hr IV Q12H [facility] Last Admin: 03/27/20 09:58 Dose: 166.667 mls/hr Documented by: Lorazepam (Ativan) 1 mg IVPUSH Q6H PRN PRN Reason: Agitation Last Admin: 03/26/20 15:10 Dose: 0.5 mg Documented by: Methylprednisolone Sodium Succinate (Solu-Medrol) 80 mg IVPUSH Q8H [facility] Ondansetron HCl (Zofran) 4 mg IVPUSH Q4H PRN PRN Reason: Nausea/Vomiting Quetiapine Fumarate (Seroquel) 400 mg PO BEDTIME [facility] Last Admin: 03/26/20 22:27 Dose: 400 mg Documented by: Quetiapine Fumarate (Seroquel) 100 mg PO DAILY [facility] Last Admin: 03/27/20 08:23 Dose: 100 mg Documented by: Sodium Chloride (Saline Flush) 10 ml FLUSH ASDIRECTED PRN PRN Reason: Keep Vein Open Sodium Chloride (Saline Flush) 2.5 ml FLUSH ASDIRECTED PRN PRN Reason: Keep Vein Open Tizanidine HCl (Zanaflex) 4 mg PO Q8H PRN PRN Reason: Pain Trazodone HCl (Trazodone) 150 mg PO BEDTIME [facility] Last Admin: 03/26/20 22:28 Dose: 150 mg Documented by: Vancomycin HCl (Pharmacy To Dose - Vancomycin) 1 dose .XX ASDIRECTED [facility] Discontinued Medications Bupropion HCl (Wellbutrin Sr) 150 mg PO BID [facility] Diphenhydramine HCl (Benadryl) 50 mg IVPUSH ONETIME ONE Stop: 03/24/20 16:15 Last Admin: 03/24/20 16:25 Dose: 50 mg Documented by: Enoxaparin Sodium (Lovenox) 40 mg SUBCUT Q24H [facility] Last Admin: 03/24/20 10:37 Dose: Not Given Documented by: Haloperidol Lactate (Haldol) 5 mg IM ONETIME ONE Stop: 03/24/20 16:16 Last Admin: 03/24/20 16:27 Dose: 5 mg Documented by: Sodium Chloride (Normal Saline) 1,000 mls @ 999 mls/hr IV .BOLUS ONE Stop: 03/24/20 07:36 Last Admin: 03/24/20 07:00 Dose: 999 mls/hr Documented by: Ceftriaxone Sodium/Dextrose 1 (gm/ Premix) 50 mls @ 100 mls/hr IV ONETIME ONE Stop: 03/24/20 07:05 Last Admin: 03/24/20 07:00 Dose: 100 mls/hr Documented by: Vancomycin HCl 1.25 gm/ Sodium (Chloride) 250 mls @ 167 mls/hr IV ONETIME ONE Stop: 03/24/20 09:41 Last Admin: 03/24/20 10:28 Dose: 167 mls/hr Documented by: Lactated Ringer's (Ringers, Lactated) 1,000 mls @ 999 mls/min IV .BOLUS ONE Stop: 03/25/20 16:18 Last Admin: 03/25/20 17:23 Dose: 999 mls/min Documented by: Lactated Ringer's (Ringers, Lactated) 1,000 mls @ 125 mls/hr IV ASDIRECTED [facility] Last Admin: 03/26/20 22:22 Dose: 125 mls/hr Documented by: Lactated Ringer's (Ringers, Lactated) 500 mls @ 999 mls/hr IV BOLUS ONE Stop: 03/25/20 21:19 Last Admin: 03/25/20 20:45 Dose: 999 mls/hr Documented by: Iopamidol (Isovue Multipack-370 (76%)) 75 ml IVPUSH ONETIME STA Stop: 03/26/20 17:55 Last Admin: 03/26/20 17:54 Dose: 75 ml Documented by: Lorazepam (Ativan) 2 mg IVPUSH ONETIME ONE Stop: 03/24/20 16:15 Last Admin: 03/24/20 16:24 Dose: 2 mg Documented by: Lorazepam (Ativan) 2 mg IVPUSH ONETIME ONE Stop: 03/26/20 18:10 Last Admin: 03/26/20 18:14 Dose: 2 mg Documented by: Lorazepam (Ativan) Confirm Administered Dose 2 mg .ROUTE .STK-MED ONE Stop: 03/26/20 18:14 Last Admin: 03/26/20 18:27 Dose: Not Given Documented by: Losartan Potassium (Cozaar) 25 mg PO DAILY [facility] Last Admin: 03/25/20 09:21 Dose: 25 mg Documented by: Morphine Sulfate (Morphine) 1 mg IVPUSH Q4H PRN PRN Reason: Pain (severe 7-10) Stop: 03/25/20 08:17 Potassium Chloride (Potassium Chloride) 40 meq PO ONETIME ONE Stop: 03/25/20 08:20 Last Admin: 03/25/20 09:19 Dose: 40 meq Documented by: - Exam General: Alert, Oriented, Cooperative, No Acute Distress Lungs: Clear to Auscultation, Normal Respiratory Effort Cardiovascular: Regular Rate, Regular Rhythm GI/Abdominal Exam: Normal Bowel Sounds, Soft, Non-Tender Extremities: Normal Inspection, Normal Range of Motion, Non-Tender, No Pedal Edema Psy/Mental Status: Alert, Normal Affect, Normal Mood Sepsis Event Note - Evaluation Sepsis Screening Result: Sepsis Risk - Focused Exam Vital Signs: Vital Signs Temp Pulse Resp BP Pulse Ox 03/27/20 07:26 98.3 F 111 H 150/81 H 95 03/27/20 04:00 97.2 F 108 H 17 147/89 H 92 L 03/27/20 00:00 97.7 F 105 H 17 136/76 93 L Date Exam was Performed: 03/27/20 Time Exam was Performed: 11:36 - Problem List & Annotations (1) Right upper lobe pneumonia SNOMED Code(s): 516199214 Code(s): J18.9 - PNEUMONIA, UNSPECIFIED ORGANISM Status: Acute Current Visit: Yes (2) Right lower lobe pneumonia SNOMED Code(s): 960728837 Code(s): J18.9 - PNEUMONIA, UNSPECIFIED ORGANISM Status: Acute Current Visit: Yes (3) History of CVA (cerebrovascular accident) SNOMED Code(s): 472318466 Code(s): Z86.73 - PRSNL HX OF TIA (TIA), AND CEREB INFRC W/O RESID DEFICITS Status: Chronic Current Visit: Yes (4) HLD (hyperlipidemia) SNOMED Code(s): 42487813 Code(s): E78.5 - HYPERLIPIDEMIA, UNSPECIFIED Status: Chronic Current Visit: Yes (5) PTSD (post-traumatic stress disorder) SNOMED Code(s): 59245429 Code(s): F43.10 - POST-TRAUMATIC STRESS DISORDER, UNSPECIFIED Status: Chronic Current Visit: Yes (6) Anxiety SNOMED Code(s): 74129910 Code(s): F41.9 - ANXIETY DISORDER, UNSPECIFIED Status: Chronic Current Visit: No (7) Borderline personality disorder SNOMED Code(s): 29064040 Code(s): F60.3 - BORDERLINE PERSONALITY DISORDER Status: Chronic Current Visit: No (8) Cerebrovascular accident (CVA) of pontine structure SNOMED Code(s): 160770110 Code(s): I63.50 - CEREB INFRC DUE TO UNSP OCCLS OR STENOS OF UNSP CEREB ARTERY Status: Chronic Current Visit: No (9) COPD (chronic obstructive pulmonary disease) SNOMED Code(s): 82476238 Code(s): J44.9 - CHRONIC OBSTRUCTIVE PULMONARY DISEASE, UNSPECIFIED Status: Chronic Current Visit: No Qualifiers: COPD type: unspecified COPD Qualified Code(s): J44.9 - Chronic obstructive pulmonary disease, unspecified (10) Depression SNOMED Code(s): 62716823 Code(s): F32.9 - MAJOR DEPRESSIVE DISORDER, SINGLE EPISODE, UNSPECIFIED Status: Chronic Current Visit: No Qualifiers: Depression Type: unspecified Qualified Code(s): F32.9 - Major depressive disorder, single episode, unspecified (11) HTN (hypertension) SNOMED Code(s): 19462985 Code(s): I10 - ESSENTIAL (PRIMARY) HYPERTENSION Status: Chronic Current Visit: No Qualifiers: Hypertension type: essential hypertension Qualified Code(s): I10 - Essential (primary) hypertension - Problem List Review Problem List Initiated/Reviewed/Updated: Yes - My Orders Last 24 Hours: My Active Orders 03/26/20 10:30 Azithromycin [Zithromax] 500 mg PO Q24H 03/27/20 10:30 methylPREDNISolone Sod Succ [Solu-MEDROL] 80 mg IVPUSH Q8H 03/28/20 05:11 BASIC METABOLIC PANEL,BMP [CHEM] AM CBC WITH AUTO DIFF [HEME] AM MAGNESIUM [CHEM] AM PHOSPHORUS [CHEM] AM 03/29/20 05:11 BASIC METABOLIC PANEL,BMP [CHEM] AM CBC WITH AUTO DIFF [HEME] AM MAGNESIUM [CHEM] AM PHOSPHORUS [CHEM] AM - Plan Plan:: This 70 year old male admitted with CAP 1. CAP, right sided with postobstructive atelectasis - BC negative x 3 days - Continue Zosyn and Azithromycin, DC Vancomycin - Continue oxygen to keep sats 88% or better - Encourage IS use, used in front of me this morning, did well - Duonebs PRN - Leukocytosis improving, - CTA of chest ruled out PE, reveals emphysematous changes and scarring. suspected obstructive atelectasis or pneumonia. - Wheezing today, Add Solumedrol 80 mg TID and monitor. 2. Anxiety, PTSD, depressive disorder - Continue Seroquel - Continue Trazadone - Intermittent anxiety noted, Ativan PRN for anxiety and agitation. 3. Hx HTN, CVA - Continue ASA, Plavix and Statin. - From chart review, February 15, 2020 have R sided carotid endarterectomy. - head CT negative for acute concerns VTE prophylaxis: Heparin Dispo: 2-3 days pending improvement.
[2020-03-27] MEDS: methylPREDNISolone Sodium Succinate 125 MG/2 ML SDV IVPUSH SCH ×2 (11:45→18:42)
[2020-03-27] MEDS: LORazepam 2 MG/ML SDV IVPUSH PRN (19:08)
[2020-03-28] MEDS: Gabapentin 100 MG Cap PO SCH ×2 (00:22→09:02)
[2020-03-28] MEDS: QUEtiapine 100 MG Tab PO SCH ×2 (00:22→09:02)
[2020-03-28] MEDS: buPROPion 150 MG Tab.SR PO SCH ×2 (00:23→09:02)
[2020-03-28] MEDS: Piperacillin/Tazobactam 3.375 GM in Sodium Chloride 0.9% 100 ML IV SCH ×2 (00:23→08:17)
[2020-03-28] MEDS: traZODone 50 MG Tab PO SCH (00:23)
[2020-03-28] MEDS: methylPREDNISolone Sodium Succinate 125 MG/2 ML SDV IVPUSH SCH ×2 (03:09→11:27)
[2020-03-28 07:20] LABS: BLOOD UREA NITROGEN,BUN 12 mg/dL (7.0-18.0); CARBON DIOXIDE,CO2 32.5 mmol/L (21.0-32.0); CHLORIDE,CL 105 mmol/L (98-107); GLUCOSE RANDOM 163 mg/dL (74-106); POTASSIUM,K 4.1 mmol/L (3.5-5.1); SODIUM,NA 144 mmol/L (136-148)
[2020-03-28] MEDS: Pantoprazole 40 MG in Sodium Chloride 0.9% 10 ML IV SCH (08:10)
--- NOTE | 2020-03-28 08:58 | PCM.PN ---
- General Info Date of Service: 03/28/20 Admission Dx/Problem (Free Text): CAP Subjective Update: Reports feeling better this morning. Feels breathing is improved, cough is loosening up. No chest pain or SOB. Functional Status: Reports: Pain Controlled, Tolerating Diet, Ambulating, Urinating - Review of Systems General: Reports: Malaise. Denies: Fatigue Pulmonary: Reports: Cough, Sputum, Wheezing. Denies: Shortness of Breath Cardiovascular: Reports: No Symptoms. Denies: Chest Pain Gastrointestinal: Reports: No Symptoms. Denies: Abdominal Pain, Nausea, Vomiting Genitourinary: Reports: No Symptoms. Denies: Dysuria, Frequency, Burning Musculoskeletal: Reports: No Symptoms Skin: Reports: No Symptoms Neurological: Reports: No Symptoms Psychiatric: Reports: No Symptoms - Patient Data Vitals - Most Recent: Last Vital Signs Temp 98.0 F 03/28/20 07:30 Pulse 97 03/28/20 07:30 Resp 20 03/28/20 07:30 BP 156/85 H 03/28/20 07:30 Pulse Ox 93 L 03/28/20 07:30 Weight - Most Recent: 85 kg I&O - Last 24 Hours: Intake & Output 03/27/20 03/28/20 03/28/20 22:59 06:59 14:59 Intake Total 300 200 Balance 300 200 Lab Results Last 24 Hours: Laboratory Results - last 24 hr 03/28/20 03/28/20 Range/Units 06:49 06:49 WBC 12.21 H (4.0-11.0) K/uL RBC 3.88 L (4.50-5.90) M/uL Hgb 11.4 L (13.0-17.0) g/dL Hct 37.5 L (38.0-50.0) % MCV 96.6 (80.0-98.0) fL MCH 29.4 (27.0-32.0) pg MCHC 30.4 L (31.0-37.0) g/dL RDW Std Deviation 45.6 (28.0-62.0) fl RDW Coeff of [place] 13 (11.0-15.0) % Plt Count 373 (150-400) K/uL MPV 9.20 (7.40-12.00) fL Neut % (Auto) 86.5 H (48.0-80.0) % Lymph % (Auto) 8.8 L (16.0-40.0) % [place] % (Auto) 4.5 (0.0-15.0) % Eos % (Auto) 0.0 (0.0-7.0) % Baso % (Auto) 0.2 (0.0-1.5) % Neut # (Auto) 10.6 H (1.4-5.7) K/uL Lymph # (Auto) 1.1 (0.6-2.4) K/uL [place] # (Auto) 0.6 (0.0-0.8) K/uL Eos # (Auto) 0.0 (0.0-0.7) K/uL Baso # (Auto) 0.0 (0.0-0.1) K/uL Nucleated RBC % 0.0 /100WBC Nucleated RBCs # 0 K/uL Sodium 144 (136-148) mmol/L Potassium 4.1 (3.5-5.1) mmol/L Chloride 105 (98-107) mmol/L Carbon Dioxide 32.5 H (21.0-32.0) mmol/L BUN 12 (7.0-18.0) mg/dL Creatinine 1.0 (0.8-1.3) mg/dL Est Cr Clr Drug Dosing 77.63 mL/min Estimated GFR (MDRD) > 60.0 ml/min Glucose 163 H (74-106) mg/dL Calcium 7.8 L (8.5-10.1) mg/dL Phosphorus 2.4 L (2.6-4.7) mg/dL Magnesium 2.4 (1.8-2.4) mg/dL Ramu Results Last 24 Hours: Microbiology 03/24/20 06:54 Aerobic Blood Culture - Preliminary Blood - Venous - Lab Draw NO GROWTH AFTER 4 DAYS Anaerobic Blood Culture - Preliminary NO GROWTH AFTER 4 DAYS 03/24/20 06:44 Aerobic Blood Culture - Preliminary Blood - Venous NO GROWTH AFTER 4 DAYS Anaerobic Blood Culture - Preliminary NO GROWTH AFTER 4 DAYS Med Orders - Current: Current Medications Acetaminophen (Tylenol) 650 mg PO Q4H PRN PRN Reason: Pain Last Admin: 03/26/20 10:47 Dose: 650 mg Documented by: Albuterol/Ipratropium (Duoneb 3.0-0.5 Mg/3 Ml) 3 ml NEB Q4HRRT PRN PRN Reason: Shortness Of Breath/wheezing Last Admin: 03/26/20 16:13 Dose: 3 ml Documented by: Aspirin (Ecotrin) 325 mg PO DAILY [facility] Last Admin: 03/27/20 08:23 Dose: 325 mg Documented by: Atorvastatin Calcium (Lipitor) 80 mg PO DAILY [facility] Last Admin: 03/27/20 08:22 Dose: 80 mg Documented by: Azithromycin (Zithromax) 500 mg PO Q24H [facility] Last Admin: 03/27/20 10:09 Dose: 500 mg Documented by: Bupropion HCl (Wellbutrin Sr) 150 mg PO BID [facility] Last Admin: 03/28/20 00:23 Dose: Not Given Documented by: Clopidogrel Bisulfate (Plavix) 75 mg PO DAILY [facility] Last Admin: 03/27/20 08:22 Dose: 75 mg Documented by: Gabapentin (Neurontin) 400 mg PO BID [facility] Last Admin: 03/28/20 00:22 Dose: Not Given Documented by: Heparin Sodium (Porcine) (Heparin Sodium) 5,000 units SUBCUT Q12H [facility] Last Admin: 03/27/20 21:03 Dose: 5,000 units Documented by: Piperacillin Sod/Tazobactam (Sod 3.375 gm/ Sodium Chloride) 100 mls @ 200 mls/hr IV Q8H [facility] Last Admin: 03/28/20 08:17 Dose: 200 mls/hr Documented by: Pantoprazole Sodium 40 mg/ (Sodium Chloride) 10 mls @ 300 mls/hr IV Q24H [facility] Last Admin: 03/28/20 08:10 Dose: 300 mls/hr Documented by: Lorazepam (Ativan) 1 mg IVPUSH Q6H PRN PRN Reason: Agitation Last Admin: 03/27/20 19:08 Dose: 1 mg Documented by: Methylprednisolone Sodium Succinate (Solu-Medrol) 80 mg IVPUSH Q8H [facility] Last Admin: 03/28/20 03:09 Dose: 80 mg Documented by: Ondansetron HCl (Zofran) 4 mg IVPUSH Q4H PRN PRN Reason: Nausea/Vomiting Quetiapine Fumarate (Seroquel) 400 mg PO BEDTIME [facility] Last Admin: 03/28/20 00:22 Dose: Not Given Documented by: Quetiapine Fumarate (Seroquel) 100 mg PO DAILY [facility] Last Admin: 03/27/20 08:23 Dose: 100 mg Documented by: Sodium Chloride (Saline Flush) 10 ml FLUSH ASDIRECTED PRN PRN Reason: Keep Vein Open Sodium Chloride (Saline Flush) 2.5 ml FLUSH ASDIRECTED PRN PRN Reason: Keep Vein Open Tizanidine HCl (Zanaflex) 4 mg PO Q8H PRN PRN Reason: Pain Trazodone HCl (Trazodone) 150 mg PO BEDTIME [facility] Last Admin: 03/28/20 00:23 Dose: Not Given Documented by: Discontinued Medications Bupropion HCl (Wellbutrin Sr) 150 mg PO BID [facility] Diphenhydramine HCl (Benadryl) 50 mg IVPUSH ONETIME ONE Stop: 03/24/20 16:15 Last Admin: 03/24/20 16:25 Dose: 50 mg Documented by: Enoxaparin Sodium (Lovenox) 40 mg SUBCUT Q24H [facility] Last Admin: 03/24/20 10:37 Dose: Not Given Documented by: Haloperidol Lactate (Haldol) 5 mg IM ONETIME ONE Stop: 03/24/20 16:16 Last Admin: 03/24/20 16:27 Dose: 5 mg Documented by: Sodium Chloride (Normal Saline) 1,000 mls @ 999 mls/hr IV .BOLUS ONE Stop: 03/24/20 07:36 Last Admin: 03/24/20 07:00 Dose: 999 mls/hr Documented by: Ceftriaxone Sodium/Dextrose 1 (gm/ Premix) 50 mls @ 100 mls/hr IV ONETIME ONE Stop: 03/24/20 07:05 Last Admin: 03/24/20 07:00 Dose: 100 mls/hr Documented by: Vancomycin HCl 1.25 gm/ Sodium (Chloride) 250 mls @ 167 mls/hr IV ONETIME ONE Stop: 03/24/20 09:41 Last Admin: 03/24/20 10:28 Dose: 167 mls/hr Documented by: Vancomycin HCl 1.25 gm/ Sodium (Chloride) 250 mls @ 166.667 mls/hr IV Q12H [facility] Last Admin: 03/27/20 09:58 Dose: 166.667 mls/hr Documented by: Lactated Ringer's (Ringers, Lactated) 1,000 mls @ 999 mls/min IV .BOLUS ONE Stop: 03/25/20 16:18 Last Admin: 03/25/20 17:23 Dose: 999 mls/min Documented by: Lactated Ringer's (Ringers, Lactated) 1,000 mls @ 125 mls/hr IV ASDIRECTED [facility] Last Admin: 03/26/20 22:22 Dose: 125 mls/hr Documented by: Lactated Ringer's (Ringers, Lactated) 500 mls @ 999 mls/hr IV BOLUS ONE Stop: 03/25/20 21:19 Last Admin: 03/25/20 20:45 Dose: 999 mls/hr Documented by: Iopamidol (Isovue Multipack-370 (76%)) 75 ml IVPUSH ONETIME STA Stop: 03/26/20 17:55 Last Admin: 03/26/20 17:54 Dose: 75 ml Documented by: Lorazepam (Ativan) 2 mg IVPUSH ONETIME ONE Stop: 03/24/20 16:15 Last Admin: 03/24/20 16:24 Dose: 2 mg Documented by: Lorazepam (Ativan) 2 mg IVPUSH ONETIME ONE Stop: 03/26/20 18:10 Last Admin: 03/26/20 18:14 Dose: 2 mg Documented by: Lorazepam (Ativan) Confirm Administered Dose 2 mg .ROUTE .STK-MED ONE Stop: 03/26/20 18:14 Last Admin: 03/26/20 18:27 Dose: Not Given Documented by: Losartan Potassium (Cozaar) 25 mg PO DAILY [facility] Last Admin: 03/25/20 09:21 Dose: 25 mg Documented by: Morphine Sulfate (Morphine) 1 mg IVPUSH Q4H PRN PRN Reason: Pain (severe 7-10) Stop: 03/25/20 08:17 Potassium Chloride (Potassium Chloride) 40 meq PO ONETIME ONE Stop: 03/25/20 08:20 Last Admin: 03/25/20 09:19 Dose: 40 meq Documented by: Vancomycin HCl (Pharmacy To Dose - Vancomycin) 1 dose .XX ASDIRECTED [facility] - Exam General: Alert, Oriented, Cooperative, No Acute Distress Lungs: Normal Respiratory Effort, Rhonchi, Wheezing Cardiovascular: Regular Rate, Regular Rhythm, No Murmurs GI/Abdominal Exam: Normal Bowel Sounds, Soft, Non-Tender Extremities: Normal Inspection, Normal Range of Motion, Non-Tender, No Pedal Edema Neurological: No New Focal Deficit Psy/Mental Status: Alert, Normal Affect, Normal Mood Sepsis Event Note - Evaluation Sepsis Screening Result: Sepsis Risk - Focused Exam Vital Signs: Vital Signs Temp Pulse Resp BP BP Pulse Ox 03/28/20 07:30 98.0 F 97 20 156/85 H 93 L 03/28/20 03:55 98.1 F 88 16 127/59 L 92 L 03/28/20 00:20 98.1 F 78 16 133/63 95 Date Exam was Performed: 03/28/20 Time Exam was Performed: 09:01 - Problem List & Annotations (1) Right upper lobe pneumonia SNOMED Code(s): 549038917 Code(s): J18.9 - PNEUMONIA, UNSPECIFIED ORGANISM Status: Acute Current Visit: Yes (2) Right lower lobe pneumonia SNOMED Code(s): 037050661 Code(s): J18.9 - PNEUMONIA, UNSPECIFIED ORGANISM Status: Acute Current Visit: Yes (3) History of CVA (cerebrovascular accident) SNOMED Code(s): 995166166 Code(s): Z86.73 - PRSNL HX OF TIA (TIA), AND CEREB INFRC W/O RESID DEFICITS Status: Chronic Current Visit: Yes (4) HLD (hyperlipidemia) SNOMED Code(s): 80999177 Code(s): E78.5 - HYPERLIPIDEMIA, UNSPECIFIED Status: Chronic Current Visit: Yes (5) PTSD (post-traumatic stress disorder) SNOMED Code(s): 99277949 Code(s): F43.10 - POST-TRAUMATIC STRESS DISORDER, UNSPECIFIED Status: Chronic Current Visit: Yes (6) Anxiety SNOMED Code(s): 57203758 Code(s): F41.9 - ANXIETY DISORDER, UNSPECIFIED Status: Chronic Current Visit: No (7) Borderline personality disorder SNOMED Code(s): 23698144 Code(s): F60.3 - BORDERLINE PERSONALITY DISORDER Status: Chronic Current Visit: No (8) Cerebrovascular accident (CVA) of pontine structure SNOMED Code(s): 808524811 Code(s): I63.50 - CEREB INFRC DUE TO UNSP OCCLS OR STENOS OF UNSP CEREB ARTERY Status: Chronic Current Visit: No (9) COPD (chronic obstructive pulmonary disease) SNOMED Code(s): 32719626 Code(s): J44.9 - CHRONIC OBSTRUCTIVE PULMONARY DISEASE, UNSPECIFIED Status: Chronic Current Visit: No Qualifiers: COPD type: unspecified COPD Qualified Code(s): J44.9 - Chronic obstructive pulmonary disease, unspecified (10) Depression SNOMED Code(s): 48835418 Code(s): F32.9 - MAJOR DEPRESSIVE DISORDER, SINGLE EPISODE, UNSPECIFIED Status: Chronic Current Visit: No Qualifiers: Depression Type: unspecified Qualified Code(s): F32.9 - Major depressive disorder, single episode, unspecified (11) HTN (hypertension) SNOMED Code(s): 43986049 Code(s): I10 - ESSENTIAL (PRIMARY) HYPERTENSION Status: Chronic Current Visit: No Qualifiers: Hypertension type: essential hypertension Qualified Code(s): I10 - Essential (primary) hypertension - Problem List Review Problem List Initiated/Reviewed/Updated: Yes - My Orders Last 24 Hours: My Active Orders 03/27/20 10:30 methylPREDNISolone Sod Succ [Solu-MEDROL] 80 mg IVPUSH Q8H 03/27/20 13:40 PT Evaluation and Treatment [CONS] Routine 03/29/20 05:11 BASIC METABOLIC PANEL,BMP [CHEM] AM CBC WITH AUTO DIFF [HEME] AM MAGNESIUM [CHEM] AM PHOSPHORUS [CHEM] AM - Plan Plan:: This 70 year old male admitted with CAP 1. CAP, right sided with postobstructive atelectasis - Steady improvement daily. - BC negative x 3 days - Continue Zosyn and Azithromycin - Continue oxygen to keep sats 88% or better - Encourage IS use - Duonebs PRN - Leukocytosis improving, - CTA of chest ruled out PE, reveals emphysematous changes and scarring. suspected obstructive atelectasis or pneumonia. - Nice improvement after the addition of Solumedrol 80 mg TID, continue today. 2. Anxiety, PTSD, depressive disorder - Continue Seroquel - Continue Trazadone - Intermittent anxiety noted, Ativan PRN for anxiety and agitation. 3. Hx HTN, CVA - Continue ASA, Plavix and Statin. - From chart review, February 15, 2020 have R sided carotid endarterectomy. - head CT negative for acute concerns VTE prophylaxis: Heparin Dispo: 1-2 days
[2020-03-28] MEDS: atorvaSTATin 40 MG Tab PO SCH (09:02)
[2020-03-28] MEDS: Aspirin 325 MG Tab.EC PO SCH (09:02)
[2020-03-28] MEDS: Clopidogrel 75 MG Tab PO SCH (09:02)
[2020-03-28] MEDS: Heparin Sodium 5,000 Units/ML Vial SUBCUT SCH (10:37)
[2020-03-28] MEDS: Azithromycin 250 MG Tab PO SCH (10:39)
[2020-03-28 12:57] VITALS: BP 152/80; PULSE 94
--- NOTE | 2020-03-28 14:05 | PCM.DCSUM1 ---
Discharge Summary - Hospital Course Brief History: Patient is a 70 y/o M with PMH of htn, hld, stroke, PTSD, anxiety who comes in for evaluation of SOB. Patients states he felt extremely SOB, and felt very tired. Patient was found to be hypoxic 87-88% on RA. Blood gas was reassuring. CBC showed significant for leucocytosis. Patient was started on oxygen, CXR was done showed right upper and lower sided pneumonia. Blood cultures were obtained. Patient was admitted for further management. Diagnosis: Stroke: No - Discharge Data Discharge Date: 03/28/20 Discharge Disposition: Home, Self-Care 01 Condition: Stable - Referral to Home Health Primary Care Physician: PCP None - Discharge Diagnosis/Problem(s) (1) Right upper lobe pneumonia SNOMED Code(s): 024041607 ICD Code: J18.9 - PNEUMONIA, UNSPECIFIED ORGANISM Status: Acute Current Visit: Yes (2) Right lower lobe pneumonia SNOMED Code(s): 896436159 ICD Code: J18.9 - PNEUMONIA, UNSPECIFIED ORGANISM Status: Acute Current Visit: Yes (3) History of CVA (cerebrovascular accident) SNOMED Code(s): 476319582 ICD Code: Z86.73 - PRSNL HX OF TIA (TIA), AND CEREB INFRC W/O RESID DEFICITS Status: Chronic Current Visit: Yes (4) HLD (hyperlipidemia) SNOMED Code(s): 14029662 ICD Code: E78.5 - HYPERLIPIDEMIA, UNSPECIFIED Status: Chronic Current Visit: Yes (5) PTSD (post-traumatic stress disorder) SNOMED Code(s): 90826890 ICD Code: F43.10 - POST-TRAUMATIC STRESS DISORDER, UNSPECIFIED Status: Chronic Current Visit: Yes (6) Anxiety SNOMED Code(s): 21373990 ICD Code: F41.9 - ANXIETY DISORDER, UNSPECIFIED Status: Chronic Current Visit: No (7) Borderline personality disorder SNOMED Code(s): 80707564 ICD Code: F60.3 - BORDERLINE PERSONALITY DISORDER Status: Chronic Current Visit: No (8) Cerebrovascular accident (CVA) of pontine structure SNOMED Code(s): 427415908 ICD Code: I63.50 - CEREB INFRC DUE TO UNSP OCCLS OR STENOS OF UNSP CEREB ARTERY Status: Chronic Current Visit: No (9) COPD (chronic obstructive pulmonary disease) SNOMED Code(s): 33296001 ICD Code: J44.9 - CHRONIC OBSTRUCTIVE PULMONARY DISEASE, UNSPECIFIED Status: Chronic Current Visit: No Qualifiers: COPD type: unspecified COPD Qualified Code(s): J44.9 - Chronic obstructive pulmonary disease, unspecified (10) Depression SNOMED Code(s): 56809870 ICD Code: F32.9 - MAJOR DEPRESSIVE DISORDER, SINGLE EPISODE, UNSPECIFIED Status: Chronic Current Visit: No Qualifiers: Depression Type: unspecified Qualified Code(s): F32.9 - Major depressive disorder, single episode, unspecified (11) HTN (hypertension) SNOMED Code(s): 68417528 ICD Code: I10 - ESSENTIAL (PRIMARY) HYPERTENSION Status: Chronic Current Visit: No Qualifiers: Hypertension type: essential hypertension Qualified Code(s): I10 - Essential (primary) hypertension - Patient Summary/Data Consults: Consultations 03/27/20 13:40 PT Evaluation and Treatment [CONS] Routine Hospital Course: Admitting Diagnoses: Acute on chronic respiratory failure CAP Discharge Diagnoses: Acute on chronic respiratory failure CAP Jero was admitted due to CAP and acute on chronic respiratory failure. He was treated initially with Zosyn and vancomycin. Azithromycin added for coverage of atypicals. CTA obtained due to persistent tachycardia, PE ruled out did show possible post obstructive atelectasis or pneumonia. Solumedrol added. He improved significantly with steroids. Today he is feeling much better. Oxygen was weaned to 2 L NC. Later today he became agitated and wanting to go home to his own apartment. Discussed with Dr Diaz, he talked with patient. He will be discharged home today. He is to continue Azithromycin, Cefdinir for 5 more days and Prednisone 40 mg daily for 5 days. Nursing staff will reach out to case resolution specialist at regarding discharge and new medications. He is to return to ED or clinic if concerns should arise. - Patient Instructions Diet: Regular Diet as Tolerated Activity: No Strenuous Activities, Rest and Relax Today Driving: Do Not Drive Showering/Bathing: May Shower Notify Provider of: Fever, Increased Pain, Swelling and Redness, Drainage, Nausea and/or Vomiting - Discharge Plan *PRESCRIPTION DRUG MONITORING PROGRAM REVIEWED*: Not Applicable *COPY OF PRESCRIPTION DRUG MONITORING REPORT IN PATIENT KRISTEN: Not Applicable Prescriptions/Med Rec: Cefdinir 300 mg PO BID #10 capsule predniSONE [Prednisone] 40 mg PO DAILY #10 tablet Azithromycin [Zithromax] 500 mg PO Q24H #8 tablet Home Medications: Home Meds Aspirin [Ecotrin EC] 325 mg PO DAILY 09/19/14 [History] traZODone 150 mg PO BEDTIME 09/19/14 [History] buPROPion [Wellbutrin SR] 150 mg PO BID 02/21/16 [History] Gabapentin [Neurontin] 400 mg PO BID 04/24/17 [History] QUEtiapine Fumarate [Seroquel] 400 mg PO BEDTIME 04/21/18 [History] Clopidogrel [Plavix] 75 mg PO DAILY 02/17/19 [History] atorvaSTATin Calcium [Atorvastatin Calcium] 80 mg PO DAILY 02/17/19 [History] Losartan Potassium 25 mg PO DAILY 06/24/19 [History] tiZANidine HCl [Tizanidine HCl] 4 mg PO Q8H PRN 03/24/20 [History] Azithromycin [Zithromax] 500 mg PO Q24H #8 tablet 03/28/20 [Rx] Cefdinir 300 mg PO BID #10 capsule 03/28/20 [Rx] predniSONE [Prednisone] 40 mg PO DAILY #10 tablet 03/28/20 [Rx] Patient Handouts: Community-Acquired Pneumonia, Adult, [id number] Referrals: Regine Velazquez NP [Nurse Practitioner] - Jean Abbott MD [Ordering Only Provider] - 04/02/20 3:30 pm Alexandro Daly MD [Consulting Physician] - 04/17/20 9:30 am - Discharge Summary/Plan Comment DC Time >30 min.: No - Patient Data Vitals - Most Recent: Last Vital Signs Temp 98.7 F 03/28/20 12:45 Pulse 94 03/28/20 12:45 Resp 19 03/28/20 12:45 BP 152/80 H 03/28/20 12:45 Pulse Ox 93 L 03/28/20 12:45 Weight - Most Recent: 85 kg I&O - Last 24 hours: Intake & Output 03/27/20 03/28/20 03/28/20 22:59 06:59 14:59 Intake Total 300 200 Balance 300 200 Lab Results - Last 24 hrs: Laboratory Results - last 24 hr 03/28/20 03/28/20 Range/Units 06:49 06:49 WBC 12.21 H (4.0-11.0) K/uL RBC 3.88 L (4.50-5.90) M/uL Hgb 11.4 L (13.0-17.0) g/dL Hct 37.5 L (38.0-50.0) % MCV 96.6 (80.0-98.0) fL MCH 29.4 (27.0-32.0) pg MCHC 30.4 L (31.0-37.0) g/dL RDW Std Deviation 45.6 (28.0-62.0) fl RDW Coeff of Flora 13 (11.0-15.0) % Plt Count 373 (150-400) K/uL MPV 9.20 (7.40-12.00) fL Neut % (Auto) 86.5 H (48.0-80.0) % Lymph % (Auto) 8.8 L (16.0-40.0) % Runnels % (Auto) 4.5 (0.0-15.0) % Eos % (Auto) 0.0 (0.0-7.0) % Baso % (Auto) 0.2 (0.0-1.5) % Neut # (Auto) 10.6 H (1.4-5.7) K/uL Lymph # (Auto) 1.1 (0.6-2.4) K/uL Runnels # (Auto) 0.6 (0.0-0.8) K/uL Eos # (Auto) 0.0 (0.0-0.7) K/uL Baso # (Auto) 0.0 (0.0-0.1) K/uL Nucleated RBC % 0.0 /100WBC Nucleated RBCs # 0 K/uL Sodium 144 (136-148) mmol/L Potassium 4.1 (3.5-5.1) mmol/L Chloride 105 (98-107) mmol/L Carbon Dioxide 32.5 H (21.0-32.0) mmol/L BUN 12 (7.0-18.0) mg/dL Creatinine 1.0 (0.8-1.3) mg/dL Est Cr Clr Drug Dosing 77.63 mL/min Estimated GFR (MDRD) > 60.0 ml/min Glucose 163 H (74-106) mg/dL Calcium 7.8 L (8.5-10.1) mg/dL Phosphorus 2.4 L (2.6-4.7) mg/dL Magnesium 2.4 (1.8-2.4) mg/dL [facility] Results - Last 24 hrs: Microbiology 03/24/20 06:54 Aerobic Blood Culture - Preliminary Blood - Venous - Lab Draw NO GROWTH AFTER 4 DAYS Anaerobic Blood Culture - Preliminary NO GROWTH AFTER 4 DAYS 03/24/20 06:44 Aerobic Blood Culture - Preliminary Blood - Venous NO GROWTH AFTER 4 DAYS Anaerobic Blood Culture - Preliminary NO GROWTH AFTER 4 DAYS Med Orders - Current: Current Medications Acetaminophen (Tylenol) 650 mg PO Q4H PRN PRN Reason: Pain Last Admin: 03/26/20 10:47 Dose: 650 mg Documented by: Albuterol/Ipratropium (Duoneb 3.0-0.5 Mg/3 Ml) 3 ml NEB Q4HRRT PRN PRN Reason: Shortness Of Breath/wheezing Last Admin: 03/26/20 16:13 Dose: 3 ml Documented by: Aspirin (Ecotrin) 325 mg PO DAILY [facility] Last Admin: 03/28/20 09:02 Dose: 325 mg Documented by: Atorvastatin Calcium (Lipitor) 80 mg PO DAILY [facility] Last Admin: 03/28/20 09:02 Dose: 80 mg Documented by: Azithromycin (Zithromax) 500 mg PO Q24H [facility] Last Admin: 03/28/20 10:39 Dose: 500 mg Documented by: Bupropion HCl (Wellbutrin Sr) 150 mg PO BID [facility] Last Admin: 03/28/20 09:02 Dose: 150 mg Documented by: Clopidogrel Bisulfate (Plavix) 75 mg PO DAILY [facility] Last Admin: 03/28/20 09:02 Dose: 75 mg Documented by: Gabapentin (Neurontin) 400 mg PO BID [facility] Last Admin: 03/28/20 09:02 Dose: 400 mg Documented by: Heparin Sodium (Porcine) (Heparin Sodium) 5,000 units SUBCUT Q12H [facility] Last Admin: 03/28/20 10:37 Dose: 5,000 units Documented by: Piperacillin Sod/Tazobactam (Sod 3.375 gm/ Sodium Chloride) 100 mls @ 200 mls/hr IV Q8H [facility] Last Admin: 03/28/20 08:17 Dose: 200 mls/hr Documented by: Pantoprazole Sodium 40 mg/ (Sodium Chloride) 10 mls @ 300 mls/hr IV Q24H [facility] Last Admin: 03/28/20 08:10 Dose: 300 mls/hr Documented by: Lorazepam (Ativan) 1 mg IVPUSH Q6H PRN PRN Reason: Agitation Last Admin: 03/27/20 19:08 Dose: 1 mg Documented by: Methylprednisolone Sodium Succinate (Solu-Medrol) 80 mg IVPUSH Q12H [facility] Ondansetron HCl (Zofran) 4 mg IVPUSH Q4H PRN PRN Reason: Nausea/Vomiting Quetiapine Fumarate (Seroquel) 400 mg PO BEDTIME [facility] Last Admin: 03/28/20 00:22 Dose: Not Given Documented by: Quetiapine Fumarate (Seroquel) 100 mg PO DAILY [facility] Last Admin: 03/28/20 09:02 Dose: 100 mg Documented by: Sodium Chloride (Saline Flush) 10 ml FLUSH ASDIRECTED PRN PRN Reason: Keep Vein Open Sodium Chloride (Saline Flush) 2.5 ml FLUSH ASDIRECTED PRN PRN Reason: Keep Vein Open Tizanidine HCl (Zanaflex) 4 mg PO Q8H PRN PRN Reason: Pain Trazodone HCl (Trazodone) 150 mg PO BEDTIME [facility] Last Admin: 03/28/20 00:23 Dose: Not Given Documented by: Discontinued Medications Bupropion HCl (Wellbutrin Sr) 150 mg PO BID [facility] Diphenhydramine HCl (Benadryl) 50 mg IVPUSH ONETIME ONE Stop: 03/24/20 16:15 Last Admin: 03/24/20 16:25 Dose: 50 mg Documented by: Enoxaparin Sodium (Lovenox) 40 mg SUBCUT Q24H [facility] Last Admin: 03/24/20 10:37 Dose: Not Given Documented by: Haloperidol Lactate (Haldol) 5 mg IM ONETIME ONE Stop: 03/24/20 16:16 Last Admin: 03/24/20 16:27 Dose: 5 mg Documented by: Sodium Chloride (Normal Saline) 1,000 mls @ 999 mls/hr IV .BOLUS ONE Stop: 03/24/20 07:36 Last Admin: 03/24/20 07:00 Dose: 999 mls/hr Documented by: Ceftriaxone Sodium/Dextrose 1 (gm/ Premix) 50 mls @ 100 mls/hr IV ONETIME ONE Stop: 03/24/20 07:05 Last Admin: 03/24/20 07:00 Dose: 100 mls/hr Documented by: Vancomycin HCl 1.25 gm/ Sodium (Chloride) 250 mls @ 167 mls/hr IV ONETIME ONE Stop: 03/24/20 09:41 Last Admin: 03/24/20 10:28 Dose: 167 mls/hr Documented by: Vancomycin HCl 1.25 gm/ Sodium (Chloride) 250 mls @ 166.667 mls/hr IV Q12H [facility] Last Admin: 03/27/20 09:58 Dose: 166.667 mls/hr Documented by: Lactated Ringer's (Ringers, Lactated) 1,000 mls @ 999 mls/min IV .BOLUS ONE Stop: 03/25/20 16:18 Last Admin: 03/25/20 17:23 Dose: 999 mls/min Documented by: Lactated Ringer's (Ringers, Lactated) 1,000 mls @ 125 mls/hr IV ASDIRECTED [facility] Last Admin: 03/26/20 22:22 Dose: 125 mls/hr Documented by: Lactated Ringer's (Ringers, Lactated) 500 mls @ 999 mls/hr IV BOLUS ONE Stop: 03/25/20 21:19 Last Admin: 03/25/20 20:45 Dose: 999 mls/hr Documented by: Iopamidol (Isovue Multipack-370 (76%)) 75 ml IVPUSH ONETIME STA Stop: 03/26/20 17:55 Last Admin: 03/26/20 17:54 Dose: 75 ml Documented by: Lorazepam (Ativan) 2 mg IVPUSH ONETIME ONE Stop: 03/24/20 16:15 Last Admin: 03/24/20 16:24 Dose: 2 mg Documented by: Lorazepam (Ativan) 2 mg IVPUSH ONETIME ONE Stop: 03/26/20 18:10 Last Admin: 03/26/20 18:14 Dose: 2 mg Documented by: Lorazepam (Ativan) Confirm Administered Dose 2 mg .ROUTE .STK-MED ONE Stop: 03/26/20 18:14 Last Admin: 03/26/20 18:27 Dose: Not Given Documented by: Losartan Potassium (Cozaar) 25 mg PO DAILY [facility] Last Admin: 03/25/20 09:21 Dose: 25 mg Documented by: Methylprednisolone Sodium Succinate (Solu-Medrol) 80 mg IVPUSH Q8H [facility] Last Admin: 03/28/20 11:27 Dose: 80 mg Documented by: Morphine Sulfate (Morphine) 1 mg IVPUSH Q4H PRN PRN Reason: Pain (severe 7-10) Stop: 03/25/20 08:17 Potassium Chloride (Potassium Chloride) 40 meq PO ONETIME ONE Stop: 03/25/20 08:20 Last Admin: 03/25/20 09:19 Dose: 40 meq Documented by: Vancomycin HCl (Pharmacy To Dose - Vancomycin) 1 dose .XX ASDIRECTED [facility] - Exam General: Reports: Alert, Oriented, No Acute Distress Lungs: Reports: Clear to Auscultation, Normal Respiratory Effort Cardiovascular: Reports: Regular Rate, Regular Rhythm GI/Abdominal Exam: Normal Bowel Sounds, Soft, Non-Tender Back Exam: Reports: Normal Inspection, Full Range of Motion Extremities: Normal Inspection, Normal Range of Motion, Non-Tender Neurological: Reports: No New Focal Deficit Psy/Mental Status: Reports: Alert, Normal Affect, Normal Mood
[2020-03-28] MEDS ORDERED: methylPREDNISolone Sodium Succinate 125 MG/2 ML SDV IVPUSH SCH (23:00)
== END 2020-03-28 14:40 | disposition home or self-care (01) | DRG 193 ==
LOC: MW.ED 06:07 → MW.MS 06:59
PROVIDERS: ADMIT Student in an Organized Health Care Education/Training Program; ATTEND Student in an Organized Health Care Education/Training Program
DX: J44.0 Chronic obstructive pulmonary disease with (acute) lower respiratory infection (principal); J18.9 Pneumonia, unspecified organism; J44.1 Chronic obstructive pulmonary disease with (acute) exacerbation; J96.20 Acute and chronic respiratory failure, unspecified whether with hypoxia or hypercapnia; J98.11 Atelectasis; I71.4 Abdominal aortic aneurysm, without rupture; E78.5 Hyperlipidemia, unspecified; F43.10 Post-traumatic stress disorder, unspecified; F41.9 Anxiety disorder, unspecified; F60.3 Borderline personality disorder; Z20.828 Contact with and (suspected) exposure to other viral communicable diseases; F32.9 Major depressive disorder, single episode, unspecified; Z79.02 Long term (current) use of antithrombotics/antiplatelets; I10 Essential (primary) hypertension; E78.00 Pure hypercholesterolemia, unspecified; M54.9 Dorsalgia, unspecified; G89.29 Other chronic pain; J43.9 Emphysema, unspecified; Z86.73 Personal history of transient ischemic attack (TIA), and cerebral infarction without residual deficits; Z79.82 Long term (current) use of aspirin; Z79.899 Other long term (current) drug therapy; Z87.891 Personal history of nicotine dependence
CPT/HCPCS: 36415; 36600; 70450; 70450-26; 71045; 71045-26; 71275; 71275-26; 80048; 80053; 80202; 81001; 82803; 83605; 83735; 83880; 84100; 84484; 85025; 87040; 87086; 93005; 94640; 99285-25; A9270-GY; C9113; J0696; J1200; J1630; J1644; J2060; J2543; J2930; J3370; J7030; J7050; J7120; J7620-GY; Q9967; U0002

== ENCOUNTER 2021-09-25 23:03 | Emergency (ER) | payer MEDICARE, MEDICAID ==
[2021-09-25 23:13] VITALS: BP 131/85; PULSE 122
== END 2021-09-25 23:26 | disposition home or self-care (01) ==
LOC: MW.ED 23:03
DX: F91.9 Conduct disorder, unspecified (principal); E78.00 Pure hypercholesterolemia, unspecified; I10 Essential (primary) hypertension; J44.9 Chronic obstructive pulmonary disease, unspecified; Z86.73 Personal history of transient ischemic attack (TIA), and cerebral infarction without residual deficits; Z79.82 Long term (current) use of aspirin; Z79.899 Other long term (current) drug therapy
CPT/HCPCS: 99285

== ENCOUNTER 2021-10-08 09:46 | Inpatient (IN) | payer MEDICARE, MEDICAID ==
[2021-10-08] MEDS ORDERED: Aspirin 81 MG Tab.Chew PO ONE (09:48)
[2021-10-08] MEDS ORDERED: Sodium Chloride 0.9% 1,000 ML IV ONE (09:48)
[2021-10-08 10:52] LABS: BLOOD UREA NITROGEN,BUN 27 mg/dL (7.0-18.0); CARBON DIOXIDE,CO2 22.3 mmol/L (21.0-32.0); CHLORIDE,CL 107 mmol/L (98-107); GLUCOSE RANDOM 134 mg/dL (74-106); LIPASE 121 U/L (73-393); POTASSIUM,K 3.7 mmol/L (3.5-5.1); SODIUM,NA 142 mmol/L (136-148)
[2021-10-08] MEDS ORDERED: Dexamethasone 10 MG/ML SDV IVPUSH ONE (11:11)
[2021-10-08] MEDS ORDERED: Midazolam 1 MG/ML 2 ML SDV IVPUSH ONE (11:58)
[2021-10-08] MEDS ORDERED: Midazolam 1 MG/ML 2 ML SDV ONE (12:00)
[2021-10-08] MEDS ORDERED: Midazolam 5 MG/ML SDV ONE (12:01)
[2021-10-08] MEDS ORDERED: Iopamidol 755 MG/ML 500 ML Multipack Bottle IVPUSH STA (13:38)
[2021-10-08] MEDS ORDERED: Morphine 4 MG/ML VIAL IVPUSH ONE (15:05)
[2021-10-08] MEDS ORDERED: REMDESIVIR 200 MG in Sodium Chloride 0.9% 250 ML IV ONE (15:27)
[2021-10-08] MEDS ORDERED: Albuterol/Ipratropium 4 GM Inhalation Spray INH PRN (17:08)
[2021-10-08] MEDS: Enoxaparin 40 MG/0.4 ML Syringe SUBCUT SCH (18:53)
[2021-10-08] MEDS: LORazepam 2 MG/ML SDV IVPUSH PRN (19:06)
[2021-10-08] MEDS: traZODone 50 MG Tab PO SCH ×2 (20:50→21:19)
[2021-10-08] MEDS: Gabapentin 300 MG Cap PO SCH (20:50)
[2021-10-08] MEDS: QUEtiapine 100 MG Tab PO SCH ×2 (20:50→21:19)
[2021-10-08] MEDS ORDERED: traZODone 50 MG Tab PO SCH (21:00)
[2021-10-08] MEDS ORDERED: Gabapentin 100 MG Cap PO SCH (21:00)
[2021-10-08] MEDS ORDERED: QUEtiapine 100 MG Tab PO SCH (21:00)
[2021-10-09] MEDS: LORazepam 2 MG/ML SDV IVPUSH PRN ×2 (09:59→18:20)
[2021-10-09] MEDS: Gabapentin 300 MG Cap PO SCH ×2 (10:03→20:33)
[2021-10-09] MEDS: buPROPion 150 MG Tab.SR PO SCH (10:03)
[2021-10-09] MEDS: Dexamethasone 4 MG Tab PO SCH (10:03)
[2021-10-09 12:34] LABS: BLOOD UREA NITROGEN,BUN 29 mg/dL (7.0-18.0); CARBON DIOXIDE,CO2 23.3 mmol/L (21.0-32.0); CHLORIDE,CL 112 mmol/L (98-107); GLUCOSE RANDOM 147 mg/dL (74-106); POTASSIUM,K 4.3 mmol/L (3.5-5.1); SODIUM,NA 150 mmol/L (136-148)
[2021-10-09] MEDS: REMDESIVIR 100 MG in Sodium Chloride 0.9% 100 ML IV SCH (13:52)
[2021-10-09] MEDS: Enoxaparin 40 MG/0.4 ML Syringe SUBCUT SCH (18:04)
[2021-10-09] MEDS: traZODone 50 MG Tab PO SCH (20:33)
[2021-10-09] MEDS: QUEtiapine 100 MG Tab PO SCH (20:33)
[2021-10-10 06:51] LABS: BLOOD UREA NITROGEN,BUN 30 mg/dL (7.0-18.0); CARBON DIOXIDE,CO2 24.5 mmol/L (21.0-32.0); CHLORIDE,CL 114 mmol/L (98-107); GLUCOSE RANDOM 128 mg/dL (74-106); SODIUM,NA 150 mmol/L (136-148)
[2021-10-10] MEDS ORDERED: Lactated Ringers 1,000 ML IV SCH (07:15)
[2021-10-10] MEDS: Gabapentin 300 MG Cap PO SCH ×2 (09:18→20:22)
[2021-10-10] MEDS: buPROPion 150 MG Tab.SR PO SCH (09:18)
[2021-10-10] MEDS: Dexamethasone 4 MG Tab PO SCH (09:19)
[2021-10-10] MEDS ORDERED: Dextrose 5% in Water 250 ML IV SCH ×2 (10:00→11:00)
[2021-10-10] MEDS: REMDESIVIR 100 MG in Sodium Chloride 0.9% 100 ML IV SCH (14:05)
[2021-10-10] MEDS: Enoxaparin 40 MG/0.4 ML Syringe SUBCUT SCH (18:17)
[2021-10-10] MEDS: traZODone 50 MG Tab PO SCH (20:22)
[2021-10-10] MEDS: QUEtiapine 100 MG Tab PO SCH (20:23)
[2021-10-11] MEDS: LORazepam 2 MG/ML SDV IVPUSH PRN ×2 (07:21→15:19)
[2021-10-11 07:33] LABS: BLOOD UREA NITROGEN,BUN 24 mg/dL (7.0-18.0); CARBON DIOXIDE,CO2 26.6 mmol/L (21.0-32.0); CHLORIDE,CL 108 mmol/L (98-107); GLUCOSE RANDOM 116 mg/dL (74-106); POTASSIUM,K 4.3 mmol/L (3.5-5.1); SODIUM,NA 144 mmol/L (136-148)
[2021-10-11] MEDS: Gabapentin 300 MG Cap PO SCH ×2 (08:19→21:34)
[2021-10-11] MEDS ORDERED: LORazepam 2 MG/ML SDV IVPUSH PRN (08:19)
[2021-10-11] MEDS: Dexamethasone 4 MG Tab PO SCH (08:19)
[2021-10-11] MEDS: buPROPion 150 MG Tab.SR PO SCH (08:19)
[2021-10-11] MEDS: REMDESIVIR 100 MG in Sodium Chloride 0.9% 100 ML IV SCH (14:20)
[2021-10-11] MEDS: Enoxaparin 40 MG/0.4 ML Syringe SUBCUT SCH (18:49)
[2021-10-11] MEDS ORDERED: QUEtiapine 100 MG Tab ONE (21:11)
[2021-10-11] MEDS: traZODone 50 MG Tab PO SCH (21:33)
[2021-10-12] MEDS: QUEtiapine 100 MG Tab PO SCH (07:18)
[2021-10-12 08:14] LABS: BLOOD UREA NITROGEN,BUN 19 mg/dL (7.0-18.0); CARBON DIOXIDE,CO2 29.8 mmol/L (21.0-32.0); CHLORIDE,CL 106 mmol/L (98-107); GLUCOSE RANDOM 117 mg/dL (74-106); POTASSIUM,K 3.7 mmol/L (3.5-5.1); SODIUM,NA 144 mmol/L (136-148)
[2021-10-12] MEDS: Dexamethasone 4 MG Tab PO SCH (08:21)
[2021-10-12] MEDS: Gabapentin 300 MG Cap PO SCH (08:21)
[2021-10-12] MEDS: buPROPion 150 MG Tab.SR PO SCH (08:21)
[2021-10-12] MEDS ORDERED: Lidocaine 2% 5 ML SDV ONE (09:22)
[2021-10-12] MEDS ORDERED: REMDESIVIR 100 MG in Sodium Chloride 0.9% 100 ML IV SCH (10:00)
[2021-10-12 16:44] VITALS: BP 106/55; PULSE 81
== END 2021-10-12 18:00 | disposition home or self-care (01) | DRG 177 ==
LOC: MW.ED 09:46 → MW.MS 15:20
PROVIDERS: ADMIT Student in an Organized Health Care Education/Training Program; ATTEND Student in an Organized Health Care Education/Training Program
PROC: XW033E5 Introduction of Remdesivir Anti-infective into Peripheral Vein, Percutaneous Approach, New Technology Group 5 (ICD-10-PCS; principal; 2021-10-08)
PROC: 3E0333Z Introduction of Anti-inflammatory into Peripheral Vein, Percutaneous Approach (ICD-10-PCS; 2021-10-08)
PROC: 3E0DX3Z Introduction of Anti-inflammatory into Mouth and Pharynx, External Approach (ICD-10-PCS; 2021-10-08)
PROC: 8E0ZXY6 Isolation (ICD-10-PCS; 2021-10-08)
DX: U07.1 COVID-19 (principal); J96.01 Acute respiratory failure with hypoxia; J44.9 Chronic obstructive pulmonary disease, unspecified; I10 Essential (primary) hypertension; F41.9 Anxiety disorder, unspecified; F43.10 Post-traumatic stress disorder, unspecified; F32.A Depression, unspecified; I71.9 Aortic aneurysm of unspecified site, without rupture; F60.3 Borderline personality disorder; E78.00 Pure hypercholesterolemia, unspecified; G89.29 Other chronic pain; M54.9 Dorsalgia, unspecified; Z79.82 Long term (current) use of aspirin; Z79.02 Long term (current) use of antithrombotics/antiplatelets; Z79.899 Other long term (current) drug therapy; Z86.73 Personal history of transient ischemic attack (TIA), and cerebral infarction without residual deficits; Z90.89 Acquired absence of other organs
CPT/HCPCS: 36415; 36600; 70450; 71045; 71275; 80053; 80305; 80307; 81001; 82803; 82947; 83605; 83690; 83735; 83880; 84439; 84443; 84484; 85025; 86140; 87040 ×2; 87804 ×2; 93005; 96374; 96375; 99285; A9270; J1100; J2250; J7030; Q9967; U0002; J0248; J1650; J2060; J2270; J7050; J7060; J8540

== ENCOUNTER 2021-10-25 15:26 | Emergency (ER) | payer MEDICARE, MEDICAID ==
[2021-10-25] MEDS ORDERED: Sodium Chloride 0.9% 10 ML Syringe FLUSH PRN (15:31)
[2021-10-25] MEDS ORDERED: Sodium Chloride 0.9% 2.5 ML Syringe FLUSH PRN (15:31)
[2021-10-25] MEDS ORDERED: Sodium Chloride 0.9% 1,000 ML IV ONE (15:31)
[2021-10-25 15:52] VITALS: PULSE 102
[2021-10-25 16:39] LABS: ACETAMINOPHEN <2.0 ug/mL
[2021-10-25 17:12] LABS: BLOOD UREA NITROGEN,BUN 9 mg/dL (7.0-18.0); CARBON DIOXIDE,CO2 26.7 mmol/L (21.0-32.0); CHLORIDE,CL 108 mmol/L (98-107); GLUCOSE RANDOM 118 mg/dL (74-106); POTASSIUM,K 3.4 mmol/L (3.5-5.1); SODIUM,NA 141 mmol/L (136-148)
[2021-10-25 23:03] VITALS: BP 125/69
== END 2021-10-26 ==
LOC: MW.ED 15:26
DX: F91.9 Conduct disorder, unspecified (principal); E78.00 Pure hypercholesterolemia, unspecified; I10 Essential (primary) hypertension; J44.9 Chronic obstructive pulmonary disease, unspecified; Z86.16 Personal history of COVID-19; Z79.82 Long term (current) use of aspirin; Z79.899 Other long term (current) drug therapy
CPT/HCPCS: 36415; 71045; 80053; 80143; 80179; 80305; 80307; 81001; 82550; 83735; 84443; 84484; 85025; 93005; 99285; J7030

== ENCOUNTER 2021-10-30 16:56 | Emergency (ER) | payer MEDICARE, MEDICAID ==
[2021-10-30 17:19] VITALS: BP 93/67; PULSE 95
== END 2021-10-30 18:03 | disposition left against medical advice (07) ==
LOC: MW.ED 16:56
DX: M54.9 Dorsalgia, unspecified (principal); I10 Essential (primary) hypertension; E78.00 Pure hypercholesterolemia, unspecified; J44.9 Chronic obstructive pulmonary disease, unspecified; Z79.82 Long term (current) use of aspirin; Z79.899 Other long term (current) drug therapy
CPT/HCPCS: 72125; 72125-26; 72128; 72128-26; 72131; 72131-26; 99284-25

== ENCOUNTER 2021-10-31 20:03 | Observation (INO) | payer MEDICARE, MEDICAID ==
[2021-10-31] MEDS ORDERED: Aspirin 81 MG Tab.Chew PO ONE (20:27)
[2021-10-31] MEDS ORDERED: Acetaminophen 500 MG Tab PO ONE (20:27)
[2021-10-31] MEDS ORDERED: Lactated Ringers 1,000 ML IV STA (20:28)
[2021-10-31] MEDS ORDERED: Albuterol/Ipratropium 3.0-0.5 MG/3 ML Neb Soln NEB ONE (20:29)
[2021-10-31] MEDS ORDERED: OLANZapine 5 MG Tab PO ONE (20:46)
[2021-10-31 21:08] LABS: BLOOD UREA NITROGEN,BUN 6 mg/dL (7.0-18.0); CARBON DIOXIDE,CO2 26.8 mmol/L (21.0-32.0); CHLORIDE,CL 106 mmol/L (98-107); GLUCOSE RANDOM 120 mg/dL (74-106); POTASSIUM,K 3.7 mmol/L (3.5-5.1); SODIUM,NA 142 mmol/L (136-148)
[2021-10-31 21:23] LABS: CORONAVIRUS COVID-19 NAA NEGATIVE (NEGATIVE); INFLUENZA A NAA NEGATIVE (NEGATIVE); INFLUENZA B NAA NEGATIVE (NEGATIVE)
[2021-10-31] MEDS ORDERED: Iopamidol 755 MG/ML 500 ML Multipack Bottle IVPUSH ONE (21:32)
[2021-10-31] MEDS ORDERED: cefTRIAXone 2 GM in Premix Bag 1 BAG IV ONE (23:26)
[2021-10-31] MEDS ORDERED: Azithromycin 500 MG in Sodium Chloride 0.9% 250 ML IV SCH (23:30)
[2021-11-01] MEDS ORDERED: Non-Formulary Medication 1 Each (Quetiapine Fumarate [Quetiapine Fumarate] 400 MG Tablet) PO SCH (00:44)
[2021-11-01] MEDS ORDERED: Non-Formulary Medication 1 Each (Trazodone Hcl [Trazodone Hcl] 150 MG Tablet) PO SCH (00:44)
[2021-11-01 07:39] VITALS: BP 111/67; PULSE 108
[2021-11-01] MEDS ORDERED: Acetaminophen 325 MG Tab PO PRN (08:05)
[2021-11-01] MEDS ORDERED: Albuterol/Ipratropium 3.0-0.5 MG/3 ML Neb Soln NEB PRN (08:05)
[2021-11-01] MEDS ORDERED: Sodium Chloride 0.9% 2.5 ML Syringe FLUSH PRN (08:05)
[2021-11-01] MEDS ORDERED: Docusate Sodium 100 MG Cap PO PRN (08:05)
[2021-11-01] MEDS ORDERED: Sodium Chloride 0.9% 10 ML Syringe FLUSH PRN (08:05)
[2021-11-01] MEDS ORDERED: Ondansetron 4 MG/2 ML SDV IVPUSH PRN (08:05)
[2021-11-01] MEDS ORDERED: Aspirin 325 MG Tab.EC PO SCH (09:00)
[2021-11-01] MEDS ORDERED: Clopidogrel 75 MG Tab PO SCH (09:00)
[2021-11-01] MEDS ORDERED: buPROPion 150 MG Tab.SR PO SCH (09:00)
[2021-11-01] MEDS ORDERED: Gabapentin 100 MG Cap PO SCH (09:00)
[2021-11-01] MEDS ORDERED: traZODone 50 MG Tab PO SCH (21:00)
[2021-11-01] MEDS ORDERED: atorvaSTATin 40 MG Tab PO SCH (21:00)
[2021-11-01] MEDS ORDERED: QUEtiapine 100 MG Tab PO SCH (21:00)
== END 2021-11-01 11:20 | disposition home or self-care (01) ==
LOC: MW.ED 20:03 → INTOOBSV 11-01 00:10 → MW.MS 11-01 00:10
PROVIDERS: ADMIT Internal Medicine; ATTEND Internal Medicine
DX: M79.604 Pain in right leg (principal); R09.02 Hypoxemia; J44.0 Chronic obstructive pulmonary disease with (acute) lower respiratory infection; J18.9 Pneumonia, unspecified organism; J90 Pleural effusion, not elsewhere classified; F41.9 Anxiety disorder, unspecified; F60.3 Borderline personality disorder; F32.A Depression, unspecified; E78.00 Pure hypercholesterolemia, unspecified; F43.10 Post-traumatic stress disorder, unspecified; I10 Essential (primary) hypertension; Z90.89 Acquired absence of other organs; Z86.73 Personal history of transient ischemic attack (TIA), and cerebral infarction without residual deficits; Z86.16 Personal history of COVID-19; Z79.82 Long term (current) use of aspirin; Z79.899 Other long term (current) drug therapy; Z79.02 Long term (current) use of antithrombotics/antiplatelets; Z20.822 Contact with and (suspected) exposure to COVID-19; W19.XXXA Unspecified fall, initial encounter
CPT/HCPCS: 0240U; 36415; 70450; 71275; 72170; 73552; 80053; 82550; 83605; 84484; 85025; 85610; 87040; 93005; A9270; J0456; J0696; J7050; J7120; Q9967; 96365; 99285-25; J7620-GY

== ENCOUNTER 2023-06-24 09:56 | Emergency (ER) | payer MEDICARE, MEDICAID ==
[2023-06-24] MEDS ORDERED: Sodium Chloride 0.9% 1,000 ML IV ONE (09:58)
[2023-06-24] MEDS ORDERED: Cefepime 2 GM in Sodium Chloride 0.9% 50 ML IV ONE (09:58)
[2023-06-24] MEDS ORDERED: Sodium Chloride 0.9% 2.5 ML Syringe FLUSH PRN (09:58)
[2023-06-24] MEDS ORDERED: Sodium Chloride 0.9% 10 ML Syringe FLUSH PRN (09:58)
[2023-06-24] MEDS ORDERED: Albuterol/Ipratropium 3.0-0.5 MG/3 ML Neb Soln NEB ONE (10:04)
[2023-06-24 10:24] LABS: BASOPHILS ABSOLUTE AUTO 0.09 K/uL (0.00-0.20); BASOPHILS PERCENT AUTO 0.7 % (0.0-1.0); EOSINOPHILS ABSOLUTE AUTO 0.16 K/uL (0.00-0.45); EOSINOPHILS PERCENT AUTO 1.2 % (0.0-6.0); IMMATURE GRAN ABSOLUTE AUTO 0.05 K/uL (0.00-0.05); IMMATURE GRAN PERCENT AUTO 0.4 % (0.0-0.4); LYMPHOCYTES ABSOLUTE AUTO 1.41 K/uL (1.00-4.80); LYMPHOCYTES PERCENT AUTO 10.8 % (24.0-44.0); MEAN CORPUSCULAR HEMOGLOBIN 25.1 pg (28.0-32.0); MEAN CORPUSCULAR HGB CONC 31.6 g/dL (32.0-36.0); MEAN CORPUSCULAR VOLUME 79.3 fL (83.0-99.0); MEAN PLATELET VOLUME 9.3 fL (9.4-12.4); MONOCYTES ABSOLUTE AUTO 0.77 K/uL (0.00-0.80); MONOCYTES PERCENT AUTO 5.9 % (0.0-8.0); NEUTROPHILS ABSOLUTE AUTO 10.52 K/uL (1.80-7.70); PLATELET COUNT,PLT 307 K/uL (150-400); RED BLOOD CELL COUNT 4.79 M/uL (4.52-5.90)
[2023-06-24 10:26] LABS: PH,VENOUS 7.37 (7.31-7.41)
[2023-06-24 10:27] LABS: BICARBONATE,VENOUS 30 mEq/L (23-28); PCO2 VENOUS 53 mmHG (41-51); PO2 VENOUS < 49 mmHG
[2023-06-24 10:51] LABS: INR 1.06 (0.86-1.11); PTT,PARTIAL THROMBOPLSTIN TIME 28.8 SEC (23.9-30.7)
[2023-06-24 10:54] LABS: LACTIC ACID 1.1 mmol/L (0.4-2.0)
[2023-06-24 11:00] LABS: ALANINE AMINOTRANSFERASE,ALT 9 IU/L (14-63); ALBUMIN 2.9 g/dL (3.4-5.0); ALKALINE PHOSPHATASE 99 U/L (46-116); ASPARTATE AMNIOTRANSFERASE,AST 19 IU/L (15-37); BILIRUBIN TOTAL 0.4 mg/dL (0.2-1.0); BLOOD UREA NITROGEN,BUN 13 mg/dL (7.0-18.0); CALCIUM 9.1 mg/dL (8.5-10.1); CARBON DIOXIDE,CO2 28.9 mmol/L (21.0-32.0); CHLORIDE,CL 106 mmol/L (98-107); CREATININE 1.2 mg/dL (0.8-1.3); EST CRCL DRUG DOSING (CG) 50.48 mL/min; ETHANOL BLOOD MEDICAL <3 mg/dL; GLUCOSE RANDOM 126 mg/dL (74-106); LIPASE 19 U/L (16-77); MAGNESIUM 1.9 mg/dL (1.8-2.4); POTASSIUM,K 4.8 mmol/L (3.5-5.1); PROTEIN TOTAL,TP 5.7 g/dL (6.4-8.2); SODIUM,NA 143 mmol/L (136-148)
[2023-06-24 11:01] LABS: ESTIMATED GFR 63 mL/min (>60)
[2023-06-24 11:03] LABS: CORONAVIRUS COVID-19 NAA NEGATIVE (NEGATIVE); INFLUENZA A NAA NEGATIVE (NEGATIVE); INFLUENZA B NAA NEGATIVE (NEGATIVE)
[2023-06-24] MEDS ORDERED: Iopamidol 755 MG/ML 500 ML Multipack Bottle IVPUSH STA (13:49)
[2023-06-24] MEDS ORDERED: Dexamethasone 4 MG/ML SDV IVPUSH ONE (14:21)
[2023-06-25 08:17] VITALS: BP 154/76; PULSE 89
== END 2023-06-24 16:39 | disposition home or self-care (01) ==
LOC: MW.ED 09:56 → MW.MS 15:24 → UNDOADMOB 15:24 → MW.ED 16:39
DX: J44.9 Chronic obstructive pulmonary disease, unspecified (principal); R53.1 Weakness; I10 Essential (primary) hypertension; E78.00 Pure hypercholesterolemia, unspecified; Z79.82 Long term (current) use of aspirin; Z79.02 Long term (current) use of antithrombotics/antiplatelets; Z79.899 Other long term (current) drug therapy; Z20.822 Contact with and (suspected) exposure to COVID-19
CPT/HCPCS: 0240U; 36415; 70450; 71045; 74177; 80053; 80307; 82803; 83605; 83690; 83735; 84443; 84484; 85025; 85610; 85730; 87040; 93005; 96365; 99285; J0692; J3490; J7030; Q9967; 93010; 99284; J7620-GY